=== PATIENT | female | born 1960 | race Caucasian/White ===

== ENCOUNTER → 2016-11-21 | Outpatient (CLI) | payer MEDICAID | LOC: RAD 11:30 | PROVIDERS: ATTEND Family Medicine | DX: K57.32 Diverticulitis of large intestine without perforation or abscess without bleeding (principal) | CPT/HCPCS: 74177; 82565 ==

== ENCOUNTER → 2016-12-17 | Outpatient (CLI) | payer MEDICAID | LOC: SP 17:46 | PROVIDERS: ATTEND Family Medicine | DX: I82.4Z2 Acute embolism and thrombosis of unspecified deep veins of left distal lower extremity (principal) | CPT/HCPCS: 93971 ==

== ENCOUNTER 2017-01-13 07:44 | Day surgery (SDC) | payer MEDICAID ==
[2017-01-13] MEDS ORDERED: NALOXONE HCL INJ/PF 0.4 MG/1 ML SDV ONE (08:05)
[2017-01-13] MEDS ORDERED: ONDANSETRON HCL INJ/PF 4 MG/2 ML SDV ONE (08:05)
[2017-01-13] MEDS ORDERED: PROMETHAZINE HCL INJ 25 MG/1 ML VIAL ONE (08:05)
[2017-01-13] MEDS ORDERED: GLYCOPYRROLATE INJ 0.4 MG/2 ML VIAL ONE (08:05)
[2017-01-13] MEDS ORDERED: MIDAZOLAM 2 MG/2 ML INJ ONE (08:06)
[2017-01-13] MEDS ORDERED: FLUMAZENIL INJ 0.5 MG/5 ML VIAL IV ONE (08:07)
[2017-01-13] MEDS ORDERED: GLUCAGON,HUMAN RECOMB 1 MG INJ ONE (08:07)
[2017-01-13] MEDS ORDERED: EPINEPHRINE INJ 1 MG/10 ML DISP.SYRIN ONE (08:07)
[2017-01-13 08:36] LABS: HEMATOCRIT 38.9 % (36.0-47.0); HEMOGLOBIN 12.8 g/dL (12.0-15.5); HGB HCT DIFFERENCE -0.5; MEAN CORPUSCULAR HEMOGLOBIN 28.3 pg (27.0-33.4); MEAN CORPUSCULAR HGB CONC 32.9 g/dL (32.0-36.0); MEAN CORPUSCULAR VOLUME 86 fl (80-97); RED BLOOD COUNT 4.52 10^6/uL (3.72-5.28); RED CELL DISTRIBUTION WIDTH 14.2 % (11.5-14.0); WHITE BLOOD COUNT 5.1 10^3/uL (4.0-10.5)
[2017-01-13 08:51] LABS: ANION GAP 11 (5-19); BLOOD UREA NITROGEN 17 mg/dL (7-20); CALCIUM 9.2 mg/dL (8.4-10.2); CARBON DIOXIDE 23 mmol/L (22-30); CHLORIDE 107 mmol/L (98-107); CREATININE RESULT 0.57 mg/dL (0.52-1.25); GLUCOSE 111 mg/dL (75-110); POTASSIUM 3.7 mmol/L (3.6-5.0); SODIUM 141.4 mmol/L (137-145)
[2017-01-13] MEDS: MIDAZOLAM 2 MG/2 ML INJ ONE ×4 (09:24→09:29)
[2017-01-13] MEDS: FENTANYL CITRATE INJ/PF 100 MCG/2 ML AMPUL ONE ×4 (09:26→09:31)
--- NOTE | 2017-01-13 09:47 | Operative Report ---
Operative Report DATE OF SURGERY: 01/13/17 PREOPERATIVE DIAGNOSIS: History of colon resection for diverticulitis. POSTOPERATIVE DIAGNOSIS: Inadequate bowel prep. OPERATION: Attempted colonoscopy. Aborted procedure due to poor bowel prep. SURGEON: JANIS CONNOLLY ANESTHESIA: Moderate Sedation TISSUE REMOVED OR ALTERED: None COMPLICATIONS: None ESTIMATED BLOOD LOSS: none INTRAOPERATIVE FINDINGS: Extremely poor bowel prep with semi-liquid stool precluding adequate visualization. PROCEDURE: Informed consent was obtained. Patient was brought to the endoscopy suite IV sedation with Versed and fentanyl was administered digital rectal exam revealed no palpable perianal masses. Endoscope was passed into the patient's rectum where copious amount of the semi-liquid the stool was encountered the scope was passed into the sigmoid colon but again copious amount of the brown semi-liquid stool was encountered. With the the inadequate bowel prep the procedure was aborted since adequate visualization was not possible. Patient tolerated procedure well with no apparent complications. We will reschedule her and do a 2 day bowel prep.
--- NOTE | 2017-01-13 09:55 | PDOC DISCHARGE SUMMARY ---
Discharge Summary (SDC) - Discharge Final Diagnosis: Inadequate bowel prep Date of Surgery: 01/13/17 Discharge Date: 01/13/17 Condition: Good Treatment or Instructions: Attempted colonoscopy. Aborted procedure due to poor bowel prep. Prescriptions: Peg 3350/Na Sulf,Bicarb,Cl/KCl [Golytely Solution 4000 ml] 4,000 ml PO DAILY #2 bottle Discharge Diet: As Tolerated Discharge Activity: Activity As Tolerated
--- NOTE | 2017-01-13 09:56 | PDOC DISCHARGE SUMMARY ---
Discharge Summary (SDC) - Discharge Final Diagnosis: Inadequate bowel prep Date of Surgery: 01/13/17 Discharge Date: 01/13/17 Condition: Good Treatment or Instructions: Attempted colonoscopy. Aborted procedure due to poor bowel prep. Prescriptions: Peg 3350/Na Sulf,Bicarb,Cl/KCl [Golytely Solution 4000 ml] 4,000 ml PO DAILY #2 bottle Referrals: HARLEY ANDRADE MD [Primary Care Provider] - Discharge Diet: As Tolerated Discharge Activity: Activity As Tolerated
[2017-01-13 10:55] VITALS: BP 115/85
== END 2017-01-13 10:55 | disposition home or self-care (01) ==
LOC: END 07:44
PROVIDERS: ATTEND Surgery
DX: Z87.19 Personal history of other diseases of the digestive system (principal); Z09 Encounter for follow-up examination after completed treatment for conditions other than malignant neoplasm; Z53.8 Procedure and treatment not carried out for other reasons; Z90.49 Acquired absence of other specified parts of digestive tract; Z80.0 Family history of malignant neoplasm of digestive organs; J45.909 Unspecified asthma, uncomplicated; I10 Essential (primary) hypertension; Z86.73 Personal history of transient ischemic attack (TIA), and cerebral infarction without residual deficits; D50.9 Iron deficiency anemia, unspecified; R00.2 Palpitations; K21.9 Gastro-esophageal reflux disease without esophagitis; J44.9 Chronic obstructive pulmonary disease, unspecified; F32.9 Major depressive disorder, single episode, unspecified; E78.5 Hyperlipidemia, unspecified; M19.90 Unspecified osteoarthritis, unspecified site; Z96.659 Presence of unspecified artificial knee joint; Z85.828 Personal history of other malignant neoplasm of skin; Z79.51 Long term (current) use of inhaled steroids; Z79.899 Other long term (current) drug therapy; Z79.82 Long term (current) use of aspirin; Z88.6 Allergy status to analgesic agent; Z88.8 Allergy status to other drugs, medicaments and biological substances; Z88.5 Allergy status to narcotic agent
CPT/HCPCS: 36415; 85027; 80048; J2250; J3010; J0171; J1610; J2310; J2405; J2550; J3490

== ENCOUNTER 2017-01-25 18:37 | Emergency (ER) | payer MEDICAID ==
--- NOTE | 2017-01-25 18:43 | ER Document Report ---
ED Medical Screen (RME) - General Stated Complaint: ARM PAIN Notes: right shoulder pain for 5 days, denies any recent trauma injury, h/o OA taking 800mg motrin at home with minimal relief I have greeted and performed a rapid initial assessment of this patient. A comprehensive ED assessment and evaluation of the patient, analysis of test results and completion of the medical decision making process will be conducted by additional ED providers. TRAVEL OUTSIDE OF THE [place] IN LAST 30 DAYS: No - Related Data Allergies/Adverse Reactions: atorvastatin Allergy (Severe, Verified 01/25/17 18:41) myalgia niacin Allergy (Severe, Verified 01/25/17 18:41) Anaphylaxis adhesive tape Allergy (Intermediate, Verified 01/25/17 18:41) REDNESS, BLISTERS meloxicam Allergy (Intermediate, Verified 01/25/17 18:41) wheezing, palpitations sulfamethoxazole [From Septra] Allergy (Mild, Verified 01/25/17 18:41) rash tramadol Allergy (Mild, Verified 01/25/17 18:41) wheezing trimethoprim [From Septra] Allergy (Mild, Verified 01/25/17 18:41) rash simvastatin Allergy (Unknown, Verified 01/25/17 18:41) Sulfa (Sulfonamide Antibiotics) Allergy (Unknown, Verified 01/25/17 18:41) rash zolpidem tartrate [From Ambien] Adverse Reaction (Severe, Verified 01/25/17 18: 41) sleepwalking dipyridamole [From Aggrenox] Adverse Reaction (Intermediate, Verified 01/25/17 18:41) HEADACHES methylprednisolone [From Medrol] Adverse Reaction (Intermediate, Verified 18:41) N/V/hyperactive topiramate Adverse Reaction (Intermediate, Verified 01/25/17 18:41) kidney stones aspirin Adverse Reaction (Mild, Verified 01/25/17 18:41) GI upset guaifenesin Adverse Reaction (Mild, Verified 01/25/17 18:41) GI upset rosuvastatin Adverse Reaction (Mild, Verified 01/25/17 18:41) muscle pain pseudoephedrine Adverse Reaction (Unknown, Verified 01/25/17 18:41) GI upset Past Medical History - Past Medical History Cardiac Medical History: Reports: Hx Hypercholesterolemia, Hx Hypertension - meds 3 yrs minimum, Hx Pulmonary Embolism - 6 yrs ago Denies: Hx Coronary Artery Disease, Hx Heart Attack Pulmonary Medical History: Reports: Hx Asthma - last attack long time ago, Hx Bronchitis, Hx COPD, Hx Pneumonia Neurological Medical History: Denies: Hx Cerebrovascular Accident, Hx Seizures Renal/ Medical History: Reports: Hx Kidney Stones - passed Malignancy Medical History: GI Medical History: Reports: Hx Diverticulitis, Hx Gastroesophageal Reflux Disease Musculoskeltal Medical History: Reports Hx Arthritis Psychiatric Medical History: Reports: Hx Anxiety, Hx Depression Traumatic Medical History: Reports: Hx Fractures - nose as child Past Surgical History: Reports: Hx Abdominal Surgery - UMBILICAL HERNIA, Hx Appendectomy, Hx Bowel Surgery - resection R/T diverticulitis, Hx Kidney (Renal Surgery) - LITHOTRIPSY, Hx Orthopedic Surgery - right knee replacement, Hx Tonsillectomy, Hx Umbilical Hernia. Denies: Hx Hysterectomy - Immunizations Immunizations up to date: Yes Hx Diphtheria, Pertussis, Tetanus Vaccination: Yes
[2017-01-25 19:05] VITALS: BP 145/92
[2017-01-25] MEDS ORDERED: ACETAMINOPHEN 325 MG TABLET PO ONE (20:15)
[2017-01-25] MEDS ORDERED: IBUPROFEN 600 MG TABLET PO ONE (20:15)
--- NOTE | 2017-01-25 20:18 | ER Document Report ---
HPI - HPI Patient complains to provider of: right arm apin Onset: Other - 4 days Onset/Duration: Gradual Quality of pain: Achy Pain Level: 3 Context: 56 yo female with right upper arm pain with movement for 4 days. no injury. doesn't work. no neck pain or injury. no weakness. no chest pain or sob. Associated Symptoms: None Exacerbated by: Movement Relieved by: Denies Similar symptoms previously: No Recently seen / treated by doctor: No - ROS ROS below otherwise negative: Yes Systems Reviewed and Negative: Yes All other systems reviewed and negative - CONSTITUTIONAL Constitutional: DENIES: Fever, Chills - EENT EENT: DENIES: Sore Throat, Ear Pain, Nasal Drainage-Clear, Nasal Drainage- Purulent, Congestion, Eye problems - NEURO Neurology: DENIES: Headache, Weakness, Vision blurred, Dizzinesss / Vertigo - CARDIOVASCULAR Cardiovascular: DENIES: Chest pain - RESPIRATORY Respiratory: DENIES: Trouble Breathing, Coughing - GASTROINTESTINAL Gastrointestinal: DENIES: Abdominal Pain, Nausea, Patient vomiting, Diarrhea, Constipation, Black / Bloody Stools - URINARY Urinary: DENIES: Dysuria, Urgency, Frequency - REPRODUCTIVE Reproductive: DENIES: : - MUSCULOSKELETAL Musculoskeletal: REPORTS: Extremity pain. DENIES: Back Pain, Neck Pain, Swelling - DERM Skin Color: Normal Skin Problems: Stage I Past Medical History - General Information source: Patient - Social History Smoking Status: Unknown if Ever Smoked Chew tobacco use (# tins/day): No Frequency of alcohol use: None Drug Abuse: None Lives with: Family Family History: Reviewed & Not Pertinent, Arthritis, CAD, Hypertension, Malignancy, Other Patient has suicidal ideation: No Patient has homicidal ideation: No - Past Medical History Cardiac Medical History: Reports: Hx Hypercholesterolemia, Hx Hypertension - meds 3 yrs minimum, Hx Pulmonary Embolism - 6 yrs ago Pulmonary Medical History: Reports: Hx Asthma - last attack long time ago, Hx Bronchitis, Hx COPD, Hx Pneumonia Renal/ Medical History: Reports: Hx Kidney Stones - passed Malignancy Medical History: GI Medical History: Reports: Hx Diverticulitis, Hx Gastroesophageal Reflux Disease Musculoskeltal Medical History: Reports Hx Arthritis Psychiatric Medical History: Reports: Hx Anxiety, Hx Depression Traumatic Medical History: Reports: Hx Fractures - nose as child Past Surgical History: Reports: Hx Abdominal Surgery - UMBILICAL HERNIA, Hx Appendectomy, Hx Bowel Surgery - resection R/T diverticulitis, Hx Kidney (Renal Surgery) - LITHOTRIPSY, Hx Orthopedic Surgery - right knee replacement, Hx Tonsillectomy, Hx Umbilical Hernia. Denies: Hx Hysterectomy - Immunizations Immunizations up to date: Yes Hx Diphtheria, Pertussis, Tetanus Vaccination: Yes Hx Pneumococcal Vaccination: 11/17/05 Vertical Provider Document - CONSTITUTIONAL Agree With Documented VS: Yes Exam Limitations: No Limitations General Appearance: No Apparent Distress - INFECTION CONTROL TRAVEL OUTSIDE OF THE [place] IN LAST 30 DAYS: No - HEENT HEENT: Normal ENT Exam - NECK Neck: Supple - non tender back and neck - RESPIRATORY Respiratory: Breath Sounds Normal, No Respiratory Distress O2 Sat by Pulse Oximetry: 98 - CARDIOVASCULAR Cardiovascular: Regular Rate, Regular Rhythm - MUSCULOSKELETAL/EXTREMETIES Musculoskeletal/Extremeties: MAEW, FROM, Tender - rigjt deltoid muscle - NEURO Level of Consciousness: Awake, Alert Motor/Sensory: No Motor Deficit, No Sensory Deficit - DERM Integumentary: Warm, Dry, No Rash Course - Vital Signs Vital signs: Temp Pulse Resp BP Pulse Ox 97.6 F 99 20 145/92 H 98 01/25/17 18:43 01/25/17 18:43 01/25/17 18:43 01/25/17 18:43 01/25/17 18:43 Discharge - Discharge Clinical Impression: Right arm pain Condition: Good Disposition: HOME, SELF-CARE Instructions: Warm Packs ([facility]), Acetaminophen, Anti-Inflammatory Medication ( [facility]), Myalagia (Muscle Pain) ([facility]) Additional Instructions: warm \compress to er if worse see dr cruz in the morning Please complete the patient satisfaction survey if you get one, and return it.. If you do not receive a survey, then you can go to the [facility] website, [email or web address] and place your comments about your very good care. Thank you very much. It was a pleasure being your medical provider today. Prescriptions: Ibuprofen [Motrin 600 mg Tablet] 600 mg PO Q8HP PRN #30 tablet PRN Reason: Referrals: HARLEY CRUZ MD [ACTIVE STAFF] - Follow up tomorrow
== END 2017-01-25 22:00 | disposition home or self-care (01) ==
LOC: ER 18:37
DX: M79.601 Pain in right arm (principal); E78.00 Pure hypercholesterolemia, unspecified; I10 Essential (primary) hypertension; J44.9 Chronic obstructive pulmonary disease, unspecified; K21.9 Gastro-esophageal reflux disease without esophagitis; Z96.651 Presence of right artificial knee joint; Z87.442 Personal history of urinary calculi; Z86.711 Personal history of pulmonary embolism
CPT/HCPCS: 99283; J3490 ×2

== ENCOUNTER → 2017-01-26 | Outpatient (CLI) | payer MEDICAID ==
[2017-01-26 08:23] LABS: ABSOLUTE BASOPHILS # (AUTO) 0.1 10^3/uL (0.0-0.2); ABSOLUTE EOSINOPHILS # (AUTO) 0.3 10^3/uL (0.0-0.6); ABSOLUTE LYMPHOCYTES (AUTO) 1.7 10^3/uL (0.5-4.7); ABSOLUTE MONOCYTES (AUTO) 0.6 10^3/uL (0.1-1.4); ABSOLUTE NEUT (AUTO) 3.7 10^3/uL (1.7-8.2); BASOPHILS % (AUTO) 1.2 % (0-2); HEMOGLOBIN 13.7 g/dL (12.0-15.5); HGB HCT DIFFERENCE 0.1; LYMPHOCYTES % (AUTO) 27.2 % (13-45); MEAN CORPUSCULAR HEMOGLOBIN 28.4 pg (27.0-33.4); MEAN CORPUSCULAR HGB CONC 33.3 g/dL (32.0-36.0); MEAN CORPUSCULAR VOLUME 85 fl (80-97); MONOCYTES % (AUTO) 9.5 % (3-13); RED BLOOD COUNT 4.81 10^6/uL (3.72-5.28); SEGMENTED NEUTROPHILS % (AUTO) 58.1 % (42-78); WHITE BLOOD COUNT 6.3 10^3/uL (4.0-10.5)
[2017-01-26 08:46] LABS: ALANINE AMINOTRANSFERASE 37 U/L (9-52); ALKALINE PHOSPHATASE 106 U/L (38-126); ANION GAP 12 (5-19); ASPARTATE AMINO TRANSFERASE 22 U/L (14-36); BILIRUBIN,TOTAL 0.4 mg/dL (0.2-1.3); BLOOD UREA NITROGEN 18 mg/dL (7-20); CARBON DIOXIDE 23 mmol/L (22-30); CHLORIDE 108 mmol/L (98-107); CHOLESTEROL 179.69 mg/dL (0-200); CREATININE RESULT 0.63 mg/dL (0.52-1.25); Direct HDL 43 mg/dL (>40); GLUCOSE 108 mg/dL (75-110); POTASSIUM 4.1 mmol/L (3.6-5.0); SODIUM 142.9 mmol/L (137-145); TOTAL PROTEIN 6.9 g/dL (6.3-8.2); TRIGLYCERIDES 265 mg/dL (<150)
[2017-01-26 08:56] LABS: DIRECT LDL 112 mg/dL (<100)
[2017-01-26 09:19] LABS: FERRITIN 8.05 ng/mL (11.1-264.0)
== END ==
LOC: LAB 08:07
PROVIDERS: ATTEND Family Medicine
DX: E78.2 Mixed hyperlipidemia (principal); Z79.899 Other long term (current) drug therapy; D50.8 Other iron deficiency anemias
CPT/HCPCS: 36415; 80048; 80061; 80076; 82728; 83540; 83550; 84443; 85025

== ENCOUNTER 2017-01-28 17:36 | Emergency (ER) | payer MEDICAID ==
--- NOTE | 2017-01-28 17:45 | ER Document Report ---
ED Medical Screen (RME) - General Stated Complaint: HIGH BLOOD PRESSURE Notes: 56 yo female c/o blood pressure problems. BP going "up and down". + headache, mild dizziness. no chest pain or shortness of breath + hx/o HTN. Taking meds as prescribed PCM Dr Rodriguez TRAVEL OUTSIDE OF THE [place] IN LAST 30 DAYS: No - Related Data Allergies/Adverse Reactions: atorvastatin Allergy (Severe, Verified 01/25/17 19:06) myalgia niacin Allergy (Severe, Verified 01/25/17 19:06) Anaphylaxis adhesive tape Allergy (Intermediate, Verified 01/25/17 19:06) REDNESS, BLISTERS meloxicam Allergy (Intermediate, Verified 01/25/17 19:06) wheezing, palpitations sulfamethoxazole [From Septra] Allergy (Mild, Verified 01/25/17 19:06) rash tramadol Allergy (Mild, Verified 01/25/17 19:06) wheezing trimethoprim [From Septra] Allergy (Mild, Verified 01/25/17 19:06) rash simvastatin Allergy (Unknown, Verified 01/25/17 19:06) Sulfa (Sulfonamide Antibiotics) Allergy (Unknown, Verified 01/25/17 19:06) rash zolpidem tartrate [From Ambien] Adverse Reaction (Severe, Verified 01/25/17 19: 06) sleepwalking dipyridamole [From Aggrenox] Adverse Reaction (Intermediate, Verified 01/25/17 19:06) HEADACHES methylprednisolone [From Medrol] Adverse Reaction (Intermediate, Verified 19:06) N/V/hyperactive topiramate Adverse Reaction (Intermediate, Verified 01/25/17 19:06) kidney stones aspirin Adverse Reaction (Mild, Verified 01/25/17 19:06) GI upset guaifenesin Adverse Reaction (Mild, Verified 01/25/17 19:06) GI upset rosuvastatin Adverse Reaction (Mild, Verified 01/25/17 19:06) muscle pain pseudoephedrine Adverse Reaction (Unknown, Verified 01/25/17 19:06) GI upset Past Medical History - Past Medical History Cardiac Medical History: Reports: Hx Hypercholesterolemia, Hx Hypertension - meds 3 yrs minimum, Hx Pulmonary Embolism - 6 yrs ago Denies: Hx Coronary Artery Disease, Hx Heart Attack Pulmonary Medical History: Reports: Hx Asthma - last attack long time ago, Hx Bronchitis, Hx COPD, Hx Pneumonia Neurological Medical History: Denies: Hx Cerebrovascular Accident, Hx Seizures Renal/ Medical History: Reports: Hx Kidney Stones - passed Malignancy Medical History: GI Medical History: Reports: Hx Diverticulitis, Hx Gastroesophageal Reflux Disease Musculoskeltal Medical History: Reports Hx Arthritis Psychiatric Medical History: Reports: Hx Anxiety, Hx Depression Traumatic Medical History: Reports: Hx Fractures - nose as child Past Surgical History: Reports: Hx Abdominal Surgery - UMBILICAL HERNIA, Hx Appendectomy, Hx Bowel Surgery - resection R/T diverticulitis, Hx Kidney (Renal Surgery) - LITHOTRIPSY, Hx Orthopedic Surgery - right knee replacement, Hx Tonsillectomy, Hx Umbilical Hernia. Denies: Hx Hysterectomy - Immunizations Immunizations up to date: Yes Hx Diphtheria, Pertussis, Tetanus Vaccination: Yes
[2017-01-28 18:19] LABS: ABSOLUTE BASOPHILS # (AUTO) 0.1 10^3/uL (0.0-0.2); ABSOLUTE EOSINOPHILS # (AUTO) 0.2 10^3/uL (0.0-0.6); ABSOLUTE LYMPHOCYTES (AUTO) 2.1 10^3/uL (0.5-4.7); ABSOLUTE MONOCYTES (AUTO) 0.6 10^3/uL (0.1-1.4); ABSOLUTE NEUT (AUTO) 4.8 10^3/uL (1.7-8.2); BASOPHILS % (AUTO) 1.2 % (0-2); EOSINOPHILS % (AUTO) 2.7 % (0-6); HEMATOCRIT 40.2 % (36.0-47.0); HEMOGLOBIN 13.7 g/dL (12.0-15.5); HGB HCT DIFFERENCE 0.9; LYMPHOCYTES % (AUTO) 27.2 % (13-45); MEAN CORPUSCULAR HEMOGLOBIN 29.1 pg (27.0-33.4); MEAN CORPUSCULAR HGB CONC 34.1 g/dL (32.0-36.0); MEAN CORPUSCULAR VOLUME 85 fl (80-97); MONOCYTES % (AUTO) 7.8 % (3-13); RED BLOOD COUNT 4.71 10^6/uL (3.72-5.28); RED CELL DISTRIBUTION WIDTH 14.2 % (11.5-14.0); SEGMENTED NEUTROPHILS % (AUTO) 61.1 % (42-78); WHITE BLOOD COUNT 7.9 10^3/uL (4.0-10.5)
[2017-01-28 18:21] LABS: APPEARANCE,URINE CLEAR; BILIRUBIN,URINE NEGATIVE (NEGATIVE); GLUCOSE, URINE NEGATIVE (NEGATIVE); KETONES,URINE NEGATIVE (NEGATIVE); LEUKOCYTE ESTERASE,URINE NEGATIVE (NEGATIVE); NITRITE,URINE NEGATIVE (NEGATIVE); PROTEIN,URINE NEGATIVE (NEGATIVE); URINE SPECIFIC GRAVITY 1.011; UROBILINOGEN,URINE NEGATIVE mg/dL (<2.0)
[2017-01-28 18:34] LABS: ALANINE AMINOTRANSFERASE 40 U/L (9-52); ALBUMIN 4.2 g/dL (3.5-5.0); ALKALINE PHOSPHATASE 109 U/L (38-126); ANION GAP 15 (5-19); ASPARTATE AMINO TRANSFERASE 18 U/L (14-36); BILIRUBIN,DIRECT 0.1 mg/dL (0.0-0.4); BILIRUBIN,TOTAL 0.3 mg/dL (0.2-1.3); BLOOD UREA NITROGEN 17 mg/dL (7-20); CALCIUM 10.1 mg/dL (8.4-10.2); CARBON DIOXIDE 23 mmol/L (22-30); CHLORIDE 107 mmol/L (98-107); CREATININE RESULT 0.59 mg/dL (0.52-1.25); GLUCOSE 105 mg/dL (75-110); POTASSIUM 3.6 mmol/L (3.6-5.0); SODIUM 144.8 mmol/L (137-145); TOTAL PROTEIN 6.9 g/dL (6.3-8.2)
--- NOTE | 2017-01-28 20:24 | ER Document Report ---
HPI - HPI Patient complains to provider of: blood pressure fluctuating, headache Onset: Other - 4 days Onset/Duration: Gradual, Waxing and waning Pain Level: 4 Context: 56-year-old female complaining of frontal headache for 4 days with fluctuating blood pressure up and down. She has a history of "mini strokes" but her CT scan from October 2016 was negative. Her in triage was 149/103 and she is expecting her daughter to come and bring her medicines from home to verify what she takes and does not take. No chest pain or shortness of breath. No nausea vomiting or diarrhea. No dizziness or blurred vision. She will be able to see Dr. Cruz tomorrow Associated Symptoms: None Exacerbated by: Denies Relieved by: Denies Similar symptoms previously: Yes Recently seen / treated by doctor: Yes - ER for right arm pain on 01-25-17 - ROS ROS below otherwise negative: Yes Systems Reviewed and Negative: Yes All other systems reviewed and negative - REPRODUCTIVE LMP: yolanda Reproductive: DENIES: : - DERM Skin Color: Normal Past Medical History - General Information source: Patient - Social History Smoking Status: Never Smoker Frequency of alcohol use: None Drug Abuse: None Lives with: Alone Family History: Reviewed & Not Pertinent, Arthritis, CAD, Hypertension, Malignancy, Other Patient has suicidal ideation: No Patient has homicidal ideation: No - Past Medical History Cardiac Medical History: Reports: Hx Hypercholesterolemia, Hx Hypertension - meds 3 yrs minimum, Hx Pulmonary Embolism - 6 yrs ago Pulmonary Medical History: Reports: Hx Asthma - last attack long time ago, Hx Bronchitis, Hx COPD, Hx Pneumonia Renal/ Medical History: Reports: Hx Kidney Stones - passed Malignancy Medical History: GI Medical History: Reports: Hx Diverticulitis, Hx Gastroesophageal Reflux Disease Musculoskeltal Medical History: Reports Hx Arthritis Psychiatric Medical History: Reports: Hx Anxiety, Hx Depression Traumatic Medical History: Reports: Hx Fractures - nose as child Past Surgical History: Reports: Hx Abdominal Surgery - UMBILICAL HERNIA, Hx Appendectomy, Hx Bowel Surgery - resection R/T diverticulitis, Hx Kidney (Renal Surgery) - LITHOTRIPSY, Hx Orthopedic Surgery - right knee replacement, Hx Tonsillectomy, Hx Umbilical Hernia. Denies: Hx Hysterectomy - Immunizations Immunizations up to date: Yes Hx Diphtheria, Pertussis, Tetanus Vaccination: Yes Hx Pneumococcal Vaccination: 11/17/05 Vertical Provider Document - CONSTITUTIONAL Agree With Documented VS: Yes Exam Limitations: No Limitations - INFECTION CONTROL TRAVEL OUTSIDE OF THE [place] IN LAST 30 DAYS: No - HEENT HEENT: Atraumatic, Normocephalic, PERRLA. negative: Conjuctival Injection, Pharyngeal Erythema Notes: gait stable - NECK Neck: Supple, Thyroid Normal. negative: Lymphadenopathy-Left, Lymphadenopathy- Right - RESPIRATORY Respiratory: Breath Sounds Normal, No Respiratory Distress O2 Sat by Pulse Oximetry: 96 - CARDIOVASCULAR Cardiovascular: Regular Rate, Regular Rhythm - GI/ABDOMEN Gastrointestinal: Abdomen Soft, Abdomen Non-Tender, No Organomegaly - MUSCULOSKELETAL/EXTREMETIES Musculoskeletal/Extremeties: TAHIRA ABEBE - NEURO Level of Consciousness: Awake, Alert, Appropriate Motor/Sensory: No Motor Deficit, No Sensory Deficit - DERM Integumentary: Warm, Dry Course - Re-evaluation Re-evalutation: 01/28/17 20:[address] October 2016. 01/28/17 21:00 She has not taken her nighttime dose of high blood pressure medicine that she usually takes at 8 8:30 PM. Her blood pressure is 178/112 manually. I've ordered clonidine 0.1 mg 01/28/17 21:46 bp 141/101 at this time, daughter is here. RICHARD 3/5. the only antihypertensive she takes is diltiazem 120SR which she took this morning. 01/28/17 21:48 01/28/17 22:25 CT the head is negative - Vital Signs Vital signs: Temp Pulse Resp BP Pulse Ox 98.3 F 106 H 16 149/103 H 96 01/28/17 17:41 01/28/17 17:41 01/28/17 17:41 01/28/17 17:41 01/28/17 17:41 - Laboratory Result Diagrams: 01/28/17 17:55 01/28/17 17:55 Laboratory results interpreted by me: 01/28/17 01/28/17 17:55 17:55 RDW 14.2 H Urine Blood LARGE H Discharge - Discharge Clinical Impression: Microscopic hematuria Headache Qualifiers: Headache type: unspecified Headache chronicity pattern: acute headache Intractability: not intractable Qualified Code(s): R51 - Headache Hypertension Qualifiers: Hypertension type: other secondary hypertension Qualified Code(s): I15.8 - Other secondary hypertension Condition: Good Instructions: High Blood Pressure ([facility]), Clonidine (Catapres) ([facility]), Hematuria ([facility]), Headache ([facility]) Additional Instructions: see dr cruz in the morning, may need more blood pressure medication to er if worse plenty of water dialy see urologist about the blood in your urine Please complete the patient satisfaction survey if you get one, and return it.. If you do not receive a survey, then you can go to the [facility] website, [email or web address] and place your comments about your very good care. Thank you very much. It was a pleasure being your medical provider today. Referrals: NATALIE GRIJALVA MD [[facility]] - Follow up as needed [facility] [Provider Group] - Follow up as needed
[2017-01-28] MEDS ORDERED: ACETAMINOPHEN 325 MG TABLET PO ONE (20:32)
[2017-01-28] MEDS ORDERED: IBUPROFEN 800 MG TABLET PO ONE (20:32)
[2017-01-28 20:53] LABS: PARTIAL THROMBOPLASTIN TIME 30.2 SEC (23.5-35.8); PROTHROMBIN TIME 12.1 SEC (11.4-15.4)
[2017-01-28] MEDS ORDERED: CLONIDINE HCL 0.1 MG TABLET PO ONE ×2 (21:00→21:44)
[2017-01-28 22:16] VITALS: BP 115/89
== END 2017-01-28 22:34 | disposition home or self-care (01) ==
LOC: ER 17:36
DX: R51 Headache (principal); I10 Essential (primary) hypertension; E78.00 Pure hypercholesterolemia, unspecified; Z96.651 Presence of right artificial knee joint; Z86.73 Personal history of transient ischemic attack (TIA), and cerebral infarction without residual deficits; Z86.711 Personal history of pulmonary embolism; Z87.442 Personal history of urinary calculi
CPT/HCPCS: 99284; 36415; 85025; 85610; 85730; 80053; 81001; 70450; J3490 ×3

== ENCOUNTER → 2017-02-02 | Outpatient (CLI) | payer MEDICAID | LOC: RAD 14:11 | PROVIDERS: ATTEND Family Medicine | DX: N20.0 Calculus of kidney (principal) | CPT/HCPCS: 74178 ==

== ENCOUNTER 2017-02-05 21:04 | Emergency (ER) | payer MEDICAID ==
[2017-02-05] MEDS ORDERED: ACETAMINOPHEN 325 MG TABLET PO ONE (21:47)
--- NOTE | 2017-02-05 21:47 | ER Document Report ---
ED Medical Screen (RME) - General Stated Complaint: BLOOD PRESSURE ISSUE Time seen by provider: 21:45 Mode of Arrival: Ambulatory Information source: Patient Notes: 56-year-old female presents to ED for elevated blood pressure. She has a history of hypertension and is on blood pressure medicine that she takes once a day in the morning. She states she called Dr. Rodriguez who told her to call her back but she decided to come to the emergency room instead. Patient states she has a little bit of a headache denies blurred vision nausea or vomiting. I have greeted and performed a rapid initial assessment of this patient. A comprehensive ED assessment and evaluation of the patient, analysis of test results and completion of medical decision making process will be conducted by an additional ED providers. TRAVEL OUTSIDE OF THE [place] IN LAST 30 DAYS: No - Related Data Allergies/Adverse Reactions: atorvastatin Allergy (Severe, Verified 01/25/17 19:06) myalgia niacin Allergy (Severe, Verified 01/25/17 19:06) Anaphylaxis adhesive tape Allergy (Intermediate, Verified 01/25/17 19:06) REDNESS, BLISTERS meloxicam Allergy (Intermediate, Verified 01/25/17 19:06) wheezing, palpitations sulfamethoxazole [From Septra] Allergy (Mild, Verified 01/25/17 19:06) rash tramadol Allergy (Mild, Verified 01/25/17 19:06) wheezing trimethoprim [From Septra] Allergy (Mild, Verified 01/25/17 19:06) rash simvastatin Allergy (Unknown, Verified 01/25/17 19:06) Sulfa (Sulfonamide Antibiotics) Allergy (Unknown, Verified 01/25/17 19:06) rash zolpidem tartrate [From Ambien] Adverse Reaction (Severe, Verified 01/25/17 19: 06) sleepwalking dipyridamole [From Aggrenox] Adverse Reaction (Intermediate, Verified 01/25/17 19:06) HEADACHES methylprednisolone [From Medrol] Adverse Reaction (Intermediate, Verified 19:06) N/V/hyperactive topiramate Adverse Reaction (Intermediate, Verified 01/25/17 19:06) kidney stones aspirin Adverse Reaction (Mild, Verified 01/25/17 19:06) GI upset guaifenesin Adverse Reaction (Mild, Verified 01/25/17 19:06) GI upset rosuvastatin Adverse Reaction (Mild, Verified 0319/17 19:06) muscle pain pseudoephedrine Adverse Reaction (Unknown, Verified 01/25/17 19:06) GI upset Past Medical History - Past Medical History Cardiac Medical History: Reports: Hx Hypercholesterolemia, Hx Hypertension - meds 3 yrs minimum, Hx Pulmonary Embolism - 6 yrs ago Denies: Hx Coronary Artery Disease, Hx Heart Attack Pulmonary Medical History: Reports: Hx Asthma - last attack long time ago, Hx Bronchitis, Hx COPD, Hx Pneumonia Neurological Medical History: Denies: Hx Cerebrovascular Accident, Hx Seizures Renal/ Medical History: Reports: Hx Kidney Stones - passed Malignancy Medical History: GI Medical History: Reports: Hx Diverticulitis, Hx Gastroesophageal Reflux Disease Musculoskeltal Medical History: Reports Hx Arthritis Psychiatric Medical History: Reports: Hx Anxiety, Hx Depression Traumatic Medical History: Reports: Hx Fractures - nose as child Past Surgical History: Reports: Hx Abdominal Surgery - UMBILICAL HERNIA, Hx Appendectomy, Hx Bowel Surgery - resection R/T diverticulitis, Hx Kidney (Renal Surgery) - LITHOTRIPSY, Hx Orthopedic Surgery - right knee replacement, Hx Tonsillectomy, Hx Umbilical Hernia. Denies: Hx Hysterectomy - Immunizations Immunizations up to date: Yes Hx Diphtheria, Pertussis, Tetanus Vaccination: Yes
--- NOTE | 2017-02-06 01:11 | ER Document Report ---
ED General - General Chief Complaint: High Blood Pressure Stated Complaint: BLOOD PRESSURE ISSUE Mode of Arrival: Ambulatory Notes: Patient is a 56-year-old female with past medical history of hypertension who presents with concerns about elevated diastolic blood pressures at home. Patient states that she checks her blood pressure 3 times daily and was concerned that her diastolic number was consistently above 90 so she came to the emergency department. She denies any symptoms or additional concerns. She has not spoken to her primary care doctor regarding these concerns. She takes only diltiazem for blood pressure. Denies any chest pain, shortness of breath or headache. Nothing has been noted to improve or worsen her blood pressure. TRAVEL OUTSIDE OF THE [place] IN LAST 30 DAYS: No - Related Data Allergies/Adverse Reactions: atorvastatin Allergy (Severe, Verified 01/25/17 19:06) myalgia niacin Allergy (Severe, Verified 01/25/17 19:06) Anaphylaxis adhesive tape Allergy (Intermediate, Verified 01/25/17 19:06) REDNESS, BLISTERS meloxicam Allergy (Intermediate, Verified 01/25/17 19:06) wheezing, palpitations sulfamethoxazole [From Septra] Allergy (Mild, Verified 01/25/17 19:06) rash tramadol Allergy (Mild, Verified 01/25/17 19:06) wheezing trimethoprim [From Septra] Allergy (Mild, Verified 01/25/17 19:06) rash simvastatin Allergy (Unknown, Verified 01/25/17 19:06) Sulfa (Sulfonamide Antibiotics) Allergy (Unknown, Verified 01/25/17 19:06) rash zolpidem tartrate [From Ambien] Adverse Reaction (Severe, Verified 01/25/17 19: 06) sleepwalking dipyridamole [From Aggrenox] Adverse Reaction (Intermediate, Verified 01/25/17 19:06) HEADACHES methylprednisolone [From Medrol] Adverse Reaction (Intermediate, Verified 19:06) N/V/hyperactive topiramate Adverse Reaction (Intermediate, Verified 01/25/17 19:06) kidney stones aspirin Adverse Reaction (Mild, Verified 01/25/17 19:06) GI upset guaifenesin Adverse Reaction (Mild, Verified 01/25/17 19:06) GI upset rosuvastatin Adverse Reaction (Mild, Verified 01/25/17 19:06) muscle pain pseudoephedrine Adverse Reaction (Unknown, Verified 01/25/17 19:06) GI upset Past Medical History - General Information source: Patient - Social History Smoking Status: Never Smoker Chew tobacco use (# tins/day): No Frequency of alcohol use: None Drug Abuse: None Lives with: Alone Family History: Reviewed & Not Pertinent, Arthritis, CAD, Hypertension, Malignancy, Other Patient has suicidal ideation: No Patient has homicidal ideation: No - Past Medical History Cardiac Medical History: Reports: Hx Hypercholesterolemia, Hx Hypertension - meds 3 yrs minimum, Hx Pulmonary Embolism - 6 yrs ago Denies: Hx Coronary Artery Disease, Hx Heart Attack Pulmonary Medical History: Reports: Hx Asthma - last attack long time ago, Hx Bronchitis, Hx COPD, Hx Pneumonia Neurological Medical History: Denies: Hx Cerebrovascular Accident, Hx Seizures Renal/ Medical History: Reports: Hx Kidney Stones - passed Malignancy Medical History: GI Medical History: Reports: Hx Diverticulitis, Hx Gastroesophageal Reflux Disease Musculoskeltal Medical History: Reports Hx Arthritis Psychiatric Medical History: Reports: Hx Anxiety, Hx Depression Traumatic Medical History: Reports: Hx Fractures - nose as child Past Surgical History: Reports: Hx Abdominal Surgery - UMBILICAL HERNIA, Hx Appendectomy, Hx Bowel Surgery - resection R/T diverticulitis, Hx Kidney (Renal Surgery) - LITHOTRIPSY, Hx Orthopedic Surgery - right knee replacement, Hx Tonsillectomy, Hx Umbilical Hernia. Denies: Hx Hysterectomy - Immunizations Immunizations up to date: Yes Hx Diphtheria, Pertussis, Tetanus Vaccination: Yes Hx Pneumococcal Vaccination: 11/17/05 Review of Systems - Review of Systems Notes: Constitutional: Negative for fever. HENT: Negative for sore throat. Eyes: Negative for visual changes. Cardiovascular: Negative for chest pain. Respiratory: Negative for shortness of breath. Gastrointestinal: Negative for abdominal pain, vomiting or diarrhea. Genitourinary: Negative for dysuria. Musculoskeletal: Negative for back pain. Skin: Negative for rash. Neurological: Negative for headaches, weakness or numbness. 10 point ROS negative except as marked above and in HPI. Physical Exam - Vital signs Vitals: Temp Pulse Resp BP Pulse Ox 98.2 F 126 H 24 H 163/108 H 98 02/05/17 21:45 02/05/17 21:45 02/05/17 21:45 02/05/17 21:45 02/05/17 21:45 Interpretation: Hypertensive, Tachycardic Notes: PHYSICAL EXAMINATION: GENERAL: Well-appearing, well-nourished and in no acute distress. HEAD: Atraumatic, normocephalic. EYES: Pupils equal round and reactive to light, extraocular movements intact, sclera anicteric, conjunctiva are normal. ENT: nares patent, oropharynx clear without exudates. Moist mucous membranes. NECK: Normal range of motion, supple without lymphadenopathy LUNGS: Breath sounds clear to auscultation bilaterally and equal. No wheezes rales or rhonchi. HEART: Regular rate and rhythm without murmurs ABDOMEN: Soft, nontender, normoactive bowel sounds. No guarding, no rebound. No masses appreciated. EXTREMITIES: Normal range of motion, no pitting or edema. No cyanosis. NEUROLOGICAL: No focal neurological deficits. Moves all extremities spontaneously and on command. PSYCH: Normal mood, normal affect. SKIN: Warm, Dry, normal turgor, no rashes or lesions noted. Course - Re-evaluation Re-evalutation: 02/06/17 01:10 Presentation of asymptomatic hypertension. Patient denies any symptoms concerning for SAH, dissection, WI, or encephalopaty. Alert, oriented, and denies any symptoms at time of assessment. Normal neuro exam. Per [facility] policy guidelines, will therefore not obtain any labs at this time and will not initiate new BP treatment. I have discussed critical importance of follow up with PCP within 1 week and increased risk of devastating stroke, heart attack, respiratory distress, and other life threatening complications if blood pressure is not reduced appropriately. Diet and exercise habits also discussed. Patient will be discharged with return precautions and follow-up recommendations. - Vital Signs Vital signs: Temp Pulse Resp BP Pulse Ox 97.3 F 89 16 135/94 H 95 02/05/17 23:45 02/06/17 01:14 02/06/17 01:14 02/06/17 01:00 02/06/17 01:01 - EKG Interpretation by Me Additional EKG results interpreted by me: 02/06/17 03:13 Sinus tachycardia rate 114. No ST elevations or depressions. QTC is 474. Discharge - Discharge Clinical Impression: Essential hypertension Condition: Good Disposition: HOME, SELF-CARE Additional Instructions: You were seen today for blood pressure that was high. This is a long-term risk factor for multiple medical problems including heart attack and stroke. However, the blood pressure in of itself will not cause you to have an acute stroke or heart attack over the course of just several days or weeks. You need to have a gradual reduction of your blood pressure back to normal levels over the next several months in conjunction with your primary care physician. Return if you develop headache, weakness, numbness, chest pain, pass out, or have any other symptoms that are concerning to you. Referrals: HARLEY ANDRADE MD [Primary Care Provider] - Follow up in 3-5 days
[2017-02-06 01:14] VITALS: BP 135/94
--- NOTE | 2017-02-06 11:00 | EKG REPORT ---
SEVERITY:- OTHERWISE NORMAL ECG - SINUS TACHYCARDIA : Confirmed by: Jaylan Balderas 06-Feb-2017 10:59:18
== END 2017-02-06 01:20 | disposition home or self-care (01) ==
LOC: ER 21:04
DX: I10 Essential (primary) hypertension (principal); Z79.899 Other long term (current) drug therapy
CPT/HCPCS: 93005; 99283; 93010; J3490

== ENCOUNTER → 2017-02-05 | Outpatient (CLI) | payer MEDICAID ==
[2017-02-09 13:38] LABS: EPINEPHRINE 56 pg/mL (0-62); NOREPINEPHRINE 550 pg/mL (0-874)
[2017-02-10 07:17] LABS: DOPAMINE 30 pg/mL (0-48)
[2017-02-11 10:35] LABS: 5-HIAA URINE 24HR 1.4 mg/24 hr (0.0-14.9)
== END ==
LOC: LAB 12:57
PROVIDERS: ATTEND Family Medicine
DX: I10 Essential (primary) hypertension (principal)
CPT/HCPCS: 36415; 82383; 83497

== ENCOUNTER → 2017-02-06 | Outpatient (CLI) | payer MEDICAID | LOC: RAD 08:10 | PROVIDERS: ATTEND Family Medicine | DX: G44.52 New daily persistent headache (NDPH) (principal); Z86.73 Personal history of transient ischemic attack (TIA), and cerebral infarction without residual deficits | CPT/HCPCS: 70547; 70551 ==

== ENCOUNTER 2017-02-09 13:57 | Emergency (ER) | payer MEDICAID ==
[2017-02-09] MEDS ORDERED: NORMAL SALINE 1000 ML 1,000 ML IV ONE (14:29)
--- NOTE | 2017-02-09 14:35 | ER Document Report ---
ED General - General Stated Complaint: WEAKNESS Mode of Arrival: Medic Information source: Patient, H Records Notes: This is a 56-year-old female with a history of hypertension who presents to the ER via EMS for evaluation of generalized weakness. She states that she felt fine yesterday but upon awakening this morning at about 4 AM she states that she felt weak all over. Also she is concerned that her blood pressure has been fluctuating up and down for the past few days. She felt so weak all over that she was concerned and decided to call EMS. Of note she denies any headache, vision changes, weakness or paresthesias. She also denies chest pain shortness of breath. She has had mild nausea but has tolerated food without difficulty today and has had no vomiting. No dysuria and no abdominal pain. Her primary care physician is and she states she was recently changed from Diltiazem to Losartan for her blood pressure management (last week). TRAVEL OUTSIDE OF THE [place] IN LAST 30 DAYS: No - Related Data Allergies/Adverse Reactions: atorvastatin Allergy (Severe, Verified 01/25/17 19:06) myalgia niacin Allergy (Severe, Verified 01/25/17 19:06) Anaphylaxis adhesive tape Allergy (Intermediate, Verified 01/25/17 19:06) REDNESS, BLISTERS meloxicam Allergy (Intermediate, Verified 01/25/17 19:06) wheezing, palpitations sulfamethoxazole [From Septra] Allergy (Mild, Verified 01/25/17 19:06) rash tramadol Allergy (Mild, Verified 01/25/17 19:06) wheezing trimethoprim [From Septra] Allergy (Mild, Verified 01/25/17 19:06) rash simvastatin Allergy (Unknown, Verified 01/25/17 19:06) Sulfa (Sulfonamide Antibiotics) Allergy (Unknown, Verified 01/25/17 19:06) rash zolpidem tartrate [From Ambien] Adverse Reaction (Severe, Verified 01/25/17 19: 06) sleepwalking dipyridamole [From Aggrenox] Adverse Reaction (Intermediate, Verified 01/25/17 19:06) HEADACHES methylprednisolone [From Medrol] Adverse Reaction (Intermediate, Verified 19:06) N/V/hyperactive topiramate Adverse Reaction (Intermediate, Verified 01/25/17 19:06) kidney stones aspirin Adverse Reaction (Mild, Verified 01/25/17 19:06) GI upset guaifenesin Adverse Reaction (Mild, Verified 01/25/17 19:06) GI upset rosuvastatin Adverse Reaction (Mild, Verified 01/25/17 19:06) muscle pain pseudoephedrine Adverse Reaction (Unknown, Verified 01/25/17 19:06) GI upset Past Medical History - General Information source: [facility] Records - Social History Smoking Status: Former Smoker Frequency of alcohol use: None Drug Abuse: None Family History: Reviewed & Not Pertinent, Arthritis, CAD, Hypertension, Malignancy, Other - Past Medical History Cardiac Medical History: Reports: Hx Hypercholesterolemia, Hx Hypertension - meds 3 yrs minimum, Hx Pulmonary Embolism - 6 yrs ago Denies: Hx Coronary Artery Disease, Hx Heart Attack Pulmonary Medical History: Reports: Hx Asthma - last attack long time ago, Hx Bronchitis, Hx COPD, Hx Pneumonia Neurological Medical History: Denies: Hx Cerebrovascular Accident, Hx Seizures Renal/ Medical History: Reports: Hx Kidney Stones - passed Malignancy Medical History: GI Medical History: Reports: Hx Diverticulitis, Hx Gastroesophageal Reflux Disease Musculoskeltal Medical History: Reports Hx Arthritis Psychiatric Medical History: Reports: Hx Anxiety, Hx Depression Traumatic Medical History: Reports: Hx Fractures - nose as child Past Surgical History: Reports: Hx Abdominal Surgery - UMBILICAL HERNIA, Hx Appendectomy, Hx Bowel Surgery - resection R/T diverticulitis, Hx Kidney (Renal Surgery) - LITHOTRIPSY, Hx Orthopedic Surgery - right knee replacement, Hx Tonsillectomy, Hx Umbilical Hernia. Denies: Hx Hysterectomy - Immunizations Immunizations up to date: Yes Hx Diphtheria, Pertussis, Tetanus Vaccination: Yes Hx Pneumococcal Vaccination: 11/17/05 Review of Systems - Review of Systems Notes: REVIEW OF SYSTEMS: CONSTITUTIONAL : Denies fever, chills, or sweats. Denies recent illness. EENT: Denies eye, ear, throat, or mouth pain or symptoms. Denies nasal or sinus congestion. CARDIOVASCULAR: Denies chest pain. RESPIRATORY: Denies cough, cold, or chest congestion. Denies shortness of breath, difficulty breathing, or wheezing. GASTROINTESTINAL: Denies abdominal pain. Denies nausea, vomiting, or diarrhea. Denies constipation. Last BM: today, normal GENITOURINARY: Denies difficulty urinating, painful urination, burning, frequency, or blood in urine. MUSCULOSKELETAL: Denies neck or back pain or joint pain or swelling. SKIN: Denies rash or skin lesions. HEMATOLOGIC : Denies easy bruising or bleeding. LYMPHATIC: Denies swollen, enlarged glands. NEUROLOGICAL: Denies altered mental status or loss of consciousness. Denies headache. Generalized weakness as per HPI PSYCHIATRIC: Denies anxiety or stress or depression. ALL OTHER SYSTEMS REVIEWED AND NEGATIVE. Physical Exam - Vital signs Vitals: Resp BP Pulse Ox 23 H 143/109 H 97 02/09/17 14:25 02/09/17 14:25 02/09/17 14:25 - Notes Notes: PHYSICAL EXAMINATION: GENERAL: Well-appearing, well-nourished and in no acute distress, pleasant and conversant with somewhat anxious affect. HEAD: Atraumatic, normocephalic. EYES: Pupils equal round and reactive to light, extraocular movements intact, sclera anicteric, conjunctiva are normal. ENT: nares patent, oropharynx clear without exudates. Moist mucous membranes. NECK: Normal range of motion, supple without lymphadenopathy LUNGS: Breath sounds clear to auscultation bilaterally and equal. No wheezes rales or rhonchi. HEART: Tachycardic rate and regular rhythm without murmurs ABDOMEN: Soft, nontender, normoactive bowel sounds. No guarding, no rebound. No masses appreciated. EXTREMITIES: Normal range of motion, no pitting or edema. No cyanosis. NEUROLOGICAL: Cranial nerves grossly intact. Normal speech. Motor strength +5/ 5 bilateral upper and lower extremities. Sensation intact. Finger to nose intact but somewhat slow PSYCH: Normal mood, anxious affect SKIN: Warm, Dry, normal turgor, no rashes or lesions noted. Course - Re-evaluation Re-evalutation: 02/09/17 16:18 Patient states that she is feeling much better. Her heart rate is in the 80s. We discussed her reassuring lab evaluation in the fact that her chest x-ray shows a minimal infiltrate in the left lower lobe. She has had a mild cough but no shortness of breath and has no O2 requirement here shows she is appropriate for outpatient management at this time. She will be treated with Levaquin as an outpatient and will follow-up with Dr. Andrade. Strict return precautions were discussed and she is very comfortable with this plan. - Vital Signs Vital signs: Temp Pulse Resp BP Pulse Ox 13 143/105 H 95 02/09/17 15:16 02/09/17 15:16 02/09/17 15:16 - Laboratory Result Diagrams: 02/09/17 14:42 02/09/17 14:42 Laboratory results interpreted by me: 02/09/17 02/09/17 14:42 14:42 RDW 14.4 H Chloride 108 H Creatine Kinase 165 H - Diagnostic Test Radiology reviewed: Image reviewed - LLL minimal infiltrate, Reports reviewed - EKG Interpretation by Me Additional EKG results interpreted by me: 02/09/17 15:34 EKG at 1413 demonstrates sinus tachycardia with a rate of 117. There is no ST segment elevation or depression. There is no significant change from prior EKG. Discharge - Discharge Clinical Impression: Generalized weakness Hypertension Qualifiers: Hypertension type: essential hypertension Qualified Code(s): I10 - Essential ( primary) hypertension Pneumonia Qualifiers: Pneumonia type: due to unspecified organism Laterality: left Lung location: lower lobe of lung Qualified Code(s): J18.1 - Lobar pneumonia, unspecified organism Condition: Stable Disposition: HOME, SELF-CARE Additional Instructions: HIGH BLOOD PRESSURE REQUIRING TREATMENT: Your blood pressure is high. This is called "hypertension." Your history and exam suggest that this is not a temporary problem. You need treatment of your blood pressure. Continue your blood pressure medication as prescribed by your primary physician, and follow up with your PCP this week. If left untreated, high blood pressure greatly increases your risk of heart attack and stroke. Please don't ignore this problem. If you have blood pressure medicine but aren't using it regularly, start taking it again. Some simple things you can do to help are: Get some aerobic exercise for at least 20 minutes on a daily basis. (See your doctor before beginning any new exercise program.) Eat a low-fat diet. Lose excess weight. Avoid salty foods and avoid adding salt to any of the foods you eat. Avoid diet pills, decongestants, "energizing" herbs, and other medicines that elevate blood pressure. There are many different medicines that treat blood pressure. If your medication causes unpleasant side effects, call your doctor. There are others you can try. Treating hypertension is a life-long investment in your health. PNEUMONIA: Your examination indicates that you have pneumonia. This is an infection of the lung tissue, usually caused by bacteria or a virus. Symptoms include cough, fever, shaking chills, chest pain, shortness of breath, and coughing up bloody sputum. Treatment for bacterial pneumonia includes rest, antibiotics for 10 to 14 days, increasing your clear liquid intake, a cool mist humidifier at your bedside, and fever medication. Often, a repeat chest X-ray is performed in a few weeks--even if you feel better--to ascertain whether the infection has completely resolved and no underlying lung problem is present. You should call the physician if you develop persistent vomiting, high fever that does not respond to fever medication, increasing shortness of breath , confusion, or lethargy. Also, failure to improve within two to three days is an indication for re-examination. ANTIBIOTIC THERAPY: You have been given an antibiotic prescription. It's important that you take all the medication, unless instructed otherwise by your physician. Failure to complete the entire course can result in relapse of your condition. Common side effects of antibiotics include nausea, intestinal cramping, or diarrhea. Women may develop vaginal yeast infections, and babies can get yeast (thrush) in the mouth following the use of antibiotics. Contact your physician if you develop significant side effects from this medication. Allergy to this antibiotic can result in hives, wheezing, faintness, or itching. If symptoms of allergy occur, stop the medication and call the doctor. LEVOFLOXACIN: You have been given an antibacterial agent, levofloxacin (Levaquin). This medicine is not related to the penicillins, sulfas, cephalosporins, or tetracyclines. It is often given to patients who are allergic to these drugs. It has been chosen for you either because other drugs are not appropriate, or because of the nature of your problem. Levaquin should not be taken with antacids, as these can decrease its effectiveness. It can be taken without regard to meals. LEVAQUIN SHOULD NOT BE TAKEN BY CHILDREN, NURSING WOMEN, OR WOMEN. Although Levaquin is usually well-tolerated, common side effects can include nausea and diarrhea. Contact your doctor if you experience any unusual symptoms while on this medication, such as joint pain or swelling, shortness of breath, wheezing, faintness, or hives. FOLLOW-UP CARE: If you have been referred to a physician for follow-up care, call the physician s office for an appointment as you were instructed or within the next two days. If you experience worsening or a significant change in your symptoms, notify the physician immediately or return to the Emergency Department at any time for re-evaluation. Prescriptions: Levofloxacin [Levaquin 750 mg Tablet] 750 mg PO DAILY #9 tablet Forms: Elevated Blood Pressure Referrals: HARLEY ANDRADE MD [Primary Care Provider] - Follow up in 3-5 days
[2017-02-09 14:50] LABS: ABSOLUTE BASOPHILS # (AUTO) 0.1 10^3/uL (0.0-0.2); ABSOLUTE EOSINOPHILS # (AUTO) 0.1 10^3/uL (0.0-0.6); ABSOLUTE LYMPHOCYTES (AUTO) 1.5 10^3/uL (0.5-4.7); ABSOLUTE MONOCYTES (AUTO) 0.4 10^3/uL (0.1-1.4); ABSOLUTE NEUT (AUTO) 3.2 10^3/uL (1.7-8.2); BASOPHILS % (AUTO) 1.3 % (0-2); EOSINOPHILS % (AUTO) 2.6 % (0-6); HEMATOCRIT 40.4 % (36.0-47.0); HEMOGLOBIN 13.4 g/dL (12.0-15.5); HGB HCT DIFFERENCE -0.2; LYMPHOCYTES % (AUTO) 27.4 % (13-45); MEAN CORPUSCULAR HEMOGLOBIN 28.3 pg (27.0-33.4); MEAN CORPUSCULAR HGB CONC 33.3 g/dL (32.0-36.0); MEAN CORPUSCULAR VOLUME 85 fl (80-97); MONOCYTES % (AUTO) 8.5 % (3-13); RED BLOOD COUNT 4.76 10^6/uL (3.72-5.28); RED CELL DISTRIBUTION WIDTH 14.4 % (11.5-14.0); SEGMENTED NEUTROPHILS % (AUTO) 60.2 % (42-78); WHITE BLOOD COUNT 5.3 10^3/uL (4.0-10.5)
[2017-02-09 15:12] LABS: ALANINE AMINOTRANSFERASE 36 U/L (9-52); ALBUMIN 3.9 g/dL (3.5-5.0); ALKALINE PHOSPHATASE 104 U/L (38-126); ANION GAP 14 (5-19); ASPARTATE AMINO TRANSFERASE 20 U/L (14-36); BILIRUBIN,DIRECT 0.2 mg/dL (0.0-0.4); BILIRUBIN,TOTAL 0.4 mg/dL (0.2-1.3); BLOOD UREA NITROGEN 13 mg/dL (7-20); CALCIUM 9.5 mg/dL (8.4-10.2); CARBON DIOXIDE 22 mmol/L (22-30); CHLORIDE 108 mmol/L (98-107); CREATINE KINASE 165 U/L (30-135); CREATININE RESULT 0.52 mg/dL (0.52-1.25); GLUCOSE 102 mg/dL (75-110); SODIUM 144.4 mmol/L (137-145); TOTAL PROTEIN 6.7 g/dL (6.3-8.2)
[2017-02-09 15:21] LABS: TROPONIN I < 0.012 ng/mL
[2017-02-09 15:32] LABS: APPEARANCE,URINE CLEAR; BILIRUBIN,URINE NEGATIVE (NEGATIVE); GLUCOSE, URINE NEGATIVE (NEGATIVE); KETONES,URINE NEGATIVE (NEGATIVE); LEUKOCYTE ESTERASE,URINE NEGATIVE (NEGATIVE); NITRITE,URINE NEGATIVE (NEGATIVE); PROTEIN,URINE NEGATIVE (NEGATIVE); URINE SPECIFIC GRAVITY 1.005; UROBILINOGEN,URINE NEGATIVE mg/dL (<2.0)
[2017-02-09] MEDS ORDERED: METOPROLOL TARTRATE PF/INJ 5 MG/5 ML SDV IV ONE (15:33)
[2017-02-09] MEDS ORDERED: LEVOFLOXACIN 750 MG TABLET PO ONE (16:17)
[2017-02-09 17:53] VITALS: BP 145/109
--- NOTE | 2017-02-09 19:12 | EKG REPORT ---
SEVERITY:- OTHERWISE NORMAL ECG - SINUS TACHYCARDIA : Confirmed by: Ivonne Yanez MD 09-Feb-2017 19:10:45
== END 2017-02-09 17:55 | disposition home or self-care (01) ==
LOC: ER 13:57
DX: J18.1 Lobar pneumonia, unspecified organism (principal); R53.1 Weakness; I10 Essential (primary) hypertension; Z87.891 Personal history of nicotine dependence
CPT/HCPCS: 93005; 99285; 96361; 96374; 36415; 82553; 82550; 85025; 80053; 81001; 84484; 71020; 70450; 93010; J3490 ×2; J7030

== ENCOUNTER 2017-02-12 10:13 | Observation (INO) | payer MEDICAID ==
[2017-02-12] MEDS ORDERED: IPRATROPIUM/ALBUTEROL 0.5-2.5 MG/3 ML AMPUL NEB PRN (13:50)
[2017-02-12] MEDS ORDERED: ACETAMINOPHEN 325 MG TABLET PO PRN (13:50)
[2017-02-12] MEDS ORDERED: NORMAL SALINE 1000 ML 1,000 ML IV PRN (13:50)
--- NOTE | 2017-02-12 15:49 | PDOC H&P ---
History of Present Illness Admission Date/PCP: 02/12/17 10:13 HARLEY ANDRADE MD Patient complains of: Cough, shortness of breath and congestion History of Present Illness: BRETT BABB is a 56 year old female Past Medical History Cardiac Medical History: Reports: Hyperlipidema, Hypertension - meds 3 yrs minimum, Pulmonary Embolism - 6 yrs ago Denies: Coronary Artery Disease, Myocardial Infarction Pulmonary Medical History: Reports: Asthma - last attack long time ago, Bronchitis, Chronic Obstructive Pulmonary Disease (COPD), Pneumonia EENT Medical History: Reports: None Neurological Medical History: Reports: None Denies: Seizures Endocrine Medical History: Reports: None Renal/ Medical History: Reports: None Malignancy Medical History: Reports: None GI Medical History: Reports: Diverticulitis, Gastroesophageal Reflux Disease Musculoskeltal Medical History: Reports: Arthritis Skin Medical History: Reports: None Psychiatric Medical History: Reports: Depression Traumatic Medical History: Reports: None Hematology: Denies: Anemia Infectious Medical History: Reports: None Past Surgical History Past Surgical History: Reports: Appendectomy, Orthopedic Surgery - right knee replacement, Tonsillectomy Denies: Amputation, Hysterectomy, Tubal Ligation Social History Information Source: Patient Lives with: Alone Smoking Status: Former Smoker Number of Years Smokin Last Time Smoked: 10 years Frequency of Alcohol Use: None Hx Recreational Drug Use: No Hx Prescription Drug Abuse: No - Advance Directive Resuscitation Status: Full Code Surrogate healthcare decision maker:: 2 daughters no designated MPOA Family History Family History: Arthritis, CAD, Hypertension, Malignancy, Other Parental Family History Reviewed: No Children Family History Reviewed: No Sibling(s) Family History Reviewed.: No Medication/Allergy Home Medications: Albuterol Sulfate [Albuterol Sulfate 2.5mg/3 mL] 1 vial IH Q4HP PRN 02/12/17 Albuterol Sulfate [Proair HFA] 2 puff IH BID 02/12/17 Aspirin [Aspirin EC] 81 mg PO DAILY 02/12/17 Citalopram Hydrobromide [Celexa] 20 mg PO QHS 02/12/17 Ezetimibe [Zetia 10 mg Tablet] 10 mg PO DAILY 02/12/17 Fluticasone/Salmeterol [Advair 500-50 Diskus 14 Dose/Diskus] 1 inh IH Q12 Linaclotide [Linzess] 290 mcg PO DAILY 02/12/17 Montelukast Sodium [Singulair 10 mg Tablet] 10 mg PO QHS 02/12/17 Omeprazole 20 mg PO BID 02/12/17 Pramipexole Di-HCl [Mirapex 0.5 Mg Tablet] 0.5 mg PO DAILY 02/12/17 Pravastatin Sodium [Pravachol] 40 mg PO DAILY 02/12/17 Sodium Bicarbonate [Sodium Bicarbonate 650 mg Tablet] 650 mg PO BID 02/12/17 Allergies/Adverse Reactions: atorvastatin Allergy (Severe, Verified 01/25/17 19:06) myalgia niacin Allergy (Severe, Verified 01/25/17 19:06) Anaphylaxis adhesive tape Allergy (Intermediate, Verified 01/25/17 19:06) REDNESS, BLISTERS meloxicam Allergy (Intermediate, Verified 01/25/17 19:06) wheezing, palpitations sulfamethoxazole [From Septra] Allergy (Mild, Verified 01/25/17 19:06) rash tramadol Allergy (Mild, Verified 01/25/17 19:06) wheezing trimethoprim [From Septra] Allergy (Mild, Verified 01/25/17 19:06) rash simvastatin Allergy (Unknown, Verified 01/25/17 19:06) Sulfa (Sulfonamide Antibiotics) Allergy (Unknown, Verified 01/25/17 19:06) rash zolpidem tartrate [From Ambien] Adverse Reaction (Severe, Verified 01/25/17 19: 06) sleepwalking dipyridamole [From Aggrenox] Adverse Reaction (Intermediate, Verified 01/25/17 19:06) HEADACHES methylprednisolone [From Medrol] Adverse Reaction (Intermediate, Verified 19:06) N/V/hyperactive topiramate Adverse Reaction (Intermediate, Verified 01/25/17 19:06) kidney stones aspirin Adverse Reaction (Mild, Verified 01/25/17 19:06) GI upset guaifenesin Adverse Reaction (Mild, Verified 01/25/17 19:06) GI upset rosuvastatin Adverse Reaction (Mild, Verified 01/25/17 19:06) muscle pain pseudoephedrine Adverse Reaction (Unknown, Verified 01/25/17 19:06) GI upset Review of Systems Constitutional: PRESENT: anorexia, fatigue, weakness Eyes: ABSENT: visual disturbances Ears: ABSENT: hearing changes Cardiovascular: ABSENT: chest pain, dyspnea on exertion, edema, orthropnea, palpitations Respiratory: PRESENT: cough, dyspnea, sputum Gastrointestinal: ABSENT: abdominal pain, constipation, diarrhea, hematemesis, hematochezia, nausea, vomiting Genitourinary: ABSENT: dysuria, hematuria Integumentary: ABSENT: rash, wounds Neurological: ABSENT: abnormal gait, abnormal speech, confusion, dizziness, focal weakness, syncope Psychiatric: ABSENT: anxiety, depression, homidical ideation, suicidal ideation Endocrine: ABSENT: cold intolerance, heat intolerance, polydipsia, polyuria Hematologic/Lymphatic: ABSENT: easy bleeding, easy bruising Physical Exam Vital Signs: Temp Pulse Resp BP Pulse Ox 97.3 F 117 H 15 150/100 H 95 02/12/17 12:00 02/12/17 12:00 02/12/17 12:00 02/12/17 12:00 02/12/17 12:00 Intake & Output 02/11/17 02/12/17 02/13/17 06:59 06:59 06:59 Weight 94.4 kg General appearance: PRESENT: no acute distress, obese, well-developed, well- nourished Head exam: PRESENT: atraumatic, normocephalic Eye exam: PRESENT: conjunctiva pink, EOMI, PERRLA. ABSENT: scleral icterus Ear exam: PRESENT: normal external ear exam Mouth exam: PRESENT: moist, tongue midline Neck exam: ABSENT: carotid bruit, JVD, lymphadenopathy, thyromegaly Respiratory exam: PRESENT: rhonchi, symmetrical, unlabored Cardiovascular exam: PRESENT: RRR. ABSENT: diastolic murmur, rubs, systolic murmur Pulses: PRESENT: normal dorsalis pedis pul Vascular exam: PRESENT: normal capillary refill GI/Abdominal exam: PRESENT: normal bowel sounds, soft. ABSENT: distended, guarding, mass, organolmegaly, rebound, tenderness Rectal exam: PRESENT: deferred Extremities exam: PRESENT: full ROM. ABSENT: calf tenderness, clubbing, pedal edema Neurological exam: PRESENT: alert, awake, oriented to person, oriented to place , oriented to time, oriented to situation, CN II-XII grossly intact. ABSENT: motor sensory deficit Psychiatric exam: PRESENT: appropriate affect, normal mood. ABSENT: homicidal ideation, suicidal ideation Skin exam: PRESENT: dry, intact, warm. ABSENT: cyanosis, rash Assessment & Plan - Diagnosis (1) Pneumonia Qualifiers: Pneumonia type: due to unspecified organism Laterality: left Lung location: lower lobe of lung Qualified Code(s): J18.1 - Lobar pneumonia, unspecified organism Plan: Patient has been treated with by mouth Levaquin for the last 3 days. She reports no improvement in her symptoms. She was seen by her primary doctor Dr. Freya Andrade and referred for direct admission (2) Essential hypertension Is this a current diagnosis for this admission?: YesPlan: Patient's blood pressures elevated on arrival because she has not taken her normal antihypertensives today. (3) Generalized weakness Is this a current diagnosis for this admission?: YesPlan: She had a workup in the ER 3 days ago which showed no abnormalities in her blood work chemistry repeat in the morning. (4) Hypercholesteremia Is this a current diagnosis for this admission?: YesPlan: Continue statin - Time Time Spent: 50 to 70 Minutes Critical Time spent with patient: 25-34 minutes Medications reviewed and adjusted accordingly: Yes Anticipated discharge: Home Within: within 48 hours
[2017-02-12] MEDS ORDERED: LOSARTAN POTASSIUM 50 MG TABLET PO ONE ×2 (15:55→17:00)
[2017-02-12] MEDS ORDERED: EZETIMIBE 10 MG TABLET PO SCH (16:00)
[2017-02-12] MEDS ORDERED: IPRATROPIUM/ALBUTEROL 0.5-2.5 MG/3 ML AMPUL NEB SCH (16:00)
[2017-02-12] MEDS ORDERED: LEVALBUTEROL HCL NEB 1.25 MG/3 ML AMPUL NEB PRN (16:27)
[2017-02-12] MEDS: SODIUM BICARBONATE 650 MG TABLET PO SCH (17:21)
[2017-02-12] MEDS: DILTIAZEM HCL 120 MG CAP.SR.24H PO SCH (21:15)
[2017-02-12] MEDS: GUAIFENESIN 600 MG TABLET.SA PO SCH (21:16)
[2017-02-12] MEDS: FLUTICASONE/SALMETEROL DISKUS 500-50 MCG/DOSE IH SCH (21:16)
[2017-02-12] MEDS: LANSOPRAZOLE 15 MG TAB.RAP.DR PO SCH (21:16)
[2017-02-12] MEDS ORDERED: (Pravastatin Sodium [Pravachol] 40 MG) PO SCH (22:00)
[2017-02-12] MEDS ORDERED: ATORVASTATIN CALCIUM 10 MG TABLET PO SCH (22:00)
[2017-02-12] MEDS ORDERED: MONTELUKAST SODIUM 10 MG TABLET PO SCH (22:00)
[2017-02-12] MEDS ORDERED: CITALOPRAM HYDROBROMIDE 20 MG TABLET PO SCH (22:00)
[2017-02-13] MEDS: LEVALBUTEROL HCL NEB 1.25 MG/3 ML AMPUL NEB SCH ×2 (02:55→07:49)
[2017-02-13 07:58] LABS: ABSOLUTE BASOPHILS # (AUTO) 0.1 10^3/uL (0.0-0.2); ABSOLUTE EOSINOPHILS # (AUTO) 0.2 10^3/uL (0.0-0.6); ABSOLUTE LYMPHOCYTES (AUTO) 1.5 10^3/uL (0.5-4.7); ABSOLUTE MONOCYTES (AUTO) 0.5 10^3/uL (0.1-1.4); ABSOLUTE NEUT (AUTO) 2.7 10^3/uL (1.7-8.2); BASOPHILS % (AUTO) 1.3 % (0-2); EOSINOPHILS % (AUTO) 4.9 % (0-6); HEMOGLOBIN 12.6 g/dL (12.0-15.5); HGB HCT DIFFERENCE -1.2; LYMPHOCYTES % (AUTO) 29.7 % (13-45); MEAN CORPUSCULAR HEMOGLOBIN 27.8 pg (27.0-33.4); MEAN CORPUSCULAR HGB CONC 32.3 g/dL (32.0-36.0); MEAN CORPUSCULAR VOLUME 86 fl (80-97); MONOCYTES % (AUTO) 9.8 % (3-13); RED BLOOD COUNT 4.53 10^6/uL (3.72-5.28); RED CELL DISTRIBUTION WIDTH 14.7 % (11.5-14.0); SEGMENTED NEUTROPHILS % (AUTO) 54.3 % (42-78); WHITE BLOOD COUNT 4.9 10^3/uL (4.0-10.5)
[2017-02-13] MEDS ORDERED: CEFTRIAXONE 1 GM/D5W RTU 1 GM/50 ML RTUPB IV SCH (08:00)
[2017-02-13 08:11] LABS: ANION GAP 11 (5-19); BLOOD UREA NITROGEN 17 mg/dL (7-20); CALCIUM 9.6 mg/dL (8.4-10.2); CARBON DIOXIDE 22 mmol/L (22-30); CHLORIDE 110 mmol/L (98-107); CREATININE RESULT 0.64 mg/dL (0.52-1.25); GLUCOSE 124 mg/dL (75-110); POTASSIUM 4.8 mmol/L (3.6-5.0); SODIUM 142.8 mmol/L (137-145)
[2017-02-13] MEDS ORDERED: (PENDING PHARMACY ID) (Pravastatin Sodium [Pravachol] 40 MG) PO SCH (10:00)
[2017-02-13] MEDS ORDERED: ASPIRIN 81 MG TABLET, ENT COATED PO SCH (10:00)
[2017-02-13] MEDS ORDERED: PRAMIPEXOLE DI-HCL 0.5 MG TABLET PO SCH (10:00)
[2017-02-13] MEDS ORDERED: LEVOFLOXACIN 750 MG/D5W RTU 150 ML IV SCH (10:00)
[2017-02-13] MEDS: DILTIAZEM HCL 120 MG CAP.SR.24H PO SCH (10:08)
[2017-02-13] MEDS: LANSOPRAZOLE 15 MG TAB.RAP.DR PO SCH (10:08)
[2017-02-13] MEDS: GUAIFENESIN 600 MG TABLET.SA PO SCH (10:09)
[2017-02-13] MEDS: SODIUM BICARBONATE 650 MG TABLET PO SCH (10:09)
[2017-02-13] MEDS: FLUTICASONE/SALMETEROL DISKUS 500-50 MCG/DOSE IH SCH (10:10)
--- NOTE | 2017-02-13 13:08 | PDOC DISCHARGE SUMMARY ---
General - Admit/Disc Date/PCP Admission Date/Primary Care Provider: 02/12/17 10:13 HARLEY ANDRADE MD Discharge Date: 02/13/17 - Discharge Diagnosis (2) Essential hypertension Is this a current diagnosis for this admission?: YesSummary: Continue diltiazem 240 mg daily add Losartan 50 mg daily now normotensive (3) Generalized weakness Is this a current diagnosis for this admission?: YesSummary: Resolved (4) Hypercholesteremia Is this a current diagnosis for this admission?: YesSummary: Continue statin - Additional Information Resuscitation Status: Full Code Discharge Diet: Regular Discharge Activity: Activity As Tolerated, Balance Activity w/Rest Home Medications: Albuterol Sulfate [Albuterol Sulfate 2.5mg/3 mL] 1 vial IH Q4HP PRN 02/12/17 Albuterol Sulfate [Proair HFA] 2 puff IH BID 02/12/17 Aspirin [Aspirin EC] 81 mg PO DAILY 02/12/17 Citalopram Hydrobromide [Celexa] 20 mg PO QHS 02/12/17 Ezetimibe [Zetia 10 mg Tablet] 10 mg PO DAILY 02/12/17 Fluticasone/Salmeterol [Advair 500-50 Diskus 14 Dose/Diskus] 1 inh IH Q12 Linaclotide [Linzess] 290 mcg PO DAILY 02/12/17 Montelukast Sodium [Singulair 10 mg Tablet] 10 mg PO QHS 02/12/17 Omeprazole 20 mg PO BID 02/12/17 Pramipexole Di-HCl [Mirapex 0.5 mg Tablet] 0.5 mg PO DAILY 02/12/17 Pravastatin Sodium [Pravachol] 40 mg PO DAILY 02/12/17 Sodium Bicarbonate [Sodium Bicarbonate 650 mg Tablet] 650 mg PO BID 02/12/17 Acetaminophen [Tylenol 325 mg Tablet] 650 mg PO Q4HP PRN tablet 02/13/17 Diltiazem HCl [Diltiazem 24Hr ER] 240 mg PO DAILY #30 cap.sr.24h 02/13/17 Guaifenesin [Mucinex Sr 600 mg Tablet.sa] 1,200 mg PO Q12 #20 tablet.sa Hydrocodone/Acetaminophen [[place] 5-325 mg Tablet] 1 tab PO Q4HP PRN #20 tablet 02/13/17 Levofloxacin [Levaquin 750 mg Tablet] 750 mg PO DAILY #5 tablet 02/13/17 Losartan Potassium 50 mg PO DAILY #30 tablet 02/13/17 Prednisone 20 mg PO BID #10 tablet 02/13/17 History of Present Illness Patient complains of: Cough and shortness of breath History of Present Illness: BRETT BABB is a 56 year old female Hospital Course Hospital Course: Patient was admitted to telemetry. She was started on IV steroids, nebulizers and antibiotics. Cultures were obtained. Blood pressure is elevated 160/98. She she states she did not take her morning diltiazem, this was given as well as losartan 50 mg was added. Patient is off the oxygen, room air oxygen saturations are 97%. She states her cough is much improved. She's had no fever or chills. CBC shows a normal white count. The patient will be discharged home on oral antibiotic therapy. Physical Exam Vital Signs: Temp Pulse Resp BP Pulse Ox 97.5 F 78 18 123/85 94 02/13/17 04:32 02/13/17 07:52 02/13/17 07:52 02/13/17 04:32 02/13/17 07:52 Intake & Output 02/12/17 02/13/17 02/14/17 06:59 06:59 06:59 Intake Total 2408 Output Total 550 Balance 1858 Weight 93.8 kg General appearance: PRESENT: no acute distress, obese, well-developed, well- nourished Head exam: PRESENT: atraumatic, normocephalic Eye exam: PRESENT: conjunctiva pink, EOMI, PERRLA. ABSENT: scleral icterus Ear exam: PRESENT: normal external ear exam Mouth exam: PRESENT: moist, tongue midline Neck exam: ABSENT: carotid bruit, JVD, lymphadenopathy, thyromegaly Respiratory exam: PRESENT: rales - left base. ABSENT: rhonchi, wheezes Cardiovascular exam: PRESENT: RRR. ABSENT: diastolic murmur, rubs, systolic murmur Pulses: PRESENT: normal dorsalis pedis pul Vascular exam: PRESENT: normal capillary refill GI/Abdominal exam: PRESENT: normal bowel sounds, soft. ABSENT: distended, guarding, mass, organolmegaly, rebound, tenderness Rectal exam: PRESENT: deferred Extremities exam: PRESENT: full ROM. ABSENT: calf tenderness, clubbing, pedal edema Neurological exam: PRESENT: alert, awake, oriented to person, oriented to place , oriented to time, oriented to situation, CN II-XII grossly intact. ABSENT: motor sensory deficit Psychiatric exam: PRESENT: appropriate affect, normal mood. ABSENT: homicidal ideation, suicidal ideation Skin exam: PRESENT: dry, intact, warm. ABSENT: cyanosis, rash Results Laboratory Results: 02/13/17 07:25 02/13/17 07:25 02/13/17 02/13/17 07:25 07:25 WBC 4.9 RBC 4.53 Hgb 12.6 Hct 39.0 MCV 86 MCH 27.8 MCHC 32.3 RDW 14.7 H Plt Count 204 Seg Neutrophils % 54.3 Lymphocytes % 29.7 Monocytes % 9.8 Eosinophils % 4.9 Basophils % 1.3 Absolute Neutrophils 2.7 Absolute Lymphocytes 1.5 Absolute Monocytes 0.5 Absolute Eosinophils 0.2 Absolute Basophils 0.1 Sodium 142.8 Potassium 4.8 Chloride 110 H Carbon Dioxide 22 Anion Gap 11 BUN 17 Creatinine 0.64 Est GFR ( Amer) > 60 Est GFR (Non-Af Amer) > 60 Glucose 124 H Calcium 9.6 Qualifiers [place] BEING DISCHARGED WITH ANY OF THE FOLLOWING DIAGNOSIS?: No Plan Discharge Plan: Home with daughter Time Spent: Less than 30 Minutes
[2017-02-13 13:33] VITALS: BP 119/84
== END 2017-02-13 14:49 | disposition home or self-care (01) ==
LOC: INTOOBSV 10:13 → 5 10:13
PROVIDERS: ADMIT Internal Medicine; ATTEND Internal Medicine
DX: J18.1 Lobar pneumonia, unspecified organism (principal); I10 Essential (primary) hypertension; R53.1 Weakness; E78.00 Pure hypercholesterolemia, unspecified; J44.9 Chronic obstructive pulmonary disease, unspecified; J45.909 Unspecified asthma, uncomplicated; Z86.718 Personal history of other venous thrombosis and embolism; Z87.891 Personal history of nicotine dependence
CPT/HCPCS: 36415; 87205; 85025; 80048; 94640; G0378 ×2; G0379; J3490 ×14; J0696; J1956

== ENCOUNTER → 2017-03-03 | Outpatient (CLI) | payer MEDICAID | LOC: EDBD → RAD 11:23 | PROVIDERS: ATTEND Family Medicine | DX: J15.9 Unspecified bacterial pneumonia (principal) | CPT/HCPCS: 71020 ==

== ENCOUNTER → 2017-03-05 | Outpatient (CLI) | payer MEDICAID ==
[2017-03-05 15:10] LABS: APPEARANCE,URINE CLEAR; BILIRUBIN,URINE NEGATIVE (NEGATIVE); GLUCOSE, URINE NEGATIVE (NEGATIVE); KETONES,URINE NEGATIVE (NEGATIVE); LEUKOCYTE ESTERASE,URINE NEGATIVE (NEGATIVE); NITRITE,URINE NEGATIVE (NEGATIVE); PROTEIN,URINE NEGATIVE (NEGATIVE); UROBILINOGEN,URINE NEGATIVE mg/dL (<2.0)
== END ==
LOC: OD 14:00
PROVIDERS: ATTEND Family Medicine
DX: R10.10 Upper abdominal pain, unspecified (principal)
CPT/HCPCS: 74000; 81001

== ENCOUNTER 2017-03-08 17:11 | Emergency (ER) | payer MEDICAID ==
--- NOTE | 2017-03-08 17:30 | ER Document Report ---
ED Medical Screen (RME) - General Chief Complaint: Passed Out Prior to Arrival Stated Complaint: PASSED OUT AND FELL,FOOT PAIN Mode of Arrival: Wheelchair Information source: Patient, Relative TRAVEL OUTSIDE OF THE [place] IN LAST 30 DAYS: No - HPI Onset: This afternoon Onset/Duration: Sudden Context: Patient states she went to bathroom and, after using it, suddenly passed out. She recalls no other details. Daughter came home to find patient in kitchen, doesn't know how she got from bathroom to kitchen. Complains of pain in the left foot. Quality of pain: Sharp Severity: Moderate Associated Symptoms: None Exacerbated by: Movement Relieved by: Remaining still Similar symptoms previously: Yes - HAS H/O SYNCOPAL EPISODES, ALL W/U's NEG. Recently seen / treated by doctor: No - Related Data Allergies/Adverse Reactions: atorvastatin Allergy (Severe, Verified 03/08/17 17:14) myalgia niacin Allergy (Severe, Verified 03/08/17 17:14) Anaphylaxis adhesive tape Allergy (Intermediate, Verified 03/08/17 17:14) REDNESS, BLISTERS meloxicam Allergy (Intermediate, Verified 03/08/17 17:14) wheezing, palpitations sulfamethoxazole [From Septra] Allergy (Mild, Verified 03/08/17 17:14) rash tramadol Allergy (Mild, Verified 03/08/17 17:14) wheezing trimethoprim [From Septra] Allergy (Mild, Verified 03/08/17 17:14) rash simvastatin Allergy (Unknown, Verified 03/08/17 17:14) Sulfa (Sulfonamide Antibiotics) Allergy (Unknown, Verified 03/08/17 17:14) rash zolpidem tartrate [From Ambien] Adverse Reaction (Severe, Verified 03/08/17 17: 14) sleepwalking dipyridamole [From Aggrenox] Adverse Reaction (Intermediate, Verified 03/08/17 17:14) HEADACHES methylprednisolone [From Medrol] Adverse Reaction (Intermediate, Verified 17:14) N/V/hyperactive topiramate Adverse Reaction (Intermediate, Verified 03/08/17 17:14) kidney stones aspirin Adverse Reaction (Mild, Verified 03/08/17 17:14) GI upset guaifenesin Adverse Reaction (Mild, Verified 03/08/17 17:14) GI upset rosuvastatin Adverse Reaction (Mild, Verified 03/08/17 17:14) muscle pain pseudoephedrine Adverse Reaction (Unknown, Verified 03/08/17 17:14) GI upset Past Medical History - General Information source: Patient, Relative - Past Medical History Cardiac Medical History: Reports: Hx Hypercholesterolemia, Hx Hypertension - meds 3 yrs minimum, Hx Pulmonary Embolism - 6 yrs ago Denies: Hx Coronary Artery Disease, Hx Heart Attack Pulmonary Medical History: Reports: Hx Asthma - last attack long time ago, Hx Bronchitis, Hx COPD, Hx Pneumonia Neurological Medical History: Denies: Hx Cerebrovascular Accident, Hx Seizures Renal/ Medical History: Reports: Hx Kidney Stones - passed. Denies: Hx Peritoneal Dialysis Malignancy Medical History: GI Medical History: Reports: Hx Diverticulitis, Hx Gastroesophageal Reflux Disease Musculoskeltal Medical History: Reports Hx Arthritis Psychiatric Medical History: Reports: Hx Anxiety, Hx Depression Traumatic Medical History: Reports: Hx Fractures - nose as child Past Surgical History: Reports: Hx Abdominal Surgery - UMBILICAL HERNIA, Hx Appendectomy, Hx Bowel Surgery - resection R/T diverticulitis, Hx Kidney (Renal Surgery) - LITHOTRIPSY, Hx Orthopedic Surgery - right knee replacement, Hx Tonsillectomy, Hx Umbilical Hernia. Denies: Hx Hysterectomy, Hx Tubal Ligation - Immunizations Immunizations up to date: Yes Hx Diphtheria, Pertussis, Tetanus Vaccination: Yes Review of Systems - Review of Systems Constitutional: No symptoms reported EENT: No symptoms reported Cardiovascular: Syncope Respiratory: No symptoms reported Gastrointestinal: No symptoms reported Genitourinary: No symptoms reported Musculoskeletal: See HPI Neurological/Psychological: See HPI Physical Exam - Vital signs Interpretation: Hypertensive - General General appearance: Appears well, Alert In distress: None - HEENT Head: Normocephalic Eyes: Normal Ears: Normal Nasal: Normal Mouth/Lips: Normal Mucous membranes: Normal - Respiratory Respiratory status: No respiratory distress - Cardiovascular Rhythm: Regular - Extremities General upper extremity: Normal inspection General lower extremity: No: Normal inspection - L. FOOT 1st MTP AREA SWOLLEN, TENDER, ECCHYMOTIC - Neurological Neuro grossly intact: Yes Cognition: Normal Orientation: AAOx4 - Skin Skin Temperature: Warm Skin Moisture: Dry Skin Color: Normal Skin Turgor: Elastic
[2017-03-08] MEDS ORDERED: HYDROCODONE/ACETAMINOPHEN 5-325 MG 6 TAB/DSPK PO PRN (19:14)
[2017-03-08] MEDS ORDERED: HYDROCODONE/ACETAMINOPHEN 5-325 MG TABLET PO ONE (19:14)
--- NOTE | 2017-03-08 19:18 | ER Document Report ---
ED Syncope and Near Syncope - General Chief Complaint: Passed Out Prior to Arrival Stated Complaint: PASSED OUT AND FELL,FOOT PAIN Time Seen by Provider: 03/08/17 17:25 Mode of Arrival: Wheelchair Information source: Patient TRAVEL OUTSIDE OF THE [place] IN LAST 30 DAYS: No - HPI Patient complains to provider of: Fainting Episode witnessed (by whom): No Symptoms prior to episode: None Context: Collapsed Injury location: LLE Current symptoms: None/feels back to normal Similar symptoms previously: Yes Recently seen / treated by doctor: No Notes: Patient is a 56-year-old female presenting to the emergency room complaining of left foot pain that's started after she fell in the syncopal episode just prior to arrival, patient reports a history of previous syncopal episodes, states she' s been worked up many times for them and there is no known cause, this was a typical syncopal episode like she's had in the past, she denies any symptoms prior to or after the fall except for pain in the left foot - Related Data Allergies/Adverse Reactions: atorvastatin Allergy (Severe, Verified 03/08/17 17:14) myalgia niacin Allergy (Severe, Verified 03/08/17 17:14) Anaphylaxis adhesive tape Allergy (Intermediate, Verified 03/08/17 17:14) REDNESS, BLISTERS meloxicam Allergy (Intermediate, Verified 03/08/17 17:14) wheezing, palpitations sulfamethoxazole [From Septra] Allergy (Mild, Verified 03/08/17 17:14) rash tramadol Allergy (Mild, Verified 03/08/17 17:14) wheezing trimethoprim [From Septra] Allergy (Mild, Verified 03/08/17 17:14) rash simvastatin Allergy (Unknown, Verified 03/08/17 17:14) Sulfa (Sulfonamide Antibiotics) Allergy (Unknown, Verified 03/08/17 17:14) rash zolpidem tartrate [From Ambien] Adverse Reaction (Severe, Verified 03/08/17 17: 14) sleepwalking dipyridamole [From Aggrenox] Adverse Reaction (Intermediate, Verified 03/08/17 17:14) HEADACHES methylprednisolone [From Medrol] Adverse Reaction (Intermediate, Verified 17:14) N/V/hyperactive topiramate Adverse Reaction (Intermediate, Verified 04/30/17 17:14) kidney stones aspirin Adverse Reaction (Mild, Verified 03/08/17 17:14) GI upset guaifenesin Adverse Reaction (Mild, Verified 03/08/17 17:14) GI upset rosuvastatin Adverse Reaction (Mild, Verified 03/08/17 17:14) muscle pain pseudoephedrine Adverse Reaction (Unknown, Verified 03/08/17 17:14) GI upset Past Medical History - General Information source: Patient, Relative - Social History Smoking Status: Former Smoker Family History: Arthritis, CAD, Hypertension, Malignancy, Other Patient has suicidal ideation: No Patient has homicidal ideation: No - Past Medical History Cardiac Medical History: Reports: Hx Hypercholesterolemia, Hx Hypertension - meds 3 yrs minimum, Hx Pulmonary Embolism - 6 yrs ago Denies: Hx Coronary Artery Disease, Hx Heart Attack Pulmonary Medical History: Reports: Hx Asthma - last attack long time ago, Hx Bronchitis, Hx COPD, Hx Pneumonia Neurological Medical History: Denies: Hx Cerebrovascular Accident, Hx Seizures Renal/ Medical History: Reports: Hx Kidney Stones - passed. Denies: Hx Peritoneal Dialysis Malignancy Medical History: GI Medical History: Reports: Hx Diverticulitis, Hx Gastroesophageal Reflux Disease Musculoskeltal Medical History: Reports Hx Arthritis Psychiatric Medical History: Reports: Hx Anxiety, Hx Depression Traumatic Medical History: Reports: Hx Fractures - nose as child Past Surgical History: Reports: Hx Abdominal Surgery - UMBILICAL HERNIA, Hx Appendectomy, Hx Bowel Surgery - resection R/T diverticulitis, Hx Kidney (Renal Surgery) - LITHOTRIPSY, Hx Orthopedic Surgery - right knee replacement, Hx Tonsillectomy, Hx Umbilical Hernia. Denies: Hx Hysterectomy, Hx Tubal Ligation - Immunizations Immunizations up to date: Yes Hx Diphtheria, Pertussis, Tetanus Vaccination: Yes Hx Pneumococcal Vaccination: 11/17/05 Review of Systems - Review of Systems Constitutional: No symptoms reported EENT: No symptoms reported Cardiovascular: Syncope Respiratory: No symptoms reported Gastrointestinal: No symptoms reported Genitourinary: No symptoms reported Female Genitourinary: No symptoms reported Musculoskeletal: See HPI Skin: No symptoms reported Hematologic/Lymphatic: No symptoms reported Neurological/Psychological: No symptoms reported -: Yes All other systems reviewed and negative Physical Exam - Vital signs Vitals: Temp Pulse Resp BP Pulse Ox 97.6 F 78 18 131/91 H 96 03/08/17 20:00 03/08/17 20:00 03/08/17 20:00 03/08/17 20:00 03/08/17 20:00 Interpretation: Normal - General General appearance: Appears well, Alert - HEENT Head: Normocephalic, Atraumatic Eyes: Normal Pupils: PERRL - Respiratory Respiratory status: No respiratory distress Chest status: Nontender Breath sounds: Normal Chest palpation: Normal - Cardiovascular Rhythm: Regular Heart sounds: Normal auscultation Murmur: No - Abdominal Inspection: Normal Distension: No distension Bowel sounds: Normal Tenderness: Nontender Organomegaly: No organomegaly - Back Back: Normal, Nontender - Extremities General upper extremity: Normal inspection, Nontender, Normal color, Normal ROM , Normal temperature General lower extremity: No: Argelia's sign Foot: Tender - Tender to palpate over her left great toe and at MTP joint, pain with range of motion testing, distal sensation is intact with DP pulses - Neurological Neuro grossly intact: Yes Cognition: Normal Orientation: AAOx4 Charlotte Coma Scale Eye Opening: Spontaneous Charlotte Coma Scale Verbal: Oriented Charlotte Coma Scale Motor: Obeys Commands Charlotte Coma Scale Total: 15 Speech: Normal Motor strength normal: LUE, RUE, LLE, RLE Sensory: Normal - Psychological Associated symptoms: Normal affect, Normal mood - Skin Skin Temperature: Warm Skin Moisture: Dry Skin Color: Normal Course - Re-evaluation Re-evalutation: 03/08/17 22:50 Patient informed of her x-ray findings and proper immobilization was provided, I did discuss a possible workup for syncopal episode, however patient states that she has had multiple previous syncopal episodes in the past, and has had multiple workups with no proven reason for the syncopal episodes, therefore she does not wish to have blood work drawn today, an EKG was performed which shows no concerning findings, patient was given information follow-up and advised to return if symptoms worsen, patient in several family members at bedside acknowledge understanding and agreement with this plan - Vital Signs Vital signs: Temp Pulse Resp BP Pulse Ox 97.6 F 78 18 131/91 H 96 03/08/17 20:00 03/08/17 20:00 03/08/17 20:00 03/08/17 20:00 03/08/17 20:00 - Diagnostic Test Radiology reviewed: Image reviewed, Reports reviewed - EKG Interpretation by Me EKG shows normal: Sinus rhythm Rate: Normal Rhythm: NSR Procedures - Immobilization Left Foot Time completed: 22:51 Pre-Proc Neuro Vasc Exam: Normal Immobilizer type: Post-op shoe, Other - Migue taping of first and second toes Performed by: PCT Post-Proc Neuro Vasc Exam: Normal Alignment checked and good: Yes Discharge - Discharge Clinical Impression: Syncope Qualifiers: Syncope type: vasovagal syncope Qualified Code(s): R55 - Syncope and collapse Fracture of toe of left foot Qualifiers: Encounter type: initial encounter Toe: great toe Fracture type: closed Phalanx : proximal Fracture alignment: nondisplaced Qualified Code(s): S92.415A - Nondisplaced fracture of proximal phalanx of left great toe, initial encounter for closed fracture Condition: Stable Disposition: HOME, SELF-CARE Instructions: Fractured Toe ([facility]), Migue Taping (toes) ([facility]), Ice & Elevation ( [facility]), Syncopal Episode ([facility]) Additional Instructions: Follow up with your primary care provider and an orthopedic surgeon in one to 2 days. Return to the emergency room immediately if symptoms worsen or any additional concerns. Ice and elevate the affected extremity. Limit weightbearing. Prescriptions: Hydrocodone/Acetaminophen [Hydrocodon-Acetaminophen 5-325] 1 each PO Q6 #14 tablet Referrals: YESI LUNA MD [ACTIVE STAFF] - Follow up as needed
[2017-03-08 20:42] VITALS: BP 131/91
--- NOTE | 2017-03-08 22:53 | EKG REPORT ---
SEVERITY:- BORDERLINE ECG - SINUS RHYTHM BORDERLINE PROLONGED QT INTERVAL : Confirmed by: Jaylan Balderas 08-Mar-2017 22:52:08
== END 2017-03-08 20:10 | disposition home or self-care (01) ==
LOC: ER 17:11
DX: S92.415A Nondisplaced fracture of proximal phalanx of left great toe, initial encounter for closed fracture (principal); R55 Syncope and collapse; M79.672 Pain in left foot; W19.XXXA Unspecified fall, initial encounter; E78.00 Pure hypercholesterolemia, unspecified; I10 Essential (primary) hypertension; J44.9 Chronic obstructive pulmonary disease, unspecified; Z88.3 Allergy status to other anti-infective agents; Z88.2 Allergy status to sulfonamides; Z88.6 Allergy status to analgesic agent; Z87.891 Personal history of nicotine dependence; Z87.442 Personal history of urinary calculi; Z96.651 Presence of right artificial knee joint
CPT/HCPCS: 93005; 93010; 99284

== ENCOUNTER 2017-03-24 20:15 | Emergency (ER) | payer MEDICAID ==
[2017-03-24 22:17] VITALS: BP 117/84
[2017-03-24] MEDS ORDERED: ACETAMINOPHEN 325 MG TABLET PO ONE (22:17)
[2017-03-24 23:00] LABS: ABSOLUTE EOSINOPHILS # (AUTO) 0.1 10^3/uL (0.0-0.6); ABSOLUTE LYMPHOCYTES (AUTO) 0.7 10^3/uL (0.5-4.7); ABSOLUTE MONOCYTES (AUTO) 0.8 10^3/uL (0.1-1.4); ABSOLUTE NEUT (AUTO) 11.6 10^3/uL (1.7-8.2); BASOPHILS % (AUTO) 0.3 % (0-2); HEMATOCRIT 43.6 % (36.0-47.0); HEMOGLOBIN 14.5 g/dL (12.0-15.5); HGB HCT DIFFERENCE -0.1; LYMPHOCYTES % (AUTO) 5.4 % (13-45); MEAN CORPUSCULAR HEMOGLOBIN 28.1 pg (27.0-33.4); MEAN CORPUSCULAR HGB CONC 33.2 g/dL (32.0-36.0); MEAN CORPUSCULAR VOLUME 85 fl (80-97); MONOCYTES % (AUTO) 5.8 % (3-13); RED BLOOD COUNT 5.14 10^6/uL (3.72-5.28); RED CELL DISTRIBUTION WIDTH 14.8 % (11.5-14.0); SEGMENTED NEUTROPHILS % (AUTO) 87.5 % (42-78); WHITE BLOOD COUNT 13.2 10^3/uL (4.0-10.5)
[2017-03-24 23:04] LABS: APPEARANCE,URINE CLEAR; BILIRUBIN,URINE NEGATIVE (NEGATIVE); GLUCOSE, URINE NEGATIVE (NEGATIVE); KETONES,URINE NEGATIVE (NEGATIVE); LEUKOCYTE ESTERASE,URINE NEGATIVE (NEGATIVE); NITRITE,URINE NEGATIVE (NEGATIVE); PROTEIN,URINE NEGATIVE (NEGATIVE); UROBILINOGEN,URINE NEGATIVE mg/dL (<2.0)
[2017-03-24 23:33] LABS: ALANINE AMINOTRANSFERASE 39 U/L (9-52); ALBUMIN 4.1 g/dL (3.5-5.0); ALKALINE PHOSPHATASE 133 U/L (38-126); ANION GAP 15 (5-19); ASPARTATE AMINO TRANSFERASE 32 U/L (14-36); BILIRUBIN,DIRECT 0.4 mg/dL (0.0-0.4); BILIRUBIN,TOTAL 0.6 mg/dL (0.2-1.3); BLOOD UREA NITROGEN 24 mg/dL (7-20); CALCIUM 9.5 mg/dL (8.4-10.2); CARBON DIOXIDE 22 mmol/L (22-30); CHLORIDE 108 mmol/L (98-107); CREATININE RESULT 0.59 mg/dL (0.52-1.25); GLUCOSE 137 mg/dL (75-110); LIPASE 280.5 U/L (23-300); POTASSIUM 4.2 mmol/L (3.6-5.0); SODIUM 144.6 mmol/L (137-145); TOTAL PROTEIN 7.3 g/dL (6.3-8.2)
[2017-03-25] MEDS ORDERED: METRONIDAZOLE 500 MG TABLET ONE (04:45)
[2017-03-25] MEDS ORDERED: CIPROFLOXACIN HCL 500 MG TABLET ONE (04:45)
[2017-03-25] MEDS ORDERED: HYDROCODONE/ACETAMINOPHEN 5-325 MG 6 TAB/DSPK ONE (04:48)
[2017-03-25] MEDS ORDERED: ONDANSETRON ODT 4 MG TAB (6 TAB/DSPK) ONE (04:49)
--- NOTE | 2017-05-28 20:41 | ER Document Report ---
Doctor's Note Notes: 05/28/17 20:41 For the encounter dated on 03/24/17 the clinical impression is acute diverticulitis without perforation and left lower quadrant abdominal pain.
== END 2017-03-25 04:54 | disposition home or self-care (01) ==
LOC: ER 20:15
DX: K57.92 Diverticulitis of intestine, part unspecified, without perforation or abscess without bleeding (principal); R10.32 Left lower quadrant pain; R11.2 Nausea with vomiting, unspecified; F17.210 Nicotine dependence, cigarettes, uncomplicated; D72.829 Elevated white blood cell count, unspecified
CPT/HCPCS: 99284; 36415; 83690; 85025; 80053; 81001; J3490 ×3

== ENCOUNTER → 2017-03-31 | Outpatient (CLI) | payer MEDICAID ==
[2017-03-31 17:44] LABS: ABSOLUTE BASOPHILS # (AUTO) 0.1 10^3/uL (0.0-0.2); ABSOLUTE EOSINOPHILS # (AUTO) 0.3 10^3/uL (0.0-0.6); ABSOLUTE LYMPHOCYTES (AUTO) 2.2 10^3/uL (0.5-4.7); ABSOLUTE MONOCYTES (AUTO) 0.6 10^3/uL (0.1-1.4); ABSOLUTE NEUT (AUTO) 3.5 10^3/uL (1.7-8.2); BASOPHILS % (AUTO) 0.9 % (0-2); EOSINOPHILS % (AUTO) 4.3 % (0-6); HEMATOCRIT 41.1 % (36.0-47.0); HEMOGLOBIN 13.3 g/dL (12.0-15.5); HGB HCT DIFFERENCE -1.2; MEAN CORPUSCULAR HEMOGLOBIN 27.8 pg (27.0-33.4); MEAN CORPUSCULAR HGB CONC 32.5 g/dL (32.0-36.0); MEAN CORPUSCULAR VOLUME 86 fl (80-97); MONOCYTES % (AUTO) 9.4 % (3-13); RED BLOOD COUNT 4.79 10^6/uL (3.72-5.28); RED CELL DISTRIBUTION WIDTH 15.2 % (11.5-14.0); SEGMENTED NEUTROPHILS % (AUTO) 52.4 % (42-78); WHITE BLOOD COUNT 6.7 10^3/uL (4.0-10.5)
== END ==
LOC: LAB 17:32
PROVIDERS: ATTEND Family Medicine
DX: K57.32 Diverticulitis of large intestine without perforation or abscess without bleeding (principal)
CPT/HCPCS: 36415; 85025

== ENCOUNTER 2017-04-18 20:05 | Emergency (ER) | payer MEDICAID ==
--- NOTE | 2017-04-18 22:29 | RADIOLOGY REPORT (SQ) ---
EXAM DESCRIPTION: FOOT LEFT COMPLETE COMPLETED DATE/TIME: 04/18/2017 10:04 pm REASON FOR STUDY: toe injury COMPARISON: None. NUMBER OF VIEWS: Three views. TECHNIQUE: AP, lateral and oblique radiographic images acquired of the left foot. LIMITATIONS: None. FINDINGS: MINERALIZATION: Osteopenia. BONES: An oblique fracture is seen through the great toe proximal phalanx, noting metatarsophalangeal joint intra-articular extension. An element of marginal resort option and callus formation confers a subacute chronicity. JOINTS: No effusions. SOFT TISSUES: No soft tissue swelling. No foreign body. OTHER: No other significant finding. IMPRESSION: Oblique fracture through the great toe proximal phalanx with intra-articular extension. The imaging characteristics of this injury suggests this to be of subacute chronicity. TECHNICAL DOCUMENTATION: JOB ID: [id number] itembase- All Rights Reserved
[2017-04-18] MEDS ORDERED: HYDROCODONE/ACETAMINOPHEN 5-325 MG 6 TAB/DSPK PO PRN (23:11)
--- NOTE | 2017-04-18 23:15 | ER Document Report ---
ED General - General Chief Complaint: Toe Injury Stated Complaint: LEFT TOE PAIN Time Seen by Provider: 04/18/17 22:19 Notes: Is a 56-year-old female who injured her toe within a month ago. She had a fracture. She was from the splint and jackson tape and given the number to orthopedist. She has not followed up with them. She said she called the office once and they did not call her back with an appointment. She continues to have pain in the area and therefore she came to the ER. TRAVEL OUTSIDE OF THE [place] IN LAST 30 DAYS: No - Related Data Allergies/Adverse Reactions: atorvastatin Allergy (Severe, Verified 03/08/17 17:14) myalgia niacin Allergy (Severe, Verified 03/08/17 17:14) Anaphylaxis adhesive tape Allergy (Intermediate, Verified 03/08/17 17:14) REDNESS, BLISTERS meloxicam Allergy (Intermediate, Verified 03/08/17 17:14) wheezing, palpitations sulfamethoxazole [From Septra] Allergy (Mild, Verified 03/08/17 17:14) rash tramadol Allergy (Mild, Verified 03/08/17 17:14) wheezing trimethoprim [From Septra] Allergy (Mild, Verified 03/08/17 17:14) rash simvastatin Allergy (Unknown, Verified 03/08/17 17:14) Sulfa (Sulfonamide Antibiotics) Allergy (Unknown, Verified 03/08/17 17:14) rash zolpidem tartrate [From Ambien] Adverse Reaction (Severe, Verified 03/08/17 17: 14) sleepwalking dipyridamole [From Aggrenox] Adverse Reaction (Intermediate, Verified 03/08/17 17:14) HEADACHES methylprednisolone [From Medrol] Adverse Reaction (Intermediate, Verified 17:14) N/V/hyperactive topiramate Adverse Reaction (Intermediate, Verified 03/08/17 17:14) kidney stones aspirin Adverse Reaction (Mild, Verified 03/08/17 17:14) GI upset guaifenesin Adverse Reaction (Mild, Verified 03/08/17 17:14) GI upset rosuvastatin Adverse Reaction (Mild, Verified 03/08/17 17:14) muscle pain pseudoephedrine Adverse Reaction (Unknown, Verified 03/08/17 17:14) GI upset Past Medical History - Social History Smoking Status: Never Smoker Frequency of alcohol use: None Drug Abuse: None Family History: Arthritis, CAD, Hypertension, Malignancy, Other Patient has suicidal ideation: No Patient has homicidal ideation: No - Past Medical History Cardiac Medical History: Reports: Hx Hypercholesterolemia, Hx Hypertension - meds 3 yrs minimum, Hx Pulmonary Embolism - 6 yrs ago Denies: Hx Coronary Artery Disease, Hx Heart Attack Pulmonary Medical History: Reports: Hx Asthma - last attack long time ago, Hx Bronchitis, Hx COPD, Hx Pneumonia Neurological Medical History: Denies: Hx Cerebrovascular Accident, Hx Seizures Renal/ Medical History: Reports: Hx Kidney Stones - passed. Denies: Hx Peritoneal Dialysis Malignancy Medical History: GI Medical History: Reports: Hx Diverticulitis, Hx Gastroesophageal Reflux Disease Musculoskeltal Medical History: Reports Hx Arthritis Psychiatric Medical History: Reports: Hx Anxiety, Hx Depression Traumatic Medical History: Reports: Hx Fractures - nose as child Past Surgical History: Reports: Hx Abdominal Surgery - UMBILICAL HERNIA, Hx Appendectomy, Hx Bowel Surgery - resection R/T diverticulitis, Hx Kidney (Renal Surgery) - LITHOTRIPSY, Hx Orthopedic Surgery - right knee replacement, Hx Tonsillectomy, Hx Umbilical Hernia. Denies: Hx Hysterectomy, Hx Tubal Ligation - Immunizations Immunizations up to date: Yes Hx Diphtheria, Pertussis, Tetanus Vaccination: Yes Hx Pneumococcal Vaccination: 11/17/05 Review of Systems - Review of Systems Notes: My Normal Review Basic REVIEW OF SYSTEMS: CONSTITUTIONAL : Denies fever, chills, or sweats. Denies recent illness. MUSCULOSKELETAL: left first Toe pain SKIN: Denies rash or skin lesions. NEUROLOGICAL: Denies sensory or motor loss. ALL OTHER SYSTEMS REVIEWED AND NEGATIVE. Physical Exam - Vital signs Vitals: Temp Pulse Resp BP Pulse Ox 97.7 F 76 20 140/81 H 97 04/18/17 20:37 04/18/17 20:37 04/18/17 20:37 04/18/17 20:37 04/18/17 20:37 - Notes Notes: General Appearance: Well nourished, alert, cooperative, no acute distress, no obvious discomfort. Vitals: reviewed, See vital signs table. Extremities: strength 5/5 in all extremities, good pulses in all extremities, and palpation of the left big toe. Mild swelling. Remainder of foot is nontender. good distal sensation., no edema. Skin: warm, dry, appropriate color, no rash Neuro: speech clear, oriented x 3, normal affect, responds appropriately to questions. Course - Vital Signs Vital signs: Temp Pulse Resp BP Pulse Ox 97.7 F 75 20 120/80 97 04/18/17 20:37 04/19/17 00:51 04/19/17 00:51 04/19/17 00:51 04/18/17 20:37 - Transfer of Care Notes: 04/20/17 08:17 Patient will be given crutches and a postop shoe. I encouraged her to call back orthopedics again. I encourage her to stay nonweightbearing on the foot. Patient agrees with plan will be discharged home. Return here if she has worsening pain or worsening swelling. Dictation of this chart was performed using voice recognition software; therefore, there may be some unintended grammatical errors. Discharge - Discharge Clinical Impression: Toe fracture, left Qualifiers: Encounter type: initial encounter Toe: great toe Fracture type: closed Phalanx : proximal Fracture alignment: nondisplaced Qualified Code(s): S92.415A - Nondisplaced fracture of proximal phalanx of left great toe, initial encounter for closed fracture Condition: Good Disposition: HOME, SELF-CARE Instructions: Use of Crutches ([facility]), Oral Narcotic Medication ([facility]) Additional Instructions: Please stay nonwieght bearing off your left foot until cleared by the orthopedist. Please call back the orthopedist office to make a follow up appointment. return to the ER if you have any further concerns. Forms: Return to Work
[2017-04-19 00:53] VITALS: BP 120/80
== END 2017-04-19 00:30 | disposition home or self-care (01) ==
LOC: ER 20:05
DX: S92.415A Nondisplaced fracture of proximal phalanx of left great toe, initial encounter for closed fracture (principal); X58.XXXA Exposure to other specified factors, initial encounter; I10 Essential (primary) hypertension; J44.9 Chronic obstructive pulmonary disease, unspecified; Z88.8 Allergy status to other drugs, medicaments and biological substances; Z88.1 Allergy status to other antibiotic agents; Z88.5 Allergy status to narcotic agent; Z88.2 Allergy status to sulfonamides; Z87.892 Personal history of anaphylaxis; Z91.048 Other nonmedicinal substance allergy status
CPT/HCPCS: 99283

== ENCOUNTER → 2017-04-23 | Outpatient (CLI) | payer MEDICAID ==
[2017-04-23 16:12] LABS: ABSOLUTE EOSINOPHILS # (AUTO) 0.2 10^3/uL (0.0-0.6); ABSOLUTE LYMPHOCYTES (AUTO) 2.2 10^3/uL (0.5-4.7); ABSOLUTE MONOCYTES (AUTO) 0.7 10^3/uL (0.1-1.4); ABSOLUTE NEUT (AUTO) 4.2 10^3/uL (1.7-8.2); BASOPHILS % (AUTO) 0.3 % (0-2); EOSINOPHILS % (AUTO) 2.6 % (0-6); HEMOGLOBIN 12.7 g/dL (12.0-15.5); HGB HCT DIFFERENCE -0.9; MEAN CORPUSCULAR HEMOGLOBIN 27.6 pg (27.0-33.4); MEAN CORPUSCULAR HGB CONC 32.5 g/dL (32.0-36.0); MEAN CORPUSCULAR VOLUME 85 fl (80-97); MONOCYTES % (AUTO) 9.3 % (3-13); RED CELL DISTRIBUTION WIDTH 14.7 % (11.5-14.0); SEGMENTED NEUTROPHILS % (AUTO) 57.8 % (42-78); WHITE BLOOD COUNT 7.2 10^3/uL (4.0-10.5)
[2017-04-23 16:25] LABS: ALANINE AMINOTRANSFERASE 37 U/L (9-52); ALBUMIN 4.1 g/dL (3.5-5.0); ALKALINE PHOSPHATASE 112 U/L (38-126); ANION GAP 10 (5-19); ASPARTATE AMINO TRANSFERASE 21 U/L (14-36); BILIRUBIN,DIRECT 0.3 mg/dL (0.0-0.4); BILIRUBIN,TOTAL 0.4 mg/dL (0.2-1.3); BLOOD UREA NITROGEN 19 mg/dL (7-20); CALCIUM 9.5 mg/dL (8.4-10.2); CARBON DIOXIDE 22 mmol/L (22-30); CHLORIDE 110 mmol/L (98-107); CREATININE RESULT 0.73 mg/dL (0.52-1.25); GLUCOSE 93 mg/dL (75-110); POTASSIUM 4.4 mmol/L (3.6-5.0); SODIUM 142.3 mmol/L (137-145); TOTAL PROTEIN 7.1 g/dL (6.3-8.2)
== END ==
LOC: LAB 15:33
PROVIDERS: ATTEND Family Medicine
DX: J44.9 Chronic obstructive pulmonary disease, unspecified (principal); Z79.899 Other long term (current) drug therapy; R73.01 Impaired fasting glucose
CPT/HCPCS: 36415; 80048; 80076; 83036; 85025; 87070; 87205

== ENCOUNTER 2017-04-28 07:51 | Day surgery (SDC) | payer MEDICAID ==
[~2017-04-28 07:51] MED LIST: EPINEPHRINE INJ 1 MG/10 ML DISP.SYRIN ONE; FLUMAZENIL INJ 0.5 MG/5 ML VIAL IV ONE; GLUCAGON,HUMAN RECOMB 1 MG INJ ONE; GLYCOPYRROLATE INJ 0.4 MG/2 ML VIAL ONE; NALOXONE HCL INJ/PF 0.4 MG/1 ML SDV ONE; ONDANSETRON HCL INJ/PF 4 MG/2 ML SDV ONE
[2017-04-28] MEDS ORDERED: ONDANSETRON HCL INJ/PF 4 MG/2 ML SDV ONE (08:38)
[2017-04-28] MEDS: FENTANYL CITRATE INJ/PF 100 MCG/2 ML AMPUL ONE ×2 (08:45→10:02)
[2017-04-28 09:11] LABS: HEMATOCRIT 39.4 % (36.0-47.0); HEMOGLOBIN 12.6 g/dL (12.0-15.5); HGB HCT DIFFERENCE -1.6; MEAN CORPUSCULAR HEMOGLOBIN 27.5 pg (27.0-33.4); MEAN CORPUSCULAR HGB CONC 31.8 g/dL (32.0-36.0); MEAN CORPUSCULAR VOLUME 86 fl (80-97); RED BLOOD COUNT 4.56 10^6/uL (3.72-5.28); RED CELL DISTRIBUTION WIDTH 14.9 % (11.5-14.0); WHITE BLOOD COUNT 4.4 10^3/uL (4.0-10.5)
[2017-04-28] MEDS: MIDAZOLAM 2 MG/2 ML INJ ONE ×3 (10:00→10:07)
--- NOTE | 2017-04-28 10:37 | Operative Report ---
Operative Report DATE OF SURGERY: 04/28/17 PREOPERATIVE DIAGNOSIS: Abdominal pain POSTOPERATIVE DIAGNOSIS: Diverticulosis, inadequate bowel prep. OPERATION: Colonoscopy to beyond the splenic flexure. SURGEON: JANIS CONNOLLY ANESTHESIA: Moderate Sedation TISSUE REMOVED OR ALTERED: None COMPLICATIONS: None ESTIMATED BLOOD LOSS: None INTRAOPERATIVE FINDINGS: Poor bowel prep with stool throughout the colon. Diverticuli throughout the colon. PROCEDURE: Informed consent was obtained. Patient was brought to the endoscopy suite. IV sedation with Versed and fentanyl was administered. Digital rectal exam revealed no palpable perianal masses. Endoscope was passed via the patient's anus to the transverse colon. I encountered solid and semisolid stool that cover the colonic mucosa. Patient had colon redundancies and made the procedure difficult. With the poor bowel prep and scope resistance, I did not attempt to go into the cecum. Visualization was not adequate. However no grossly obstructing lesions were identified. There were diverticuli throughout the colon. No strictures were identified. Transverse colon descending colon sigmoid colon the rectum demonstrated stool throughout but no obstructive lesions. Patient tolerated procedure well with no apparent complications. With the inadequate bowel prep I will try to reprep her and repeat the procedure later this week.
--- NOTE | 2017-04-28 10:55 | PDOC DISCHARGE SUMMARY ---
Discharge Summary (SDC) - Discharge Final Diagnosis: Abdominal pain. Diverticulosis of the colon. Inadequate bowel prep. Date of Surgery: 04/28/17 Discharge Date: 04/28/17 Condition: Good Treatment or Instructions: Colonoscopy. May discharge patient home when met discharge criteria. Clear liquids at home. Repeat bowel prep on Thursday. N.p.o. postmidnight on Thursday night for colonoscopy on . Office will call patient with instructions. Discharge Diet: Clear Liquids Discharge Activity: Activity As Tolerated Report the Following to Your Physician Immediately: Fever over 101 Degrees, Unusual Bleeding
[2017-04-28 12:16] VITALS: BP 100/57
== END 2017-04-28 11:35 | disposition home or self-care (01) ==
LOC: END 07:51
PROVIDERS: ATTEND Surgery
PROC: 0DJD8ZZ Inspection of Lower Intestinal Tract, Via Natural or Artificial Opening Endoscopic (ICD-10-PCS; principal; 2017-04-28 09:30)
DX: K57.30 Diverticulosis of large intestine without perforation or abscess without bleeding (principal); Z80.0 Family history of malignant neoplasm of digestive organs; D50.9 Iron deficiency anemia, unspecified; J44.9 Chronic obstructive pulmonary disease, unspecified; K21.9 Gastro-esophageal reflux disease without esophagitis; E78.5 Hyperlipidemia, unspecified; F32.9 Major depressive disorder, single episode, unspecified; R00.2 Palpitations; I10 Essential (primary) hypertension; Z96.659 Presence of unspecified artificial knee joint; M19.90 Unspecified osteoarthritis, unspecified site; Z88.8 Allergy status to other drugs, medicaments and biological substances; Z88.3 Allergy status to other anti-infective agents; Z88.5 Allergy status to narcotic agent; Z88.6 Allergy status to analgesic agent; Z85.828 Personal history of other malignant neoplasm of skin; Z86.73 Personal history of transient ischemic attack (TIA), and cerebral infarction without residual deficits; Z79.51 Long term (current) use of inhaled steroids; Z79.899 Other long term (current) drug therapy; Z79.82 Long term (current) use of aspirin
CPT/HCPCS: 45378; 36415; 85027; J2250; J3010; J2405; J0171; J1610; J2310; J3490

== ENCOUNTER 2017-04-30 08:10 | Day surgery (SDC) | payer MEDICAID ==
[2017-04-30] MEDS ORDERED: ONDANSETRON HCL INJ/PF 4 MG/2 ML SDV ONE ×2 (09:27→10:38)
[2017-04-30] MEDS ORDERED: GLYCOPYRROLATE INJ 0.4 MG/2 ML VIAL ONE (10:39)
[2017-04-30] MEDS ORDERED: NALOXONE HCL INJ/PF 0.4 MG/1 ML SDV ONE (10:39)
[2017-04-30] MEDS ORDERED: MIDAZOLAM 2 MG/2 ML INJ ONE (10:39)
[2017-04-30] MEDS ORDERED: FLUMAZENIL INJ 0.5 MG/5 ML VIAL IV ONE (10:41)
[2017-04-30] MEDS ORDERED: GLUCAGON,HUMAN RECOMB 1 MG INJ ONE (10:41)
[2017-04-30] MEDS ORDERED: EPINEPHRINE INJ 1 MG/10 ML DISP.SYRIN ONE (10:41)
[2017-04-30] MEDS: MIDAZOLAM 2 MG/2 ML INJ ONE ×2 (11:25→11:29)
[2017-04-30] MEDS: FENTANYL CITRATE INJ/PF 100 MCG/2 ML AMPUL ONE ×3 (11:27→12:00)
--- NOTE | 2017-04-30 12:51 | Operative Report ---
Operative Report DATE OF SURGERY: 04/30/17 PREOPERATIVE DIAGNOSIS: Abdominal pain POSTOPERATIVE DIAGNOSIS: Diverticulosis of the colon. Multiple colon polyps. OPERATION: Colonoscopy with biopsy of cecal polyp. Snare polypectomies 6. Isabel ink marking of right colon polyp. SURGEON: JANIS CONNOLLY ANESTHESIA: Moderate Sedation TISSUE REMOVED OR ALTERED: Cold biopsy of cecal polyp. Right colon polyp. Three distal transverse colon polyps. proximal transverse colon polyp. COMPLICATIONS: None ESTIMATED BLOOD LOSS: Minimal INTRAOPERATIVE FINDINGS: At the cecum 3 cm sessile polyp tucked behind the ileocecal valve. 1.5 cm sessile polyp at the right colon about 3 folds away from the cecum. 1 cm sessile polyp at the proximal transverse colon. Three 1 cm sessile polyps at the distal transverse colon. Diminutive sessile polyp at the distal transverse colon. Pandiverticulosis. Well-healed colorectal anastomosis. PROCEDURE: Informed consent was obtained. Patient was brought to the endoscopy suite. IV sedation with Versed and fentanyl was administered. Digital rectal exam revealed no palpable perianal masses. Endoscope was passed via the patient's anus it was fed to the cecum. The bowel prep was excellent. Visualization was good. At the cecum right behind the ileocecal valve there was a 3 cm sessile polyp which was biopsied. About 3 folds away in the right mid: There was a 1.5 cm sessile polyp that was snare polypectomied. Specimen was retrieved. however it did not appear to be a complete polypectomy due to the size of the polyp. Therefore this site was Isabel inked at the 3 sites. At the proximal transverse colon there was a 1 cm sessile polyp which was snare polypectomied and the specimen retrieved. At the distal transverse colon there were 4 sessile polyps. 1 of them was less than half centimeter. The other ones were 1 cm per. All 4 of these polyps were snare polypectomied. The larger ones were retrieved. Descending colon had no polyps and the colorectal anastomosis appeared well-healed. Rectum appeared normal. There were multiple large diverticuli throughout the entire colon. Patient tolerated the procedure well with no apparent complications and was taken to the recovery area in stable condition. Patient with multiple colon polyps status post snare polypectomy 6. However the cecal polyp is too large to be removed via endoscopy. The right mid colon polyp appears to be partially polypectomy. This latter polyp site was marked with Isabel ink injection. Patient will need close surveillance of her colon in light of the multiplicity of her colon polyps. She will need a partial right colon resection to remove the cecal polyp and the mid right colon polyp. I will see her back for follow-up and discuss surgery with her.
--- NOTE | 2017-04-30 12:54 | PDOC DISCHARGE SUMMARY ---
Discharge Summary (SDC) - Discharge Final Diagnosis: Multiple colon polyps. Pandiverticulosis. Date of Surgery: 04/30/17 Discharge Date: 04/30/17 Condition: Good Treatment or Instructions: Underwent colonoscopy with multiple polypectomies and Isabel ink marking of right colon polyp. May discharge patient home when met discharge criteria. Follow-up with me next week. Hold aspirin for 1 week. If no bleeding may resume aspirin. Discharge Diet: As Tolerated Discharge Activity: Activity As Tolerated Report the Following to Your Physician Immediately: Increase in Pain, Fever over 101 Degrees, Unusual Bleeding
[2017-04-30 13:27] VITALS: BP 115/77
== END 2017-04-30 13:30 | disposition home or self-care (01) ==
LOC: END 08:10
PROVIDERS: ATTEND Surgery
PROC: 3E0H8GC Introduction of Other Therapeutic Substance into Lower GI, Via Natural or Artificial Opening Endoscopic (ICD-10-PCS; 2017-04-30)
PROC: 0DBL8ZX Excision of Transverse Colon, Via Natural or Artificial Opening Endoscopic, Diagnostic (ICD-10-PCS; principal; 2017-04-30 10:00)
PROC: 0DBF8ZX Excision of Right Large Intestine, Via Natural or Artificial Opening Endoscopic, Diagnostic (ICD-10-PCS; 2017-04-30 10:00)
PROC: 0DBH8ZX Excision of Cecum, Via Natural or Artificial Opening Endoscopic, Diagnostic (ICD-10-PCS; 2017-04-30 10:00)
DX: K57.30 Diverticulosis of large intestine without perforation or abscess without bleeding (principal); D12.3 Benign neoplasm of transverse colon; D12.0 Benign neoplasm of cecum; K63.5 Polyp of colon; J44.9 Chronic obstructive pulmonary disease, unspecified; E78.5 Hyperlipidemia, unspecified; G45.9 Transient cerebral ischemic attack, unspecified; I10 Essential (primary) hypertension; D50.9 Iron deficiency anemia, unspecified; Z96.659 Presence of unspecified artificial knee joint; M19.90 Unspecified osteoarthritis, unspecified site; Z80.0 Family history of malignant neoplasm of digestive organs; Z88.3 Allergy status to other anti-infective agents; Z88.8 Allergy status to other drugs, medicaments and biological substances; Z88.6 Allergy status to analgesic agent; Z85.828 Personal history of other malignant neoplasm of skin; Z79.51 Long term (current) use of inhaled steroids; Z79.82 Long term (current) use of aspirin; Z79.899 Other long term (current) drug therapy
CPT/HCPCS: 45380; 45385; 45381; 88305 ×2; J2250; J0171; J3010; J2405; J1610; J2310; J3490

== ENCOUNTER 2017-05-26 09:36 | Inpatient (IN) | payer MEDICAID ==
[2017-05-19 11:12] LABS: HEMATOCRIT 39.9 % (36.0-47.0); HEMOGLOBIN 12.9 g/dL (12.0-15.5); HGB HCT DIFFERENCE -1.2; MEAN CORPUSCULAR HEMOGLOBIN 27.2 pg (27.0-33.4); MEAN CORPUSCULAR HGB CONC 32.3 g/dL (32.0-36.0); MEAN CORPUSCULAR VOLUME 84 fl (80-97); RED BLOOD COUNT 4.74 10^6/uL (3.72-5.28); RED CELL DISTRIBUTION WIDTH 14.9 % (11.5-14.0); WHITE BLOOD COUNT 5.8 10^3/uL (4.0-10.5)
[2017-05-19 11:34] LABS: ANION GAP 13 (5-19); BLOOD UREA NITROGEN 16 mg/dL (7-20); CALCIUM 9.5 mg/dL (8.4-10.2); CARBON DIOXIDE 21 mmol/L (22-30); CHLORIDE 107 mmol/L (98-107); CREATININE RESULT 0.61 mg/dL (0.52-1.25); GLUCOSE 112 mg/dL (75-110)
--- NOTE | 2017-05-19 19:18 | EKG REPORT ---
SEVERITY:- NORMAL ECG - SINUS RHYTHM : Confirmed by: García Dunham MD 19-May-2017 19:17:35
[~2017-05-26 09:36] MED LIST changes: +ACETAMINOPHEN 325 MG TABLET PO PRN; -EPINEPHRINE INJ 1 MG/10 ML DISP.SYRIN ONE; +ERTAPENEM SODIUM 1 GM in NORMAL SALINE 50 ML IV SCH; -FLUMAZENIL INJ 0.5 MG/5 ML VIAL IV ONE; -GLUCAGON,HUMAN RECOMB 1 MG INJ ONE; -GLYCOPYRROLATE INJ 0.4 MG/2 ML VIAL ONE; +LIDOCAINE 0.5% INJ-PF (5 MG/ML) 50 ML SDV SUBCUT PRN; +LIDOCAINE 4% INJ/PF (40 MG/ML) 5 ML AMPUL INJ PRN; -NALOXONE HCL INJ/PF 0.4 MG/1 ML SDV ONE; -ONDANSETRON HCL INJ/PF 4 MG/2 ML SDV ONE; +RINGERS SOLUTION,LACTATED 1,000 ML IV PRN
[2017-05-26] MEDS ORDERED: DIAZEPAM 5 MG TABLET ONE (10:35)
[2017-05-26] MEDS ORDERED: GLUCAGON,HUMAN RECOMB 1 MG INJ ONE (10:47)
[2017-05-26] MEDS ORDERED: BUPIVACAINE HCL 0.25 % INJ/PF (2.5 MG/1 ML) 30 ML VIAL ONE (10:48)
[2017-05-26] MEDS ORDERED: PROPOFOL INJ 200 MG/20 ML VIAL IV ONE (12:32)
[2017-05-26] MEDS ORDERED: MIDAZOLAM 2 MG/2 ML INJ ONE (12:32)
[2017-05-26] MEDS ORDERED: FENTANYL CITRATE INJ/PF 250 MCG/5 ML AMPULE ONE (12:32)
[2017-05-26] MEDS ORDERED: IBUPROFEN INJ 800 MG/8 ML VIAL IV ONE (12:32)
[2017-05-26] MEDS ORDERED: MORPHINE SULFATE 10 MG/ML INJ ONE (12:33)
[2017-05-26] MEDS ORDERED: SUCCINYLCHOLINE CHLORIDE INJ 200 MG/10 ML VIAL ONE (12:49)
[2017-05-26] MEDS ORDERED: LIDOCAINE 2% INJ-PF (20 MG/ML) 10 ML AMPUL ONE (12:49)
[2017-05-26] MEDS ORDERED: ROCURONIUM BROMIDE INJ 50 MG/5 ML VIAL IV ONE (12:49)
[2017-05-26] MEDS ORDERED: METOCLOPRAMIDE HCL INJ/PF 10 MG/2 ML SDV ONE (12:49)
[2017-05-26] MEDS ORDERED: NEOSTIGMINE METHYLSULFATE 10 MG/10 ML VIAL ONE (12:49)
[2017-05-26] MEDS ORDERED: PHENYLEPHRINE HCL INJ/PF 10 MG/1 ML SDV ONE (12:49)
[2017-05-26] MEDS ORDERED: GLYCOPYRROLATE INJ 0.4 MG/2 ML VIAL ONE (12:49)
[2017-05-26] MEDS: BUPIVACAINE HCL 0.25 % INJ/PF (2.5 MG/1 ML) 30 ML VIAL ONE ×2 (13:14→14:50)
[2017-05-26] MEDS ORDERED: DIPHENHYDRAMINE HCL 50 MG/ML VIAL IV PRN (14:26)
[2017-05-26] MEDS ORDERED: FENTANYL CITRATE INJ/PF 100 MCG/2 ML AMPUL IV PRN ×3 (14:26)
[2017-05-26] MEDS ORDERED: MORPHINE SULFATE 10 MG/ML INJ IV PRN (14:26)
[2017-05-26] MEDS ORDERED: PROMETHAZINE HCL INJ 25 MG/1 ML VIAL IV PRN ×2 (14:26)
[2017-05-26] MEDS ORDERED: MEPERIDINE HCL/PF INJ 25 MG/1 ML DISP.SYRIN IV PRN (14:26)
[2017-05-26] MEDS ORDERED: OXYCODONE-ACETAMINOPHEN 5-325 MG TABLET PO PRN ×2 (14:26)
[2017-05-26] MEDS ORDERED: DEXTROSE 40% GEL 15 GM TUBE PO PRN ×2 (15:52)
[2017-05-26] MEDS ORDERED: GLUCAGON,HUMAN RECOMB 1 MG INJ SUBCUT PRN (15:52)
[2017-05-26] MEDS ORDERED: DEXTROSE 50%-WATER 25 GM/50 ML DISP.SYRIN IV PRN ×2 (15:52)
[2017-05-26] MEDS ORDERED: ONDANSETRON HCL INJ/PF 4 MG/2 ML SDV IV PRN (15:52)
[2017-05-26] MEDS ORDERED: IPRATROPIUM/ALBUTEROL 0.5-2.5 MG/3 ML AMPUL NEB ONE (16:35)
--- NOTE | 2017-05-26 18:14 | Operative Report ---
Operative Report DATE OF SURGERY: 05/26/17 PREOPERATIVE DIAGNOSIS: Right colon polyps POSTOPERATIVE DIAGNOSIS: Right colon polyps OPERATION: Laparoscopic partial right colon resection with ileocolic anastomosis. Extensive lysis of adhesions SURGEON: JANIS CONNOLLY ANESTHESIA: GA TISSUE REMOVED OR ALTERED: Cecum and portion of right colon COMPLICATIONS: None ESTIMATED BLOOD LOSS: 50 cc INTRAOPERATIVE FINDINGS: Anterior abdominal wall adhesions. Sessile polyp at the cecum. Scar at the right proximal colon consistent with polypectomy site. PROCEDURE: Informed consent was obtained. Patient was brought to the operating room and placed on the operating table in supine position. After satisfactory induction of general anesthesia patient's abdomen was prepped and draped in usual sterile fashion. A subxiphoid midline incision was made dissection carried out through the fascia and the peritoneal cavity entered without difficulty. Stern trocar was inserted and pneumoperitoneum produced with good patient toleration. Three 5 mm trochars were placed during the case to in the right mid and upper abdomen and another at the mid abdomen. There were dense omental adhesions to the anterior abdominal wall and to the Hopkins-Edgar mesh. The mesh appeared well incorporated. There was no evidence of a ventral hernia. The anterior abdominal wall adhesions were taken down taking great care to avoid injury to the underlying bowel. All of these adhesions were completely lysed. The right colon was mobilized along the line of Toldt. To assist in the mobilization and for extraction of the right colon a transverse right lower quadrant incision was made dissection was carried down and the peritoneal cavity was entered without difficulty. A laparoscopic hand port was inserted at this site. The cecum and the terminal ileum was mobilized and delivered out of the peritoneal cavity through the laparoscopic hand port. There was Isabel ink marking clearly seen in the right mid colon, demarcating the site of the smaller polyp that was incompletely removed. The colon was divided just distal to this Isabel ink marking using a RANDY stapling device. The terminal ileum was divided using a RANDY stapling device close to the ileocecal junction. The mesentery was taken using the LigaSure device. The remaining bowel appeared well vascularized with triphasic Doppler signals and appeared pink with no evidence of ischemia. Hemostasis appeared excellent. The specimen was examined with the pathologist demonstrating the sessile cecal mass that did not appear suspicious for malignancy. The area with a polypectomy had been performed in the right colon appeared to be in the specimen as well. Bowel continuity was then re-created creating a [id number] functional end-to-end anastomosis between the mid right colon and the terminal ileum using a RANDY stapling device. The enterotomy created to introduce the stapling device was closed with a TA stapling device. Anastomosis appeared secure with no evidence of ischemia. Hemostasis appeared excellent. The anastomosis was dropped back into the peritoneal cavity. The left colon was clearly visualized as was the region of the colorectal anastomosis. No abnormalities were seen. The bowel appeared healthy and it felt a pliable with no evidence of abscess and no evidence of inflammation. The uterus appeared normal. I did not feel any ovarian masses. Of note there were some pelvic adhesions which were lysed. Omentum was draped over the anastomosis and the remaining bowel. Sponge needle and instrument counts were all correct. All trochars were removed under the direct vision of the laparoscope to ensure hemostasis. The laparoscopic hand port fascial defect was closed in 2 layers, the inner layer with running Vicryl suture. The outer layer with running PDS suture. All skin incisions were closed with yosef. Marcaine was injected at the incision sites. Patient tolerated procedure well with no apparent complications and was taken to the recovery area in stable condition.
[2017-05-26] MEDS: MORPHINE SULFATE 10 MG/ML INJ IV PRN (18:19)
--- NOTE | 2017-05-26 19:44 | PDOC PROGRESS REPORT ---
Subjective Progress Note for:: 05/26/17 Subjective:: Feels well. Pain under good control. Physical Exam Vital Signs: Temp Pulse Resp BP Pulse Ox 98.7 F 93 12 118/67 96 05/26/17 18:40 05/26/17 18:40 05/26/17 18:40 05/26/17 18:40 05/26/17 18:40 Intake & Output 05/25/17 05/26/17 05/27/17 06:59 06:59 06:59 Intake Total 3800 Output Total 200 Balance 3600 General appearance: PRESENT: no acute distress, cooperative Respiratory exam: PRESENT: clear to auscultation hank Cardiovascular exam: PRESENT: RRR GI/Abdominal exam: PRESENT: other - Soft, nondistended, appropriate mild tenderness Extremities exam: PRESENT: other - No swelling. Results Laboratory Results: 05/19/17 10:25 05/19/17 10:25 Assessment & Plan - Diagnosis (1) Adenomatous colon polyp Qualifiers: Colon location: ascending Qualified Code(s): D12.2 - Benign neoplasm of ascending colon Is this a current diagnosis for this admission?: YesPlan: Status post partial right colon resection. Patient looks good postoperatively. Encourage ambulation.
[2017-05-26] MEDS: KETOROLAC TROMETHAMINE INJ/PF 30 MG/1 ML SDV IV PRN (23:06)
[2017-05-27] MEDS: NORMAL SALINE 1000 ML 1,000 ML IV PRN (04:03)
[2017-05-27 05:50] LABS: HEMATOCRIT 35.1 % (36.0-47.0); HEMOGLOBIN 11.4 g/dL (12.0-15.5); HGB HCT DIFFERENCE -0.9; MEAN CORPUSCULAR HEMOGLOBIN 27.4 pg (27.0-33.4); MEAN CORPUSCULAR HGB CONC 32.4 g/dL (32.0-36.0); MEAN CORPUSCULAR VOLUME 84 fl (80-97); RED BLOOD COUNT 4.16 10^6/uL (3.72-5.28); RED CELL DISTRIBUTION WIDTH 15.6 % (11.5-14.0); WHITE BLOOD COUNT 11.6 10^3/uL (4.0-10.5)
[2017-05-27 06:17] LABS: ANION GAP 7 (5-19); BLOOD UREA NITROGEN 12 mg/dL (7-20); CALCIUM 8.3 mg/dL (8.4-10.2); CARBON DIOXIDE 26 mmol/L (22-30); CHLORIDE 105 mmol/L (98-107); CREATININE RESULT 0.67 mg/dL (0.52-1.25); GLUCOSE 125 mg/dL (75-110); POTASSIUM 4.1 mmol/L (3.6-5.0); SODIUM 138.2 mmol/L (137-145)
[2017-05-27] MEDS ORDERED: ERTAPENEM SODIUM INJ 1 GM VIAL IV ONE (09:14)
[2017-05-27] MEDS ORDERED: NORMAL SALINE 1000 ML 1,000 ML IV PRN ×2 (09:16→20:22)
--- NOTE | 2017-05-27 09:17 | PDOC PROGRESS REPORT ---
Subjective Progress Note for:: 05/27/17 Subjective:: Feels well. States that pain is under good control. Physical Exam Vital Signs: Temp Pulse Resp BP Pulse Ox 99.5 F 124 H 16 118/76 90 L 05/27/17 03:55 05/27/17 03:55 05/27/17 03:55 05/27/17 03:55 05/27/17 03:55 Intake & Output 05/26/17 05/27/17 05/28/17 06:59 06:59 06:59 Intake Total 5180 Output Total 475 Balance 4705 Weight 99.1 kg General appearance: PRESENT: no acute distress, cooperative Respiratory exam: PRESENT: wheezes Cardiovascular exam: PRESENT: tachycardia GI/Abdominal exam: PRESENT: other - Soft, nondistended, tenderness to palpation right abdomen Extremities exam: PRESENT: other - No swelling. Neurological exam: PRESENT: alert, awake Psychiatric exam: PRESENT: appropriate affect Results Laboratory Results: 05/27/17 05:28 05/27/17 05:28 05/27/17 05/27/17 05:28 05:28 WBC 11.6 H RBC 4.16 Hgb 11.4 L Hct 35.1 L MCV 84 MCH 27.4 MCHC 32.4 RDW 15.6 H Plt Count 215 Sodium 138.2 Potassium 4.1 Chloride 105 Carbon Dioxide 26 Anion Gap 7 BUN 12 Creatinine 0.67 Est GFR ( Amer) > 60 Est GFR (Non-Af Amer) > 60 Glucose 125 H Calcium 8.3 L Assessment & Plan - Diagnosis (1) Adenomatous colon polyp Qualifiers: Colon location: ascending Qualified Code(s): D12.2 - Benign neoplasm of ascending colon Is this a current diagnosis for this admission?: YesPlan: Status post partial right colon resection. Tachycardic with wheezes. Low urine output overnight. Check stat EKG. Check stat chest x-ray. Administer fluid bolus. Begin nebulizer treatments. Resume Invanz. Resume home cardiac meds.
[2017-05-27] MEDS: KETOROLAC TROMETHAMINE INJ/PF 30 MG/1 ML SDV IV PRN ×2 (09:52→16:02)
[2017-05-27] MEDS: ALBUTEROL SULFATE 0.083% NEB 2.5 MG/3 ML AMPUL NEB PRN (10:17)
[2017-05-27] MEDS ORDERED: ERTAPENEM SODIUM 1 GM in NORMAL SALINE 50 ML IV ONE (10:30)
[2017-05-27] MEDS: ALBUTEROL SULFATE HFA (90 MCG/PUFF) 200 PUFF/8.5 GM MDI IH SCH ×2 (10:48→23:41)
[2017-05-27] MEDS: FLUTICASONE/SALMETEROL DISKUS 500-50 MCG/DOSE IH SCH ×2 (10:49→23:52)
[2017-05-27] MEDS: TIOTROPIUM BROMIDE DPI 5 CAP/KIT (18 MCG/CAP) IH SCH (10:50)
--- NOTE | 2017-05-27 11:18 | RADIOLOGY REPORT (SQ) ---
EXAM DESCRIPTION: CHEST SINGLE VIEW COMPLETED DATE/TIME: 05/27/2017 11:04 am REASON FOR STUDY: wheezing COMPARISON: 03/03/2017 EXAM PARAMETERS: NUMBER OF VIEWS: One view. TECHNIQUE: Single frontal radiographic view of the chest acquired. RADIATION DOSE: NA LIMITATIONS: None. FINDINGS: LUNGS AND PLEURA: No opacities, masses or pneumothorax. No pleural effusion. MEDIASTINUM AND HILAR STRUCTURES: No masses. Contour normal. HEART AND VASCULAR STRUCTURES: Heart normal in size. Normal vasculature. BONES: No acute findings. HARDWARE: None in the chest. OTHER: No other significant finding. IMPRESSION: NO ACUTE RADIOGRAPHIC FINDING IN THE CHEST. TECHNICAL DOCUMENTATION: JOB ID: [id number]
[2017-05-27] MEDS: LANSOPRAZOLE 15 MG TAB.RAP.DR PO SCH ×2 (11:34→23:41)
--- NOTE | 2017-05-27 11:34 | PDOC PROGRESS REPORT ---
Subjective Progress Note for:: 05/27/17 Subjective:: pt feels musch better. breathing easier Physical Exam Vital Signs: Temp Pulse Resp BP Pulse Ox 99.5 F 111 H 18 118/76 92 05/27/17 03:55 05/27/17 10:17 05/27/17 10:17 05/27/17 03:55 05/27/17 10:17 Intake & Output 05/26/17 05/27/17 05/28/17 06:59 06:59 06:59 Intake Total 5180 Output Total 475 Balance 4705 Weight 99.1 kg General appearance: PRESENT: no acute distress, cooperative Respiratory exam: PRESENT: wheezes - less wheezing, looser breath sounds. Cardiovascular exam: PRESENT: tachycardia - hr 104 GI/Abdominal exam: PRESENT: other - right abdominal tenderness, mostly at incision. no peritoneal signs. Results Laboratory Results: 05/27/17 05:28 05/27/17 05:28 05/27/17 05/27/17 05:28 05:28 WBC 11.6 H RBC 4.16 Hgb 11.4 L Hct 35.1 L MCV 84 MCH 27.4 MCHC 32.4 RDW 15.6 H Plt Count 215 Sodium 138.2 Potassium 4.1 Chloride 105 Carbon Dioxide 26 Anion Gap 7 BUN 12 Creatinine 0.67 Est GFR ( Amer) > 60 Est GFR (Non-Af Amer) > 60 Glucose 125 H Calcium 8.3 L Impressions: Chest X-Ray 05/27/17 00:00 IMPRESSION: NO ACUTE RADIOGRAPHIC FINDING IN THE CHEST. Assessment & Plan - Diagnosis (1) Adenomatous colon polyp Qualifiers: Colon location: ascending Qualified Code(s): D12.2 - Benign neoplasm of ascending colon Is this a current diagnosis for this admission?: YesPlan: Status post partial right colon resection. cxr ok. ekg with no significant changes, pt looks much better with less tachycardia and better breath sounds. excellent u.o now (not documented yet). d/c barrios. ambulate.
[2017-05-27] MEDS: LOSARTAN POTASSIUM 50 MG TABLET PO SCH (11:35)
[2017-05-27] MEDS: SODIUM BICARBONATE 650 MG TABLET PO SCH ×2 (11:36→23:41)
[2017-05-27] MEDS: SALMETEROL XINAFOATE DISKUS 50 MCG/1 DOSE 28 DOSE IH SCH ×2 (11:37→23:41)
--- NOTE | 2017-05-27 12:05 | EKG REPORT ---
SEVERITY:- BORDERLINE ECG - SINUS TACHYCARDIA BORDERLINE T ABNORMALITIES, DIFFUSE LEADS : Confirmed by: Ivonne Yanez MD 27-May-2017 12:03:46
--- NOTE | 2017-05-27 15:51 | PDOC CONSULTATION ---
Consultation Consult Date: 05/27/17 Attending physician:: Dr. Last Consult reason:: COPD History of Present Illness Admission Date/PCP: 05/26/17 09:36 HARLEY ANDRADE MD History of Present Illness: BRETT BABB is a 56 year old female with a past medical history significant for COPD hypertension and dyslipidemia who presents to the primary service for partial right colectomy due to diverticular disease. The patient has a history of COPD and apparently was short of breath earlier today, thus we were consulted. At the bedside the patient has absolutely no complaints. She does not wear oxygen at home. The patient states that her shortness of breath lasted a few moments and then she got a breathing treatment and felt fine. She has had no further episodes of shortness of breath today. she denies any chest pain or shortness of breath at the moment. Past Medical History Cardiac Medical History: Reports: Hyperlipidema, Hypertension, Pulmonary Embolism - 6 years ago Pulmonary Medical History: Reports: Asthma, Bronchitis, Chronic Obstructive Pulmonary Disease (COPD), Pneumonia GI Medical History: Reports: Diverticulitis, Gastroesophageal Reflux Disease Musculoskeltal Medical History: Reports: Arthritis - knees Psychiatric Medical History: Reports: Depression Past Surgical History Past Surgical History: Reports: Appendectomy, Herniorrhaphy - left lower abdomen , Orthopedic Surgery - right knee replacement Social History Smoking Status: Former Smoker Frequency of Alcohol Use: None Hx Recreational Drug Use: No Hx Prescription Drug Abuse: No - Advance Directive Resuscitation Status: Full Code Family History Family History: Arthritis, CAD, Hypertension, Malignancy, Other Parental Family History Reviewed: Yes Children Family History Reviewed: Yes Sibling(s) Family History Reviewed.: Yes Medication/Allergy Home Medications: Albuterol Sulfate [Albuterol Sulfate 2.5mg/3 mL] 1 vial IH Q4HP PRN 02/12/17 Albuterol Sulfate [Proair HFA] 2 puff IH BID 02/12/17 Citalopram Hydrobromide [Celexa] 20 mg PO QHS 02/12/17 Ezetimibe [Zetia 10 mg Tablet] 10 mg PO QHS 02/12/17 Fluticasone/Salmeterol [Advair 500-50 Diskus 14 Dose/Diskus] 1 inh IH Q12 Linaclotide [Linzess] 290 mcg PO DAILY 02/12/17 Montelukast Sodium [Singulair 10 mg Tablet] 10 mg PO QHS 02/12/17 Omeprazole 20 mg PO BID 02/12/17 Pramipexole Di-HCl [Mirapex 0.5 mg Tablet] 0.5 mg PO QHS 02/12/17 Pravastatin Sodium [Pravachol] 40 mg PO QHS 02/12/17 Sodium Bicarbonate [Sodium Bicarbonate 650 mg Tablet] 650 mg PO BID 02/12/17 Losartan Potassium 50 mg PO QAM 04/28/17 Salmeterol Xinafoate [Serevent Diskus 50 Mcg/Dose 28 Dose/Diskus] 1 inh PO BID 05/19/17 Tiotropium [place] [Spiriva Handihaler 18 mcg/dose (30 Dose)] 1 cap PO DAILY 09/25 Allergies/Adverse Reactions: atorvastatin Allergy (Severe, Verified 04/30/17 08:25) myalgia niacin Allergy (Severe, Verified 05/19/17 09:57) Anaphylaxis adhesive tape Allergy (Intermediate, Verified 05/19/17 09:57) REDNESS, BLISTERS meloxicam Allergy (Intermediate, Verified 05/19/17 09:57) wheezing, palpitations sulfamethoxazole [From Septra] Allergy (Mild, Verified 05/19/17 09:57) rash tramadol Allergy (Mild, Verified 05/19/17 09:57) wheezing trimethoprim [From Septra] Allergy (Mild, Verified 05/19/17 09:57) rash simvastatin Allergy (Unknown, Verified 05/19/17 09:57) Sulfa (Sulfonamide Antibiotics) Allergy (Unknown, Verified 05/19/17 09:57) rash zolpidem tartrate [From Ambien] Adverse Reaction (Severe, Verified 05/19/17 09: 57) sleepwalking dipyridamole [From Aggrenox] Adverse Reaction (Intermediate, Verified 05/19/17 09:57) HEADACHES methylprednisolone [From Medrol] Adverse Reaction (Intermediate, Verified 08:25) N/V/hyperactive topiramate Adverse Reaction (Intermediate, Verified 05/19/17 09:57) kidney stones aspirin Adverse Reaction (Mild, Verified 05/19/17 09:57) GI upset guaifenesin Adverse Reaction (Mild, Verified 05/19/17 09:57) GI upset rosuvastatin Adverse Reaction (Mild, Verified 05/19/17 09:57) muscle pain pseudoephedrine Adverse Reaction (Unknown, Verified 05/19/17 09:57) GI upset Review of Systems Cardiovascular: ABSENT: chest pain, dyspnea on exertion, palpitations Respiratory: ABSENT: dyspnea Gastrointestinal: PRESENT: abdominal pain, bloating Genitourinary: ABSENT: dysuria - Clear Psychiatric: PRESENT: depression Physical Exam Vital Signs: Temp Pulse Resp BP Pulse Ox 99.5 F 111 H 18 118/76 92 05/27/17 03:55 05/27/17 10:17 05/27/17 10:17 05/27/17 03:55 05/27/17 10:17 Intake & Output 05/26/17 05/27/17 05/28/17 06:59 06:59 06:59 Intake Total 5180 Output Total 475 Balance 4705 Weight 99.1 kg GENERAL: This is a well-developed well-nourished obese white female resting in bed currently in no acute distress. HEART: Tachycardic. No murmurs, rubs or gallops. LUNGS: Clear to auscultation bilaterally with equal rise and fall of the chest. ABDOMEN: Soft, nontender, nondistended with normoactive bowel sounds EXTREMETIES: No clubbing, cyanosis or edema. 2+ peripheral pulses bilaterally. NEURO: Awake, alert and oriented 3. Cranial nerves II through XII are grossly intact. Results Laboratory Results: 05/27/17 05:28 05/27/17 05:28 05/27/17 05/27/17 05:28 05:28 WBC 11.6 H RBC 4.16 Hgb 11.4 L Hct 35.1 L MCV 84 MCH 27.4 MCHC 32.4 RDW 15.6 H Plt Count 215 Sodium 138.2 Potassium 4.1 Chloride 105 Carbon Dioxide 26 Anion Gap 7 BUN 12 Creatinine 0.67 Est GFR ( Amer) > 60 Est GFR (Non-Af Amer) > 60 Glucose 125 H Calcium 8.3 L Impressions: Chest X-Ray 05/27/17 00:00 IMPRESSION: NO ACUTE RADIOGRAPHIC FINDING IN THE CHEST. Assessment & Plan - Diagnosis (1) COPD without exacerbation Plan: There is negative. No evidence of acute exacerbation. The patient had nebulizer treatment is doing better. I will ensure he as scheduled and as needed nebulizers. (2) Hypertension Plan: Continue home medications (3) Adenomatous colon polyp Qualifiers: Colon location: ascending Qualified Code(s): D12.2 - Benign neoplasm of ascending colon Is this a current diagnosis for this admission?: YesPlan: Status post colectomy management per primary team (4) Arthritis of knee Plan: Continue pain control. (5) Hypercholesteremia Plan: Continue statin - Time Critical Time spent with patient: 15-24 minutes - Inpatient Certification I certify that my determination is in accordance with my understanding of Medicare's requirements for reasonable and necessary INPATIENT services [42 CFR 412.3e].: Yes Medical Necessity: Need Close Monitoring Due to Risk of Patient Decompensation
--- NOTE | 2017-05-27 20:16 | PDOC PROGRESS REPORT ---
Subjective Progress Note for:: 05/27/17 Subjective:: Patient has ambulated. Sitting in bed. Feels fine. hungry. No lightheadedness. Urinating well after Dan discontinuance. No chest pain no shortness of breath. Physical Exam Vital Signs: Temp Pulse Resp BP Pulse Ox 98.2 F 123 H 18 132/84 H 95 05/27/17 17:17 05/27/17 17:17 05/27/17 17:17 05/27/17 17:17 05/27/17 17:17 Intake & Output 05/26/17 05/27/17 05/28/17 06:59 06:59 06:59 Intake Total 5180 900 Output Total 475 Balance 4705 900 Weight 99.1 kg General appearance: PRESENT: no acute distress, cooperative Respiratory exam: PRESENT: clear to auscultation hank Cardiovascular exam: PRESENT: tachycardia GI/Abdominal exam: PRESENT: other - Soft with focal tenderness to palpation at the right mid to lower abdomen. Extremities exam: PRESENT: other - No swelling and no tenderness Results Laboratory Results: 05/27/17 05:28 05/27/17 05:28 05/27/17 05/27/17 05:28 05:28 WBC 11.6 H RBC 4.16 Hgb 11.4 L Hct 35.1 L MCV 84 MCH 27.4 MCHC 32.4 RDW 15.6 H Plt Count 215 Sodium 138.2 Potassium 4.1 Chloride 105 Carbon Dioxide 26 Anion Gap 7 BUN 12 Creatinine 0.67 Est GFR ( Amer) > 60 Est GFR (Non-Af Amer) > 60 Glucose 125 H Calcium 8.3 L Impressions: Chest X-Ray 05/27/17 00:00 IMPRESSION: NO ACUTE RADIOGRAPHIC FINDING IN THE CHEST. Assessment & Plan - Diagnosis (1) Adenomatous colon polyp Qualifiers: Colon location: ascending Qualified Code(s): D12.2 - Benign neoplasm of ascending colon Is this a current diagnosis for this admission?: YesPlan: Status post partial right colon resection. Patient still with tachycardia but good urine output (over a liter output today not documented in computer but on paper) with good pain control. Patient does not appear septic. repeat labs in am. hold off diet
[2017-05-27] MEDS: MORPHINE SULFATE 10 MG/ML INJ IV PRN ×2 (20:19→23:54)
--- NOTE | 2017-05-27 20:29 | PDOC PROGRESS REPORT ---
Physical Exam Vital Signs: Temp Pulse Resp BP Pulse Ox 98.2 F 123 H 18 132/84 H 95 05/27/17 17:17 05/27/17 17:17 05/27/17 17:17 05/27/17 17:17 05/27/17 17:17 Intake & Output 05/26/17 05/27/17 05/28/17 06:59 06:59 06:59 Intake Total 5180 900 Output Total 475 Balance 4705 900 Weight 99.1 kg Results Laboratory Results: 05/27/17 05:28 05/27/17 05:28 05/27/17 05/27/17 05:28 05:28 WBC 11.6 H RBC 4.16 Hgb 11.4 L Hct 35.1 L MCV 84 MCH 27.4 MCHC 32.4 RDW 15.6 H Plt Count 215 Sodium 138.2 Potassium 4.1 Chloride 105 Carbon Dioxide 26 Anion Gap 7 BUN 12 Creatinine 0.67 Est GFR ( Amer) > 60 Est GFR (Non-Af Amer) > 60 Glucose 125 H Calcium 8.3 L Impressions: Chest X-Ray 05/27/17 00:00 IMPRESSION: NO ACUTE RADIOGRAPHIC FINDING IN THE CHEST. Assessment & Plan - Diagnosis (1) Adenomatous colon polyp Qualifiers: Colon location: ascending Qualified Code(s): D12.2 - Benign neoplasm of ascending colon Is this a current diagnosis for this admission?: Yes (2) Tachycardia Is this a current diagnosis for this admission?: YesPlan: of unclear etiology. pt does not appear septic. will r/o PE with ct angio. will hydrate to protect kidneys.
[2017-05-27] MEDS ORDERED: (PENDING PHARMACY ID) (Pravastatin Sodium [Pravachol] 40 MG) PO SCH (22:00)
[2017-05-27] MEDS: PRAMIPEXOLE DI-HCL 0.5 MG TABLET PO SCH (23:51)
[2017-05-27] MEDS: MONTELUKAST SODIUM 10 MG TABLET PO SCH (23:51)
[2017-05-27] MEDS: EZETIMIBE 10 MG TABLET PO SCH (23:51)
[2017-05-27] MEDS: CITALOPRAM HYDROBROMIDE 20 MG TABLET PO SCH (23:52)
[2017-05-28] MEDS: ALBUTEROL SULFATE 0.083% NEB 2.5 MG/3 ML AMPUL NEB PRN ×2 (00:15→22:01)
[2017-05-28 06:29] LABS: ANION GAP 11 (5-19); BLOOD UREA NITROGEN 12 mg/dL (7-20); CALCIUM 8.6 mg/dL (8.4-10.2); CARBON DIOXIDE 20 mmol/L (22-30); CHLORIDE 110 mmol/L (98-107); GLUCOSE 118 mg/dL (75-110); SODIUM 140.6 mmol/L (137-145)
[2017-05-28 06:37] LABS: ABSOLUTE EOSINOPHILS # (AUTO) 0.1 10^3/uL (0.0-0.6); ABSOLUTE LYMPHOCYTES (AUTO) 0.9 10^3/uL (0.5-4.7); ABSOLUTE MONOCYTES (AUTO) 0.6 10^3/uL (0.1-1.4); ABSOLUTE NEUT (AUTO) 8.1 10^3/uL (1.7-8.2); BASOPHILS % (AUTO) 0.2 % (0-2); EOSINOPHILS % (AUTO) 0.9 % (0-6); HEMATOCRIT 33.1 % (36.0-47.0); HEMOGLOBIN 10.7 g/dL (12.0-15.5); LYMPHOCYTES % (AUTO) 8.9 % (13-45); MEAN CORPUSCULAR HEMOGLOBIN 27.5 pg (27.0-33.4); MEAN CORPUSCULAR HGB CONC 32.3 g/dL (32.0-36.0); MEAN CORPUSCULAR VOLUME 85 fl (80-97); MONOCYTES % (AUTO) 6.6 % (3-13); RED CELL DISTRIBUTION WIDTH 15.5 % (11.5-14.0); SEGMENTED NEUTROPHILS % (AUTO) 83.4 % (42-78); WHITE BLOOD COUNT 9.8 10^3/uL (4.0-10.5)
--- NOTE | 2017-05-28 07:49 | PDOC PROGRESS REPORT ---
Subjective Progress Note for:: 05/28/17 Subjective:: Patient states that she feels well. Patient is hungry. No flatus. No shortness of breath no chest pain. Abdominal pain under good control. Physical Exam Vital Signs: Temp Pulse Resp BP Pulse Ox 98.5 F 110 H 20 122/78 95 05/27/17 23:33 05/28/17 00:00 05/28/17 00:00 05/27/17 23:33 05/28/17 00:00 Intake & Output 05/27/17 05/28/17 05/29/17 06:59 06:59 06:59 Intake Total 5180 900 Output Total 475 250 Balance 4705 650 Weight 99.1 kg 97.9 kg General appearance: PRESENT: no acute distress, cooperative Respiratory exam: PRESENT: clear to auscultation hank Cardiovascular exam: PRESENT: tachycardia GI/Abdominal exam: PRESENT: other - Soft, mildly distended, focal tenderness to palpation in the right mid to lower abdomen. Extremities exam: PRESENT: other - No swelling. Results Laboratory Results: 05/28/17 04:28 05/28/17 04:28 05/28/17 05/28/17 04:28 04:28 WBC 9.8 RBC 3.90 Hgb 10.7 L Hct 33.1 L MCV 85 MCH 27.5 MCHC 32.3 RDW 15.5 H Plt Count 208 Seg Neutrophils % 83.4 H Lymphocytes % 8.9 L Monocytes % 6.6 Eosinophils % 0.9 Basophils % 0.2 Absolute Neutrophils 8.1 Absolute Lymphocytes 0.9 Absolute Monocytes 0.6 Absolute Eosinophils 0.1 Absolute Basophils 0.0 Sodium 140.6 Potassium 4.0 Chloride 110 H Carbon Dioxide 20 L Anion Gap 11 BUN 12 Creatinine 0.60 Est GFR ( Amer) > 60 Est GFR (Non-Af Amer) > 60 Glucose 118 H Calcium 8.6 Impressions: Chest X-Ray 05/27/17 00:00 IMPRESSION: NO ACUTE RADIOGRAPHIC FINDING IN THE CHEST. Assessment & Plan - Diagnosis (1) Adenomatous colon polyp Qualifiers: Colon location: ascending Qualified Code(s): D12.2 - Benign neoplasm of ascending colon Is this a current diagnosis for this admission?: YesPlan: Status post partial right colon resection. Patient still with tachycardia but good urine output (copious amounts as pt and recorded on paper but not documented on computer. d/w nursing staff about documenting properly). mild decreased hct. will cont to hold lovenox. repeat labs in am. will her tenderness in right abdomen, will continue abx. hold off diet. (2) Tachycardia Is this a current diagnosis for this admission?: Yes
[2017-05-28] MEDS: NORMAL SALINE 1000 ML 1,000 ML IV PRN (08:39)
[2017-05-28] MEDS: ALBUTEROL SULFATE HFA (90 MCG/PUFF) 200 PUFF/8.5 GM MDI IH SCH ×2 (09:22→17:56)
[2017-05-28] MEDS: FLUTICASONE/SALMETEROL DISKUS 500-50 MCG/DOSE IH SCH ×2 (09:22→22:25)
[2017-05-28] MEDS: TIOTROPIUM BROMIDE DPI 5 CAP/KIT (18 MCG/CAP) IH SCH (09:22)
[2017-05-28] MEDS: LANSOPRAZOLE 15 MG TAB.RAP.DR PO SCH ×2 (09:23→17:56)
[2017-05-28] MEDS: LOSARTAN POTASSIUM 50 MG TABLET PO SCH (09:23)
[2017-05-28] MEDS: SODIUM BICARBONATE 650 MG TABLET PO SCH ×2 (09:23→17:56)
[2017-05-28] MEDS: ERTAPENEM SODIUM 1 GM in NORMAL SALINE 50 ML IV SCH (09:24)
[2017-05-28] MEDS: SALMETEROL XINAFOATE DISKUS 50 MCG/1 DOSE 28 DOSE IH SCH (09:25)
[2017-05-28] MEDS ORDERED: ONDANSETRON HCL INJ/PF 4 MG/2 ML SDV IV PRN (09:48)
[2017-05-28] MEDS ORDERED: SALMETEROL XINAFOATE DISKUS 50 MCG/1 DOSE 28 DOSE IH SCH (10:00)
[2017-05-28] MEDS: KETOROLAC TROMETHAMINE INJ/PF 30 MG/1 ML SDV IV PRN (10:41)
--- NOTE | 2017-05-28 12:54 | PDOC PROGRESS REPORT ---
Subjective Progress Note for:: 05/28/17 Subjective:: The patient has no complaints this morning. She was placed on oxygen overnight after having a low O2 sat down to 88%. No fever. No shortness of breath perceived by the patient for any chest pain. Physical Exam Vital Signs: Temp Pulse Resp BP Pulse Ox 98.5 F 110 H 20 122/78 95 05/27/17 23:33 05/28/17 00:00 05/28/17 00:00 05/27/17 23:33 05/28/17 00:00 Intake & Output 05/27/17 05/28/17 05/29/17 06:59 06:59 06:59 Intake Total 5180 900 Output Total 475 950 Balance 4705 -50 Weight 99.1 kg 97.9 kg GENERAL: This is a well-developed well-nourished obese white female resting in bed currently in no acute distress. HEART: Tachycardic. No murmurs, rubs or gallops. LUNGS: Clear to auscultation bilaterally with equal rise and fall of the chest. ABDOMEN: Soft, nontender, nondistended with normoactive bowel sounds EXTREMETIES: No clubbing, cyanosis or edema. 2+ peripheral pulses bilaterally. NEURO: Awake, alert and oriented 3. Cranial nerves II through XII are grossly intact. Results Laboratory Results: 05/28/17 04:28 05/28/17 04:28 05/28/17 05/28/17 04:28 04:28 WBC 9.8 RBC 3.90 Hgb 10.7 L Hct 33.1 L MCV 85 MCH 27.5 MCHC 32.3 RDW 15.5 H Plt Count 208 Seg Neutrophils % 83.4 H Lymphocytes % 8.9 L Monocytes % 6.6 Eosinophils % 0.9 Basophils % 0.2 Absolute Neutrophils 8.1 Absolute Lymphocytes 0.9 Absolute Monocytes 0.6 Absolute Eosinophils 0.1 Absolute Basophils 0.0 Sodium 140.6 Potassium 4.0 Chloride 110 H Carbon Dioxide 20 L Anion Gap 11 BUN 12 Creatinine 0.60 Est GFR ( Amer) > 60 Est GFR (Non-Af Amer) > 60 Glucose 118 H Calcium 8.6 Impressions: Chest X-Ray 05/27/17 00:00 IMPRESSION: NO ACUTE RADIOGRAPHIC FINDING IN THE CHEST. Assessment & Plan - Diagnosis (1) COPD without exacerbation Plan: There is negative. No evidence of acute exacerbation. The patient had nebulizer treatment is doing better. I will ensure he as scheduled and as needed nebulizers. (2) Hypertension Plan: Continue home medications (3) Adenomatous colon polyp Qualifiers: Colon location: ascending Qualified Code(s): D12.2 - Benign neoplasm of ascending colon Is this a current diagnosis for this admission?: YesPlan: Status post colectomy management per primary team (4) Arthritis of knee Plan: Continue pain control. (5) Hypercholesteremia Plan: Continue statin (6) Tachycardia Is this a current diagnosis for this admission?: YesPlan: Patient has a sinus tachycardia. I do note that she is a stoic woman and although she is in pain she got to let anyone know that. In fact, her last dose of pain medicine was at 2300 last night. Some of her tachycardia may be secondary to uncontrolled pain. Most also be concerned for the possibility of underlying PE considering that she just had a right partial colectomy. D-dimer would be of little utility in this situation because of her recent surgery. She does have a history of underlying COPD her sat above 88% on room air. Continue to monitor. Will consider a CTA of the chest if she becomes short of breath. Continue ICS .
--- NOTE | 2017-05-28 17:04 | PDOC PROGRESS REPORT ---
Subjective Progress Note for:: 05/28/17 Subjective:: Continues to improve. Physical Exam Vital Signs: Temp Pulse Resp BP Pulse Ox 98.0 F 105 H 16 121/82 92 05/28/17 12:15 05/28/17 14:10 05/28/17 14:10 05/28/17 12:15 05/28/17 14:10 Intake & Output 05/27/17 05/28/17 05/29/17 06:59 06:59 06:59 Intake Total 5180 900 Output Total 475 950 400 Balance 4705 -50 -400 Weight 99.1 kg 97.9 kg General appearance: PRESENT: no acute distress Cardiovascular exam: PRESENT: tachycardia - Heart rate 104 GI/Abdominal exam: PRESENT: other - Soft, nondistended, decreased right-sided abdominal tenderness. Results Laboratory Results: 05/28/17 04:28 05/28/17 04:28 05/28/17 05/28/17 04:28 04:28 WBC 9.8 RBC 3.90 Hgb 10.7 L Hct 33.1 L MCV 85 MCH 27.5 MCHC 32.3 RDW 15.5 H Plt Count 208 Seg Neutrophils % 83.4 H Lymphocytes % 8.9 L Monocytes % 6.6 Eosinophils % 0.9 Basophils % 0.2 Absolute Neutrophils 8.1 Absolute Lymphocytes 0.9 Absolute Monocytes 0.6 Absolute Eosinophils 0.1 Absolute Basophils 0.0 Sodium 140.6 Potassium 4.0 Chloride 110 H Carbon Dioxide 20 L Anion Gap 11 BUN 12 Creatinine 0.60 Est GFR ( Amer) > 60 Est GFR (Non-Af Amer) > 60 Glucose 118 H Calcium 8.6 Impressions: Chest X-Ray 05/27/17 00:00 IMPRESSION: NO ACUTE RADIOGRAPHIC FINDING IN THE CHEST. Assessment & Plan - Diagnosis (1) Adenomatous colon polyp Qualifiers: Colon location: ascending Qualified Code(s): D12.2 - Benign neoplasm of ascending colon Is this a current diagnosis for this admission?: Yes (2) Tachycardia Is this a current diagnosis for this admission?: YesPlan: O2 sats are now in the low 90s off of oxygen supplementation. Her tachycardia has improved.. Patient is reluctant to undergo a chest CT scan. She is agreeable to bilateral lower extremity duplex studies to rule out DVT. With her clinical improvement I feel that this study is sufficient for now.
[2017-05-28] MEDS: MORPHINE SULFATE 10 MG/ML INJ IV PRN (20:05)
[2017-05-28] MEDS: CITALOPRAM HYDROBROMIDE 20 MG TABLET PO SCH (22:25)
[2017-05-28] MEDS: EZETIMIBE 10 MG TABLET PO SCH (22:26)
[2017-05-28] MEDS: PRAMIPEXOLE DI-HCL 0.5 MG TABLET PO SCH (22:26)
[2017-05-28] MEDS: MONTELUKAST SODIUM 10 MG TABLET PO SCH (22:26)
[2017-05-29] MEDS: MORPHINE SULFATE 10 MG/ML INJ IV PRN (04:25)
[2017-05-29 05:19] LABS: ABSOLUTE BASOPHILS # (AUTO) 0.1 10^3/uL (0.0-0.2); ABSOLUTE EOSINOPHILS # (AUTO) 0.3 10^3/uL (0.0-0.6); ABSOLUTE LYMPHOCYTES (AUTO) 1.1 10^3/uL (0.5-4.7); ABSOLUTE MONOCYTES (AUTO) 0.5 10^3/uL (0.1-1.4); ABSOLUTE NEUT (AUTO) 5.5 10^3/uL (1.7-8.2); BASOPHILS % (AUTO) 0.9 % (0-2); EOSINOPHILS % (AUTO) 4.3 % (0-6); HEMATOCRIT 31.8 % (36.0-47.0); HEMOGLOBIN 10.3 g/dL (12.0-15.5); HGB HCT DIFFERENCE -0.9; LYMPHOCYTES % (AUTO) 14.5 % (13-45); MEAN CORPUSCULAR HEMOGLOBIN 27.7 pg (27.0-33.4); MEAN CORPUSCULAR HGB CONC 32.4 g/dL (32.0-36.0); MEAN CORPUSCULAR VOLUME 85 fl (80-97); MONOCYTES % (AUTO) 6.5 % (3-13); RED BLOOD COUNT 3.73 10^6/uL (3.72-5.28); RED CELL DISTRIBUTION WIDTH 15.4 % (11.5-14.0); SEGMENTED NEUTROPHILS % (AUTO) 73.8 % (42-78); WHITE BLOOD COUNT 7.5 10^3/uL (4.0-10.5)
[2017-05-29 05:36] LABS: ANION GAP 11 (5-19); BLOOD UREA NITROGEN 12 mg/dL (7-20); CALCIUM 8.6 mg/dL (8.4-10.2); CARBON DIOXIDE 19 mmol/L (22-30); CHLORIDE 110 mmol/L (98-107); CREATININE RESULT 0.54 mg/dL (0.52-1.25); GLUCOSE 86 mg/dL (75-110); POTASSIUM 3.8 mmol/L (3.6-5.0); SODIUM 140.1 mmol/L (137-145)
--- NOTE | 2017-05-29 08:09 | PDOC PROGRESS REPORT ---
Subjective Progress Note for:: 05/29/17 Subjective:: Patient feels well. States that she is passing gas. She is hungry. No shortness of breath no chest pain. Physical Exam Vital Signs: Temp Pulse Resp BP Pulse Ox 98.3 F 110 H 14 127/66 H 95 05/29/17 04:16 05/29/17 04:16 05/29/17 04:16 05/29/17 04:16 05/29/17 04:16 Intake & Output 05/28/17 05/29/17 05/30/17 06:59 06:59 06:59 Intake Total 900 701 Output Total 950 400 Balance -50 301 Weight 97.9 kg 100.4 kg General appearance: PRESENT: no acute distress, cooperative - Vertex of the Respiratory exam: PRESENT: clear to auscultation hank Cardiovascular exam: PRESENT: tachycardia - hr 100 GI/Abdominal exam: PRESENT: other - Soft, nondistended, very mild right mid tenderness. No peritoneal signs. Active bowel sounds Extremities exam: PRESENT: other - No swelling. Results Laboratory Results: 05/29/17 04:25 05/29/17 04:25 05/29/17 05/29/17 04:25 04:25 WBC 7.5 RBC 3.73 Hgb 10.3 L Hct 31.8 L MCV 85 MCH 27.7 MCHC 32.4 RDW 15.4 H Plt Count 215 Seg Neutrophils % 73.8 Lymphocytes % 14.5 Monocytes % 6.5 Eosinophils % 4.3 Basophils % 0.9 Absolute Neutrophils 5.5 Absolute Lymphocytes 1.1 Absolute Monocytes 0.5 Absolute Eosinophils 0.3 Absolute Basophils 0.1 Sodium 140.1 Potassium 3.8 Chloride 110 H Carbon Dioxide 19 L Anion Gap 11 BUN 12 Creatinine 0.54 Est GFR ( Amer) > 60 Est GFR (Non-Af Amer) > 60 Glucose 86 Calcium 8.6 Impressions: Chest X-Ray 05/27/17 00:00 IMPRESSION: NO ACUTE RADIOGRAPHIC FINDING IN THE CHEST. Assessment & Plan - Diagnosis (1) Adenomatous colon polyp Qualifiers: Colon location: ascending Qualified Code(s): D12.2 - Benign neoplasm of ascending colon Is this a current diagnosis for this admission?: YesPlan: Status post partial right colon resection. Patient continues to improve. Patient denies any abdominal pain. Pulmonary exam looks good. Tachycardia has diminished and her white blood cell count is normal and she has no fever. Her hematocrit has drifted down that she is having good urine output more than that is being recorded in the computer. Will continue to hold her anticoagulation will continue to monitor her CBC. Patient has bowel function now. Will start clear liquids. Hep-Lock her IV. She is pending duplex study. (2) Tachycardia Is this a current diagnosis for this admission?: Yes
[2017-05-29] MEDS: ALBUTEROL SULFATE 0.083% NEB 2.5 MG/3 ML AMPUL NEB PRN (08:42)
[2017-05-29] MEDS: FLUTICASONE/SALMETEROL DISKUS 500-50 MCG/DOSE IH SCH ×2 (09:10→20:34)
[2017-05-29] MEDS: TIOTROPIUM BROMIDE DPI 5 CAP/KIT (18 MCG/CAP) IH SCH (09:10)
[2017-05-29] MEDS: LOSARTAN POTASSIUM 50 MG TABLET PO SCH (09:11)
[2017-05-29] MEDS: LANSOPRAZOLE 15 MG TAB.RAP.DR PO SCH ×2 (09:11→18:05)
[2017-05-29] MEDS: SODIUM BICARBONATE 650 MG TABLET PO SCH ×2 (09:11→18:05)
[2017-05-29] MEDS: ERTAPENEM SODIUM 1 GM in NORMAL SALINE 50 ML IV SCH (09:11)
[2017-05-29] MEDS: ALBUTEROL SULFATE HFA (90 MCG/PUFF) 200 PUFF/8.5 GM MDI IH SCH ×2 (09:12→18:05)
[2017-05-29] MEDS: KETOROLAC TROMETHAMINE INJ/PF 30 MG/1 ML SDV IV PRN (10:34)
--- NOTE | 2017-05-29 15:22 | PDOC PROGRESS REPORT ---
Subjective Progress Note for:: 05/29/17 Subjective:: The patient has no complaints this morning. She was placed on oxygen at morning for comfort. The patient states she feels fine, however she denies any chest pain or worsening shortness of breath. Physical Exam Vital Signs: Temp Pulse Resp BP Pulse Ox 97.7 F 108 H 17 124/80 92 05/29/17 11:15 05/29/17 11:15 05/29/17 11:15 05/29/17 11:15 05/29/17 11:15 Intake & Output 05/28/17 05/29/17 05/30/17 06:59 06:59 06:59 Intake Total 900 701 660 Output Total 950 400 200 Balance -50 301 460 Weight 97.9 kg 100.4 kg GENERAL: This is a well-developed well-nourished obese white female resting in bed currently in no acute distress. HEART: Regular rate and rhythm. No murmurs, rubs or gallops. LUNGS: Clear to auscultation bilaterally with equal rise and fall of the chest. She is currently on oxygen for comfort. ABDOMEN: Soft, nontender, nondistended with normoactive bowel sounds EXTREMETIES: No clubbing, cyanosis or edema. 2+ peripheral pulses bilaterally. NEURO: Awake, alert and oriented 3. Cranial nerves II through XII are grossly intact. Results Laboratory Results: 05/29/17 04:25 05/29/17 04:25 05/29/17 05/29/17 04:25 04:25 WBC 7.5 RBC 3.73 Hgb 10.3 L Hct 31.8 L MCV 85 MCH 27.7 MCHC 32.4 RDW 15.4 H Plt Count 215 Seg Neutrophils % 73.8 Lymphocytes % 14.5 Monocytes % 6.5 Eosinophils % 4.3 Basophils % 0.9 Absolute Neutrophils 5.5 Absolute Lymphocytes 1.1 Absolute Monocytes 0.5 Absolute Eosinophils 0.3 Absolute Basophils 0.1 Sodium 140.1 Potassium 3.8 Chloride 110 H Carbon Dioxide 19 L Anion Gap 11 BUN 12 Creatinine 0.54 Est GFR ( Amer) > 60 Est GFR (Non-Af Amer) > 60 Glucose 86 Calcium 8.6 Impressions: Chest X-Ray 05/27/17 00:00 IMPRESSION: NO ACUTE RADIOGRAPHIC FINDING IN THE CHEST. Assessment & Plan - Diagnosis (1) COPD without exacerbation Plan: No evidence of acute exacerbation. continue as needed nebulizers. The patient does not need oxygen as long as her oxygen sats are above 88%. (2) Hypertension Plan: Continue home medications (3) Adenomatous colon polyp Qualifiers: Colon location: ascending Qualified Code(s): D12.2 - Benign neoplasm of ascending colon Is this a current diagnosis for this admission?: YesPlan: Status post colectomy management per primary team (4) Arthritis of knee Plan: Continue pain control. (5) Hypercholesteremia Plan: Continue statin (6) Tachycardia Is this a current diagnosis for this admission?: YesPlan: The patient tachycardia has resolved. She did consent to a lower extremity venous Dopplers but declined CT of the chest. Dopplers have been done but report pending. - Time Time Spent with patient: 15-24 minutes
--- NOTE | 2017-05-29 16:54 | XCELERA REPORT ---
[address] [address] Lower Extremity Venous Evaluation Name: BRETT BABB Age: 56 yrs Gender: Female : 1960 Patient Status: Inpatient Patient Location: [id number] Study Date: 05/29/2017 09:23 AM Procedure: Color flow and duplex imaging bilaterally of the veins of the lower extremities as well as the Common Femoral veins. Reason For Study: SUSPECTED VENOUS STASIS Ordering Physician: MARITZA CONNOLLY Performed By: Jodie Jin Right Sided Venous Evaluation Normal vessel filling wall to wall, compression and augmentation as well as Colour flow down to the infrageniculate veins. Left Sided Venous Evaluation Normal vessel filling wall to wall, compression and augmentation as well as Colour flow down to the infrageniculate veins. Interpretation Summary No duplex evidence of DVT or obstruction in the bilateral lower extremities. : MARITZA CONNOLLY > Wero Conde
--- NOTE | 2017-05-29 18:47 | PDOC PROGRESS REPORT ---
Subjective Progress Note for:: 05/29/17 Subjective:: Feels well. No complaints. Tolerating clear liquids well. Passing gas. Physical Exam Vital Signs: Temp Pulse Resp BP Pulse Ox 97.7 F 108 H 17 124/80 92 05/29/17 11:15 05/29/17 11:15 05/29/17 11:15 05/29/17 11:15 05/29/17 11:15 Intake & Output 05/28/17 05/29/17 05/30/17 06:59 06:59 06:59 Intake Total 900 701 660 Output Total 950 400 200 Balance -50 301 460 Weight 97.9 kg 100.4 kg General appearance: PRESENT: no acute distress, cooperative Respiratory exam: PRESENT: clear to auscultation hank Cardiovascular exam: PRESENT: tachycardia - Heart rate 104 GI/Abdominal exam: PRESENT: other - Soft, Nondistended, minimal tenderness. Results Laboratory Results: 05/29/17 04:25 05/29/17 04:25 05/29/17 05/29/17 04:25 04:25 WBC 7.5 RBC 3.73 Hgb 10.3 L Hct 31.8 L MCV 85 MCH 27.7 MCHC 32.4 RDW 15.4 H Plt Count 215 Seg Neutrophils % 73.8 Lymphocytes % 14.5 Monocytes % 6.5 Eosinophils % 4.3 Basophils % 0.9 Absolute Neutrophils 5.5 Absolute Lymphocytes 1.1 Absolute Monocytes 0.5 Absolute Eosinophils 0.3 Absolute Basophils 0.1 Sodium 140.1 Potassium 3.8 Chloride 110 H Carbon Dioxide 19 L Anion Gap 11 BUN 12 Creatinine 0.54 Est GFR ( Amer) > 60 Est GFR (Non-Af Amer) > 60 Glucose 86 Calcium 8.6 Impressions: Chest X-Ray 05/27/17 00:00 IMPRESSION: NO ACUTE RADIOGRAPHIC FINDING IN THE CHEST. Assessment & Plan - Diagnosis (1) Adenomatous colon polyp Qualifiers: Colon location: ascending Qualified Code(s): D12.2 - Benign neoplasm of ascending colon Is this a current diagnosis for this admission?: YesPlan: Status post partial right colon resection. Patient continues to improve. Possible discharge in the morning.
[2017-05-29] MEDS ORDERED: CIPROFLOXACIN HCL 500 MG TABLET PO ONE (19:00)
[2017-05-29] MEDS: EZETIMIBE 10 MG TABLET PO SCH (20:32)
[2017-05-29] MEDS: METRONIDAZOLE 500 MG TABLET PO SCH (20:32)
[2017-05-29] MEDS: OXYCODONE-ACETAMINOPHEN 5-325 MG TABLET PO PRN (20:33)
[2017-05-29] MEDS: PRAMIPEXOLE DI-HCL 0.5 MG TABLET PO SCH (20:33)
[2017-05-29] MEDS: CITALOPRAM HYDROBROMIDE 20 MG TABLET PO SCH (20:33)
[2017-05-29] MEDS: MONTELUKAST SODIUM 10 MG TABLET PO SCH (20:33)
[2017-05-30] MEDS: OXYCODONE-ACETAMINOPHEN 5-325 MG TABLET PO PRN ×2 (00:35→05:43)
[2017-05-30] MEDS: METRONIDAZOLE 500 MG TABLET PO SCH (05:42)
[2017-05-30] MEDS ORDERED: CIPROFLOXACIN HCL 500 MG TABLET PO SCH (06:00)
[2017-05-30 07:22] LABS: ABSOLUTE BASOPHILS # (AUTO) 0.1 10^3/uL (0.0-0.2); ABSOLUTE EOSINOPHILS # (AUTO) 0.4 10^3/uL (0.0-0.6); ABSOLUTE MONOCYTES (AUTO) 0.5 10^3/uL (0.1-1.4); ABSOLUTE NEUT (AUTO) 4.3 10^3/uL (1.7-8.2); BASOPHILS % (AUTO) 1.1 % (0-2); EOSINOPHILS % (AUTO) 6.3 % (0-6); HEMATOCRIT 33.5 % (36.0-47.0); HGB HCT DIFFERENCE -0.5; LYMPHOCYTES % (AUTO) 15.5 % (13-45); MEAN CORPUSCULAR HEMOGLOBIN 28.2 pg (27.0-33.4); MEAN CORPUSCULAR HGB CONC 32.7 g/dL (32.0-36.0); MEAN CORPUSCULAR VOLUME 86 fl (80-97); MONOCYTES % (AUTO) 8.4 % (3-13); RED CELL DISTRIBUTION WIDTH 15.3 % (11.5-14.0); SEGMENTED NEUTROPHILS % (AUTO) 68.7 % (42-78); WHITE BLOOD COUNT 6.3 10^3/uL (4.0-10.5)
[2017-05-30 07:43] LABS: ANION GAP 11 (5-19); BLOOD UREA NITROGEN 11 mg/dL (7-20); CALCIUM 8.7 mg/dL (8.4-10.2); CARBON DIOXIDE 22 mmol/L (22-30); CHLORIDE 107 mmol/L (98-107); GLUCOSE 107 mg/dL (75-110); POTASSIUM 3.6 mmol/L (3.6-5.0); SODIUM 139.8 mmol/L (137-145)
--- NOTE | 2017-05-30 07:57 | PDOC PROGRESS REPORT ---
Subjective Progress Note for:: 05/30/17 Subjective:: Feels well. Tolerating clears well passing flatus. No nausea. No shortness of breath. Physical Exam Vital Signs: Temp Pulse Resp BP Pulse Ox 98.3 F 95 16 129/87 H 90 L 05/29/17 23:51 05/29/17 23:51 05/29/17 23:51 05/29/17 23:51 05/29/17 23:51 Intake & Output 05/29/17 05/30/17 05/31/17 06:59 06:59 06:59 Intake Total 701 660 Output Total 400 200 Balance 301 460 Weight 100.4 kg 100.4 kg General appearance: PRESENT: no acute distress, cooperative Respiratory exam: PRESENT: clear to auscultation hank Cardiovascular exam: PRESENT: RRR GI/Abdominal exam: PRESENT: other - Soft, Nondistended, minimal tenderness at the incision. Wounds are clean dry and intact. Extremities exam: PRESENT: other - no swelling. Results Laboratory Results: 05/30/17 05:43 05/30/17 05:43 05/30/17 05/30/17 05:43 05:43 WBC 6.3 RBC 3.90 Hgb 11.0 L Hct 33.5 L MCV 86 MCH 28.2 MCHC 32.7 RDW 15.3 H Plt Count 260 Seg Neutrophils % 68.7 Lymphocytes % 15.5 Monocytes % 8.4 Eosinophils % 6.3 H Basophils % 1.1 Absolute Neutrophils 4.3 Absolute Lymphocytes 1.0 Absolute Monocytes 0.5 Absolute Eosinophils 0.4 Absolute Basophils 0.1 Sodium 139.8 Potassium 3.6 Chloride 107 Carbon Dioxide 22 Anion Gap 11 BUN 11 Creatinine 0.50 L Est GFR ( Amer) > 60 Est GFR (Non-Af Amer) > 60 Glucose 107 Calcium 8.7 Impressions: Chest X-Ray 05/27/17 00:00 IMPRESSION: NO ACUTE RADIOGRAPHIC FINDING IN THE CHEST. Assessment & Plan - Diagnosis (1) Adenomatous colon polyp Qualifiers: Colon location: ascending Qualified Code(s): D12.2 - Benign neoplasm of ascending colon Is this a current diagnosis for this admission?: YesPlan: Status post partial right colon resection. Well. Tachycardia resolved. Hematocrit slightly increased this morning. Patient looks very good. Will discharge patient home she may advance her diet at home.
--- NOTE | 2017-05-30 08:18 | DISCHARGE SUMMARY E ---
Discharge Summary NAME: BRETT BABB : 1960 AGE: 56Y ADMITTED: 05/26/2017 DISCHARGED: 05/30/2017 DISCHARGE DIAGNOSIS: Right colon polyps. PROCEDURE PERFORMED DURING HOSPITALIZATION: Laparoscopic right colon resection with ileocolic anastomosis and extensive lysis of adhesions performed by Dr. Maritza Connolly on 05/26/2017. HOSPITAL COURSE: The patient underwent the above mentioned procedure. Her postoperative course was noteworthy for tachycardia along with wheezing. Patient responded well with medical therapy with marked improvement of her pulmonary exam. She was noted immediately postoperatively with tenderness in the right abdomen with tachycardia with concerns for local sepsis. She was treated with antibiotics. By the time of discharge, her tachycardia had resolved. She was tolerating a liquid diet well with passage of flatus with no nausea or vomiting, no abdominal pain. Her white blood cell count was normal at 6.3. Her hematocrit, which had drifted down initially postoperatively had stabilized at 33, which was higher than 31 the day before. Patient was feeling quite well. She is now being discharged to home in good condition. Of note, ultrasound of bilateral lower extremity demonstrated no evidence of DVT. Patient is encouraged to stay active at home, but avoid strenuous activity. She is to resume all of her home medications. She is to advance her diet to a regular diet at home. Additional medication is Colace 1 p.o. b.i.d. and Percocet 1-2 p.o. q. 4 hours p.r.n. pain. I will see her back for followup this coming Thursday. She is to call me for any problems. DICTATING PHYSICIAN: MARITZA CONNOLLY M.D. [id number] PHY#: [id number] ID: [id number] JOB#: [id number] ACCT: [id number] cc:MARITZA CONNOLLY M.D. >
[2017-05-30 10:00] VITALS: BP 132/84
[2017-05-30] MEDS: LANSOPRAZOLE 15 MG TAB.RAP.DR PO SCH (10:16)
[2017-05-30] MEDS: SODIUM BICARBONATE 650 MG TABLET PO SCH (10:16)
[2017-05-30] MEDS: ALBUTEROL SULFATE HFA (90 MCG/PUFF) 200 PUFF/8.5 GM MDI IH SCH (10:17)
[2017-05-30] MEDS: LOSARTAN POTASSIUM 50 MG TABLET PO SCH (10:17)
[2017-05-30] MEDS: FLUTICASONE/SALMETEROL DISKUS 500-50 MCG/DOSE IH SCH (10:18)
[2017-05-30] MEDS: TIOTROPIUM BROMIDE DPI 5 CAP/KIT (18 MCG/CAP) IH SCH (10:32)
== END 2017-05-30 10:15 | disposition home or self-care (01) | DRG 331 ==
LOC: INOR 09:36 → 4N 16:15
PROVIDERS: ADMIT Surgery; ATTEND Surgery
PROC: 0DNW4ZZ Release Peritoneum, Percutaneous Endoscopic Approach (ICD-10-PCS; 2017-05-26)
PROC: 0DTF4ZZ Resection of Right Large Intestine, Percutaneous Endoscopic Approach (ICD-10-PCS; principal; 2017-05-26 12:00)
DX: D12.2 Benign neoplasm of ascending colon (principal); D12.0 Benign neoplasm of cecum; Z80.0 Family history of malignant neoplasm of digestive organs; K66.0 Peritoneal adhesions (postprocedural) (postinfection); R00.0 Tachycardia, unspecified; J44.9 Chronic obstructive pulmonary disease, unspecified; I10 Essential (primary) hypertension; E78.5 Hyperlipidemia, unspecified; Z86.711 Personal history of pulmonary embolism; K21.9 Gastro-esophageal reflux disease without esophagitis; M17.0 Bilateral primary osteoarthritis of knee; F32.9 Major depressive disorder, single episode, unspecified; Z96.651 Presence of right artificial knee joint; Z79.899 Other long term (current) drug therapy; Z88.8 Allergy status to other drugs, medicaments and biological substances; Z88.6 Allergy status to analgesic agent; Z87.891 Personal history of nicotine dependence
CPT/HCPCS: 36000; 36415; 71010; 790; 80048; 85025; 85027; 88307; 93005; 93010; 93970; J0330; J1335; J1610; J1741; J1885; J2250; J2270; J2370; J2704; J2765; J3010; J3490; J7030; J7620

== ENCOUNTER → 2017-06-19 | Outpatient (CLI) | payer MEDICAID ==
--- NOTE | 2017-06-19 15:43 | RADIOLOGY REPORT (SQ) ---
EXAM DESCRIPTION: CT ABD/PELVIS ORAL ONLY COMPLETED DATE/TIME: 06/19/2017 2:09 pm REASON FOR STUDY: UNSPECIFIED ABDOMINAL PAIN R10.9 UNSPECIFIED ABDOMINAL PAIN COMPARISON: None. TECHNIQUE: CT scan of the abdomen and pelvis performed without intravenous contrast. Oral contrast was given. Images reviewed with lung, soft tissue, and bone windows. Reconstructed coronal and sagit latasha MPR images reviewed. All images stored on PACS. All CT scanners at this facility use dose modulation, iterative reconstruction, and/or weight based d osing when appropriate to reduce radiation dose to as low as reasonably achievable (ALARA). [facility]: Dose Right [facility]: CareDose [facility]: Dose Right [facility]: Teradose 4D [facility]: [employer] RADIATION DOSE: Up-to-date CT equipment and radiation dose reduction techniques were employed. CTDIv ol: 22.7 mGy. DLP: 1179 mGy-cm.mGy. LIMITATIONS: None. FINDINGS: LOWER CHEST: A 7 mm nodule is seen in the right lung on image 2 series 4. NON-CONTRASTED LIVER, SPLEEN, ADRENALS: Evaluation limited by lack of IV contrast. No identified sign ificant masses. PANCREAS: No masses. No peripancreatic inflammatory changes. GALLBLADDER: No identified stones by CT criteria. No inflammatory changes to suggest cholecystitis. RIGHT KIDNEY AND URETER: No suspicious masses. Assessment limited by lack of IV contrast. There is a tiny nonobstructing calcification in the upper right kidney. No hydronephrosis or hydroureter. LEFT KIDNEY AND URETER: No suspicious masses. Assessment limited by lack of IV contrast. No signifi cant calcifications. No hydronephrosis or hydroureter. AORTA AND RETROPERITONEUM: No aneurysm. No retroperitoneal masses or adenopathy. BOWEL AND PERITONEAL CAVITY: Occasional sigmoid diverticula with no acute inflammatory changes. Sutu re is present in the rectum APPENDIX: Surgically absent. PELVIS, BLADDER, AND ABDOMINAL WALL:The urinary bladder is normal. Uterus is normal for age. There is no adnexal mass or fluid collection. BONES: Lumbar degenerative disc disease. OTHER: No other significant finding. IMPRESSION: 1. 7 mm right pulmonary nodule. 2. Mild diverticulosis coli. COMMENT: [place] CRITERIA FOR FOLLOW-UP OF PULMONARY NODULES Incidentally detected new nodules in persons 35 or older. HIGH RISK: History of smoking or other known risk factors. 6-8mm single solid nodule: LOW RISK: CT 6-12 mo; then consider CT 18-24 mo. HIGH RISK: CT 6-12 mo; th en CT 18-24 mo. TECHNICAL DOCUMENTATION: JOB ID: [id number] Quality ID # [id number]: Final reports with documentation of one or more dose reduction techniques (e.g., Au tomated exposure control, adjustment of the mA and/or kV according to patient size, use of iterative reconstruction technique) 2010 [employer]- All Rights Reserved
== END ==
LOC: RAD 13:44
PROVIDERS: ATTEND Surgery
DX: R10.9 Unspecified abdominal pain (principal); Z98.890 Other specified postprocedural states
CPT/HCPCS: 74176

== ENCOUNTER 2017-07-02 20:09 | Emergency (ER) | payer MEDICAID ==
[2017-07-02 20:15] VITALS: BP 138/82
[2017-07-02] MEDS ORDERED: FAMOTIDINE 20 MG TABLET PO ONE (20:27)
[2017-07-02] MEDS ORDERED: DIPHENHYDRAMINE HCL 50 MG CAPSULE PO ONE (20:27)
[2017-07-02] MEDS ORDERED: MORPHINE SULFATE 10 MG/ML INJ IM ONE (20:44)
[2017-07-02 20:47] LABS: APPEARANCE,URINE CLEAR; BILIRUBIN,URINE NEGATIVE (NEGATIVE); GLUCOSE, URINE NEGATIVE (NEGATIVE); KETONES,URINE NEGATIVE (NEGATIVE); LEUKOCYTE ESTERASE,URINE NEGATIVE (NEGATIVE); NITRITE,URINE NEGATIVE (NEGATIVE); PROTEIN,URINE NEGATIVE (NEGATIVE); URINE SPECIFIC GRAVITY 1.004; UROBILINOGEN,URINE NEGATIVE mg/dL (<2.0)
--- NOTE | 2017-07-02 20:58 | ER Document Report ---
ED General - General Chief Complaint: Flank Pain Stated Complaint: LEFT FLANK PAIN Time Seen by Provider: 07/02/17 20:24 Mode of Arrival: Ambulatory Information source: Patient Notes: 56 yr old female hx of kidney stones presents with complaints of left flank pain simialr to her previous kidney stones as well as rash generalized all throughout her body. itchy. worst on the right forearm. Pt denies any fevers or chills, denies any nausea or vomiting. denies any pets, recent meds TRAVEL OUTSIDE OF THE [place] IN LAST 30 DAYS: No - HPI Onset: Just prior to arrival Onset/Duration: Sudden Quality of pain: Achy Severity: Mild Pain Level: 1 Associated symptoms: Other Exacerbated by: Denies, Movement Relieved by: Denies Similar symptoms previously: No Recently seen / treated by doctor: No - Related Data Allergies/Adverse Reactions: atorvastatin Allergy (Severe, Verified 04/30/17 08:25) myalgia niacin Allergy (Severe, Verified 05/19/17 09:57) Anaphylaxis adhesive tape Allergy (Intermediate, Verified 05/19/17 09:57) REDNESS, BLISTERS meloxicam Allergy (Intermediate, Verified 05/19/17 09:57) wheezing, palpitations sulfamethoxazole [From Septra] Allergy (Mild, Verified 05/19/17 09:57) rash tramadol Allergy (Mild, Verified 05/19/17 09:57) wheezing trimethoprim [From Septra] Allergy (Mild, Verified 05/19/17 09:57) rash simvastatin Allergy (Unknown, Verified 05/19/17 09:57) Sulfa (Sulfonamide Antibiotics) Allergy (Unknown, Verified 05/19/17 09:57) rash zolpidem tartrate [From Ambien] Adverse Reaction (Severe, Verified 05/19/17 09: 57) sleepwalking dipyridamole [From Aggrenox] Adverse Reaction (Intermediate, Verified 05/19/17 09:57) HEADACHES methylprednisolone [From Medrol] Adverse Reaction (Intermediate, Verified 08:25) N/V/hyperactive topiramate Adverse Reaction (Intermediate, Verified 05/19/17 09:57) kidney stones aspirin Adverse Reaction (Mild, Verified 05/19/17 09:57) GI upset guaifenesin Adverse Reaction (Mild, Verified 05/19/17 09:57) GI upset rosuvastatin Adverse Reaction (Mild, Verified 05/19/17 09:57) muscle pain pseudoephedrine Adverse Reaction (Unknown, Verified 05/19/17 09:57) GI upset Past Medical History - Social History Smoking Status: Former Smoker Cigarette use (# per day): No Chew tobacco use (# tins/day): No Smoking Education Provided: No Frequency of alcohol use: None Drug Abuse: None Family History: Arthritis, CAD, Hypertension, Malignancy, Other Patient has suicidal ideation: No Patient has homicidal ideation: No - Past Medical History Cardiac Medical History: Reports: Hx Hypercholesterolemia, Hx Hypertension, Hx Pulmonary Embolism - 6 years ago Denies: Hx Atrial Fibrillation, Hx Congestive Heart Failure, Hx Coronary Artery Disease, Hx Heart Attack, Hx Peripheral Vascular Disease, Hx Heart Murmur Pulmonary Medical History: Reports: Hx Asthma, Hx Bronchitis, Hx COPD, Hx Pneumonia Denies: Hx Respiratory Failure, Hx Sleep Apnea, Hx Tuberculosis Neurological Medical History: Denies: Hx Cerebrovascular Accident, Hx Seizures Renal/ Medical History: Reports: Hx Kidney Stones. Denies: Hx End Stage Renal Disease, Hx Peritoneal Dialysis Malignancy Medical History: Denies: Hx Lung Cancer GI Medical History: Reports: Hx Diverticulitis, Hx Gastroesophageal Reflux Disease. Denies: Hx Crohn's Disease, Hx Hiatal Hernia, Hx Irritable Bowel, Hx Liver Failure, Hx Ulcer Musculoskeltal Medical History: Reports Hx Arthritis - knees, Denies Hx Fibromyalgia, Denies Hx Multiple Sclerosis, Denies Hx Muscular Dystrophy Psychiatric Medical History: Reports: Hx Anxiety, Hx Depression Denies: Hx Bipolar Disorder - not diagnosed, Hx Dementia, Hx Post Traumatic Stress Disorder Traumatic Medical History: Reports: Hx Fractures - left big toe, right hand Past Surgical History: Reports: Hx Abdominal Surgery - collectomy, Hx Appendectomy, Hx Bowel Surgery, Hx Herniorrhaphy - left lower abdomen, Hx Kidney (Renal Surgery) - LITHOTRIPSY, Hx Orthopedic Surgery - right knee replacement, Hx Tonsillectomy, Hx Umbilical Hernia. Denies: Hx Section , Hx Cholecystectomy, Hx Colostomy, Hx Coronary Artery Bypass Graft, Hx Gastric Bypass Surgery, Hx Hysterectomy, Hx Mastectomy, Hx Pacemaker, Hx Tubal Ligation - Immunizations Immunizations up to date: Yes Hx Diphtheria, Pertussis, Tetanus Vaccination: Yes Hx Pneumococcal Vaccination: 11/17/05 Review of Systems - Review of Systems Notes: REVIEW OF SYSTEMS: CONSTITUTIONAL : Denies fever, chills, or sweats. Denies recent illness. EENT: Denies eye, ear, throat, or mouth pain or symptoms. Denies nasal or sinus congestion or discharge. Denies throat, tongue, or mouth swelling or difficulty swallowing. CARDIOVASCULAR: Denies chest pain. Denies palpitations or racing or irregular heart beat. Denies ankle edema. RESPIRATORY: Denies cough, cold, or chest congestion. Denies shortness of breath, difficulty breathing, or wheezing. GASTROINTESTINAL: Admits to flank pain GENITOURINARY: Denies difficulty urinating, painful urination, burning, frequency, blood in urine, or discharge. FEMALE GENITOURINARY: Denies vaginal bleeding, heavy or abnormal periods, irregular periods. Denies vaginal discharge or odor. MUSCULOSKELETAL: Denies back or neck pain or stiffness. Denies joint pain or swelling. SKIN: Admits to itching HEMATOLOGIC : Denies easy bruising or bleeding. LYMPHATIC: Denies swollen, enlarged glands. NEUROLOGICAL: Denies confusion or altered mental status. Denies passing out or loss of consciousness. Denies dizziness or lightheadedness. Denies headache. Denies weakness or paralysis or loss of use of either side. Denies problems with gait or speech. Denies sensory loss, numbness, or tingling. Denies seizures. PSYCHIATRIC: Denies anxiety or stress. Denies depression, suicidal ideation, or homicidal ideation. ALL OTHER SYSTEMS REVIEWED AND NEGATIVE. PHYSICAL EXAMINATION: GENERAL: Well-appearing, well-nourished and in no acute distress. HEAD: Atraumatic, normocephalic. EYES: Pupils equal round and reactive to light, extraocular movements intact, conjunctiva are normal. ENT: Nares patent, oropharynx clear without exudates. Moist mucous membranes. NECK: Normal range of motion, supple without lymphadenopathy LUNGS: Breath sounds clear to auscultation bilaterally and equal. No wheezes rales or rhonchi. HEART: Regular rate and rhythm without murmurs ABDOMEN: Soft, nontender, nondistended abdomen. No guarding, no rebound. No masses appreciated. Admits to left CVA tenderness Female : deferred Musculoskeletal: Normal range of motion, no pitting or edema. No cyanosis. NEUROLOGICAL: Cranial nerves grossly intact. Normal speech, normal gait. Normal sensory, motor exams PSYCH: Normal mood, normal affect. SKIN: Urticarial rash noted on arm back Dictation was performed using AGL[employer]IC voice recognition software Physical Exam - Vital signs Vitals: Temp Pulse Resp BP Pulse Ox 97.7 F 104 H 20 138/82 H 98 07/02/17 20:11 07/02/17 20:11 07/02/17 20:11 07/02/17 20:11 07/02/17 20:11 Course - Re-evaluation Re-evalutation: 07/02/17 20:56 Physical examination does note mild flank pain as well as an allergic rash. Patient will be discharged home with Benadryl otherwise well-appearing no distress urinalysis noted no sign of infection 07/02/17 20:57 After performing a Medical Screening Examination, I estimate there is LOW risk for AIRWAY COMPROMISE, ANAPHYLAXIS, CELLULITIS, EPIGLOTTIS, or NECROTIZING FASCIITIS, thus I consider the discharge disposition reasonable. Also, there is no evidence or peritonitis, sepsis, or toxicity. I have reevaluated this patient multiple times and no significant life threatening changes are noted. The patient and I have discussed the diagnosis and risks, and we agree with discharging home with close follow-up with the understanding that symptoms and presentations can change. We also discussed returning to the Emergency Department immediately if new or worsening symptoms occur. We have discussed the symptoms which are most concerning (e.g., difficulty breathing or swallowing , fever, changing or worsening pain) that necessitate immediate return. - Vital Signs Vital signs: Temp Pulse Resp BP Pulse Ox 97.7 F 104 H 20 138/82 H 98 07/02/17 20:11 07/02/17 20:11 07/02/17 20:11 07/02/17 20:11 07/02/17 20:11 - Laboratory Laboratory results interpreted by me: 07/02/17 20:27 Urine Blood SMALL H Discharge - Discharge Clinical Impression: Flank pain, Hx of renal calculi Contact dermatitis Qualifiers: Contact dermatitis type: allergic Contact dermatitis trigger: unspecified trigger Qualified Code(s): L23.9 - Allergic contact dermatitis, unspecified cause Condition: Stable Disposition: HOME, SELF-CARE Instructions: Abdominal Pain ([facility]) Additional Instructions: Follow up with your physician tomorrow for further care or return to the ED IMMEDIATELY if symptoms worsen or new concerns occur. If you cannot afford to follow up with your primary care physician a list of low cost clinics have been provided at the end of your discharge papers as well. Prescriptions: Diphenhydramine HCl [Benadryl 50 mg Capsule] 50 mg PO Q6 #20 capsule Famotidine [Pepcid 20 mg Tablet] 20 mg PO DAILY #5 tablet Oxycodone HCl/Acetaminophen [Percocet 5-325 mg Tablet] 1 - 2 tab PO Q4H PRN #15 tablet PRN Reason: Tamsulosin HCl [Flomax 0.4 mg Cap.sr] 0.4 mg PO DAILY #7 cap.sr.24h
== END 2017-07-02 21:15 | disposition home or self-care (01) ==
LOC: ER 20:09
DX: R10.9 Unspecified abdominal pain (principal); L23.9 Allergic contact dermatitis, unspecified cause; R21 Rash and other nonspecific skin eruption; Z87.891 Personal history of nicotine dependence
CPT/HCPCS: 99284; 81001; J3490 ×2

== ENCOUNTER → 2017-08-06 | Outpatient (CLI) | payer MEDICAID ==
[2017-08-06 12:52] LABS: ABSOLUTE BASOPHILS # (AUTO) 0.1 10^3/uL (0.0-0.2); ABSOLUTE EOSINOPHILS # (AUTO) 0.2 10^3/uL (0.0-0.6); ABSOLUTE LYMPHOCYTES (AUTO) 1.9 10^3/uL (0.5-4.7); ABSOLUTE MONOCYTES (AUTO) 0.5 10^3/uL (0.1-1.4); ABSOLUTE NEUT (AUTO) 3.1 10^3/uL (1.7-8.2); BASOPHILS % (AUTO) 1.2 % (0-2); EOSINOPHILS % (AUTO) 4.4 % (0-6); HEMATOCRIT 38.1 % (36.0-47.0); HEMOGLOBIN 12.6 g/dL (12.0-15.5); HGB HCT DIFFERENCE -0.3; LYMPHOCYTES % (AUTO) 32.5 % (13-45); MEAN CORPUSCULAR HEMOGLOBIN 27.3 pg (27.0-33.4); MEAN CORPUSCULAR HGB CONC 33.1 g/dL (32.0-36.0); MEAN CORPUSCULAR VOLUME 83 fl (80-97); MONOCYTES % (AUTO) 8.2 % (3-13); RED BLOOD COUNT 4.61 10^6/uL (3.72-5.28); RED CELL DISTRIBUTION WIDTH 15.4 % (11.5-14.0); SEGMENTED NEUTROPHILS % (AUTO) 53.7 % (42-78); WHITE BLOOD COUNT 5.7 10^3/uL (4.0-10.5)
[2017-08-06 13:07] LABS: ALANINE AMINOTRANSFERASE 40 U/L (9-52); ALBUMIN 3.9 g/dL (3.5-5.0); ALKALINE PHOSPHATASE 107 U/L (38-126); ANION GAP 12 (5-19); ASPARTATE AMINO TRANSFERASE 19 U/L (14-36); BILIRUBIN,DIRECT 0.3 mg/dL (0.0-0.4); BILIRUBIN,TOTAL 0.4 mg/dL (0.2-1.3); BLOOD UREA NITROGEN 16 mg/dL (7-20); CALCIUM 9.6 mg/dL (8.4-10.2); CARBON DIOXIDE 22 mmol/L (22-30); CHLORIDE 109 mmol/L (98-107); CREATININE RESULT 0.59 mg/dL (0.52-1.25); GLUCOSE 103 mg/dL (75-110); LIPASE 95.1 U/L (23-300); POTASSIUM 4.2 mmol/L (3.6-5.0); SODIUM 142.7 mmol/L (137-145); TOTAL PROTEIN 6.7 g/dL (6.3-8.2)
== END ==
LOC: OD 12:14
PROVIDERS: ATTEND Family Medicine
DX: R10.811 Right upper quadrant abdominal tenderness (principal)
CPT/HCPCS: 36415; 80053; 83690; 85025

== ENCOUNTER → 2017-08-07 | Outpatient (CLI) | payer MEDICAID ==
--- NOTE | 2017-08-07 09:53 | WOMENS IMAGING REPORT ---
EXAM DESCRIPTION: U/S ABDOMEN LIMITED COMPLETED DATE/TIME: 08/07/2017 7:35 am REASON FOR STUDY: RIGHT UPPER QUADRANT ABDOMINAL TENDERNESS R10.811 RIGHT UPPER QUADRANT ABDOMINAL TENDERNESS COMPARISON: CT abdomen pelvis 06/19/2017, 02/02/2017 TECHNIQUE: Dynamic and static grayscale images acquired of the abdomen and recorded on PACS. Additio nal selected color Doppler and spectral images recorded. LIMITATIONS: Midline bowel gas FINDINGS: PANCREAS: Not well seen LIVER: Echogenic from fatty infiltration. Difficult to penetrate with the ultrasound energy. LIVER VASCULATURE: Normal directional flow of the main portal vein and hepatic veins. GALLBLADDER: Distended, without definite wall thickening or pericholecystic fluid. No gallstones in the gallbladder ULTRASOUND-DETECTED CORRAL'S SIGN: Negative. INTRAHEPATIC DUCTS AND COMMON DUCT: CBD and intrahepatic ducts normal caliber. No filling defects. INFERIOR VENA CAVA: Not well seen AORTA: Not well seen RIGHT KIDNEY: Normal size. Normal echogenicity. No solid or suspicious masses. No hydronephrosis. No calcifications. PERITONEAL AND RIGHT PLEURAL SPACE: No ascites or effusions. OTHER: No other significant findings. IMPRESSION: Fatty liver Distended gallbladder without gallbladder wall thickening or stones, no pericholecystic fluid, negati ve sonographic Corral's sign TECHNICAL DOCUMENTATION: JOB ID: [id number]- All Rights Reserved
== END ==
LOC: WI 06:57
PROVIDERS: ATTEND Family Medicine
DX: R10.811 Right upper quadrant abdominal tenderness (principal)
CPT/HCPCS: 76705

== ENCOUNTER → 2017-08-11 | Outpatient (CLI) | payer MEDICAID ==
--- NOTE | 2017-08-11 16:26 | WOMENS IMAGING REPORT ---
EXAM DESCRIPTION: BILAT SCREENING MAMMO W/CAD COMPLETED DATE/TIME: 08/11/2017 7:23 am REASON FOR STUDY: SCREENING MAMMO Z12.31 ENCNTR SCREEN MAMMOGRAM FOR MALIGNANT NEOPLASM OF HAMLET COMPARISON: 2011 to 2015 TECHNIQUE: Standard craniocaudal and mediolateral oblique views of each breast recorded using digita l acquisition. LIMITATIONS: None. FINDINGS: No masses, calcifications or architectural distortion. No areas of suspicion. Read with the assistance of CAD. .[facility] - R2 Cenova Version 1.3 .[facility] Imaging - R2 Cenova Version 1.3 .[facility] Imaging - R2 Cenova Version 2.4 .[facility] - R2 Cenova Version 2.4 .[facility] - R2 Knurling Machine Tender Version 9.2 IMPRESSION: NORMAL MAMMOGRAM. BIRADS 1. BREAST DENSITY: b. There are scattered areas of fibroglandular density. BIRAD: 1 NEGATIVE RECOMMENDATION: ROUTINE SCREENING COMMENT: The patient has been notified of the results by letter per MQSA requirements. Additional no tification policies are in place for contacting patient with suspicious or incomplete findings. Quality ID #[id number]: [employer] recommends an annual screening mammogram for women aged 40 years or over. This facility utilizes a reminder system to ensure that all patients receive reminder letters, and/or direct phone calls for appointments. This includes reminders for routine scr eening mammograms, diagnostic mammograms, or other Breast Imaging Interventions when appropriate. Th is patient will be placed in the appropriate reminder system. [employer] [employer] (ACR) has developed recommendations for screening MRI of the breast s in certain patient populations, to be used in conjunction with mammography. Breast MRI surveillanc e may be appropriate for women with more than 20% lifetime risk of developing breast cancer as deter mined by genetic testing, significant family history of the disease, or history of mantle radiation f or Hodgkins Disease. ACR Practice Guidelines 2008. TECHNICAL DOCUMENTATION: FINDING NUMBER: (1) ASSESSMENT: (1) JOB ID: [id number] [email or web address]- All Rights Reserved
== END ==
LOC: WI 07:05
PROVIDERS: ATTEND Family Medicine
DX: Z12.31 Encounter for screening mammogram for malignant neoplasm of breast (principal)
CPT/HCPCS: 77067; G0202

== ENCOUNTER 2017-09-25 21:13 | Emergency (ER) | payer MEDICAID ==
[2017-09-25] MEDS ORDERED: LIDOCAINE 5% (700 MG) TRANSDERMAL ADH..PATCH TP ONE (22:33)
[2017-09-25] MEDS ORDERED: FENTANYL CITRATE INJ/PF 100 MCG/2 ML AMPUL IV ONE ×2 (22:33→22:56)
[2017-09-25 22:41] LABS: ABSOLUTE BASOPHILS # (AUTO) 0.1 10^3/uL (0.0-0.2); ABSOLUTE EOSINOPHILS # (AUTO) 0.1 10^3/uL (0.0-0.6); ABSOLUTE LYMPHOCYTES (AUTO) 1.7 10^3/uL (0.5-4.7); ABSOLUTE MONOCYTES (AUTO) 0.8 10^3/uL (0.1-1.4); ABSOLUTE NEUT (AUTO) 11.9 10^3/uL (1.7-8.2); BASOPHILS % (AUTO) 0.6 % (0-2); EOSINOPHILS % (AUTO) 0.9 % (0-6); HEMATOCRIT 38.3 % (36.0-47.0); HEMOGLOBIN 12.7 g/dL (12.0-15.5); HGB HCT DIFFERENCE -0.2; LYMPHOCYTES % (AUTO) 11.4 % (13-45); MEAN CORPUSCULAR HEMOGLOBIN 27.4 pg (27.0-33.4); MEAN CORPUSCULAR HGB CONC 33.1 g/dL (32.0-36.0); MEAN CORPUSCULAR VOLUME 83 fl (80-97); MONOCYTES % (AUTO) 5.4 % (3-13); RED BLOOD COUNT 4.62 10^6/uL (3.72-5.28); RED CELL DISTRIBUTION WIDTH 15.6 % (11.5-14.0); SEGMENTED NEUTROPHILS % (AUTO) 81.7 % (42-78); WHITE BLOOD COUNT 14.5 10^3/uL (4.0-10.5)
--- NOTE | 2017-09-25 22:52 | ER Document Report ---
ED General - General Chief Complaint: Syncope Stated Complaint: ARM PAIN Time Seen by Provider: 09/25/17 21:21 Notes: Patient is a 56-year-old female with a past medical history of hypertension, hyperlipidemia, chronic pain, who presents after having a syncopal episode versus a trip and fall who presents with right arm pain, left lower extremity pain, and lightheadedness. Family states they found her lying in the front yard against a tree. Patient herself did not recall all the events and states she is uncertain whether she hit her head. She has a history of frequent similar falls in the past and is actually been seen in the emergency department repeatedly for similar events with associated fractures from these falls. She is complaining of a severe, constant, throbbing pain to her right humerus. Any attempt at moving the area worsens the pain. She has not tried anything for improvement of the pain. She also complains of severe pain to her left knee but does note that she has chronic pain to the knee. She denies any focal weakness, numbness, or altered mental status. She denies any chest pain or shortness of breath. She does arrive by EMS. TRAVEL OUTSIDE OF THE [place] IN LAST 30 DAYS: No - Related Data Allergies/Adverse Reactions: atorvastatin Allergy (Severe, Verified 04/30/17 08:25) myalgia niacin Allergy (Severe, Verified 05/19/17 09:57) Anaphylaxis adhesive tape Allergy (Intermediate, Verified 05/19/17 09:57) REDNESS, BLISTERS meloxicam Allergy (Intermediate, Verified 05/19/17 09:57) wheezing, palpitations sulfamethoxazole [From Septra] Allergy (Mild, Verified 05/19/17 09:57) rash tramadol Allergy (Mild, Verified 05/19/17 09:57) wheezing trimethoprim [From Septra] Allergy (Mild, Verified 05/19/17 09:57) rash simvastatin Allergy (Unknown, Verified 05/19/17 09:57) Sulfa (Sulfonamide Antibiotics) Allergy (Unknown, Verified 05/19/17 09:57) rash zolpidem tartrate [From Ambien] Adverse Reaction (Severe, Verified 05/19/17 09: 57) sleepwalking dipyridamole [From Aggrenox] Adverse Reaction (Intermediate, Verified 05/19/17 09:57) HEADACHES methylprednisolone [From Medrol] Adverse Reaction (Intermediate, Verified 08:25) N/V/hyperactive topiramate Adverse Reaction (Intermediate, Verified 05/19/17 09:57) kidney stones aspirin Adverse Reaction (Mild, Verified 05/19/17 09:57) GI upset guaifenesin Adverse Reaction (Mild, Verified 05/19/17 09:57) GI upset rosuvastatin Adverse Reaction (Mild, Verified 05/19/17 09:57) muscle pain pseudoephedrine Adverse Reaction (Unknown, Verified 05/19/17 09:57) GI upset Past Medical History - General Information source: Patient - Social History Smoking Status: Current Every Day Smoker Drug Abuse: None Lives with: Family Family History: Arthritis, CAD, Hypertension, Malignancy, Other Patient has suicidal ideation: No Patient has homicidal ideation: No - Past Medical History Cardiac Medical History: Reports: Hx Hypercholesterolemia, Hx Hypertension, Hx Pulmonary Embolism - 6 years ago Denies: Hx Atrial Fibrillation, Hx Congestive Heart Failure, Hx Coronary Artery Disease, Hx Heart Attack, Hx Peripheral Vascular Disease, Hx Heart Murmur Pulmonary Medical History: Reports: Hx Asthma, Hx Bronchitis, Hx COPD, Hx Pneumonia Denies: Hx Respiratory Failure, Hx Sleep Apnea, Hx Tuberculosis Neurological Medical History: Denies: Hx Cerebrovascular Accident, Hx Seizures Renal/ Medical History: Reports: Hx Kidney Stones. Denies: Hx End Stage Renal Disease, Hx Peritoneal Dialysis Malignancy Medical History: Denies: Hx Lung Cancer GI Medical History: Reports: Hx Diverticulitis, Hx Gastroesophageal Reflux Disease. Denies: Hx Crohn's Disease, Hx Hiatal Hernia, Hx Irritable Bowel, Hx Liver Failure, Hx Pancreatitis, Hx Ulcer Musculoskeltal Medical History: Reports Hx Arthritis - knees, Denies Hx Fibromyalgia, Denies Hx Multiple Sclerosis, Denies Hx Muscular Dystrophy Psychiatric Medical History: Reports: Hx Anxiety, Hx Depression Denies: Hx Bipolar Disorder - not diagnosed, Hx Dementia, Hx Post Traumatic Stress Disorder Traumatic Medical History: Reports: Hx Fractures - left big toe, right hand Past Surgical History: Reports: Hx Abdominal Surgery - collectomy, Hx Appendectomy, Hx Bowel Surgery, Hx Herniorrhaphy - left lower abdomen, Hx Kidney (Renal Surgery) - LITHOTRIPSY, Hx Orthopedic Surgery - right knee replacement, Hx Tonsillectomy, Hx Umbilical Hernia. Denies: Hx Section , Hx Cholecystectomy, Hx Colostomy, Hx Coronary Artery Bypass Graft, Hx Gastric Bypass Surgery, Hx Hysterectomy, Hx Mastectomy, Hx Pacemaker, Hx Tubal Ligation - Immunizations Immunizations up to date: Yes Hx Diphtheria, Pertussis, Tetanus Vaccination: Yes Hx Pneumococcal Vaccination: 11/17/05 Review of Systems - Review of Systems Notes: Constitutional: Negative for fever. HENT: Negative for sore throat. Eyes: Negative for visual changes. Cardiovascular: Negative for chest pain. Respiratory: Negative for shortness of breath. Gastrointestinal: Negative for abdominal pain, vomiting or diarrhea. Genitourinary: Negative for dysuria. Musculoskeletal: Positive for right arm and left knee pain Skin: Negative for rash. Neurological: Negative for headaches, weakness or numbness. 10 point ROS negative except as marked above and in HPI. Physical Exam - Vital signs Vitals: Pulse Ox 91 L 09/25/17 21:36 Interpretation: Hypertensive Notes: PHYSICAL EXAMINATION: GENERAL: Appears moderately uncomfortable in no acute distress HEAD: Atraumatic, normocephalic. EYES: Pupils equal round and reactive to light, extraocular movements intact, sclera anicteric, conjunctiva are normal. ENT: nares patent, oropharynx clear without exudates. Moderately dry mucous membranes. NECK: Normal range of motion, supple without lymphadenopathy LUNGS: Breath sounds clear to auscultation bilaterally and equal. No wheezes rales or rhonchi. HEART: Regular tachycardia without murmurs ABDOMEN: Soft, nontender, normoactive bowel sounds. No guarding, no rebound. No masses appreciated. EXTREMITIES: Apparent deformity of the right humerus. Substantial swelling to the area. No other obvious extremity finding. NEUROLOGICAL: Face symmetric. Tongue protrudes midline. Extraocular motions intact. Pupils are 2 mm and equally reactive. Normal speech. 5 out of 5 strength in both the distal and proximal upper and lower extremities bilaterally. Sensation is grossly intact throughout. Finger to nose testing normal. Pronator drift normal. PSYCH: Normal mood, normal affect. SKIN: Warm, Dry, normal turgor, no rashes or lesions noted. Course - Re-evaluation Re-evalutation: 09/25/17 22:52 Patient presents after a syncopal episode and apparently striking her right upper extremity as well as left lower extremity. Patient has a history of recurrent syncopal episodes similar to today of unclear etiology. Patient is uncertain of what triggered today's episode and has a poor recollection of the episode itself. She denies any symptoms at time of presentation other than significant pain to her right upper extremity as well as left distal lower extremity. There is some swelling to the right humerus but no additional findings on examination. EKG unremarkable. Labs are pending and will obtain x- rays of the affected areas and reassess. 09/26/17 01:00 Shoulder x-ray does show a right humeral fracture. This been placed in a sling. 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 CT of the head is unremarkable. Remainder of labs likewise unremarkable. Patient is tolerating oral intake without difficulty. At this time will discharge with return precautions and follow-up recommendations. Verbal discharge instructions given a the bedside and opportunity for questions given. Medication warnings reviewed. Patient is in agreement with this plan and has verbalized understanding of return precautions and the need for primary care follow-up in the next 24-72 hours. - Vital Signs Vital signs: Temp Pulse Resp BP Pulse Ox 97.6 F 101 H 16 146/99 H 100 09/25/17 21:49 09/25/17 21:49 09/26/17 01:25 09/26/17 01:25 09/26/17 01:25 - Laboratory Result Diagrams: 09/25/17 21:45 09/25/17 23:25 Laboratory results interpreted by me: 09/25/17 09/25/17 21:45 23:25 WBC 14.5 H RDW 15.6 H Seg Neutrophils % 81.7 H Lymphocytes % 11.4 L Absolute Neutrophils 11.9 H Carbon Dioxide 21 L Glucose 139 H Direct Bilirubin 0.5 H ALT 57 H Creatine Kinase 262 H - Diagnostic Test Radiology reviewed: Image reviewed, Reports reviewed Radiology results interpreted by me: 09/26/17 01:01 Right shoulder: Humeral fracture - EKG Interpretation by Me Additional EKG results interpreted by me: 09/26/17 01:02 Sinus tachycardia. Rate 101. No ST elevations or depressions.. QTC is 483. Discharge - Discharge Clinical Impression: Dehydration Fall Qualifiers: Encounter type: initial encounter Qualified Code(s): W19.XXXA - Unspecified fall, initial encounter Syncope Qualifiers: Syncope type: unspecified Qualified Code(s): R55 - Syncope and collapse Right humeral fracture Qualifiers: Encounter type: initial encounter Humerus Location: surgical neck Fracture type : closed Fracture morphology: unspecified fracture morphology Fracture alignment : nondisplaced Qualified Code(s): S42.214A - Unspecified nondisplaced fracture of surgical neck of right humerus, initial encounter for closed fracture Condition: Stable Disposition: HOME, SELF-CARE Additional Instructions: You were seen today after an episode of passing out. Your EKG here is normal. At this time, we do not feel that your episode of passing out was from any life- threatening cause. Please drink plenty of fluids over the next several days. Return to emergency department if you have any further episodes of syncope, headache, weakness, numbness, chest pain, or shortness of breath. Please follow up closely with your primary care physician. You do also have a fracture of your right humerus. He has been placed in a sling and need to wear this to help reduce the arm. Please follow-up with orthopedic surgery within the next 1 week. For your pain: Take acetaminophen 1000 mg every 6 hours as needed for pain. If this does not control your pain you may take 15 mg of oral morphine every 4 hours as needed. Please be very careful about using the oral morphine and only use this for severe pain. Prescriptions: Morphine Sulfate [Morphine Ir 15 mg Tablet] 15 mg PO Q4HP PRN #12 tablet PRN Reason: Referrals: HARLEY ANDRADE MD [Primary Care Provider] - Follow up in 3-5 days SD RICO MD [ACTIVE STAFF] - Follow up in 3-5 days
--- NOTE | 2017-09-25 22:52 | EKG REPORT ---
SEVERITY:- ABNORMAL ECG - SINUS TACHYCARDIA PROBABLE POSTERIOR INFARCT : Confirmed by: Jaylan Balderas 25-Sep-2017 22:51:34
--- NOTE | 2017-09-26 | RADIOLOGY REPORT (SQ) ---
EXAM DESCRIPTION: SHOULDER RIGHT 2 OR MORE VIEWS COMPLETED DATE/TIME: 09/25/2017 11:50 pm REASON FOR STUDY: fall, pain COMPARISON: None. NUMBER OF VIEWS: Two views. TECHNIQUE: AP and Y view images acquired of the right shoulder. LIMITATIONS: Patient positioning. FINDINGS: MINERALIZATION: Normal. BONES: Comminuted and moderately displaced humeral head/ neck fracture. Bones otherwise intact. JOINTS: No dislocation. VISUALIZED LUNGS AND RIBS: No pneumothorax. No rib fracture. SOFT TISSUES: No radiopaque foreign body. OTHER: No other significant finding. IMPRESSION: COMMINUTED AND MODERATELY DISPLACED HUMERAL HEAD/ NECK FRACTURE. TECHNICAL DOCUMENTATION: JOB ID: [id number] [employer]- All Rights Reserved
--- NOTE | 2017-09-26 00:03 | RADIOLOGY REPORT (SQ) ---
EXAM DESCRIPTION: TIBIA FIBULA LEFT COMPLETED DATE/TIME: 09/25/2017 11:50 pm REASON FOR STUDY: fall COMPARISON: None. NUMBER OF VIEWS: Two views. TECHNIQUE: Two radiographic images acquired of the left tibia and fibula to include the knee and ank le in at least one projection. LIMITATIONS: None. FINDINGS: MINERALIZATION: Normal. BONES: No acute fracture or dislocation. No worrisome bone lesions. SOFT TISSUES: No obvious swelling or foreign body. OTHER: No other significant finding. IMPRESSION: NO FRACTURE IDENTIFIED. TECHNICAL DOCUMENTATION: JOB ID: [id number] [employer]- All Rights Reserved
--- NOTE | 2017-09-26 00:03 | RADIOLOGY REPORT (SQ) ---
EXAM DESCRIPTION: KNEE LEFT 3 VIEWS COMPLETED DATE/TIME: 09/25/2017 11:51 pm REASON FOR STUDY: fall COMPARISON: None. NUMBER OF VIEWS: Three views. TECHNIQUE: AP, lateral, and sunrise patella radiographic images acquired of the left knee. LIMITATIONS: None. FINDINGS: MINERALIZATION: Normal. BONES: No acute fracture or dislocation. No worrisome bone lesions. JOINT: Tricompartmental osteoarthritis most severely affecting the medial tibiofemoral compartment wi th multiple ossified bodies located along the expected course of the medial collateral ligament. Mod erate-sized joint effusion. SOFT TISSUES: No soft tissue swelling. No radio-opaque foreign body. OTHER: No other significant finding. IMPRESSION: TRICOMPARTMENTAL OSTEOARTHRITIS WITH JOINT EFFUSION. NO FRACTURE IDENTIFIED. TECHNICAL DOCUMENTATION: JOB ID: [id number] [employer]- All Rights Reserved
[2017-09-26 00:10] LABS: ALANINE AMINOTRANSFERASE 57 U/L (9-52); ALBUMIN 4.1 g/dL (3.5-5.0); ALKALINE PHOSPHATASE 124 U/L (38-126); ANION GAP 13 (5-19); ASPARTATE AMINO TRANSFERASE 30 U/L (14-36); BILIRUBIN,DIRECT 0.5 mg/dL (0.0-0.4); BILIRUBIN,TOTAL 0.5 mg/dL (0.2-1.3); BLOOD UREA NITROGEN 20 mg/dL (7-20); CALCIUM 9.5 mg/dL (8.4-10.2); CARBON DIOXIDE 21 mmol/L (22-30); CHLORIDE 107 mmol/L (98-107); CREATINE KINASE 262 U/L (30-135); CREATININE RESULT 0.61 mg/dL (0.52-1.25); GLUCOSE 139 mg/dL (75-110); POTASSIUM 4.3 mmol/L (3.6-5.0); SODIUM 140.9 mmol/L (137-145); TOTAL PROTEIN 6.9 g/dL (6.3-8.2)
--- NOTE | 2017-09-26 00:47 | RADIOLOGY REPORT (SQ) ---
EXAM DESCRIPTION: CT HEAD WITHOUT CLINICAL HISTORY: ams, head trauma COMPARISON: 02/09/2017 TECHNIQUE: Axial CT of the head obtained from the skull apex to the skull base without contrast. FINDINGS: No acute intracranial hemorrhage identified. No mass, mass effect, shift of the midline, abnormal extra-axial fluid collection or CT evidence of acute ischemic change identified. The ventricular system is unremarkable. No acute abnormalities of the supratentorial white matter, basal ganglia, cerebellum, or brainstem. The visualized paranasal sinuses and the mastoids are clear. No skull fracture identified. Visualized orbits and globes are unremarkable. DLP: 1162.97 mGy-cm IMPRESSION: 1. No acute intracranial abnormality identified This exam was performed according to our departmental dose-optimization program, which includes automated exposure control, adjustment of the mA and/or kV according to patient size and/or use of iterative reconstruction technique.
[2017-09-26] MEDS ORDERED: MORPHINE SULFATE IR 15 MG TABLET PO ONE (01:00)
[2017-09-26] MEDS ORDERED: ACETAMINOPHEN 325 MG TABLET PO ONE (01:00)
[2017-09-26 01:29] VITALS: BP 146/99
== END 2017-09-26 01:49 | disposition home or self-care (01) ==
LOC: ER 21:13
DX: S42.291A Other displaced fracture of upper end of right humerus, initial encounter for closed fracture (principal); E86.0 Dehydration; R55 Syncope and collapse; M17.12 Unilateral primary osteoarthritis, left knee; I10 Essential (primary) hypertension; E78.5 Hyperlipidemia, unspecified; G89.29 Other chronic pain; M79.601 Pain in right arm; W19.XXXA Unspecified fall, initial encounter; F17.200 Nicotine dependence, unspecified, uncomplicated
CPT/HCPCS: 93005; 96376; 99285; 96374; 36415; 82550; 85025; 80053; 84484; 73562; 73030; 73590; 70450; 93010; L1830; J3490 ×2; J3010

== ENCOUNTER 2017-10-01 18:45 | Emergency (ER) | payer MEDICAID ==
[2017-10-01] MEDS ORDERED: OXYCODONE-ACETAMINOPHEN 5-325 MG TABLET PO ONE (20:20)
[2017-10-01] MEDS ORDERED: ONDANSETRON 4 MG TAB.RAPDIS PO ONE (20:35)
--- NOTE | 2017-10-01 21:23 | RADIOLOGY REPORT (SQ) ---
EXAM DESCRIPTION: KNEE LEFT 4 VIEW COMPLETED DATE/TIME: 10/01/2017 8:39 pm REASON FOR STUDY: fall COMPARISON: None. NUMBER OF VIEWS: Four views. TECHNIQUE: AP, lateral, and both oblique radiographic images acquired of the left knee. LIMITATIONS: None. FINDINGS: MINERALIZATION: Osteopenic BONES: Acute nondisplaced nondepressed fracture, lateral tibial plateau extending into the interspino us region. JOINT: Small suprapatellar knee joint effusion. High-grade patellofemoral and medial compartment maureen nt space narrowing from osteoarthritis. SOFT TISSUES: Diffuse soft tissue swelling. No radiopaque foreign body OTHER: No other significant finding. IMPRESSION: Acute nondisplaced nondepressed fracture, lateral tibial plateau extending into the inte rspinous region TECHNICAL DOCUMENTATION: JOB ID: [id number] [employer]- All Rights Reserved
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
[2017-10-01 22:22] VITALS: BP 113/75
== END 2017-10-01 22:55 | disposition home or self-care (01) ==
LOC: ER 18:45
DX: S82.142D Displaced bicondylar fracture of left tibia, subsequent encounter for closed fracture with routine healing (principal); M25.562 Pain in left knee; R60.0 Localized edema; X58.XXXD Exposure to other specified factors, subsequent encounter
CPT/HCPCS: 99284; 73562; L1830; S0119

== ENCOUNTER 2018-01-25 21:15 | Emergency (ER) | payer MEDICAID ==
[2018-01-25 23:35] LABS: ABSOLUTE BASOPHILS # (AUTO) 0.1 10^3/uL (0.0-0.2); ABSOLUTE LYMPHOCYTES (AUTO) 1.1 10^3/uL (0.5-4.7); ABSOLUTE MONOCYTES (AUTO) 0.5 10^3/uL (0.1-1.4); ABSOLUTE NEUT (AUTO) 11.8 10^3/uL (1.7-8.2); BASOPHILS % (AUTO) 0.8 % (0-2); EOSINOPHILS % (AUTO) 0.2 % (0-6); HEMATOCRIT 39.6 % (36.0-47.0); HEMOGLOBIN 12.6 g/dL (12.0-15.5); LYMPHOCYTES % (AUTO) 8.1 % (13-45); MEAN CORPUSCULAR HEMOGLOBIN 25.2 pg (27.0-33.4); MEAN CORPUSCULAR HGB CONC 31.8 g/dL (32.0-36.0); MEAN CORPUSCULAR VOLUME 79 fl (80-97); PLATELET COUNT 322 10^3/uL (150-450); RED CELL DISTRIBUTION WIDTH 16.6 % (11.5-14.0); SEGMENTED NEUTROPHILS % (AUTO) 86.9 % (42-78); TOTAL CELLS COUNTED % (AUTO) 100 %; WHITE BLOOD COUNT 13.6 10^3/uL (4.0-10.5)
[2018-01-25 23:46] LABS: APPEARANCE,URINE CLOUDY; BILIRUBIN,URINE NEGATIVE (NEGATIVE); GLUCOSE, URINE NEGATIVE (NEGATIVE); KETONES,URINE NEGATIVE (NEGATIVE); LEUKOCYTE ESTERASE,URINE NEGATIVE (NEGATIVE); NITRITE,URINE NEGATIVE (NEGATIVE); PROTEIN,URINE 100 mg/dL (NEGATIVE); URINE SPECIFIC GRAVITY 1.018
[2018-01-25 23:47] LABS: COLOR,URINE BROWN
[2018-01-25 23:53] LABS: ALANINE AMINOTRANSFERASE 39 U/L (9-52); ALBUMIN 4.3 g/dL (3.5-5.0); ALKALINE PHOSPHATASE 132 U/L (38-126); ANION GAP 12 (5-19); ASPARTATE AMINO TRANSFERASE 20 U/L (14-36); BILIRUBIN,DIRECT 0.2 mg/dL (0.0-0.4); BILIRUBIN,TOTAL 0.2 mg/dL (0.2-1.3); BLOOD UREA NITROGEN 21 mg/dL (7-20); CALCIUM 10.1 mg/dL (8.4-10.2); CARBON DIOXIDE 23 mmol/L (22-30); CHLORIDE 107 mmol/L (98-107); GLUCOSE 138 mg/dL (75-110); LIPASE 82.6 U/L (23-300); POTASSIUM 4.2 mmol/L (3.6-5.0); SODIUM 141.7 mmol/L (137-145); TOTAL PROTEIN 7.1 g/dL (6.3-8.2)
[2018-01-26] MEDS ORDERED: CEPHALEXIN 500 MG CAPSULE PO ONE (00:15)
[2018-01-26] MEDS ORDERED: IBUPROFEN 600 MG TABLET PO ONE (00:15)
[2018-01-26] MEDS ORDERED: ACETAMINOPHEN 325 MG TABLET PO ONE (00:15)
[2018-01-26] MEDS ORDERED: TAMSULOSIN HCL 0.4 MG CAP.SR.24H PO ONE (00:32)
--- NOTE | 2018-01-26 00:35 | ER Document Report ---
ED General - General Chief Complaint: Abdominal Pain Stated Complaint: RIGHT SIDED PAIN,VOMITING Notes: Patient is a 57-year-old female with a past history of nephrolithiasis who presents with an episode of right flank pain radiating to her right lower abdomen that has since resolved. She states that the pain is present it was a severe, constant, flank directly radiating into her right lower abdomen. Nothing improves or worsens his pain. She states this feels exactly similar to a kidney stone in the past. She states shortly prior to arriving here in the emergency department she seemed to have passed a stone. She notes that she has been having hematuria throughout the day but has since now cleared. She has not seen a primary doctor regarding today's concerns. She denies any fever or constitutional symptoms. At the time of my assessment patient states that she feels much better would like to go home. TRAVEL OUTSIDE OF THE [place] IN LAST 30 DAYS: No - Related Data Allergies/Adverse Reactions: atorvastatin Allergy (Severe, Verified 04/30/17 08:25) myalgia niacin Allergy (Severe, Verified 05/19/17 09:57) Anaphylaxis adhesive tape Allergy (Intermediate, Verified 05/19/17 09:57) REDNESS, BLISTERS meloxicam Allergy (Intermediate, Verified 05/19/17 09:57) wheezing, palpitations sulfamethoxazole [From Septra] Allergy (Mild, Verified 05/19/17 09:57) rash tramadol Allergy (Mild, Verified 05/19/17 09:57) wheezing trimethoprim [From Septra] Allergy (Mild, Verified 05/19/17 09:57) rash simvastatin Allergy (Unknown, Verified 05/19/17 09:57) Sulfa (Sulfonamide Antibiotics) Allergy (Unknown, Verified 05/19/17 09:57) rash zolpidem tartrate [From Ambien] Adverse Reaction (Severe, Verified 05/19/17 09: 57) sleepwalking dipyridamole [From Aggrenox] Adverse Reaction (Intermediate, Verified 05/19/17 09:57) HEADACHES methylprednisolone [From Medrol] Adverse Reaction (Intermediate, Verified 08:25) N/V/hyperactive topiramate Adverse Reaction (Intermediate, Verified 05/19/17 09:57) kidney stones aspirin Adverse Reaction (Mild, Verified 05/19/17 09:57) GI upset guaifenesin Adverse Reaction (Mild, Verified 05/19/17 09:57) GI upset rosuvastatin Adverse Reaction (Mild, Verified 05/19/17 09:57) muscle pain pseudoephedrine Adverse Reaction (Unknown, Verified 05/19/17 09:57) GI upset Past Medical History - General Information source: Patient - Social History Smoking Status: Former Smoker Chew tobacco use (# tins/day): No Frequency of alcohol use: None Drug Abuse: None Lives with: Family Family History: Arthritis, CAD, Hypertension, Malignancy, Other Patient has suicidal ideation: No Patient has homicidal ideation: No - Past Medical History Cardiac Medical History: Reports: Hx Hypercholesterolemia, Hx Hypertension, Hx Pulmonary Embolism - 6 years ago Denies: Hx Atrial Fibrillation, Hx Congestive Heart Failure, Hx Coronary Artery Disease, Hx Heart Attack, Hx Peripheral Vascular Disease, Hx Heart Murmur Pulmonary Medical History: Reports: Hx Asthma, Hx Bronchitis, Hx COPD, Hx Pneumonia Denies: Hx Respiratory Failure, Hx Sleep Apnea, Hx Tuberculosis Neurological Medical History: Denies: Hx Cerebrovascular Accident, Hx Seizures Renal/ Medical History: Reports: Hx Kidney Stones. Denies: Hx End Stage Renal Disease, Hx Peritoneal Dialysis Malignancy Medical History: Denies: Hx Lung Cancer GI Medical History: Reports: Hx Diverticulitis, Hx Gastroesophageal Reflux Disease. Denies: Hx Crohn's Disease, Hx Hiatal Hernia, Hx Irritable Bowel, Hx Liver Failure, Hx Pancreatitis, Hx Ulcer Musculoskeltal Medical History: Reports Hx Arthritis - knees, Denies Hx Fibromyalgia, Denies Hx Multiple Sclerosis, Denies Hx Muscular Dystrophy Psychiatric Medical History: Reports: Hx Anxiety, Hx Depression Denies: Hx Dementia, Hx Post Traumatic Stress Disorder Comment Only: Hx Bipolar Disorder - not diagnosed Traumatic Medical History: Reports: Hx Fractures - left big toe, right hand Past Surgical History: Reports: Hx Abdominal Surgery - collectomy, Hx Appendectomy, Hx Bowel Surgery, Hx Herniorrhaphy - left lower abdomen, Hx Kidney (Renal Surgery) - LITHOTRIPSY, Hx Orthopedic Surgery - right knee replacement, Hx Tonsillectomy, Hx Umbilical Hernia. Denies: Hx Section , Hx Cholecystectomy, Hx Colostomy, Hx Coronary Artery Bypass Graft, Hx Gastric Bypass Surgery, Hx Hysterectomy, Hx Mastectomy, Hx Pacemaker, Hx Tubal Ligation - Immunizations Immunizations up to date: Yes Hx Diphtheria, Pertussis, Tetanus Vaccination: Yes Hx Pneumococcal Vaccination: 11/17/05 Review of Systems - Review of Systems Notes: Constitutional: Negative for fever. HENT: Negative for sore throat. Eyes: Negative for visual changes. Cardiovascular: Negative for chest pain. Respiratory: Negative for shortness of breath. Gastrointestinal: Positive for flank pain and abdominal pain as well as nausea Genitourinary: Positive for hematuria Musculoskeletal: Negative for back pain. Skin: Negative for rash. Neurological: Negative for headaches, weakness or numbness. 10 point ROS negative except as marked above and in HPI. Physical Exam - Vital signs Vitals: Temp Pulse Resp BP Pulse Ox 98.1 F 75 18 164/91 H 95 01/25/18 21:29 01/25/18 21:29 01/25/18 21:29 01/25/18 21:29 01/25/18 21:29 Interpretation: Hypertensive Notes: PHYSICAL EXAMINATION: GENERAL: Well-appearing, well-nourished and in no acute distress. HEAD: Atraumatic, normocephalic. EYES: Pupils equal round and reactive to light, extraocular movements intact, sclera anicteric, conjunctiva are normal. ENT: nares patent, oropharynx clear without exudates. Moist mucous membranes. NECK: Normal range of motion, supple without lymphadenopathy LUNGS: Breath sounds clear to auscultation bilaterally and equal. No wheezes rales or rhonchi. HEART: Regular rate and rhythm without murmurs ABDOMEN: Soft, nontender, normoactive bowel sounds. No guarding, no rebound. No masses appreciated. EXTREMITIES: Normal range of motion, no pitting or edema. No cyanosis. NEUROLOGICAL: No focal neurological deficits. Moves all extremities spontaneously and on command. PSYCH: Normal mood, normal affect. SKIN: Warm, Dry, normal turgor, no rashes or lesions noted. Course - Re-evaluation Re-evalutation: 01/26/18 00:34 Patient presents with right flank pain that was radiating to her right lower groin that has now completely resolved. She states that she believes she hurt he passed a kidney stone as her pain is now completely resolved. She is asking to go home. She has no ongoing tenderness and no flank tenderness or abdominal pain at time of my assessment. Otherwise well in appearance, vitals normal limits. Her urinalysis does suggest an associated urinary tract infection although given that the patient is no longer having any pain and states she is ready visibly passed a kidney stone I do not believe there is an indication for emergent transfer for an infected kidney stone. The urine has been cultured and the patient has been started on oral antibiotics. At this time will discharge with return precautions and follow-up recommendations. Verbal discharge instructions given a the bedside and opportunity for questions given. Medication warnings reviewed. Patient is in agreement with this plan and has verbalized understanding of return precautions and the need for primary care follow-up in the next 24-72 hours. - Vital Signs Vital signs: Temp Pulse Resp BP Pulse Ox 98.5 F 90 18 143/89 H 98 01/26/18 01:54 01/26/18 01:54 01/25/18 21:29 01/26/18 01:54 01/26/18 01:54 - Laboratory Result Diagrams: 01/25/18 23:15 01/25/18 23:15 Laboratory results interpreted by me: 01/25/18 01/25/18 01/25/18 23:15 23:15 23:20 WBC 13.6 H MCV 79 L MCH 25.2 L MCHC 31.8 L RDW 16.6 H Seg Neutrophils % 86.9 H Lymphocytes % 8.1 L Absolute Neutrophils 11.8 H BUN 21 H Glucose 138 H Alkaline Phosphatase 132 H Urine Protein 100 H Urine Blood LARGE H Urine Urobilinogen 4.0 H Discharge - Discharge Clinical Impression: Kidney stone on right side Urinary tract infection Qualifiers: Urinary tract infection type: acute cystitis Hematuria presence: with hematuria Qualified Code(s): N30.01 - Acute cystitis with hematuria Condition: Good Disposition: HOME, SELF-CARE Additional Instructions: Your urine shows findings consistent with a urinary tract infection. Please take all the antibiotics as directed even if your symptoms have improved. Please follow-up with your primary care physician as needed. Return to emergency room if you develop fever >101F, persistent vomiting, become lethargic , have severe pain in your sides, or any other symptoms that are concerning to you. Prescriptions: Cephalexin Monohydrate [Keflex 500 mg Capsule] 500 mg PO Q6H 5 Days capsule Tamsulosin HCl 0.4 mg PO DAILY #7 cap.er.24h Referrals: HARLEY ANDRADE MD [Primary Care Provider] - Follow up as needed
[2018-01-26 01:58] VITALS: BP 143/89
== END 2018-01-26 01:58 | disposition home or self-care (01) ==
LOC: ER 21:15
DX: N30.01 Acute cystitis with hematuria (principal); N20.0 Calculus of kidney; R10.31 Right lower quadrant pain; Z87.891 Personal history of nicotine dependence; I10 Essential (primary) hypertension; J44.9 Chronic obstructive pulmonary disease, unspecified; Z88.6 Allergy status to analgesic agent; Z88.2 Allergy status to sulfonamides
CPT/HCPCS: 99284; 36415; 87086; 83690; 85025; 80053; 81001; J3490 ×3

== ENCOUNTER → 2018-04-29 | Outpatient (CLI) | payer MEDICAID ==
[2018-04-29 11:31] LABS: ABSOLUTE BASOPHILS # (AUTO) 0.1 10^3/uL (0.0-0.2); ABSOLUTE EOSINOPHILS # (AUTO) 0.2 10^3/uL (0.0-0.6); ABSOLUTE LYMPHOCYTES (AUTO) 1.4 10^3/uL (0.5-4.7); ABSOLUTE MONOCYTES (AUTO) 0.6 10^3/uL (0.1-1.4); ABSOLUTE NEUT (AUTO) 1.9 10^3/uL (1.7-8.2); BASOPHILS % (AUTO) 1.2 % (0-2); EOSINOPHILS % (AUTO) 4.5 % (0-6); HEMATOCRIT 39.2 % (36.0-47.0); HEMOGLOBIN 12.6 g/dL (12.0-15.5); LYMPHOCYTES % (AUTO) 32.9 % (13-45); MEAN CORPUSCULAR HEMOGLOBIN 26.3 pg (27.0-33.4); MEAN CORPUSCULAR HGB CONC 32.3 g/dL (32.0-36.0); MEAN CORPUSCULAR VOLUME 82 fl (80-97); MONOCYTES % (AUTO) 14.7 % (3-13); PLATELET COUNT 263 10^3/uL (150-450); RED CELL DISTRIBUTION WIDTH 16.4 % (11.5-14.0); SEGMENTED NEUTROPHILS % (AUTO) 46.7 % (42-78); TOTAL CELLS COUNTED % (AUTO) 100 %; WHITE BLOOD COUNT 4.1 10^3/uL (4.0-10.5)
[2018-04-29 11:53] LABS: ALANINE AMINOTRANSFERASE 43 U/L (9-52); ALKALINE PHOSPHATASE 103 U/L (38-126); ANION GAP 9 (5-19); ASPARTATE AMINO TRANSFERASE 21 U/L (14-36); BILIRUBIN,DIRECT 0.3 mg/dL (0.0-0.4); BILIRUBIN,TOTAL 0.3 mg/dL (0.2-1.3); BLOOD UREA NITROGEN 18 mg/dL (7-20); CALCIUM 9.6 mg/dL (8.4-10.2); CARBON DIOXIDE 26 mmol/L (22-30); CHLORIDE 110 mmol/L (98-107); GLUCOSE 99 mg/dL (75-110); POTASSIUM 4.7 mmol/L (3.6-5.0); SODIUM 144.9 mmol/L (137-145); TOTAL PROTEIN 6.9 g/dL (6.3-8.2)
[2018-04-30 11:14] LABS: CHOLESTEROL 162.02 mg/dL (0-200); IRON(TIBC) 31.8 ug/dL (37-170); TRIGLYCERIDES 188 mg/dL (<150)
[2018-04-30 11:25] LABS: DIRECT LDL 97 mg/dL (<100)
[2018-04-30 11:32] LABS: VLDL CHOLESTEROL 37.6 mg/dL (10-31)
== END ==
LOC: LAB 11:06
PROVIDERS: ATTEND Family Medicine
DX: E78.2 Mixed hyperlipidemia (principal); R73.01 Impaired fasting glucose; D50.8 Other iron deficiency anemias; Z79.899 Other long term (current) drug therapy
CPT/HCPCS: 36415; 80048; 80061; 80076; 83036; 83540; 83550; 84443; 85025

== ENCOUNTER → 2018-04-30 | Outpatient (CLI) | payer MEDICAID ==
--- NOTE | 2018-04-30 12:55 | RADIOLOGY REPORT (SQ) ---
EXAM DESCRIPTION: KUB COMPLETED DATE/TIME: 04/30/2018 12:02 pm REASON FOR STUDY: J45.51 SEVERE PERSISTENT ASTHMA; N20.1 CALCULUS OF URETER COMPARISON: None. NUMBER OF VIEWS: One view. TECHNIQUE: Supine radiographic image of the abdomen acquired. LIMITATIONS: None. FINDINGS: BOWEL GAS PATTERN: Normal bowel gas pattern. No dilated loops. CALCIFICATIONS: No suspicious calcifications. SOFT TISSUES: No gross mass or suggestion of organomegaly. HARDWARE: Spiral anchors for mesh graft ventral hernia repair. BONES: No acute fracture. No worrisome bone lesions. OTHER: No other significant finding. IMPRESSION: NO RADIOGRAPHIC EVIDENCE FOR ACUTE ABDOMINAL DISEASE. TECHNICAL DOCUMENTATION: JOB ID: [id number] [email or web address] All Rights Reserved Reading location - IP/workstation name: [email or web address]
--- NOTE | 2018-04-30 13:00 | RADIOLOGY REPORT (SQ) ---
EXAM DESCRIPTION: CHEST PA/LATERAL COMPLETED DATE/TIME: 04/30/2018 12:02 pm REASON FOR STUDY: J45.51 SEVERE PERSISTENT ASTHMA; N20.1 CALCULUS OF URETER COMPARISON: 05/27/2017 EXAM PARAMETERS: NUMBER OF VIEWS: two views TECHNIQUE: Digital Frontal and Lateral radiographic views of the chest acquired. RADIATION DOSE: NA LIMITATIONS: none FINDINGS: LUNGS AND PLEURA: No opacities, masses or pneumothorax. No pleural effusion. MEDIASTINUM AND HILAR STRUCTURES: No masses or contour abnormalities. HEART AND VASCULAR STRUCTURES: Heart normal size. No evidence for failure. BONES: No acute findings. HARDWARE: None in the chest. OTHER: No other significant finding. IMPRESSION: NO SIGNIFICANT RADIOGRAPHIC FINDING IN THE CHEST. TECHNICAL DOCUMENTATION: JOB ID: [id number] [employer]- All Rights Reserved Reading location - IP/workstation name: [email or web address]
== END ==
LOC: OD 11:42
PROVIDERS: ATTEND Family Medicine
DX: J45.51 Severe persistent asthma with (acute) exacerbation (principal); N20.1 Calculus of ureter
CPT/HCPCS: 71046; 74018

== ENCOUNTER → 2018-09-14 | Outpatient (CLI) | payer MEDICAID ==
--- NOTE | 2018-09-14 11:31 | WOMENS IMAGING REPORT ---
EXAM DESCRIPTION: 3D SCREENING MAMMO BILAT COMPLETED DATE/TIME: 09/14/2018 11:20 am REASON FOR STUDY: SCREENING MAMMO Z12.31 ENCNTR SCREEN MAMMOGRAM FOR MALIGNANT NEOPLASM OF HAMLET COMPARISON: [id number] TECHNIQUE: Standard craniocaudal and mediolateral oblique views of each breast recorded using digita l acquisition and breast tomosynthesis. LIMITATIONS: None. FINDINGS: No masses, calcifications or architectural distortion. No areas of suspicion. Read with the assistance of CAD. .[facility] - R2 Cenova Version 1.3 .[facility] - R2 Cenova Version 1.[address] - R2 Cenova Version 2.[address] - R2 Cenova Version 2.4 .[facility] - R2 Advisory Software Engineer Version 9.2 IMPRESSION: NORMAL MAMMOGRAM. BIRADS 1. BREAST DENSITY: b. There are scattered areas of fibroglandular density. BIRAD: 1 NEGATIVE RECOMMENDATION: ROUTINE SCREENING COMMENT: The patient has been notified of the results by letter per SA requirements. Additional no tification policies are in place for contacting patient with suspicious or incomplete findings. Quality ID #[id number]: The [employer] College [employer] recommends an annual screening mammogram for women aged 40 years or over. This facility utilizes a reminder system to ensure that all patients receive reminder letters, and/or direct phone calls for appointments. This includes reminders for routine scr eening mammograms, diagnostic mammograms, or other Breast Imaging Interventions when appropriate. Th is patient will be placed in the appropriate reminder system. The [employer] (ACR) has developed recommendations for screening MRI of the breast s in certain patient populations, to be used in conjunction with mammography. Breast MRI surveillanc e may be appropriate for women with more than 20% lifetime risk of developing breast cancer as deter mined by genetic testing, significant family history of the disease, or history of mantle radiation f or Hodgkins Disease. ACR Practice Guidelines 2008. DBT Technology DBT is a type of tomographic mammography. With conventional mammography, overlapping breast tissue ma y make lesions difficult to detect, even with good compression. DBT uses an x-ray tube that rotates a round the breast, taking images at different angles. These images are then combined to create thin sl ices of the breast that the radiologist can view as a 3D reconstruction. The [employer] unit can perform full-field digital mammograms (2D imaging); or DBT (3D imaging); or both, in a combination mode that quickly performs both the mammogram and the tomosynthesis scan while the breast is still compressed. PQRS 6045F: Fluoroscopic imaging is not utilized for breast tomosynthesis. TECHNICAL DOCUMENTATION: FINDING NUMBER: (1) ASSESSMENT: (1) JOB ID: [id number] [employer]- All Rights Reserved Reading location - IP/workstation name: [email or web address]
== END ==
LOC: RAD 11:03
PROVIDERS: ATTEND Family Medicine
DX: Z12.31 Encounter for screening mammogram for malignant neoplasm of breast (principal)
CPT/HCPCS: 77063; 77067

== ENCOUNTER 2018-10-20 16:23 | Emergency (ER) | payer MEDICAID ==
[2018-10-20 16:30] VITALS: BP 128/84
[2018-10-20] MEDS ORDERED: ACETAMINOPHEN 325 MG TABLET PO ONE (17:27)
[2018-10-20] MEDS ORDERED: IPRATROPIUM/ALBUTEROL 0.5-2.5 MG/3 ML AMPUL NEB ONE (17:28)
--- NOTE | 2018-10-20 17:33 | ER Document Report ---
ED General - General Chief Complaint: Possible Kidney Stone Stated Complaint: WHEEZING Time Seen by Provider: 10/20/18 17:14 Notes: Patient is a 57-year-old female with asthma that presents to the emergency department for chief complaint of cough and shortness of breath. Patient reports she is been having cough and shortness of breath over the last 4 days and noticed wheezing as well, she states she did have a nebulizer but she recently moved, and cannot find it, and she feels that her wheezing is getting worse. She is also had some left flank pain over the last few days, and does have a history of kidney stones and was concerned about that as well. She rates the pain as a 3 out of 10, and not the worst it has been in the past. Denies any nausea, vomiting or diarrhea. Past Medical History: Kidney stones, asthma Past Surgical History: Appendectomy, tonsillectomy, hernia repair, colon resection Social History: Denies current tobacco, alcohol or drug use Family History: Reviewed and noncontributory for presenting illness Allergies: Reviewed, see documented allergy list. REVIEW OF SYSTEMS: Other than noted above, the 12 point review of systems was reviewed with the patient and were negative, all pertinent findings are included in the HPI. PHYSICAL EXAMINATION: Vital signs reviewed, nursing noted reviewed. GENERAL: Well-appearing, well-nourished and in no acute distress. HEAD: Atraumatic, normocephalic. EYES: Eyes appear normal, extraocular movements intact, sclera anicteric, conjunctiva are normal. ENT: nares patent, oropharynx clear without exudates. Moist mucous membranes. NECK: Normal range of motion, supple without lymphadenopathy LUNGS: Diffuse wheezing throughout all lung burns, no acute respiratory distress HEART: Regular rate and rhythm without murmurs ABDOMEN: Soft, mild left flank tenderness with palpation, normoactive bowel sounds. No rebound, guarding, or rigidity. No masses appreciated. EXTREMITIES: Nontender, good range of motion, no pitting or edema. NEUROLOGICAL: No focal neurological deficits. Moves all extremities spontaneously Motor and sensory grossly intact on exam. PSYCH: Normal mood, normal affect. SKIN: Warm, Dry, normal turgor, no rashes or lesions noted on exposed skin TRAVEL OUTSIDE OF THE [place] IN LAST 30 DAYS: No - Related Data Allergies/Adverse Reactions: atorvastatin Allergy (Severe, Verified 04/30/17 08:25) myalgia niacin Allergy (Severe, Verified 05/19/17 09:57) Anaphylaxis adhesive tape Allergy (Intermediate, Verified 05/19/17 09:57) REDNESS, BLISTERS meloxicam Allergy (Intermediate, Verified 05/19/17 09:57) wheezing, palpitations sulfamethoxazole [From Septra] Allergy (Mild, Verified 05/19/17 09:57) rash tramadol Allergy (Mild, Verified 05/19/17 09:57) wheezing trimethoprim [From Septra] Allergy (Mild, Verified 05/19/17 09:57) rash simvastatin Allergy (Unknown, Verified 05/19/17 09:57) Sulfa (Sulfonamide Antibiotics) Allergy (Unknown, Verified 05/19/17 09:57) rash zolpidem tartrate [From Ambien] Adverse Reaction (Severe, Verified 05/19/17 09: 57) sleepwalking dipyridamole [From Aggrenox] Adverse Reaction (Intermediate, Verified 05/19/17 09:57) HEADACHES methylprednisolone [From Medrol] Adverse Reaction (Intermediate, Verified 08:25) N/V/hyperactive topiramate Adverse Reaction (Intermediate, Verified 05/19/17 09:57) kidney stones aspirin Adverse Reaction (Mild, Verified 05/19/17 09:57) GI upset guaifenesin Adverse Reaction (Mild, Verified 05/19/17 09:57) GI upset rosuvastatin Adverse Reaction (Mild, Verified 05/19/17 09:57) muscle pain pseudoephedrine Adverse Reaction (Unknown, Verified 05/19/17 09:57) GI upset Past Medical History - Social History Smoking Status: Never Smoker Chew tobacco use (# tins/day): No Frequency of alcohol use: None Drug Abuse: None Family History: Arthritis, CAD, Hypertension, Malignancy, Other Patient has suicidal ideation: No Patient has homicidal ideation: No - Past Medical History Cardiac Medical History: Reports: Hx Hypercholesterolemia, Hx Hypertension, Hx Pulmonary Embolism - 6 years ago Denies: Hx Atrial Fibrillation, Hx Congestive Heart Failure, Hx Coronary Artery Disease, Hx Heart Attack, Hx Peripheral Vascular Disease, Hx Heart Murmur Pulmonary Medical History: Reports: Hx Asthma, Hx Bronchitis, Hx COPD, Hx Pneumonia Denies: Hx Respiratory Failure, Hx Sleep Apnea, Hx Tuberculosis Neurological Medical History: Denies: Hx Cerebrovascular Accident, Hx Seizures Renal/ Medical History: Reports: Hx Kidney Stones. Denies: Hx End Stage Renal Disease, Hx Peritoneal Dialysis Malignancy Medical History: Denies: Hx Lung Cancer GI Medical History: Reports: Hx Diverticulitis, Hx Gastroesophageal Reflux Disease. Denies: Hx Crohn's Disease, Hx Hiatal Hernia, Hx Irritable Bowel, Hx Liver Failure, Hx Pancreatitis, Hx Ulcer Musculoskeletal Medical History: Reports Hx Arthritis - knees, Denies Hx Fibromyalgia, Denies Hx Multiple Sclerosis, Denies Hx Muscular Dystrophy Psychiatric Medical History: Reports: Hx Anxiety, Hx Depression Denies: Hx Dementia, Hx Post Traumatic Stress Disorder Comment Only: Hx Bipolar Disorder - not diagnosed Traumatic Medical History: Reports: Hx Fractures - left big toe, right hand Past Surgical History: Reports: Hx Abdominal Surgery - collectomy, Hx Appendectomy, Hx Bowel Surgery, Hx Herniorrhaphy - left lower abdomen, Hx Kidney (Renal Surgery) - LITHOTRIPSY, Hx Orthopedic Surgery - right knee replacement, Hx Tonsillectomy, Hx Umbilical Hernia. Denies: Hx Section , Hx Cholecystectomy, Hx Colostomy, Hx Coronary Artery Bypass Graft, Hx Gastric Bypass Surgery, Hx Hysterectomy, Hx Mastectomy, Hx Pacemaker, Hx Tubal Ligation - Immunizations Immunizations up to date: Yes Hx Diphtheria, Pertussis, Tetanus Vaccination: Yes Hx Pneumococcal Vaccination: 11/17/05 Physical Exam - Vital signs Vitals: Temp Pulse Resp BP Pulse Ox 97.8 F 87 17 128/84 H 96 10/20/18 16:27 10/20/18 16:27 10/20/18 16:27 10/20/18 16:27 10/20/18 16:27 Course - Re-evaluation Re-evalutation: Patient seen and examined vital signs reviewed. Laboratory data and imaging were ordered as appropriate for the patient's presenting symptoms and complaint, with consideration of any critical or life threatening conditions that may be associated with their obtained history and exam as noted above. Patient was treated with DuoNeb breathing treatments, Tylenol, and prednisone Results were reviewed when available and demonstrated, negative chest x-ray, and workup, negative troponin as well and EKG was unremarkable, her CT of her abdomen and pelvis for renal stone was negative as well, and her urinalysis was unremarkable The patient was re-evaluated and was improved, stating that her lungs felt much improved, she was given an albuterol inhaler, and discharged home with prescription for prednisone and advised to follow-up with her primary care physician. Patient's back pain was most likely musculoskeletal, as no evidence of renal stone, or pyelonephritis. Evaluation was most consistent with low back pain, acute exacerbation of asthma. Advised to follow-up with a primary care physician. Results were discussed with the patient at this point, after careful consideration I feel that that patient can be discharged from the emergency department, the patient was educated treatments and reasons to return to the emergency department based on their presumed diagnosis as noted above, they were advised to followup with a primary care physician in 2-3 days. Patient was agreeable to plan of care. *Note is created using voice recognition software and may contain spelling, syntax or grammatical errors. Laboratory 10/20/18 10/20/18 10/20/18 18:11 18:11 18:11 WBC 6.9 RBC 4.61 Hgb 13.6 Hct 40.5 MCV 88 MCH 29.6 MCHC 33.7 RDW 15.2 H Plt Count 232 Seg Neutrophils % 59.2 Lymphocytes % 28.7 Monocytes % 7.2 Eosinophils % 3.7 Basophils % 1.2 Absolute Neutrophils 4.1 Absolute Lymphocytes 2.0 Absolute Monocytes 0.5 Absolute Eosinophils 0.3 Absolute Basophils 0.1 Sodium 142.9 Potassium 4.2 Chloride 108 H Carbon Dioxide 25 Anion Gap 10 BUN 18 Creatinine 0.62 Est GFR ( Amer) > 60 Est GFR (Non-Af Amer) > 60 Glucose 97 Calcium 9.6 Total Bilirubin 0.2 Direct Bilirubin 0.2 Neonat Total Bilirubin Not Reportable Neonat Direct Bilirubin Not Reportable Neonat Indirect Bili Not Reportable AST 21 ALT 38 Alkaline Phosphatase 114 Troponin I < 0.012 Total Protein 6.7 Albumin 3.9 Urine Color Urine Appearance Urine pH Ur Specific [place] Urine Protein Urine Glucose (UA) Urine Ketones Urine Blood Urine Nitrite Urine Bilirubin Urine Urobilinogen Ur Leukocyte Esterase Urine WBC (Auto) Urine RBC (Auto) Squamous Epi Cells Auto Urine Mucus (Auto) Urine Ascorbic Acid 10/20/18 18:11 WBC RBC Hgb Hct MCV MCH MCHC RDW Plt Count Seg Neutrophils % Lymphocytes % Monocytes % Eosinophils % Basophils % Absolute Neutrophils Absolute Lymphocytes Absolute Monocytes Absolute Eosinophils Absolute Basophils Sodium Potassium Chloride Carbon Dioxide Anion Gap BUN Creatinine Est GFR ( Amer) Est GFR (Non-Af Amer) Glucose Calcium Total Bilirubin Direct Bilirubin Neonat Total Bilirubin Neonat Direct Bilirubin Neonat Indirect Bili AST ALT Alkaline Phosphatase Troponin I Total Protein Albumin Urine Color YELLOW Urine Appearance SLIGHTLY-CLOUDY Urine pH 5.0 Ur Specific [place] 1.024 Urine Protein NEGATIVE Urine Glucose (UA) NEGATIVE Urine Ketones NEGATIVE Urine Blood NEGATIVE Urine Nitrite NEGATIVE Urine Bilirubin NEGATIVE Urine Urobilinogen NEGATIVE Ur Leukocyte Esterase NEGATIVE Urine WBC (Auto) 3 Urine RBC (Auto) 6 Squamous Epi Cells Auto 3 Urine Mucus (Auto) OCC Urine Ascorbic Acid NEGATIVE Chest X-Ray 10/20/18 17:27 IMPRESSION: NO ACUTE RADIOGRAPHIC FINDING IN THE CHEST. Limited or Localized CT 10/20/18 17:27 IMPRESSION: NO SIGNIFICANT OR ACUTE PROCESS IN THE ABDOMEN OR PELVIS. - Vital Signs Vital signs: Temp Pulse Resp BP Pulse Ox 97.8 F 87 17 128/84 H 96 10/20/18 16:27 10/20/18 16:27 10/20/18 16:27 10/20/18 16:27 10/20/18 16:27 - Laboratory Result Diagrams: 10/20/18 18:11 10/20/18 18:11 Laboratory results interpreted by me: 10/20/18 10/20/18 18:11 18:11 RDW 15.2 H Chloride 108 H Discharge - Discharge Clinical Impression: Cough, Flank pain Acute asthma exacerbation Qualifiers: Asthma severity: unspecified severity Asthma persistence: unspecified Qualified Code(s): J45.901 - Unspecified asthma with (acute) exacerbation Condition: Stable Disposition: HOME, SELF-CARE Instructions: Asthma ([facility]) Additional Instructions: Please take the prednisone as prescribed, and use the albuterol inhaler every 4 hours 2 puffs each time, to help with wheezing, if your symptoms are not improving over the next 24-48 hours, do not hesitate to return to the emergency department to be reevaluated. Prescriptions: Prednisone [Deltasone 20 mg Tablet] 3 tab PO DAILY 4 Days #12 tablet Referrals: HARLEY ANDRADE MD [Primary Care Provider] - Follow up in 3-5 days
--- NOTE | 2018-10-20 17:55 | RADIOLOGY REPORT (SQ) ---
EXAM DESCRIPTION: CHEST 2 VIEWS COMPLETED DATE/TIME: 10/20/2018 5:39 pm REASON FOR STUDY: shortness of breath, cough COMPARISON: 03/03/2017 EXAM PARAMETERS: NUMBER OF VIEWS: two views TECHNIQUE: Digital Frontal and Lateral radiographic views of the chest acquired. RADIATION DOSE: NA LIMITATIONS: none FINDINGS: LUNGS AND PLEURA: No opacities, masses or pneumothorax. No pleural effusion. MEDIASTINUM AND HILAR STRUCTURES: No masses or contour abnormalities. HEART AND VASCULAR STRUCTURES: Heart normal size. No evidence for failure. BONES: There is a fracture of the proximal right humerus. This appears chronic. HARDWARE: None in the chest. OTHER: No other significant finding. IMPRESSION: NO ACUTE RADIOGRAPHIC FINDING IN THE CHEST. TECHNICAL DOCUMENTATION: JOB ID: [id number] [employer]- All Rights Reserved Reading location - IP/workstation name: [email or web address]
--- NOTE | 2018-10-20 17:58 | RADIOLOGY REPORT (SQ) ---
EXAM DESCRIPTION: CT LTD RENAL STONE PROTOCOL ON COMPLETED DATE/TIME: 10/20/2018 5:45 pm REASON FOR STUDY: left flank pain, hx kidney stones COMPARISON: 04/18/2015 TECHNIQUE: CT scan of the abdomen and pelvis performed without intravenous or oral contrast. Images reviewed with lung, soft tissue, and bone windows. Reconstructed coronal and sagittal MPR images revi ewed. All images stored on PACS. All CT scanners at this facility use dose modulation, iterative reconstruction, and/or weight based d osing when appropriate to reduce radiation dose to as low as reasonably achievable (ALARA). [facility]: Dose Right [facility]: CareDose [facility]: Dose Right [facility]: Teradose 4D [facility]: Smart Technologies RADIATION DOSE: CT Rad equipment meets quality standard of care and radiation dose reduction techniq ues were employed. CTDIvol: 21.0 mGy. DLP: 1100 mGy-cm.mGy. LIMITATIONS: None. FINDINGS: LOWER CHEST: No significant findings in the chest. There is a moderate size hiatal hernia unchanged. NON-CONTRASTED LIVER, SPLEEN, ADRENALS: Evaluation limited by lack of IV contrast. No identified sign ificant masses. PANCREAS: No masses. No peripancreatic inflammatory changes. GALLBLADDER: No identified stones by CT criteria. No inflammatory changes to suggest cholecystitis. RIGHT KIDNEY AND URETER: No suspicious masses. Assessment limited by lack of IV contrast. There is a single small nonobstructing right renal stone. No hydronephrosis or hydroureter. LEFT KIDNEY AND URETER: No suspicious masses. Assessment limited by lack of IV contrast. No signifi cant calcifications. No hydronephrosis or hydroureter. AORTA AND RETROPERITONEUM: No aneurysm. No retroperitoneal masses or adenopathy. BOWEL AND PERITONEAL CAVITY: No obvious masses or inflammatory changes. No free fluid. APPENDIX: Surgically absent. PELVIS, BLADDER, AND ABDOMINAL WALL:There has been prior anterior abdominal wall hernia repair. BONES: No significant findings. OTHER: No other significant finding. IMPRESSION: NO SIGNIFICANT OR ACUTE PROCESS IN THE ABDOMEN OR PELVIS. COMMENT: Quality ID # [id number]: Final reports with documentation of one or more dose reduction techniques (e.g., Automated exposure control, adjustment of the mA and/or kV according to patient size, use of iterative reconstruction technique) TECHNICAL DOCUMENTATION: JOB ID: [id number]- All Rights Reserved Reading location - IP/workstation name: [email or web address]
[2018-10-20 18:24] LABS: ABSOLUTE BASOPHILS # (AUTO) 0.1 10^3/uL (0.0-0.2); ABSOLUTE EOSINOPHILS # (AUTO) 0.3 10^3/uL (0.0-0.6); ABSOLUTE MONOCYTES (AUTO) 0.5 10^3/uL (0.1-1.4); ABSOLUTE NEUT (AUTO) 4.1 10^3/uL (1.7-8.2); BASOPHILS % (AUTO) 1.2 % (0-2); EOSINOPHILS % (AUTO) 3.7 % (0-6); HEMATOCRIT 40.5 % (36.0-47.0); HEMOGLOBIN 13.6 g/dL (12.0-15.5); LYMPHOCYTES % (AUTO) 28.7 % (13-45); MEAN CORPUSCULAR HEMOGLOBIN 29.6 pg (27.0-33.4); MEAN CORPUSCULAR HGB CONC 33.7 g/dL (32.0-36.0); MEAN CORPUSCULAR VOLUME 88 fl (80-97); MONOCYTES % (AUTO) 7.2 % (3-13); PLATELET COUNT 232 10^3/uL (150-450); RED BLOOD COUNT 4.61 10^6/uL (3.72-5.28); RED CELL DISTRIBUTION WIDTH 15.2 % (11.5-14.0); SEGMENTED NEUTROPHILS % (AUTO) 59.2 % (42-78); TOTAL CELLS COUNTED % (AUTO) 100 %; WHITE BLOOD COUNT 6.9 10^3/uL (4.0-10.5)
[2018-10-20 18:28] LABS: APPEARANCE,URINE SLIGHTLY-CLOUDY; BILIRUBIN,URINE NEGATIVE (NEGATIVE); COLOR,URINE YELLOW; GLUCOSE, URINE NEGATIVE (NEGATIVE); KETONES,URINE NEGATIVE (NEGATIVE); LEUKOCYTE ESTERASE,URINE NEGATIVE (NEGATIVE); NITRITE,URINE NEGATIVE (NEGATIVE); PROTEIN,URINE NEGATIVE (NEGATIVE); URINE SPECIFIC GRAVITY 1.024; UROBILINOGEN,URINE NEGATIVE mg/dL (<2.0)
[2018-10-20 18:44] LABS: ALANINE AMINOTRANSFERASE 38 U/L (9-52); ALBUMIN 3.9 g/dL (3.5-5.0); ALKALINE PHOSPHATASE 114 U/L (38-126); ANION GAP 10 (5-19); ASPARTATE AMINO TRANSFERASE 21 U/L (14-36); BILIRUBIN,DIRECT 0.2 mg/dL (0.0-0.4); BILIRUBIN,TOTAL 0.2 mg/dL (0.2-1.3); BLOOD UREA NITROGEN 18 mg/dL (7-20); CALCIUM 9.6 mg/dL (8.4-10.2); CARBON DIOXIDE 25 mmol/L (22-30); CHLORIDE 108 mmol/L (98-107); GLUCOSE 97 mg/dL (75-110); POTASSIUM 4.2 mmol/L (3.6-5.0); SODIUM 142.9 mmol/L (137-145); TOTAL PROTEIN 6.7 g/dL (6.3-8.2)
[2018-10-20] MEDS ORDERED: ALBUTEROL SULFATE HFA (90 MCG/PUFF) 8 GM MDI (1 MDI/ER DISP) IH ONE (18:53)
[2018-10-20] MEDS ORDERED: PREDNISONE 20 MG TABLET ONE (19:03)
[2018-10-20] MEDS ORDERED: PREDNISONE 20 MG TABLET PO ONE (19:03)
--- NOTE | 2018-10-20 21:06 | EKG REPORT ---
SEVERITY:- NORMAL ECG - SINUS RHYTHM : Confirmed by: Ivonne Yanez MD 20-Oct-2018 21:06:01
== END 2018-10-20 19:08 | disposition home or self-care (01) ==
LOC: ER 16:23
DX: J45.901 Unspecified asthma with (acute) exacerbation (principal); T48.906A Underdosing of unspecified agents primarily acting on the respiratory system, initial encounter; Z91.128 Patient's intentional underdosing of medication regimen for other reason; Z91.14 Patient's other noncompliance with medication regimen; J44.9 Chronic obstructive pulmonary disease, unspecified; R10.9 Unspecified abdominal pain; R05 Cough; M54.9 Dorsalgia, unspecified; I10 Essential (primary) hypertension; Z87.442 Personal history of urinary calculi; Z86.711 Personal history of pulmonary embolism; Z87.01 Personal history of pneumonia (recurrent); Z87.19 Personal history of other diseases of the digestive system; Z88.8 Allergy status to other drugs, medicaments and biological substances; Z91.048 Other nonmedicinal substance allergy status; Z88.1 Allergy status to other antibiotic agents; Z88.5 Allergy status to narcotic agent; Z88.2 Allergy status to sulfonamides; Z90.49 Acquired absence of other specified parts of digestive tract
CPT/HCPCS: 93005; 94640; 99285; 36415; 85025; 80053; 81001; 84484; 71046; 76380; 93010; J3490 ×2; J7512; J7620

== ENCOUNTER → 2018-11-18 | Outpatient (CLI) | payer MEDICAID ==
[2018-11-18 08:59] LABS: CHOLESTEROL 186.58 mg/dL (0-200); IRON(TIBC) 61.6 ug/dL (37-170); TRIGLYCERIDES 398 mg/dL (<150)
[2018-11-18 09:10] LABS: DIRECT LDL 100 mg/dL (<100)
[2018-11-18 09:12] LABS: VLDL CHOLESTEROL 79.6 mg/dL (10-31)
== END ==
LOC: LAB 08:16
PROVIDERS: ATTEND Family Medicine
DX: D50.8 Other iron deficiency anemias (principal); E78.2 Mixed hyperlipidemia; R73.01 Impaired fasting glucose
CPT/HCPCS: 36415; 80061; 83036; 83540; 83550

== ENCOUNTER 2019-02-11 16:11 | Emergency (ER) | payer MEDICAID ==
[2019-02-11 16:33] VITALS: BP 134/97
[2019-02-11] MEDS ORDERED: IPRATROPIUM/ALBUTEROL 0.5-2.5 MG/3 ML AMPUL NEB ONE (16:41)
[2019-02-11] MEDS ORDERED: METHYLPREDNISOLONE INJ 125 MG/2 ML SDV IV ONE (16:55)
--- NOTE | 2019-02-11 16:56 | ER Document Report ---
ED Medical Screen (RME) - General Chief Complaint: Cough Stated Complaint: WHEEZING/DIFFICULTY BREATHING Time Seen by Provider: 02/11/19 16:41 Primary Care Provider: HARLEY ANDRADE MD [Primary Care Provider] - Follow up as needed Mode of Arrival: Ambulatory Information source: Patient Notes: Patient presents complaining of cough, wheezing for the past 3 days. Patient c omplains of ear pain as well. Patient does complain of chest pain with coughing. Patient has a history of asthma and COPD and states she feels like she did when she required admission in the past for her COPD. I have greeted and performed a rapid initial assessment of this patient. A comprehensive ED assessment and evaluation of the patient, analysis of test results and completion of the medical decision making process will be conducted by additional ED providers. TRAVEL OUTSIDE OF THE [place] IN LAST 30 DAYS: No - Related Data Allergies/Adverse Reactions: atorvastatin Allergy (Severe, Verified 04/30/17 08:25) myalgia niacin Allergy (Severe, Verified 05/19/17 09:57) Anaphylaxis adhesive tape Allergy (Intermediate, Verified 05/19/17 09:57) REDNESS, BLISTERS meloxicam Allergy (Intermediate, Verified 05/19/17 09:57) wheezing, palpitations sulfamethoxazole [From Septra] Allergy (Mild, Verified 05/19/17 09:57) rash tramadol Allergy (Mild, Verified 05/19/17 09:57) wheezing trimethoprim [From Septra] Allergy (Mild, Verified 05/19/17 09:57) rash simvastatin Allergy (Unknown, Verified 05/19/17 09:57) Sulfa (Sulfonamide Antibiotics) Allergy (Unknown, Verified 05/19/17 09:57) rash zolpidem tartrate [From Ambien] Adverse Reaction (Severe, Verified 05/19/17 09:57) sleepwalking dipyridamole [From Aggrenox] Adverse Reaction (Intermediate, Verified 05/19/17 09:57) HEADACHES methylprednisolone [From Medrol] Adverse Reaction (Intermediate, Verified 04/30/17 08:25) N/V/hyperactive topiramate Adverse Reaction (Intermediate, Verified 05/19/17 09:57) kidney stones aspirin Adverse Reaction (Mild, Verified 05/19/17 09:57) GI upset guaifenesin Adverse Reaction (Mild, Verified 05/19/17 09:57) GI upset rosuvastatin Adverse Reaction (Mild, Verified 05/19/17 09:57) muscle pain pseudoephedrine Adverse Reaction (Unknown, Verified 05/19/17 09:57) GI upset Past Medical History - Past Medical History Cardiac Medical History: Reports: Hx Hypercholesterolemia, Hx Hypertension, Hx Pulmonary Embolism - 6 years ago Denies: Hx Atrial Fibrillation, Hx Congestive Heart Failure, Hx Coronary Artery Disease, Hx Heart Attack, Hx Peripheral Vascular Disease, Hx Heart Murmur Pulmonary Medical History: Reports: Hx Asthma, Hx Bronchitis, Hx COPD, Hx Pneumonia Denies: Hx Respiratory Failure, Hx Sleep Apnea, Hx Tuberculosis Neurological Medical History: Denies: Hx Cerebrovascular Accident, Hx Seizures Renal/ Medical History: Reports: Hx Kidney Stones. Denies: Hx End Stage Renal Disease, Hx Peritoneal Dialysis Malignancy Medical History: Denies: Hx Lung Cancer GI Medical History: Reports: Hx Diverticulitis, Hx Gastroesophageal Reflux Disease. Denies: Hx Crohn's Disease, Hx Hiatal Hernia, Hx Irritable Bowel, Hx Liver Failure, Hx Pancreatitis, Hx Ulcer Musculoskeltal Medical History: Reports Hx Arthritis - knees, Denies Hx Fibromyalgia, Denies Hx Multiple Sclerosis, Denies Hx Muscular Dystrophy Psychiatric Medical History: Reports: Hx Anxiety, Hx Depression Denies: Hx Dementia, Hx Post Traumatic Stress Disorder Comment Only: Hx Bipolar Disorder - not diagnosed Traumatic Medical History: Reports: Hx Fractures - left big toe, right hand Past Surgical History: Reports: Hx Abdominal Surgery - collectomy, Hx Norm endectomy, Hx Bowel Surgery, Hx Herniorrhaphy - left lower abdomen, Hx Kidney (Renal Surgery) - LITHOTRIPSY, Hx Orthopedic Surgery - right knee replacement, Hx Tonsillectomy, Hx Umbilical Hernia. Denies: Hx Section, Hx Cholecystectomy, Hx Colostomy, Hx Coronary Artery Bypass Graft, Hx Gastric Bypass Surgery, Hx Hysterectomy, Hx Mastectomy, Hx Pacemaker, Hx Tubal Ligation - Immunizations Immunizations up to date: Yes Hx Diphtheria, Pertussis, Tetanus Vaccination: Yes Physical Exam - Vital signs Vitals: Temp Pulse Resp BP Pulse Ox 97.5 F 102 H 20 134/97 H 98 02/11/19 16:30 02/11/19 16:30 02/11/19 16:30 02/11/19 16:30 02/11/19 16:30 - Respiratory Breath sounds: Nonproductive cough, Wheezing - Diffuse wheezing bilaterally Course - Vital Signs Vital signs: Temp Pulse Resp BP Pulse Ox 97.5 F 102 H 20 134/97 H 98 02/11/19 16:30 02/11/19 16:30 02/11/19 16:30 02/11/19 16:30 02/11/19 16:30 Doctor's Discharge - Discharge Referrals: HARLEY ANDRADE MD [Primary Care Provider] - Follow up as needed
[2019-02-11] MEDS: ALBUTEROL SULFATE 0.083% NEB 2.5 MG/3 ML AMPUL NEB SCH ×2 (17:12→17:56)
--- NOTE | 2019-02-11 17:14 | RADIOLOGY REPORT (SQ) ---
EXAM DESCRIPTION: CHEST 2 VIEWS COMPLETED DATE/TIME: 02/11/2019 5:07 pm REASON FOR STUDY: r/o pna COMPARISON: 10/20/2018 EXAM PARAMETERS: NUMBER OF VIEWS: two views TECHNIQUE: Digital Frontal and Lateral radiographic views of the chest acquired. RADIATION DOSE: NA LIMITATIONS: none FINDINGS: LUNGS AND PLEURA: No opacities, masses or pneumothorax. No pleural effusion. MEDIASTINUM AND HILAR STRUCTURES: No masses or contour abnormalities. HEART AND VASCULAR STRUCTURES: Heart normal size. No evidence for failure. BONES: Chronic appearing fracture of the right proximal humerus HARDWARE: None in the chest. OTHER: No other significant finding. IMPRESSION: NO ACUTE RADIOGRAPHIC FINDING IN THE CHEST. TECHNICAL DOCUMENTATION: JOB ID: [id number] [employer]- All Rights Reserved Reading location - IP/workstation name: [email or web address]
[2019-02-11] MEDS ORDERED: METHYLPREDNISOLONE ACETATE INJ 80 MG/1 ML VIAL IM ONE (17:31)
[2019-02-11] MEDS ORDERED: DEXAMETHASONE SOD PHOS INJ 10 MG/1 ML VIAL IM ONE (17:31)
--- NOTE | 2019-02-11 17:32 | ER Document Report ---
ED General - General Chief Complaint: Cough Stated Complaint: WHEEZING/DIFFICULTY BREATHING Time Seen by Provider: 02/11/19 16:41 Primary Care Provider: HARLEY ANDRADE MD [Primary Care Provider] - Follow up as needed Mode of Arrival: Ambulatory Information source: Patient TRAVEL OUTSIDE OF THE [place] IN LAST 30 DAYS: No - HPI Patient complains to provider of: Cough, shortness of breath cold symptoms Onset: Other - 3 days ago Onset/Duration: Gradual Quality of pain: No pain Severity: Mild Pain Level: 2 Associated symptoms: denies: Chills, Fever Exacerbated by: Denies Relieved by: Denies Similar symptoms previously: No Recently seen / treated by doctor: No Notes: 58-year-old female here with 3 days of productive cough wheezing, and shortness of breath. Denies fevers and chills. Having some chest pain with her cough. Patient relates symptoms similar to when she was admitted sometime in the past. - Related Data Allergies/Adverse Reactions: atorvastatin Allergy (Severe, Verified 04/30/17 08:25) myalgia niacin Allergy (Severe, Verified 05/19/17 09:57) Anaphylaxis adhesive tape Allergy (Intermediate, Verified 05/19/17 09:57) REDNESS, BLISTERS meloxicam Allergy (Intermediate, Verified 05/19/17 09:57) wheezing, palpitations sulfamethoxazole [From Septra] Allergy (Mild, Verified 05/19/17 09:57) rash tramadol Allergy (Mild, Verified 05/19/17 09:57) wheezing trimethoprim [From Septra] Allergy (Mild, Verified 05/19/17 09:57) rash simvastatin Allergy (Unknown, Verified 05/19/17 09:57) Sulfa (Sulfonamide Antibiotics) Allergy (Unknown, Verified 05/19/17 09:57) rash zolpidem tartrate [From Ambien] Adverse Reaction (Severe, Verified 05/19/17 09:57) sleepwalking dipyridamole [From Aggrenox] Adverse Reaction (Intermediate, Verified 05/19/17 09:57) HEADACHES methylprednisolone [From Medrol] Adverse Reaction (Intermediate, Verified 04/30/17 08:25) N/V/hyperactive topiramate Adverse Reaction (Intermediate, Verified 05/19/17 09:57) kidney stones aspirin Adverse Reaction (Mild, Verified 05/19/17 09:57) GI upset guaifenesin Adverse Reaction (Mild, Verified 05/19/17 09:57) GI upset rosuvastatin Adverse Reaction (Mild, Verified 05/19/17 09:57) muscle pain pseudoephedrine Adverse Reaction (Unknown, Verified 05/19/17 09:57) GI upset Past Medical History - General Information source: Patient - Social History Smoking Status: Former Smoker Family History: Reviewed & Not Pertinent, Arthritis, CAD, Hypertension, Malignancy, Other Patient has suicidal ideation: No Patient has homicidal ideation: No - Past Medical History Cardiac Medical History: Reports: Hx Hypercholesterolemia, Hx Hypertension, Hx Pulmonary Embolism - 6 years ago Denies: Hx Atrial Fibrillation, Hx Congestive Heart Failure, Hx Coronary Artery Disease, Hx Heart Attack, Hx Peripheral Vascular Disease, Hx Heart Murmur Pulmonary Medical History: Reports: Hx Asthma, Hx Bronchitis, Hx COPD, Hx Pneumonia Denies: Hx Respiratory Failure, Hx Sleep Apnea, Hx Tuberculosis Neurological Medical History: Denies: Hx Cerebrovascular Accident, Hx Seizures Renal/ Medical History: Reports: Hx Kidney Stones. Denies: Hx End Stage Renal Disease, Hx Peritoneal Dialysis Malignancy Medical History: Denies: Hx Lung Cancer GI Medical History: Reports: Hx Diverticulitis, Hx Gastroesophageal Reflux Disease. Denies: Hx Crohn's Disease, Hx Hiatal Hernia, Hx Irritable Bowel, Hx Liver Failure, Hx Pancreatitis, Hx Ulcer Musculoskeletal Medical History: Reports Hx Arthritis - knees, Denies Hx Fibromyalgia, Denies Hx Multiple Sclerosis, Denies Hx Muscular Dystrophy Psychiatric Medical History: Reports: Hx Anxiety, Hx Depression Denies: Hx Dementia, Hx Post Traumatic Stress Disorder Comment Only: Hx Bipolar Disorder - not diagnosed Traumatic Medical History: Reports: Hx Fractures - left big toe, right hand Past Surgical History: Reports: Hx Abdominal Surgery - collectomy, Hx Appendectomy, Hx Bowel Surgery, Hx Herniorrhaphy - left lower abdomen, Hx Kidney (Renal Surgery) - LITHOTRIPSY, Hx Orthopedic Surgery - right knee replacement, Hx Tonsillectomy, Hx Umbilical Hernia. Denies: Hx Section, Hx Cholecystectomy, Hx Colostomy, Hx Coronary Artery Bypass Graft, Hx Gastric Bypass Surgery, Hx Hysterectomy, Hx Mastectomy, Hx Pacemaker, Hx Tubal Ligation - Immunizations Immunizations up to date: Yes Hx Diphtheria, Pertussis, Tetanus Vaccination: Yes Hx Pneumococcal Vaccination: 11/17/05 Review of Systems - Review of Systems Notes: Constitutional: No fevers. No chills. EENT: No eye redness. No eye pain. No ear pain. No sore throat. Cardiovascular: Positive pleuritic chest pain. No palpitations. Respiratory: Positive for productive cough and shortness of breath .no respiratory distress. Gastrointestinal: No abdominal pain. No nausea, vomiting, or diarrhea. Genitourinary: Atraumatic. No lesions. No pain. No discharge. Musculoskeletal: Atraumatic. No swelling. No deformities. Skin: No rash or lesions. Lymphatic: No swollen lymph nodes. Neurologic: No headache. No syncope. Psychiatric: No suicidal or homicidal ideation. Physical Exam - Vital signs Vitals: Temp Pulse Resp BP Pulse Ox 97.5 F 102 H 20 134/97 H 98 02/11/19 16:30 02/11/19 16:30 02/11/19 16:30 02/11/19 16:30 02/11/19 16:30 - Notes Notes: General: Well-developed, well-nourished. In no acute distress. Non-toxic appearing. Cardiac: Well-perfused. Regular rate and rhythm. No murmurs, rubs, or gallops. Pulmonary: No respiratory distress. No cyanosis. Diminished bilaterally Abdominal: Non-distended. Non-rigid. Bowels sounds are present in all four quadrants. No guarding or rebound. HEENT: Head is atraumatic. Conjunctivae not reddened. No tearing. PERRL. EOMI. Orbits atraumatic. No periorbital swelling or erythema. Oropharynx is without erythema, swelling, or exudates. Neck: Supple. No adenopathy. No meningismus. Dermatologic: Warm with good turgor. No rash. Atraumatic. Chest: Atraumatic. No chest wall tenderness to palpation. Musculoskeletal: Moves all extremities well. No range of motion deficits. no muscular or joint tenderness. No paraspinal muscle tenderness. no midline spinal tenderness or step-off. Genitourinary: Examination deferred Neurologic: No gross neurologic deficits. Psychiatric: Normal mood. Course - Re-evaluation Re-evalutation: 02/11/19 17:31 Original provider who was seeing the patient ordered lab work and IV medications. I was notified by the nurses that the patient was refusing lab work and IV placement. Chest x-ray is negative. We will continue with nebulizer treatment and see if the patient is amenable to intramuscular dexamethasone and Depo-Medrol as she has refused to take prednisone because it upsets her stomach. 02/11/19 18:03 Patient is refusing injectable dexamethasone and Depo-Medrol. Acknowledges that she will take oral medication. Oral Depo-Medrol ordered. 02/11/19 18:44 Breathing is better after the treatments and steroids. Will discharge home as long as she passes her ambulation trial on pulse oximetry - Vital Signs Vital signs: Temp Pulse Resp BP Pulse Ox 97.5 F 102 H 20 134/97 H 98 02/11/19 16:30 02/11/19 16:30 02/11/19 16:30 02/11/19 16:30 02/11/19 16:30 Discharge - Discharge Clinical Impression: COPD exacerbation Condition: Good Disposition: HOME, SELF-CARE Instructions: Chronic Obstructive Lung Disease ([facility]) Prescriptions: Albuterol Sulfate [Proair HFA Inhalation Aerosol 8.5 gm MDI] 2 puff IH Q4H PRN #1 mdi PRN Reason: Azithromycin [Zithromax 250 mg Tablet] 250 mg PO ASDIR PRN #6 tablet PRN Reason: Codeine Phosphate/Guaifenesin [Cheratussin Ac Syrup] 5 ml PO Q6H #120 ml Methylprednisolone [Medrol Dosepack (4 mg/Tab) 21 Tab/Dosepak] 4 mg PO ASDIR PRN #21 tab.ds.pk PRN Reason: Referrals: HARLEY ANDRADE MD [Primary Care Provider] - Follow up tomorrow Print Language: Turkish
[2019-02-11] MEDS ORDERED: METHYLPREDNISOLONE 4 MG TABLET PO ONE (18:02)
--- NOTE | 2019-02-11 18:37 | EKG REPORT ---
SEVERITY:- BORDERLINE ECG - SINUS RHYTHM BORDERLINE PROLONGED QT INTERVAL : Confirmed by: García Dunham MD 11-Feb-2019 18:36:46
== END 2019-02-11 18:52 | disposition home or self-care (01) ==
LOC: ER 16:11
DX: J44.1 Chronic obstructive pulmonary disease with (acute) exacerbation (principal); R05 Cough; R06.02 Shortness of breath; R07.9 Chest pain, unspecified; I10 Essential (primary) hypertension; Z86.711 Personal history of pulmonary embolism; Z87.01 Personal history of pneumonia (recurrent); Z87.892 Personal history of anaphylaxis; Z88.8 Allergy status to other drugs, medicaments and biological substances; Z91.048 Other nonmedicinal substance allergy status; Z88.1 Allergy status to other antibiotic agents; Z88.5 Allergy status to narcotic agent; Z88.2 Allergy status to sulfonamides; Z87.891 Personal history of nicotine dependence
CPT/HCPCS: 93005; 94640 ×2; 99285; 71046; 93010; J7509; J7620

== ENCOUNTER → 2019-05-27 | Outpatient (CLI) | payer MEDICAID ==
[2019-05-27 10:48] LABS: ABSOLUTE BASOPHILS # (AUTO) 0.1 10^3/uL (0.0-0.2); ABSOLUTE EOSINOPHILS # (AUTO) 0.2 10^3/uL (0.0-0.6); ABSOLUTE LYMPHOCYTES (AUTO) 1.8 10^3/uL (0.5-4.7); ABSOLUTE MONOCYTES (AUTO) 0.4 10^3/uL (0.1-1.4); ABSOLUTE NEUT (AUTO) 2.9 10^3/uL (1.7-8.2); EOSINOPHILS % (AUTO) 3.9 % (0-6); HEMATOCRIT 41.9 % (36.0-47.0); HEMOGLOBIN 13.9 g/dL (12.0-15.5); LYMPHOCYTES % (AUTO) 33.5 % (13-45); MEAN CORPUSCULAR HEMOGLOBIN 29.4 pg (27.0-33.4); MEAN CORPUSCULAR HGB CONC 33.2 g/dL (32.0-36.0); MEAN CORPUSCULAR VOLUME 89 fl (80-97); MONOCYTES % (AUTO) 7.2 % (3-13); PLATELET COUNT 251 10^3/uL (150-450); RED BLOOD COUNT 4.73 10^6/uL (3.72-5.28); RED CELL DISTRIBUTION WIDTH 13.6 % (11.5-14.0); SEGMENTED NEUTROPHILS % (AUTO) 54.4 % (42-78); TOTAL CELLS COUNTED % (AUTO) 100 %; WHITE BLOOD COUNT 5.3 10^3/uL (4.0-10.5)
[2019-05-27 11:08] LABS: ALANINE AMINOTRANSFERASE 43 U/L (9-52); ALBUMIN 3.9 g/dL (3.5-5.0); ALKALINE PHOSPHATASE 100 U/L (38-126); ANION GAP 8 (5-19); ASPARTATE AMINO TRANSFERASE 22 U/L (14-36); BILIRUBIN,DIRECT 0.2 mg/dL (0.0-0.4); BILIRUBIN,TOTAL 0.4 mg/dL (0.2-1.3); BLOOD UREA NITROGEN 22 mg/dL (7-20); CALCIUM 9.3 mg/dL (8.4-10.2); CARBON DIOXIDE 25 mmol/L (22-30); CHLORIDE 109 mmol/L (98-107); CHOLESTEROL 159.62 mg/dL (0-200); CREATINE KINASE 127 U/L (30-135); GLUCOSE 99 mg/dL (75-110); IRON(TIBC) 64.3 ug/dL (37-170); POTASSIUM 4.1 mmol/L (3.6-5.0); SODIUM 141.6 mmol/L (137-145); TOTAL PROTEIN 6.5 g/dL (6.3-8.2); TRIGLYCERIDES 213 mg/dL (<150)
[2019-05-27 11:19] LABS: DIRECT LDL 101 mg/dL (<100)
[2019-05-27 11:21] LABS: VLDL CHOLESTEROL 42.6 mg/dL (10-31)
== END ==
LOC: LAB 10:15
PROVIDERS: ATTEND Family Medicine
DX: E78.2 Mixed hyperlipidemia (principal); R73.01 Impaired fasting glucose; D50.8 Other iron deficiency anemias; Z79.899 Other long term (current) drug therapy
CPT/HCPCS: 36415; 80048; 80061; 80076; 82550; 83036; 83540; 83550; 84443; 85025

== ENCOUNTER 2019-08-26 17:05 | Emergency (ER) | payer MEDICAID ==
--- NOTE | 2019-08-26 18:07 | ER Document Report ---
ED Medical Screen (RME) - General Chief Complaint: Urinary Problem Stated Complaint: URINARY ISSUES Time Seen by Provider: 08/26/19 18:04 Primary Care Provider: HARLEY ANDRADE MD [Primary Care Provider] - Follow up as needed Mode of Arrival: Ambulatory Information source: Patient Notes: 58-year-old female presented to ED for complaint of a cough times a week and burning with urination x3 days. She states she has not had a fever. Patient is alert oriented respirations regular and unlabored. Patient does have a moist cough but when she coughs her lung sounds are clear. She states she is a former smoker but is been a long time. I have greeted and performed a rapid initial assessment of this patient. A comprehensive ED assessment and evaluation of the patient, analysis of test results and completion of medical decision making process will be conducted by an additional ED providers. TRAVEL OUTSIDE OF THE [place] IN LAST 30 DAYS: No - Related Data Allergies/Adverse Reactions: atorvastatin Allergy (Severe, Verified 04/30/17 08:25) myalgia niacin Allergy (Severe, Verified 05/19/17 09:57) Anaphylaxis adhesive tape Allergy (Intermediate, Verified 05/19/17 09:57) REDNESS, BLISTERS meloxicam Allergy (Intermediate, Verified 05/19/17 09:57) wheezing, palpitations sulfamethoxazole [From Septra] Allergy (Mild, Verified 05/19/17 09:57) rash tramadol Allergy (Mild, Verified 05/19/17 09:57) wheezing trimethoprim [From Septra] Allergy (Mild, Verified 05/19/17 09:57) rash simvastatin Allergy (Unknown, Verified 05/19/17 09:57) Sulfa (Sulfonamide Antibiotics) Allergy (Unknown, Verified 05/19/17 09:57) rash zolpidem tartrate [From Ambien] Adverse Reaction (Severe, Verified 05/19/17 09:57) sleepwalking dipyridamole [From Aggrenox] Adverse Reaction (Intermediate, Verified 05/19/17 09:57) HEADACHES methylprednisolone [From Medrol] Adverse Reaction (Intermediate, Verified 04/30/17 08:25) N/V/hyperactive topiramate Adverse Reaction (Intermediate, Verified 05/19/17 09:57) kidney stones aspirin Adverse Reaction (Mild, Verified 05/19/17 09:57) GI upset guaifenesin Adverse Reaction (Mild, Verified 05/19/17 09:57) GI upset rosuvastatin Adverse Reaction (Mild, Verified 05/19/17 09:57) muscle pain pseudoephedrine Adverse Reaction (Unknown, Verified 05/19/17 09:57) GI upset Past Medical History - Past Medical History Cardiac Medical History: Reports: Hx Hypercholesterolemia, Hx Hypertension, Hx Pulmonary Embolism - 6 years ago Denies: Hx Atrial Fibrillation, Hx Congestive Heart Failure, Hx Coronary Artery Disease, Hx Heart Attack, Hx Peripheral Vascular Disease, Hx Heart Murmur Pulmonary Medical History: Reports: Hx Asthma, Hx Bronchitis, Hx COPD, Hx Pneumonia Denies: Hx Respiratory Failure, Hx Sleep Apnea, Hx Tuberculosis Neurological Medical History: Denies: Hx Cerebrovascular Accident, Hx Seizures, Hx Parkinson's Disease Renal/ Medical History: Reports: Hx Kidney Stones. Denies: Hx End Stage Renal Disease, Hx Peritoneal Dialysis Malignancy Medical History: Denies: Hx Lung Cancer GI Medical History: Reports: Hx Diverticulitis, Hx Gastroesophageal Reflux Disease. Denies: Hx Crohn's Disease, Hx Hiatal Hernia, Hx Irritable Bowel, Hx Liver Failure, Hx Pancreatitis, Hx Ulcer Musculoskeltal Medical History: Reports Hx Arthritis - knees, Denies Hx Fibromyalgia, Denies Hx Multiple Sclerosis, Denies Hx Muscular Dystrophy Psychiatric Medical History: Reports: Hx Anxiety, Hx Depression Denies: Hx Dementia, Hx Post Traumatic Stress Disorder Comment Only: Hx Bipolar Disorder - not diagnosed Traumatic Medical History: Reports: Hx Fractures - left big toe, right hand Past Surgical History: Reports: Hx Abdominal Surgery - collectomy, Hx Appendectomy, Hx Bowel Surgery, Hx Herniorrhaphy - left lower abdomen, Hx Kidney (Renal Surgery) - LITHOTRIPSY, Hx Orthopedic Surgery - right knee replacement, Hx Tonsillectomy, Hx Umbilical Hernia. Denies: Hx Section, Hx Cholecystectomy, Hx Colostomy, Hx Coronary Artery Bypass Graft, Hx Gastric Bypass Surgery, Hx Hysterectomy, Hx Mastectomy, Hx Pacemaker, Hx Tubal Ligation - Immunizations Immunizations up to date: Yes Hx Diphtheria, Pertussis, Tetanus Vaccination: Yes Physical Exam - Vital signs Vitals: Temp Pulse Resp BP Pulse Ox 98.1 F 106 H 16 142/95 H 95 08/26/19 17:46 08/26/19 17:46 08/26/19 17:46 08/26/19 17:46 08/26/19 17:46 Course - Vital Signs Vital signs: Temp Pulse Resp BP Pulse Ox 98.1 F 106 H 16 142/95 H 95 08/26/19 17:46 08/26/19 17:46 08/26/19 17:46 08/26/19 17:46 08/26/19 17:46 Doctor's Discharge - Discharge Referrals: HARLEY ANDRADE MD [Primary Care Provider] - Follow up as needed
[2019-08-26 19:23] LABS: APPEARANCE,URINE SLIGHTLY-CLOUDY; BILIRUBIN,URINE NEGATIVE (NEGATIVE); COLOR,URINE YELLOW; GLUCOSE, URINE NEGATIVE (NEGATIVE); KETONES,URINE NEGATIVE (NEGATIVE); PROTEIN,URINE NEGATIVE (NEGATIVE); URINE SPECIFIC GRAVITY 1.015; UROBILINOGEN,URINE NEGATIVE mg/dL (<2.0)
--- NOTE | 2019-08-26 19:44 | ER Document Report ---
HPI - HPI Patient complains to provider of: pain with void cough Time Seen by Provider: 08/26/19 18:04 Onset: Other - 3 days Quality of pain: Burning Pain Level: 3 Context: This 58-year-old female presents to the emergency department with complaints of cough and pain with void for the past 3 days. Denies fever vomiting diarrhea. No complaints of vaginal discharge. Denies abdominal pain. Patient reports it rudolph when she voids. Associated Symptoms: None Exacerbated by: Other - voiding Relieved by: Denies Similar symptoms previously: No Recently seen / treated by doctor: No - REPRODUCTIVE Reproductive: DENIES: : Past Medical History - General Information source: Patient Last Menstrual Period: menopause - Social History Smoking Status: Never Smoker Cigarette use (# per day): No Frequency of alcohol use: None Drug Abuse: None Lives with: Family Family History: Reviewed & Not Pertinent, Arthritis, CAD, Hypertension, Malignancy, Other Patient has suicidal ideation: No Patient has homicidal ideation: No - Past Medical History Cardiac Medical History: Reports: Hx Hypercholesterolemia, Hx Hypertension, Hx Pulmonary Embolism - 6 years ago Denies: Hx Atrial Fibrillation, Hx Congestive Heart Failure, Hx Coronary Artery Disease, Hx Heart Attack, Hx Peripheral Vascular Disease, Hx Heart Murmur Pulmonary Medical History: Reports: Hx Asthma, Hx Bronchitis, Hx COPD, Hx Pneumonia Denies: Hx Respiratory Failure, Hx Sleep Apnea, Hx Tuberculosis Neurological Medical History: Denies: Hx Cerebrovascular Accident, Hx Seizures, Hx Parkinson's Disease Renal/ Medical History: Reports: Hx Kidney Stones. Denies: Hx End Stage Renal Disease, Hx Peritoneal Dialysis Malignancy Medical History: Denies: Hx Lung Cancer GI Medical History: Reports: Hx Diverticulitis, Hx Gastroesophageal Reflux Disease. Denies: Hx Crohn's Disease, Hx Hiatal Hernia, Hx Irritable Bowel, Hx Liver Failure, Hx Pancreatitis, Hx Ulcer Musculoskeletal Medical History: Reports Hx Arthritis - knees, Denies Hx Fibromyalgia, Denies Hx Multiple Sclerosis, Denies Hx Muscular Dystrophy Psychiatric Medical History: Reports: Hx Anxiety, Hx Depression Denies: Hx Dementia, Hx Post Traumatic Stress Disorder Comment Only: Hx Bipolar Disorder - not diagnosed Traumatic Medical History: Reports: Hx Fractures - left big toe, right hand Past Surgical History: Reports: Hx Abdominal Surgery - collectomy, Hx Appendectomy, Hx Bowel Surgery, Hx Herniorrhaphy - left lower abdomen, Hx Kidney (Renal Surgery) - LITHOTRIPSY, Hx Orthopedic Surgery - right knee replacement, Hx Tonsillectomy, Hx Umbilical Hernia. Denies: Hx Section, Hx Cholecystectomy, Hx Colostomy, Hx Coronary Artery Bypass Graft, Hx Gastric Bypass Surgery, Hx Hysterectomy, Hx Mastectomy, Hx Pacemaker, Hx Tubal Ligation - Immunizations Immunizations up to date: Yes Hx Diphtheria, Pertussis, Tetanus Vaccination: Yes Hx Pneumococcal Vaccination: 11/17/05 Vertical Provider Document - CONSTITUTIONAL Agree With Documented VS: Yes Exam Limitations: No Limitations General Appearance: WD/WN, No Apparent Distress - INFECTION CONTROL TRAVEL OUTSIDE OF THE [place] IN LAST 30 DAYS: No - HEENT HEENT: Atraumatic, Normocephalic - NECK Neck: Normal Inspection, Supple. negative: Lymphadenopathy-Left, Lymphadenopathy-Right - RESPIRATORY Respiratory: Breath Sounds Normal, No Respiratory Distress - CARDIOVASCULAR Cardiovascular: Regular Rate, Regular Rhythm - GI/ABDOMEN Gastrointestinal: Abdomen Soft, Abdomen Non-Tender - BACK Back: Normal Inspection. negative: CVA Tenderness-Right, CVA Tenderness-Left - MUSCULOSKELETAL/EXTREMETIES Musculoskeletal/Extremeties: TAHIRA ABEBE - NEURO Level of Consciousness: Awake, Alert, Appropriate Motor/Sensory: No Motor Deficit - DERM Integumentary: Warm, Dry Course - Re-evaluation Re-evalutation: 08/26/19 19:52 58-year-old female presents with cough and pain with void for the past 3 days. She is speaking in clear even voice respiratory rate even unlabored no rhonchi no wheeze. No cough noted during entire interview and assessment. UA shows positive nitrite, large leukocyts. Urine culture is pending. Patient will be treated with Macrobid and Pyridium. She was instructed on both medications. She was instructed the importance of follow-up with regina Carty next week for re-check. She was also instructed on urine culture pending. She verbalized understanding to all instructions. Dictation of this chart was performed using voice recognition software; therefore, there may be some unintended grammatical errors. Urine Color YELLOW 08/26/19 19:00 Urine Appearance SLIGHTLY-CLOUDY 08/26/19 19:00 Urine pH 6.0 (5.0-9.0) 08/26/19 19:00 Ur Specific [place] 1.015 08/26/19 19:00 Urine Protein NEGATIVE mg/dL (NEGATIVE) 08/26/19 19:00 Urine Glucose (UA) NEGATIVE mg/dL (NEGATIVE) 08/26/19 19:00 Urine Ketones NEGATIVE mg/dL (NEGATIVE) 08/26/19 19:00 Urine Blood MODERATE (NEGATIVE) H 08/26/19 19:00 Urine RBC (Auto) 15 /HPF 08/26/19 19:00 1 - Vital Signs Vital signs: Temp Pulse Resp BP Pulse Ox 98.1 F 106 H 16 142/95 H 95 08/26/19 17:46 08/26/19 17:46 08/26/19 17:46 08/26/19 17:46 08/26/19 17:46 - Laboratory Laboratory results interpreted by me: 08/26/19 19:00 Urine Blood MODERATE H Urine Nitrite (Reflex) POSITIVE H Leukocyte Esterase Rfl LARGE H Discharge - Discharge Clinical Impression: UTI (urinary tract infection) Qualifiers: Urinary tract infection type: site unspecified Hematuria presence: with hematuria Qualified Code(s): N39.0 - Urinary tract infection, site not specified Condition: Stable Disposition: HOME, SELF-CARE Instructions: Nitrofurantoin ([facility]), Urinary Anesthetic Agent ([facility]), Urinary Tract Infection ([facility]) Additional Instructions: *You have been evaluated for pain while voiding, UTI *A urine culture is pending. You may be contacted in 3 to 4 days if we need to switch your antibiotic. *Take medication as prescribed *Push fluids *Follow up with your primary care provider within one week for recheck *Return to ED for worsening condition, changes, needs Monitor your blood pressure. Your blood pressure was elevated today. This may be because you were anxious, in pain or because you need medication. It is important to follow up with your primary care provider for full evaluation. Prescriptions: Nitrofurantoin/Nitrofuran Mac [Macrobid 100 mg Capsule] 100 mg PO BID #20 capsule Phenazopyridine HCl [Pyridium 200 mg Tablet] 200 mg PO TID #15 tablet Forms: Elevated Blood Pressure Referrals: HARLEY ANDRADE MD [Primary Care Provider] - Follow up in 1 week
[2019-08-26] MEDS ORDERED: NITROFURANTOIN MONOHYD/M-CRYST 100 MG CAPSULE PO ONE (19:47)
[2019-08-26] MEDS ORDERED: PHENAZOPYRIDINE HCL 200 MG TABLET PO ONE (19:47)
[2019-08-26 19:59] VITALS: BP 144/84
== END 2019-08-26 20:06 | disposition home or self-care (01) ==
LOC: ER 17:05
DX: N39.0 Urinary tract infection, site not specified (principal); R31.9 Hematuria, unspecified; R05 Cough; I10 Essential (primary) hypertension; J44.9 Chronic obstructive pulmonary disease, unspecified; Z87.01 Personal history of pneumonia (recurrent)
CPT/HCPCS: 99283; 87086; 87088; 81001; 87186; J3490 ×2; J8499

== ENCOUNTER → 2019-09-06 | Outpatient (CLI) | payer MEDICAID ==
[2019-09-06 17:59] LABS: ABSOLUTE EOSINOPHILS # (AUTO) 0.6 10^3/uL (0.0-0.6); ABSOLUTE MONOCYTES (AUTO) 0.7 10^3/uL (0.1-1.4); ABSOLUTE NEUT (AUTO) 4.6 10^3/uL (1.7-8.2); BASOPHILS % (AUTO) 0.2 % (0-2); EOSINOPHILS % (AUTO) 7.4 % (0-6); HEMOGLOBIN 12.9 g/dL (12.0-15.5); LYMPHOCYTES % (AUTO) 25.7 % (13-45); MEAN CORPUSCULAR HEMOGLOBIN 29.1 pg (27.0-33.4); MEAN CORPUSCULAR HGB CONC 33.1 g/dL (32.0-36.0); MEAN CORPUSCULAR VOLUME 88 fl (80-97); MONOCYTES % (AUTO) 8.8 % (3-13); PLATELET COUNT 314 10^3/uL (150-450); RED BLOOD COUNT 4.45 10^6/uL (3.72-5.28); RED CELL DISTRIBUTION WIDTH 14.4 % (11.5-14.0); SEGMENTED NEUTROPHILS % (AUTO) 57.9 % (42-78); TOTAL CELLS COUNTED % (AUTO) 100 %
[2019-09-06 18:25] LABS: ANION GAP 10 (5-19); BLOOD UREA NITROGEN 24 mg/dL (7-20); CALCIUM 9.5 mg/dL (8.4-10.2); CARBON DIOXIDE 23 mmol/L (22-30); CHLORIDE 108 mmol/L (98-107); GLUCOSE 116 mg/dL (75-110)
== END ==
LOC: LAB 17:43
PROVIDERS: ATTEND Family Medicine
DX: J45.51 Severe persistent asthma with (acute) exacerbation (principal)
CPT/HCPCS: 36415; 80048; 85025

== ENCOUNTER → 2019-09-06 | Outpatient (CLI) | payer MEDICAID ==
--- NOTE | 2019-09-07 08:50 | RADIOLOGY REPORT (SQ) ---
EXAM DESCRIPTION: CHEST 2 VIEWS COMPLETED DATE/TIME: 09/06/2019 5:40 pm REASON FOR STUDY: J45.51 SEVERE PERSISTENT ASTHMA WITH (ACUTE) EXACERBATION COMPARISON: 02/11/2019. TECHNIQUE: Frontal and lateral radiographic views of the chest acquired. NUMBER OF VIEWS: Two view. LIMITATIONS: None. FINDINGS: LUNGS AND PLEURA: Stable apical scarring and pleural thickening. Stable mild interstitial pattern throughout the lungs. No pleural effusion. No developing consolidation. No nodules or mas ses. MEDIASTINUM AND HILAR STRUCTURES: No masses or contour abnormalities. HEART AND VASCULAR STRUCTURES: Heart normal size. No evidence for failure. BONES: Chronic deformity proximal right humerus. HARDWARE: None in the chest. OTHER: No other significant finding. IMPRESSION: Chronic changes. Stable chest. No acute cardiopulmonary disease or suspicious abnormal ity. TECHNICAL DOCUMENTATION: JOB ID: [id number] [employer]- All Rights Reserved Reading location - IP/workstation name: [email or web address]
== END ==
LOC: RAD 17:23
PROVIDERS: ATTEND Family Medicine
DX: J45.51 Severe persistent asthma with (acute) exacerbation (principal)
CPT/HCPCS: 71046

== ENCOUNTER → 2019-09-16 | Outpatient (CLI) | payer MEDICAID ==
--- NOTE | 2019-09-16 13:37 | WOMENS IMAGING REPORT ---
EXAM DESCRIPTION: 3D SCREENING MAMMO BILAT COMPLETED DATE/TIME: 09/16/2019 10:39 am REASON FOR STUDY: Z12.31 SCREENING MAMMO Z12.31 ENCNTR SCREEN MAMMOGRAM FOR MALIGNANT NEOPLASM OF B RE COMPARISON: 2012 to 2017 EXAM PARAMETERS: Views: Standard craniocaudal and mediolateral oblique views of each breast recorded using digital acquisition and breast tomosynthesis. Read with the assistance of CAD. .[facility] - [employer] Version 9.2 LIMITATIONS: None. FINDINGS: No suspicious masses, suspicious calcifications or architectural distortion. No areas of c oncern. IMPRESSION: NEGATIVE MAMMOGRAM. BIRADS 1. BREAST DENSITY: b. There are scattered areas of fibroglandular density. BIRAD: ASSESSMENT: 1 NEGATIVE RECOMMENDATION: ROUTINE SCREENING COMMENT: The patient has been notified of the results by letter per MQSA requirements. Additional no tification policies are in place for contacting patient with suspicious or incomplete findings. Quality ID #[id number]: The [employer] recommends an annual screening mammogram for women aged 40 years or over. This facility utilizes a reminder system to ensure that all patients receive reminder letters, and/or direct phone calls for appointments. This includes reminders for routine scr eening mammograms, diagnostic mammograms, or other Breast Imaging Interventions when appropriate. Th is patient will be placed in the appropriate reminder system. TECHNICAL DOCUMENTATION: FINDING NUMBER: (1) ASSESSMENT: (1) JOB ID: [id number] [employer]- All Rights Reserved Reading location - IP/workstation name: [email or web address]
== END ==
LOC: WI 10:15
PROVIDERS: ATTEND Family Medicine
DX: Z12.31 Encounter for screening mammogram for malignant neoplasm of breast (principal)
CPT/HCPCS: 77063; 77067

== ENCOUNTER 2019-10-04 20:34 | Emergency (ER) | payer MEDICAID ==
[2019-10-04] MEDS ORDERED: ACETAMINOPHEN 325 MG TABLET PO ONE (20:59)
[2019-10-04] MEDS ORDERED: ONDANSETRON HCL INJ/PF 4 MG/2 ML SDV IV ONE (21:00)
[2019-10-04] MEDS ORDERED: NORMAL SALINE 1000 ML 1,000 ML IV ONE ×2 (21:00→23:43)
--- NOTE | 2019-10-04 21:01 | ER Document Report ---
ED Medical Screen (RME) - General Chief Complaint: Fever Stated Complaint: FEVER Time Seen by Provider: 10/04/19 20:48 Primary Care Provider: HARLEY ANDRADE MD [Primary Care Provider] - Follow up as needed Mode of Arrival: Wheelchair Information source: Patient Notes: Patient presents complaining of generalized weakness for the past 3 days with right posterior leg pain for 2 days. Patient reports nausea vomiting and diarrhea with generalized abdominal pain. Patient denies any cough or urinary symptoms. Patient is a poor historian. I have greeted and performed a rapid initial assessment of this patient. A comprehensive ED assessment and evaluation of the patient, analysis of test results and completion of the medical decision making process will be conducted by additional ED providers. TRAVEL OUTSIDE OF THE [place] IN LAST 30 DAYS: No - Related Data Allergies/Adverse Reactions: atorvastatin Allergy (Severe, Verified 04/30/17 08:25) myalgia niacin Allergy (Severe, Verified 05/19/17 09:57) Anaphylaxis adhesive tape Allergy (Intermediate, Verified 05/19/17 09:57) REDNESS, BLISTERS meloxicam Allergy (Intermediate, Verified 05/19/17 09:57) wheezing, palpitations sulfamethoxazole [From Septra] Allergy (Mild, Verified 05/19/17 09:57) rash tramadol Allergy (Mild, Verified 05/19/17 09:57) wheezing trimethoprim [From Septra] Allergy (Mild, Verified 05/19/17 09:57) rash simvastatin Allergy (Unknown, Verified 05/19/17 09:57) Sulfa (Sulfonamide Antibiotics) Allergy (Unknown, Verified 05/19/17 09:57) rash zolpidem tartrate [From Ambien] Adverse Reaction (Severe, Verified 05/19/17 09:57) sleepwalking dipyridamole [From Aggrenox] Adverse Reaction (Intermediate, Verified 05/19/17 09:57) HEADACHES methylprednisolone [From Medrol] Adverse Reaction (Intermediate, Verified 04/30/17 08:25) N/V/hyperactive topiramate Adverse Reaction (Intermediate, Verified 05/19/17 09:57) kidney stones aspirin Adverse Reaction (Mild, Verified 05/19/17 09:57) GI upset guaifenesin Adverse Reaction (Mild, Verified 05/19/17 09:57) GI upset rosuvastatin Adverse Reaction (Mild, Verified 05/19/17 09:57) muscle pain pseudoephedrine Adverse Reaction (Unknown, Verified 05/19/17 09:57) GI upset Past Medical History - Past Medical History Cardiac Medical History: Reports: Hx Hypercholesterolemia, Hx Hypertension, Hx Pulmonary Embolism - 6 years ago Denies: Hx Atrial Fibrillation, Hx Congestive Heart Failure, Hx Coronary Art kalani Disease, Hx Heart Attack, Hx Peripheral Vascular Disease, Hx Heart Murmur Pulmonary Medical History: Reports: Hx Asthma, Hx Bronchitis, Hx COPD, Hx Pneumonia Denies: Hx Respiratory Failure, Hx Sleep Apnea, Hx Tuberculosis Neurological Medical History: Denies: Hx Cerebrovascular Accident, Hx Seizures, Hx Parkinson's Disease Renal/ Medical History: Reports: Hx Kidney Stones. Denies: Hx End Stage Renal Disease, Hx Peritoneal Dialysis Malignancy Medical History: Denies: Hx Lung Cancer GI Medical History: Reports: Hx Diverticulitis, Hx Gastroesophageal Reflux Disease. Denies: Hx Crohn's Disease, Hx Hiatal Hernia, Hx Irritable Bowel, Hx Liver Failure, Hx Pancreatitis, Hx Ulcer Musculoskeltal Medical History: Reports Hx Arthritis - knees, Denies Hx Fibromyalgia, Denies Hx Multiple Sclerosis, Denies Hx Muscular Dystrophy Psychiatric Medical History: Reports: Hx Anxiety, Hx Depression Denies: Hx Dementia, Hx Post Traumatic Stress Disorder Comment Only: Hx Bipolar Disorder - not diagnosed Traumatic Medical History: Reports: Hx Fractures - left big toe, right hand Past Surgical History: Reports: Hx Abdominal Surgery - collectomy, Hx Appendectomy, Hx Bowel Surgery, Hx Herniorrhaphy - left lower abdomen, Hx Kidney (Renal Surgery) - LITHOTRIPSY, Hx Orthopedic Surgery - right knee replacement, Hx Tonsillectomy, Hx Umbilical Hernia. Denies: Hx Section, Hx Cholecystectomy, Hx Colostomy, Hx Coronary Artery Bypass Graft, Hx Gastric Bypass Surgery, Hx Hysterectomy, Hx Mastectomy, Hx Pacemaker, Hx Tubal Ligation - Immunizations Immunizations up to date: Yes Hx Diphtheria, Pertussis, Tetanus Vaccination: Yes Physical Exam - Vital signs Vitals: Temp Pulse Resp BP Pulse Ox 102.8 F H 138 H 22 H 152/89 H 93 10/04/19 20:40 10/04/19 20:40 10/04/19 20:40 10/04/19 20:40 10/04/19 20:40 - Cardiovascular Rhythm: Tachycardia Heart sounds: S1 appreciated, S2 appreciated - Abdominal Tenderness: Tender - Generalized abdominal tenderness Course - Vital Signs Vital signs: Temp Pulse Resp BP Pulse Ox 102.8 F H 138 H 22 H 152/89 H 93 10/04/19 20:40 10/04/19 20:40 10/04/19 20:40 10/04/19 20:40 10/04/19 20:40 Doctor's Discharge - Discharge Referrals: HARLEY ANDRADE MD [Primary Care Provider] - Follow up as needed
--- NOTE | 2019-10-04 21:37 | RADIOLOGY REPORT (SQ) ---
XR CHEST 2 VIEWS EXAM DATE: 10/04/2019 8:59 PM [employer] HISTORY: Fever. COMPARISON: 09/06/2016 FINDINGS: The cardiomediastinal silhouette is within normal limits. No pulmonary vascular congestion is seen. No focal consolidation, pleural effusion, or pneumothorax. Chronic bilateral apical scarring. The CT There is a chronic fracture deformity of the proximal right humerus. IMPRESSION: No evidence of acute cardiopulmonary disease.
[2019-10-04 21:57] LABS: APPEARANCE,URINE SLIGHTLY-CLOUDY; BILIRUBIN,URINE NEGATIVE (NEGATIVE); COLOR,URINE YELLOW; GLUCOSE, URINE NEGATIVE (NEGATIVE); KETONES,URINE NEGATIVE (NEGATIVE); PROTEIN,URINE 30 mg/dL (NEGATIVE); URINE SPECIFIC GRAVITY 1.013
--- NOTE | 2019-10-04 22:12 | RADIOLOGY REPORT (SQ) ---
EXAM DESCRIPTION: US EXTREMITY VEINS UNILATERAL COMPLETED DATE/TME: 10/04/2019 21:02 CLINICAL HISTORY: 58 years, Female, RLE pain COMPARISON: None. TECHNIQUE: Transverse and longitudinal sonographic images of the right lower extremity deep venous system LIMITATIONS: None. FINDINGS: No visible areas of thrombus. Normal compression and augmentation throughout. Doppler images are unremarkable IMPRESSION: Negative exam copyright 2010 [employer]- All Rights Reserved
[2019-10-04 22:40] LABS: ABSOLUTE MONOCYTES (AUTO) 0.6 10^3/uL (0.1-1.4); EOSINOPHILS % (AUTO) 0.2 % (0-6); RED BLOOD COUNT 4.37 10^6/uL (3.72-5.28); RED CELL DISTRIBUTION WIDTH 14.6 % (11.5-14.0); TOTAL CELLS COUNTED % (AUTO) 100 %
[2019-10-04 22:41] LABS: VENOUS BLOOD BASE EXCESS -1.3 mmol/L; VENOUS BLOOD HCO3 21.6 mmol/L (20-32); VENOUS BLOOD PCO2 31.2 mmHg (35-63); VENOUS BLOOD PH 7.46 (7.30-7.42)
[2019-10-04 22:45] LABS: INTERNATIONAL RATION (INR) 1.09; PROTHROMBIN TIME 14.1 SEC (11.4-15.4)
[2019-10-04 22:55] LABS: A TYPE INFLUENZA AG NEGATIVE (NEGATIVE); B INFLUENZA AG NEGATIVE (NEGATIVE)
[2019-10-04 22:59] LABS: ABSOLUTE LYMPHOCYTES (AUTO) 0.6 10^3/uL (0.5-4.7); ABSOLUTE NEUT (AUTO) 5.1 10^3/uL (1.7-8.2); BASOPHILS % (AUTO) 0.7 % (0-2); HEMATOCRIT 38.2 % (36.0-47.0); HEMOGLOBIN 12.8 g/dL (12.0-15.5); LYMPHOCYTES % (AUTO) 10.1 % (13-45); MEAN CORPUSCULAR HEMOGLOBIN 29.3 pg (27.0-33.4); MEAN CORPUSCULAR HGB CONC 33.5 g/dL (32.0-36.0); MEAN CORPUSCULAR VOLUME 87 fl (80-97); MONOCYTES % (AUTO) 8.8 % (3-13); PLATELET COUNT 212 10^3/uL (150-450); SEGMENTED NEUTROPHILS % (AUTO) 80.2 % (42-78); WHITE BLOOD COUNT 6.4 10^3/uL (4.0-10.5)
[2019-10-04 23:01] LABS: ALBUMIN 3.9 g/dL (3.5-5.0); ALKALINE PHOSPHATASE 101 U/L (38-126); ANION GAP 10 (5-19); ASPARTATE AMINO TRANSFERASE 28 U/L (14-36); BILIRUBIN,DIRECT 0.1 mg/dL (0.0-0.4); BILIRUBIN,TOTAL 0.6 mg/dL (0.2-1.3); BLOOD UREA NITROGEN 19 mg/dL (7-20); CALCIUM 9.5 mg/dL (8.4-10.2); CARBON DIOXIDE 22 mmol/L (22-30); CHLORIDE 109 mmol/L (98-107); GLUCOSE 144 mg/dL (75-110); POTASSIUM 3.9 mmol/L (3.6-5.0); TOTAL PROTEIN 6.9 g/dL (6.3-8.2)
[2019-10-04] MEDS ORDERED: CEFTRIAXONE 1 GM/D5W RTU 1 GM/50 ML RTUPB IV ONE (23:42)
[2019-10-04] MEDS ORDERED: MORPHINE SULFATE 10 MG/ML INJ IV ONE (23:42)
--- NOTE | 2019-10-04 23:45 | ER Document Report ---
ED General - General Chief Complaint: Fever Stated Complaint: FEVER Time Seen by Provider: 10/04/19 20:48 Primary Care Provider: HARLEY ANDRADE MD [Primary Care Provider] - Follow up as needed Mode of Arrival: Wheelchair Notes: Patient is a 58-year-old female that comes to the emergency department for chief complaint of body aches, shaking chills, vomiting. She states she does not hurt her abdomen but she has some generalized pain in her lower back. She also states that she was having bad cramps in her right thigh yesterday but this resolved. She denies shortness of breath, sore throat, headache, chest pain. She does state that her urine "smells foul". Past medical history includes hy pertension, asthma/COPD, PE on aspirin only, and kidney stones. Denies diabetes or cardiovascular history. TRAVEL OUTSIDE OF THE [place] IN LAST 30 DAYS: No - Related Data Allergies/Adverse Reactions: atorvastatin Allergy (Severe, Verified 04/30/17 08:25) myalgia niacin Allergy (Severe, Verified 05/19/17 09:57) Anaphylaxis adhesive tape Allergy (Intermediate, Verified 05/19/17 09:57) REDNESS, BLISTERS meloxicam Allergy (Intermediate, Verified 05/19/17 09:57) wheezing, palpitations sulfamethoxazole [From Septra] Allergy (Mild, Verified 05/19/17 09:57) rash tramadol Allergy (Mild, Verified 05/19/17 09:57) wheezing trimethoprim [From Septra] Allergy (Mild, Verified 05/19/17 09:57) rash simvastatin Allergy (Unknown, Verified 05/19/17 09:57) Sulfa (Sulfonamide Antibiotics) Allergy (Unknown, Verified 05/19/17 09:57) rash zolpidem tartrate [From Ambien] Adverse Reaction (Severe, Verified 05/19/17 09:57) sleepwalking dipyridamole [From Aggrenox] Adverse Reaction (Intermediate, Verified 05/19/17 09:57) HEADACHES methylprednisolone [From Medrol] Adverse Reaction (Intermediate, Verified 04/30/17 08:25) N/V/hyperactive topiramate Adverse Reaction (Intermediate, Verified 05/19/17 09:57) kidney stones aspirin Adverse Reaction (Mild, Verified 05/19/17 09:57) GI upset guaifenesin Adverse Reaction (Mild, Verified 05/19/17 09:57) GI upset rosuvastatin Adverse Reaction (Mild, Verified 05/19/17 09:57) muscle pain pseudoephedrine Adverse Reaction (Unknown, Verified 05/19/17 09:57) GI upset Past Medical History - General Information source: Patient - Social History Smoking Status: Never Smoker Chew tobacco use (# tins/day): No Frequency of alcohol use: None Drug Abuse: None Family History: Reviewed & Not Pertinent, Arthritis, CAD, Hypertension, Malignancy, Other Patient has suicidal ideation: No Patient has homicidal ideation: No - Past Medical History Cardiac Medical History: Reports: Hx Hypercholesterolemia, Hx Hypertension, Hx Pulmonary Embolism - 6 years ago Denies: Hx Atrial Fibrillation, Hx Congestive Heart Failure, Hx Coronary Artery Disease, Hx Heart Attack, Hx Peripheral Vascular Disease, Hx Heart Murmur Pulmonary Medical History: Reports: Hx Asthma, Hx Bronchitis, Hx COPD, Hx Pneumonia Denies: Hx Respiratory Failure, Hx Sleep Apnea, Hx Tuberculosis Neurological Medical History: Denies: Hx Cerebrovascular Accident, Hx Seizures, Hx Parkinson's Disease Renal/ Medical History: Reports: Hx Kidney Stones. Denies: Hx End Stage Renal Disease, Hx Peritoneal Dialysis Malignancy Medical History: Denies: Hx Lung Cancer GI Medical History: Reports: Hx Diverticulitis, Hx Gastroesophageal Reflux Disease. Denies: Hx Crohn's Disease, Hx Hiatal Hernia, Hx Irritable Bowel, Hx Liver Failure, Hx Pancreatitis, Hx Ulcer Musculoskeletal Medical History: Reports Hx Arthritis - knees, Denies Hx Fibromyalgia, Denies Hx Multiple Sclerosis, Denies Hx Muscular Dystrophy Psychiatric Medical History: Reports: Hx Anxiety, Hx Depression Denies: Hx Dementia, Hx Post Traumatic Stress Disorder Comment Only: Hx Bipolar Disorder - not diagnosed Traumatic Medical History: Reports: Hx Fractures - left big toe, right hand Past Surgical History: Reports: Hx Abdominal Surgery - collectomy, Hx Appendectomy, Hx Bowel Surgery, Hx Herniorrhaphy - left lower abdomen, Hx Kidney (Renal Surgery) - LITHOTRIPSY, Hx Orthopedic Surgery - right knee replacement, Hx Tonsillectomy, Hx Umbilical Hernia. Denies: Hx Section, Hx Cholecystectomy, Hx Colostomy, Hx Coronary Artery Bypass Graft, Hx Gastric Bypass Surgery, Hx Hysterectomy, Hx Mastectomy, Hx Pacemaker, Hx Tubal Ligation - Immunizations Immunizations up to date: Yes Hx Diphtheria, Pertussis, Tetanus Vaccination: Yes Hx Pneumococcal Vaccination: 11/17/05 Review of Systems - Review of Systems Constitutional: See HPI EENT: No symptoms reported Cardiovascular: No symptoms reported Respiratory: No symptoms reported Gastrointestinal: See HPI Genitourinary: No symptoms reported Female Genitourinary: No symptoms reported Musculoskeletal: No symptoms reported Skin: No symptoms reported Hematologic/Lymphatic: No symptoms reported Neurological/Psychological: No symptoms reported Physical Exam - Vital signs Vitals: Temp Pulse Resp BP Pulse Ox 102.8 F H 138 H 22 H 152/89 H 93 10/04/19 20:40 10/04/19 20:40 10/04/19 20:40 10/04/19 20:40 10/04/19 20:40 - Notes Notes: GENERAL: Alert, interacts well. No acute distress. HEAD: Normocephalic, atraumatic. EYES: Pupils equal, round, and reactive to light. Extraocular movements intact. ENT: Oral mucosa moist, tongue midline. Oropharynx unremarkable. Airway patent. Nares patent, no nasal septal hematoma, TM's intact. NECK: Full range of motion. Supple. Trachea midline. LUNGS: Decreased throughout but no labored breathing, no expiratory wheezes, no rales or rhonchi. No distress. HEART: Borderline tachycardic, normal rhythm, no murmur ABDOMEN: Soft, non-tender. Non-distended. EXTREMITIES: Moves all 4 extremities spontaneously. No edema, normal radial and dorsalis pedis pulses bilaterally. No cyanosis. BACK: No CVA tenderness. No cervical, thoracic, lumbar midline tenderness. No saddle anesthesia, normal distal neurovascular exam. Moves all extremities in full range of motion. NEUROLOGICAL: Alert and oriented x3. Normal speech. Cranial nerves II through XII grossly intact. PSYCH: Normal affect, normal mood. SKIN: Flushed Course - Re-evaluation Re-evalutation: Patient is a difficult historian. She does tell me that she had shaking chills and hurt everywhere but it is hard to tell the specific symptoms. Chest x-ray unremarkable, CBC unremarkable, chemistry unremarkable. Lactic acid is not elevated. Urine does appear infected. Patient is telling me she thinks she had a remote stone in the past but she does not feel like she is passing one. However given her fever initially of 102.8 along with tachycardia, urinary tract infection, I explained to the importance of making sure she does not have a septic stone before discharge. Initially patient was uncertain but she did agree to a CAT scan. Started on Rocephin, she has been given IV fluids and fever treatment, her heart rate is normalized, her blood pressure did become slightly soft in the 90s. CAT scan showing 5 mm right sided ureterolithiasis, concern for patient having septic stone. Patient has been given 2 g of Rocephin, blood and urine cultures have been sent, she has been given IV fluids, her blood pressure on recheck manually is 11/20/1974, she has no complaints on reevaluation. Discussed with Dr. Boyd. We do not have urology director of content marketing, patient will require transfer. Discussed the patient, she states she would prefer [facility] because it is closer. She does have [address] 10/05/19 02:[address] Willams, hospitalist at [facility], patient is excepted for transfer. Patient's fever is coming back, she also complains of wheezing with asthma. She was given her albuterol inhaler although I did not hear overt wheezes and she has no tachypnea or hypoxia, she was extremely anxious about this and so she received the albuterol and then she relaxed. Given 975 mg of Tylenol. Patient is hypotensive again per monitor but this was rechecked again manually and she has a blood pressure of 160 systolic. 10/05/19 05:48 Transfer team is here, patient reevaluated again at bedside, fever is higher, she is somewhat tachycardic again now in the 120s, however she is not hypotensive, she is alert, she has no current complaints. She was given Toradol, stable for transport. - Vital Signs Vital signs: Temp Pulse Resp BP Pulse Ox 103 F H 127 H 18 140/90 H 98 10/05/19 05:52 10/05/19 05:52 10/05/19 05:52 10/05/19 05:52 10/05/19 05:52 - Laboratory Result Diagrams: 10/04/19 22:24 10/04/19 22:24 Laboratory results interpreted by me: 10/04/19 10/04/19 10/04/19 21:31 22:24 22:24 RDW 14.6 H Lymph % (Auto) 10.1 L Seg Neutrophils % 80.2 H VBG pH VBG pCO2 Chloride 109 H Glucose 144 H POC Glucose Lactic Acid (Sepsis) Urine Protein 30 H Urine Blood MODERATE H Urine Urobilinogen 4.0 H Leukocyte Esterase Rfl LARGE H 10/04/19 10/05/19 10/05/19 22:24 01:18 02:07 RDW Lymph % (Auto) Seg Neutrophils % VBG pH 7.46 H VBG pCO2 31.2 L Chloride Glucose POC Glucose 142 H Lactic Acid (Sepsis) < 0.5 L Urine Protein Urine Blood Urine Urobilinogen Leukocyte Esterase Rfl Discharge - Discharge Clinical Impression: Ureterolithiasis Fever Qualifiers: Fever type: unspecified Qualified Code(s): R50.9 - Fever, unspecified Urinary tract infection Qualifiers: Urinary tract infection type: site unspecified Hematuria presence: with hematuria Qualified Code(s): N39.0 - Urinary tract infection, site not specified Condition: Stable Disposition: Critical access hospital Referrals: HARLEY ANDRADE MD [Primary Care Provider] - Follow up as needed
--- NOTE | 2019-10-05 02:09 | RADIOLOGY REPORT (SQ) ---
EXAM DESCRIPTION: CT ABDOMEN PELVIS WITHOUT IV CONTRAST COMPLETED DATE/TME: 10/04/2019 23:43 CLINICAL HISTORY: 58 years, Female, fever, uti, abd/flank pain, hx kidney stones COMPARISON: 10/20/2018 CT TECHNIQUE: 400 Images stored on PACS. All CT scanners at this facility use dose modulation, iterative reconstruction, and/or weight based dosing when appropriate to reduce radiation dose to as low as reasonably achievable (ALARA). [facility]: Dose Right [facility]: CareDose [facility]: Dose Right [facility]: Teradose 4D [facility]: [employer] LIMITATIONS: None. FINDINGS: Limited evaluation of the lung bases shows a 5.4 mm nodule in the right lung base. This area was not entirely included on the prior. Osseous structures are grossly intact. Small hiatal hernia. Fatty infiltrative change to the liver. The spleen, adrenal glands, pancreas are unremarkable. The bladder is present. Postsurgical change of the anterior abdominal wall. Punctate nonobstructing renal calculi bilaterally. Superimposed mild right hydronephrosis secondary to a 5 mm proximal right ureteral calculus. No gross evidence for bowel obstruction. No free air or free fluid. IMPRESSION: Mild right hydronephrosis secondary to a 5 mm proximal right ureteral calculus. Other nonobstructing renal calculi bilaterally. 5 mm nodule in the right lung base. Follow-up as per below 2017 Fleischner Society Recommendations for Single Solid Lung Nodule Follow-Up based on size (average of long- and short-axis diameters) <6 mm Low-Risk Patient: No routine follow-up <6 mm High-Risk Patient: Optional CT at 12 months 6-8 mm Low-Risk Patient: CT at 6-[address] at 18-24 months 6-8 mm High-Risk Patient: CT at 6-[address] at 18-24 months >8 mm Low-Risk Patient: Consider CT, PET/CT or tissue sampling at 3 months >8 mm High-Risk Patient: Same as for low-risk patient TECHNICAL DOCUMENTATION: Quality ID # [id number]: Final reports with documentation of one or more dose reduction techniques (e.g., Automated exposure control, adjustment of the mA and/or kV according to patient size, use of iterative reconstruction technique) copyright 2011 [employer]- All Rights Reserved
[2019-10-05] MEDS ORDERED: CEFTRIAXONE 1 GM/D5W RTU 1 GM/50 ML RTUPB IV ONE (02:18)
[2019-10-05] MEDS ORDERED: NORMAL SALINE 1000 ML 1,000 ML IV ONE (02:22)
[2019-10-05] MEDS ORDERED: FENTANYL CITRATE INJ/PF 100 MCG/2 ML AMPUL IV ONE (04:47)
[2019-10-05] MEDS ORDERED: ACETAMINOPHEN 325 MG TABLET PO ONE (04:47)
[2019-10-05] MEDS ORDERED: ALBUTEROL SULFATE 0.083% NEB 2.5 MG/3 ML AMPUL NEB ONE (05:08)
[2019-10-05] MEDS ORDERED: KETOROLAC TROMETHAMINE INJ/PF 30 MG/1 ML SDV IV ONE (05:48)
[2019-10-05 05:53] VITALS: BP 140/90
--- NOTE | 2019-10-07 12:16 | EKG REPORT ---
SEVERITY:- BORDERLINE ECG - SINUS TACHYCARDIA BORDERLINE T ABNORMALITIES, INFERIOR LEADS : Confirmed by: Jaylan Balderas 07-Oct-2019 12:15:12
== END 2019-10-05 06:08 | disposition short-term general hospital (02) ==
LOC: ER 20:34
DX: N20.1 Calculus of ureter (principal); N39.0 Urinary tract infection, site not specified; R50.9 Fever, unspecified; M79.10 Myalgia, unspecified site; M54.5 Low back pain; Z88.6 Allergy status to analgesic agent; Z87.442 Personal history of urinary calculi; Z96.651 Presence of right artificial knee joint
CPT/HCPCS: 93005; 94640; 99285; 96361; 96375; 96365; 36415; 87040; 87086; 82962; 85025; 85610; 87088; 80053; 81001; 87186; 82803; 83605; 87804; 93971; 71046; 74176; 93010; J3490 ×2; J3010; J1885; J2270; J2405; J7030 ×2; J0696

== ENCOUNTER 2019-10-09 18:32 | Emergency (ER) | payer MEDICAID ==
[2019-10-09] MEDS ORDERED: OXYCODONE HCL IR 5 MG TABLET PO ONE (18:57)
--- NOTE | 2019-10-09 18:59 | ER Document Report ---
ED Medical Screen (RME) - General Chief Complaint: Abdominal Pain Stated Complaint: ABDOMINAL PAIN Time Seen by Provider: 10/09/19 18:52 Primary Care Provider: HARLEY ANDRADE MD [Primary Care Provider] - Follow up as needed Mode of Arrival: Ambulatory Information source: Patient, Law Enforcement Notes: Patient presents complaining of lower pelvic pain and dysuria. Patient was just seen recently for an infected ureteral stone. Patient had a stent placed and was discharged on pain medicine and antibiotics. Patient did not take her pain medicine today she did not want to run out of her pain medications. Patient denies any fever nausea or vomiting. I have greeted and performed a rapid initial assessment of this patient. A comprehensive ED assessment and evaluation of the patient, analysis of test results and completion of the medical decision making process will be conducted by additional ED providers. TRAVEL OUTSIDE OF THE [place] IN LAST 30 DAYS: No - Related Data Allergies/Adverse Reactions: atorvastatin Allergy (Severe, Verified 10/09/19 18:49) myalgia niacin Allergy (Severe, Verified 10/09/19 18:49) Anaphylaxis adhesive tape Allergy (Intermediate, Verified 10/09/19 18:49) REDNESS, BLISTERS meloxicam Allergy (Intermediate, Verified 10/09/19 18:49) wheezing, palpitations sulfamethoxazole [From Septra] Allergy (Mild, Verified 10/09/19 18:49) rash tramadol Allergy (Mild, Verified 10/09/19 18:49) wheezing trimethoprim [From Septra] Allergy (Mild, Verified 10/09/19 18:49) rash simvastatin Allergy (Unknown, Verified 10/09/19 18:49) Sulfa (Sulfonamide Antibiotics) Allergy (Unknown, Verified 10/09/19 18:49) rash zolpidem tartrate [From Ambien] Adverse Reaction (Severe, Verified 10/09/19 18:49) sleepwalking dipyridamole [From Aggrenox] Adverse Reaction (Intermediate, Verified 10/09/19 18:49) HEADACHES methylprednisolone [From Medrol] Adverse Reaction (Intermediate, Verified 10/09/19 18:49) N/V/hyperactive topiramate Adverse Reaction (Intermediate, Verified 10/09/19 18:49) kidney stones aspirin Adverse Reaction (Mild, Verified 10/09/19 18:49) GI upset guaifenesin Adverse Reaction (Mild, Verified 10/09/19 18:49) GI upset rosuvastatin Adverse Reaction (Mild, Verified 10/09/19 18:49) muscle pain pseudoephedrine Adverse Reaction (Unknown, Verified 10/09/19 18:49) GI upset Home Medications: asa 325. citalopram 20. dexilant 60. diltizem 240. [id number]. pravastatin 40. prampexole 0.5. singulair 10. losartan 100. linzess 290 Past Medical History - Social History Chew tobacco use (# tins/day): No Frequency of alcohol use: None Drug Abuse: None - Past Medical History Cardiac Medical History: Reports: Hx Hypercholesterolemia, Hx Hypertension, Hx Pulmonary Embolism - 6 years ago Denies: Hx Atrial Fibrillation, Hx Congestive Heart Failure, Hx Coronary Artery Disease, Hx Heart Attack, Hx Peripheral Vascular Disease, Hx Heart Murmur Pulmonary Medical History: Reports: Hx Asthma, Hx Bronchitis, Hx COPD, Hx Pneumonia Denies: Hx Respiratory Failure, Hx Sleep Apnea, Hx Tuberculosis Neurological Medical History: Denies: Hx Cerebrovascular Accident, Hx Seizures, Hx Parkinson's Disease Renal/ Medical History: Reports: Hx Kidney Stones. Denies: Hx End Stage Renal Disease, Hx Peritoneal Dialysis Malignancy Medical History: Denies: Hx Lung Cancer GI Medical History: Reports: Hx Diverticulitis, Hx Gastroesophageal Reflux Disease. Denies: Hx Crohn's Disease, Hx Hiatal Hernia, Hx Irritable Bowel, Hx Liver Failure, Hx Pancreatitis, Hx Ulcer Musculoskeltal Medical History: Reports Hx Arthritis - knees, Denies Hx Fibromyalgia, Denies Hx Multiple Sclerosis, Denies Hx Muscular Dystrophy Psychiatric Medical History: Reports: Hx Anxiety, Hx Depression Denies: Hx Dementia, Hx Post Traumatic Stress Disorder Comment Only: Hx Bipolar Disorder - not diagnosed Traumatic Medical History: Reports: Hx Fractures - left big toe, right hand Past Surgical History: Reports: Hx Abdominal Surgery - collectomy, Hx Appendectomy, Hx Bowel Surgery, Hx Herniorrhaphy - left lower abdomen, Hx Kidney (Renal Surgery) - LITHOTRIPSY, Hx Orthopedic Surgery - right knee replacement, Hx Tonsillectomy, Hx Umbilical Hernia. Denies: Hx Section, Hx Cholecystectomy, Hx Colostomy, Hx Coronary Artery Bypass Graft, Hx Gastric Bypass Surgery, Hx Hysterectomy, Hx Mastectomy, Hx Pacemaker, Hx Tubal Ligation - Immunizations Immunizations up to date: Yes Hx Diphtheria, Pertussis, Tetanus Vaccination: Yes Physical Exam - Vital signs Vitals: Temp Pulse Resp BP Pulse Ox 98.3 F 101 H 18 147/83 H 95 10/09/19 18:41 10/09/19 18:41 10/09/19 18:41 10/09/19 18:41 10/09/19 18:41 - Abdominal Inspection: Morbidly Obese Tenderness: Tender - Lower pelvic Course - Vital Signs Vital signs: Temp Pulse Resp BP Pulse Ox 98.3 F 101 H 18 147/83 H 95 10/09/19 18:41 10/09/19 18:41 10/09/19 18:41 10/09/19 18:41 10/09/19 18:41 Doctor's Discharge - Discharge Referrals: HARLEY ANDRADE MD [Primary Care Provider] - Follow up as needed
[2019-10-09 19:29] LABS: APPEARANCE,URINE SLIGHTLY-CLOUDY; BILIRUBIN,URINE NEGATIVE (NEGATIVE); COLOR,URINE YELLOW; GLUCOSE, URINE NEGATIVE (NEGATIVE); KETONES,URINE NEGATIVE (NEGATIVE); LEUKOCYTE ESTERASE,URINE SMALL (NEGATIVE); NITRITE,URINE NEGATIVE (NEGATIVE); PROTEIN,URINE 100 mg/dL (NEGATIVE); URINE SPECIFIC GRAVITY 1.012
[2019-10-09 19:38] LABS: ABSOLUTE BASOPHILS # (AUTO) 0.1 10^3/uL (0.0-0.2); ABSOLUTE EOSINOPHILS # (AUTO) 0.3 10^3/uL (0.0-0.6); ABSOLUTE LYMPHOCYTES (AUTO) 1.7 10^3/uL (0.5-4.7); ABSOLUTE MONOCYTES (AUTO) 0.6 10^3/uL (0.1-1.4); BASOPHILS % (AUTO) 1.1 % (0-2); EOSINOPHILS % (AUTO) 4.3 % (0-6); HEMATOCRIT 37.7 % (36.0-47.0); HEMOGLOBIN 12.5 g/dL (12.0-15.5); LYMPHOCYTES % (AUTO) 26.2 % (13-45); MEAN CORPUSCULAR HEMOGLOBIN 29.1 pg (27.0-33.4); MEAN CORPUSCULAR HGB CONC 33.1 g/dL (32.0-36.0); MEAN CORPUSCULAR VOLUME 88 fl (80-97); MONOCYTES % (AUTO) 8.8 % (3-13); PLATELET COUNT 339 10^3/uL (150-450); RED CELL DISTRIBUTION WIDTH 14.6 % (11.5-14.0); SEGMENTED NEUTROPHILS % (AUTO) 59.6 % (42-78); TOTAL CELLS COUNTED % (AUTO) 100 %; WHITE BLOOD COUNT 6.6 10^3/uL (4.0-10.5)
[2019-10-09 19:56] LABS: ANION GAP 9 (5-19); BLOOD UREA NITROGEN 19 mg/dL (7-20); CALCIUM 9.6 mg/dL (8.4-10.2); CARBON DIOXIDE 25 mmol/L (22-30); CHLORIDE 107 mmol/L (98-107); GLUCOSE 134 mg/dL (75-110); POTASSIUM 3.8 mmol/L (3.6-5.0)
--- NOTE | 2019-10-09 20:25 | ER Document Report ---
ED GI/ - General Chief Complaint: Abdominal Pain Stated Complaint: ABDOMINAL PAIN Time Seen by Provider: 10/09/19 18:52 Primary Care Provider: HARLEY ANDRADE MD [Primary Care Provider] - Follow up as needed Mode of Arrival: Ambulatory Notes: 58-year-old female with recent diagnosis of nephrolithiasis presents to the emergency department with chief complaint of right-sided lower abdominal pain. Patient was seen here on October 04 and ultimately transferred to [facility] for ureteral stent placement secondary to infected kidney stone. Patient was subsequently discharged home and has had intermittent abdominal/pelvic pain since. It got acutely worse this evening so she decided to seek emergency treatment. Patient denies any other chills, denies nausea or vomiting, does complain of dysuria, denies foul-smelling urine, denies urgency or frequency. Denies any abnormal vaginal discharge. TRAVEL OUTSIDE OF THE [place] IN LAST 30 DAYS: No - Related Data Allergies/Adverse Reactions: atorvastatin Allergy (Severe, Verified 10/09/19 18:49) myalgia niacin Allergy (Severe, Verified 10/09/19 18:49) Anaphylaxis adhesive tape Allergy (Intermediate, Verified 10/09/19 18:49) REDNESS, BLISTERS meloxicam Allergy (Intermediate, Verified 10/09/19 18:49) wheezing, palpitations sulfamethoxazole [From Septra] Allergy (Mild, Verified 10/09/19 18:49) rash tramadol Allergy (Mild, Verified 10/09/19 18:49) wheezing trimethoprim [From Septra] Allergy (Mild, Verified 10/09/19 18:49) rash simvastatin Allergy (Unknown, Verified 10/09/19 18:49) Sulfa (Sulfonamide Antibiotics) Allergy (Unknown, Verified 10/09/19 18:49) rash zolpidem tartrate [From Ambien] Adverse Reaction (Severe, Verified 10/09/19 18:49) sleepwalking dipyridamole [From Aggrenox] Adverse Reaction (Intermediate, Verified 10/09/19 18:49) HEADACHES methylprednisolone [From Medrol] Adverse Reaction (Intermediate, Verified 10/09/19 18:49) N/V/hyperactive topiramate Adverse Reaction (Intermediate, Verified 10/09/19 18:49) kidney stones aspirin Adverse Reaction (Mild, Verified 10/09/19 18:49) GI upset guaifenesin Adverse Reaction (Mild, Verified 10/09/19 18:49) GI upset rosuvastatin Adverse Reaction (Mild, Verified 10/09/19 18:49) muscle pain pseudoephedrine Adverse Reaction (Unknown, Verified 10/09/19 18:49) GI upset Home Medications: asa 325. citalopram 20. dexilant 60. diltizem 240. qslvbrox88. pravastatin 40. prampexole 0.5. singulair 10. losartan 100. linzess 290 Past Medical History - General Information source: Patient, [employer] Enforcement - Social History Smoking Status: Never Smoker Chew tobacco use (# tins/day): No Frequency of alcohol use: None Drug Abuse: None Family History: Reviewed & Not Pertinent, Arthritis, CAD, Hypertension, Malignancy, Other Patient has suicidal ideation: No Patient has homicidal ideation: No - Past Medical History Cardiac Medical History: Reports: Hx Hypercholesterolemia, Hx Hypertension, Hx Pulmonary Embolism - 6 years ago Denies: Hx Atrial Fibrillation, Hx Congestive Heart Failure, Hx Coronary Artery Disease, Hx Heart Attack, Hx Peripheral Vascular Disease, Hx Heart Murmur Pulmonary Medical History: Reports: Hx Asthma, Hx Bronchitis, Hx COPD, Hx Pneumonia Denies: Hx Respiratory Failure, Hx Sleep Apnea, Hx Tuberculosis Neurological Medical History: Denies: Hx Cerebrovascular Accident, Hx Seizures, Hx Parkinson's Disease Renal/ Medical History: Reports: Hx Kidney Stones. Denies: Hx End Stage Renal Disease, Hx Peritoneal Dialysis Malignancy Medical History: Denies: Hx Lung Cancer GI Medical History: Reports: Hx Diverticulitis, Hx Gastroesophageal Reflux Disease. Denies: Hx Crohn's Disease, Hx Hiatal Hernia, Hx Irritable Bowel, Hx Liver Failure, Hx Pancreatitis, Hx Ulcer Musculoskeletal Medical History: Reports Hx Arthritis - knees, Denies Hx Fibromyalgia, Denies Hx Multiple Sclerosis, Denies Hx Muscular Dystrophy Psychiatric Medical History: Reports: Hx Anxiety, Hx Depression Denies: Hx Dementia, Hx Post Traumatic Stress Disorder Comment Only: Hx Bipolar Disorder - not diagnosed Traumatic Medical History: Reports: Hx Fractures - left big toe, right hand Past Surgical History: Reports: Hx Abdominal Surgery - collectomy, Hx Appendectomy, Hx Bowel Surgery, Hx Herniorrhaphy - left lower abdomen, Hx Kidney (Renal Surgery) - LITHOTRIPSY, Hx Orthopedic Surgery - right knee replacement, Hx Tonsillectomy, Hx Umbilical Hernia. Denies: Hx Section, Hx Cholecystectomy, Hx Colostomy, Hx Coronary Artery Bypass Graft, Hx Gastric Bypass Surgery, Hx Hysterectomy, Hx Mastectomy, Hx Pacemaker, Hx Tubal Ligation - Immunizations Immunizations up to date: Yes Hx Diphtheria, Pertussis, Tetanus Vaccination: Yes Hx Pneumococcal Vaccination: 11/17/05 Review of Systems - Review of Systems Constitutional: See HPI EENT: No symptoms reported Cardiovascular: No symptoms reported Respiratory: No symptoms reported Gastrointestinal: See HPI Genitourinary: See HPI Female Genitourinary: See HPI Musculoskeletal: See HPI Skin: No symptoms reported Hematologic/Lymphatic: No symptoms reported Neurological/Psychological: No symptoms reported Physical Exam - Vital signs Vitals: Temp Pulse Resp BP Pulse Ox 98.3 F 101 H 18 147/83 H 95 10/09/19 18:41 10/09/19 18:41 10/09/19 18:41 10/09/19 18:41 10/09/19 18:41 - Notes Notes: PHYSICAL EXAMINATION: Reviewed vital signs and charting by RN GENERAL: Alert, interacts well. No acute distress. HEAD: Normocephalic, atraumatic. EYES: Pupils equal and round. Extraocular movements intact. ENT: Oral mucosa moist, tongue midline. NECK: Full range of motion. Trachea midline. LUNGS: Clear to auscultation bilaterally, no wheezes, rales, or rhonchi. No respiratory distress. HEART: Regular rate and rhythm. No murmur ABDOMEN: soft, non-tender. No distention. Bowel sounds present BACK: No CVA tenderness bilateral EXTREMITIES: Moves all 4 extremities spontaneously. No edema, No cyanosis. PSYCH: Normal affect, normal mood. SKIN: Warm, dry, normal turgor. No rashes or lesions noted. Course - Re-evaluation Re-evalutation: 10/09/19 20:23 Well-appearing and nontoxic. No acute distress. Patient received oxycodone in triage and work-up ordered in triage. Lab work unremarkable, patient does not have leukocytosis, she is afebrile, urinalysis only remarkable for large blood and RBCs. Urine is not otherwise infected. A retroperitoneal renal ultrasound ordered, completed, pending radiologist read. 10/09/19 21:57 Ultrasound did not visualize a stone or even the stent as it was limited by habitus. There was no significant hydronephrosis or perinephric stranding. Abram dutta is afebrile and nontoxic. Urinalysis overall did not show evidence of infection. At this time I explained patient that it is symptomatic management and gave her strict return precautions. She is stable for discharge. - Vital Signs Vital signs: Temp Pulse Resp BP Pulse Ox 98.3 F 101 H 18 147/83 H 95 10/09/19 18:41 10/09/19 18:41 10/09/19 18:41 10/09/19 18:41 10/09/19 18:41 - Laboratory Result Diagrams: 10/09/19 19:25 10/09/19 19:25 Laboratory results interpreted by me: 10/09/19 10/09/19 10/09/19 19:10 19:25 19:25 RDW 14.6 H Glucose 134 H Urine Protein 100 H Urine Blood LARGE H Urine Urobilinogen 4.0 H Ur Leukocyte Esterase SMALL H Discharge - Discharge Clinical Impression: Right lower quadrant abdominal pain, Ureterolithiasis Condition: Good Disposition: HOME, SELF-CARE Additional Instructions: Your symptoms should improve over the course of the next one week. If you continue to have pain for greater than one week or your pain is not controlled with the pain medications that you have you need to return to the emergency department. Please also return if you develop fever, persistent vomiting, or any other symptoms that are concerning to you. You should take ibuprofen 600 mg every 6 hours and use your pain medication as prescribed only for pain not controlled by ibuprofen. You've been given Zofran to assist with nausea. Please follow-up with your urologist tomorrow. Referrals: HARLEY ANDRADE MD [Primary Care Provider] - Follow up as needed
--- NOTE | 2019-10-09 21:36 | RADIOLOGY REPORT (SQ) ---
EXAM DESCRIPTION: US RETROPERITONEUM COMPLETED DATE/TME: 10/09/2019 18:57 CLINICAL HISTORY: 58 years Female lower abd pain, hx kid stone/stent COMPARISON: None. TECHNIQUE: Transabdominal grayscale imaging performed to evaluate the kidneys and urinary bladder. FINDINGS: Right kidney measures 11.5 x 6.2 cm. No hydronephrosis mass or calculus. Bladder volume 88 mL. Left kidney measures 10.9 x 4.3 cm without hydronephrosis or mass. Right ureteral jet is not visualized. Stent was not seen. Left kidney appears slightly echogenic. IMPRESSION: Visualization is limited secondary to body habitus No evidence of hydronephrosis Mildly echogenic left kidney Nonvisualization of the right ureteral jet
[2019-10-09] MEDS ORDERED: ONDANSETRON ODT 4 MG TAB (6 TAB/ER DISP) PO PRN (21:58)
[2019-10-09 22:06] VITALS: BP 134/91
== END 2019-10-09 22:09 | disposition home or self-care (01) ==
LOC: ER 18:32
DX: N20.1 Calculus of ureter (principal); R31.9 Hematuria, unspecified; R10.31 Right lower quadrant pain; R10.2 Pelvic and perineal pain; E78.00 Pure hypercholesterolemia, unspecified; I10 Essential (primary) hypertension; J44.9 Chronic obstructive pulmonary disease, unspecified; F41.9 Anxiety disorder, unspecified; F32.9 Major depressive disorder, single episode, unspecified; K21.9 Gastro-esophageal reflux disease without esophagitis; Z79.82 Long term (current) use of aspirin; Z79.899 Other long term (current) drug therapy; Z96.0 Presence of urogenital implants; Z88.8 Allergy status to other drugs, medicaments and biological substances; Z91.048 Other nonmedicinal substance allergy status; Z88.1 Allergy status to other antibiotic agents; Z88.6 Allergy status to analgesic agent; Z88.2 Allergy status to sulfonamides
CPT/HCPCS: 99284; 36415; 85025; 80048; 81001; 76770; J3490

== ENCOUNTER → 2020-01-03 | Outpatient (CLI) | payer MEDICAID ==
[2020-01-03 10:31] LABS: ABSOLUTE BASOPHILS # (AUTO) 0.1 10^3/uL (0.0-0.2); ABSOLUTE EOSINOPHILS # (AUTO) 0.2 10^3/uL (0.0-0.6); ABSOLUTE LYMPHOCYTES (AUTO) 1.7 10^3/uL (0.5-4.7); ABSOLUTE MONOCYTES (AUTO) 0.5 10^3/uL (0.1-1.4); ABSOLUTE NEUT (AUTO) 3.6 10^3/uL (1.7-8.2); BASOPHILS % (AUTO) 1.1 % (0-2); EOSINOPHILS % (AUTO) 2.7 % (0-6); HEMATOCRIT 39.8 % (36.0-47.0); LYMPHOCYTES % (AUTO) 27.7 % (13-45); MEAN CORPUSCULAR HEMOGLOBIN 27.1 pg (27.0-33.4); MEAN CORPUSCULAR HGB CONC 32.6 g/dL (32.0-36.0); MEAN CORPUSCULAR VOLUME 83 fl (80-97); PLATELET COUNT 261 10^3/uL (150-450); RED CELL DISTRIBUTION WIDTH 15.2 % (11.5-14.0); SEGMENTED NEUTROPHILS % (AUTO) 60.5 % (42-78); TOTAL CELLS COUNTED % (AUTO) 100 %
[2020-01-03 11:02] LABS: ALBUMIN 4.3 g/dL (3.5-5.0); ALKALINE PHOSPHATASE 113 U/L (38-126); ANION GAP 10 (5-19); ASPARTATE AMINO TRANSFERASE 22 U/L (14-36); BILIRUBIN,TOTAL 0.5 mg/dL (0.2-1.3); BLOOD UREA NITROGEN 22 mg/dL (7-20); CALCIUM 9.6 mg/dL (8.4-10.2); CARBON DIOXIDE 24 mmol/L (22-30); CHLORIDE 105 mmol/L (98-107); CHOLESTEROL 203.52 mg/dL (0-200); CREATINE KINASE 179 U/L (30-135); GLUCOSE 119 mg/dL (75-110); POTASSIUM 4.3 mmol/L (3.6-5.0); TOTAL PROTEIN 7.1 g/dL (6.3-8.2); TRIGLYCERIDES 263 mg/dL (<150)
[2020-01-03 11:13] LABS: DIRECT LDL 136 mg/dL (<100)
[2020-01-03 11:17] LABS: VLDL CHOLESTEROL 52.6 mg/dL (10-31)
== END ==
LOC: LAB 09:54
PROVIDERS: ATTEND Family Medicine
DX: E78.2 Mixed hyperlipidemia (principal); D50.8 Other iron deficiency anemias; R73.01 Impaired fasting glucose
CPT/HCPCS: 36415; 80053; 80061; 82550; 83036; 84443; 85025

== ENCOUNTER → 2020-03-24 | Outpatient (CLI) | payer MEDICAID ==
[2020-03-24 12:26] LABS: ABSOLUTE BASOPHILS # (AUTO) 0.1 10^3/uL (0.0-0.2); ABSOLUTE EOSINOPHILS # (AUTO) 0.1 10^3/uL (0.0-0.6); ABSOLUTE LYMPHOCYTES (AUTO) 1.2 10^3/uL (0.5-4.7); ABSOLUTE MONOCYTES (AUTO) 0.5 10^3/uL (0.1-1.4); ABSOLUTE NEUT (AUTO) 7.5 10^3/uL (1.7-8.2); BASOPHILS % (AUTO) 1.1 % (0-2); EOSINOPHILS % (AUTO) 0.9 % (0-6); HEMATOCRIT 39.5 % (36.0-47.0); HEMOGLOBIN 13.3 g/dL (12.0-15.5); LYMPHOCYTES % (AUTO) 13.1 % (13-45); MEAN CORPUSCULAR HEMOGLOBIN 27.7 pg (27.0-33.4); MEAN CORPUSCULAR HGB CONC 33.6 g/dL (32.0-36.0); MEAN CORPUSCULAR VOLUME 83 fl (80-97); MONOCYTES % (AUTO) 5.1 % (3-13); PLATELET COUNT 299 10^3/uL (150-450); RED BLOOD COUNT 4.78 10^6/uL (3.72-5.28); RED CELL DISTRIBUTION WIDTH 16.5 % (11.5-14.0); SEGMENTED NEUTROPHILS % (AUTO) 79.8 % (42-78); TOTAL CELLS COUNTED % (AUTO) 100 %; WHITE BLOOD COUNT 9.4 10^3/uL (4.0-10.5)
[2020-03-24 12:31] LABS: APPEARANCE,URINE CLEAR; BILIRUBIN,URINE NEGATIVE (NEGATIVE); COLOR,URINE YELLOW; GLUCOSE, URINE NEGATIVE (NEGATIVE); KETONES,URINE NEGATIVE (NEGATIVE); LEUKOCYTE ESTERASE,URINE NEGATIVE (NEGATIVE); NITRITE,URINE NEGATIVE (NEGATIVE); PROTEIN,URINE NEGATIVE (NEGATIVE); URINE SPECIFIC GRAVITY 1.019
[2020-03-24 12:39] LABS: ALBUMIN 4.1 g/dL (3.5-5.0); ALKALINE PHOSPHATASE 124 U/L (38-126); ANION GAP 11 (5-19); ASPARTATE AMINO TRANSFERASE 21 U/L (14-36); BILIRUBIN,TOTAL 0.4 mg/dL (0.2-1.3); BLOOD UREA NITROGEN 19 mg/dL (7-20); CALCIUM 9.4 mg/dL (8.4-10.2); CARBON DIOXIDE 22 mmol/L (22-30); CHLORIDE 107 mmol/L (98-107); GLUCOSE 123 mg/dL (75-110); POTASSIUM 4.5 mmol/L (3.6-5.0)
== END ==
LOC: OD 11:26
PROVIDERS: ATTEND Family Medicine
DX: R19.7 Diarrhea, unspecified (principal); R10.84 Generalized abdominal pain
CPT/HCPCS: 36415; 80053; 81001; 83690; 85025

== ENCOUNTER → 2020-06-11 | Outpatient (CLI) | payer MEDICAID ==
--- NOTE | 2020-06-11 11:05 | RADIOLOGY REPORT (SQ) ---
EXAM DESCRIPTION: KUB IMAGES COMPLETED DATE/TIME: 06/11/2020 9:41 am REASON FOR STUDY: HYDRONEPHROSIS N13.30 UNSPECIFIED HYDRONEPHROSIS N23 UNSPECIFIED RENAL COLIC N20 .1 CALCULUS OF URETER COMPARISON: 06/22/2013 NUMBER OF VIEWS: One view. TECHNIQUE: Supine radiographic image of the abdomen acquired. LIMITATIONS: None. FINDINGS: BOWEL GAS PATTERN: Normal bowel gas pattern. No dilated loops. CALCIFICATIONS: No suspicious calcifications. SOFT TISSUES: No gross mass or suggestion of organomegaly. HARDWARE: There are surgical clips in the right mid abdomen. Evidence are prior hernia repair. BONES: No acute fracture. No worrisome bone lesions. OTHER: No other significant finding. IMPRESSION: NO RADIOGRAPHIC EVIDENCE FOR ACUTE ABDOMINAL DISEASE. TECHNICAL DOCUMENTATION: JOB ID: [id number] 2010 [employer]- All Rights Reserved Reading location - IP/workstation name: [email or web address]
== END ==
LOC: RAD 09:09
PROVIDERS: ATTEND Urology
DX: N13.30 Unspecified hydronephrosis (principal); N23 Unspecified renal colic; N20.1 Calculus of ureter
CPT/HCPCS: 74018

== ENCOUNTER → 2020-07-03 | Outpatient (CLI) | payer MEDICAID ==
[2020-07-03 08:29] LABS: ABSOLUTE EOSINOPHILS # (AUTO) 0.2 10^3/uL (0.0-0.6); ABSOLUTE LYMPHOCYTES (AUTO) 1.6 10^3/uL (0.5-4.7); ABSOLUTE MONOCYTES (AUTO) 0.5 10^3/uL (0.1-1.4); ABSOLUTE NEUT (AUTO) 3.3 10^3/uL (1.7-8.2); BASOPHILS % (AUTO) 0.9 % (0-2); EOSINOPHILS % (AUTO) 3.2 % (0-6); HEMATOCRIT 39.1 % (36.0-47.0); HEMOGLOBIN 12.8 g/dL (12.0-15.5); LYMPHOCYTES % (AUTO) 28.4 % (13-45); MEAN CORPUSCULAR HEMOGLOBIN 27.1 pg (27.0-33.4); MEAN CORPUSCULAR HGB CONC 32.8 g/dL (32.0-36.0); MEAN CORPUSCULAR VOLUME 83 fl (80-97); MONOCYTES % (AUTO) 8.6 % (3-13); PLATELET COUNT 265 10^3/uL (150-450); RED BLOOD COUNT 4.73 10^6/uL (3.72-5.28); RED CELL DISTRIBUTION WIDTH 15.8 % (11.5-14.0); SEGMENTED NEUTROPHILS % (AUTO) 58.9 % (42-78); TOTAL CELLS COUNTED % (AUTO) 100 %; WHITE BLOOD COUNT 5.6 10^3/uL (4.0-10.5)
[2020-07-03 08:49] LABS: ALBUMIN 4.1 g/dL (3.5-5.0); ALKALINE PHOSPHATASE 110 U/L (38-126); ANION GAP 7 (5-19); ASPARTATE AMINO TRANSFERASE 23 U/L (14-36); BILIRUBIN,DIRECT 0.3 mg/dL (0.0-0.4); BILIRUBIN,TOTAL 0.5 mg/dL (0.2-1.3); BLOOD UREA NITROGEN 18 mg/dL (7-20); CALCIUM 9.5 mg/dL (8.4-10.2); CARBON DIOXIDE 26 mmol/L (22-30); CHLORIDE 107 mmol/L (98-107); CHOLESTEROL 171.44 mg/dL (0-200); GLUCOSE 127 mg/dL (75-110); IRON(TIBC) 52.8 ug/dL (37-170); POTASSIUM 4.1 mmol/L (3.6-5.0); TOTAL PROTEIN 7.1 g/dL (6.3-8.2); TRIGLYCERIDES 220 mg/dL (<150)
[2020-07-03 09:00] LABS: DIRECT LDL 117 mg/dL (<100)
[2020-07-03 09:22] LABS: FERRITIN 7.64 ng/mL (11.1-264.0)
== END ==
LOC: OD 07:55
PROVIDERS: ATTEND Family Medicine
DX: R73.01 Impaired fasting glucose (principal); D50.8 Other iron deficiency anemias; E78.2 Mixed hyperlipidemia; Z79.899 Other long term (current) drug therapy
CPT/HCPCS: 36415; 80053; 80061; 82728; 83036; 83540; 83550; 85025

== ENCOUNTER 2020-09-26 13:59 | Emergency (ER) | payer MEDICAID ==
[2020-09-26 14:13] VITALS: BP 120/75
--- NOTE | 2020-09-26 15:29 | ER Document Report ---
ED Medical Screen (RME) - General Chief Complaint: Rib Pain Stated Complaint: RIB PAIN Time Seen by Provider: 09/26/20 15:00 Primary Care Provider: HARLEY ANDRADE MD [Primary Care Provider] - Follow up as needed Mode of Arrival: Wheelchair Information source: Patient Notes: 59-year-old female patient presents the emergency department chief complaint of cough, bilateral anterior rib pain, chest pain and generalized malaise. Patient reports symptoms ongoing for the last few days. She denies any shortness of breath. She does report pain in her "lungs". Lung sounds clear and equal bilaterally, no acute distress noted. Tenderness on the anterior/lateral lower ribs bilaterally. I have greeted and performed a rapid initial assessment of this patient. A comprehensive ED assessment and evaluation of the patient, analysis of test results and completion of the medical decision making process will be conducted by additional ED providers. I have specifically instructed the patient or family members with the patient to immediately return to any nursing staff should anything change in the patient's condition or with their chief complaint. TRAVEL OUTSIDE OF THE [place] IN LAST 30 DAYS: No - Related Data Allergies/Adverse Reactions: atorvastatin Allergy (Severe, Verified 09/26/20 14:59) myalgia niacin Allergy (Severe, Verified 09/26/20 14:59) Anaphylaxis adhesive tape Allergy (Intermediate, Verified 09/26/20 14:59) REDNESS, BLISTERS meloxicam Allergy (Intermediate, Verified 09/26/20 14:59) wheezing, palpitations sulfamethoxazole [From Septra] Allergy (Mild, Verified 09/26/20 14:59) rash tramadol Allergy (Mild, Verified 09/26/20 14:59) wheezing trimethoprim [From Septra] Allergy (Mild, Verified 09/26/20 14:59) rash simvastatin Allergy (Unknown, Verified 09/26/20 14:59) Sulfa (Sulfonamide Antibiotics) Allergy (Unknown, Verified 09/26/20 14:59) rash zolpidem tartrate [From Ambien] Adverse Reaction (Severe, Verified 09/26/20 14:59) sleepwalking dipyridamole [From Aggrenox] Adverse Reaction (Intermediate, Verified 09/26/20 14:59) HEADACHES methylprednisolone [From Medrol] Adverse Reaction (Intermediate, Verified 09/26/20 14:59) N/V/hyperactive topiramate Adverse Reaction (Intermediate, Verified 09/26/20 14:59) kidney stones aspirin Adverse Reaction (Mild, Verified 09/26/20 14:59) GI upset guaifenesin Adverse Reaction (Mild, Verified 09/26/20 14:59) GI upset rosuvastatin Adverse Reaction (Mild, Verified 09/26/20 14:59) muscle pain pseudoephedrine Adverse Reaction (Unknown, Verified 09/26/20 14:59) GI upset Past Medical History - Social History Chew tobacco use (# tins/day): Yes Frequency of alcohol use: None - Past Medical History Cardiac Medical History: Reports: Hx Hypercholesterolemia, Hx Hypertension, Hx Pulmonary Embolism - 6 years ago Denies: Hx Atrial Fibrillation, Hx Congestive Heart Failure, Hx Coronary Artery Disease, Hx Heart Attack, Hx Peripheral Vascular Disease, Hx Heart Murmur Pulmonary Medical History: Reports: Hx Asthma, Hx Bronchitis, Hx COPD, Hx Pneumonia Denies: Hx Respiratory Failure, Hx Sleep Apnea, Hx Tuberculosis Neurological Medical History: Denies: Hx Cerebrovascular Accident, Hx Seizures, Hx Parkinson's Disease Renal/ Medical History: Reports: Hx Kidney Stones. Denies: Hx End Stage Renal Disease, Hx Peritoneal Dialysis Malignancy Medical History: Denies: Hx Lung Cancer GI Medical History: Reports: Hx Diverticulitis, Hx Gastroesophageal Reflux Disea se. Denies: Hx Crohn's Disease, Hx Hiatal Hernia, Hx Irritable Bowel, Hx Liver Failure, Hx Pancreatitis, Hx Ulcer Musculoskeltal Medical History: Reports Hx Arthritis - knees, Denies Hx Fibromyalgia, Denies Hx Multiple Sclerosis, Denies Hx Muscular Dystrophy Psychiatric Medical History: Reports: Hx Anxiety, Hx Depression Denies: Hx Dementia, Hx Post Traumatic Stress Disorder Comment Only: Hx Bipolar Disorder - not diagnosed Traumatic Medical History: Reports: Hx Fractures - left big toe, right hand Past Surgical History: Reports: Hx Abdominal Surgery - collectomy, Hx Appendectomy, Hx Bowel Surgery, Hx Herniorrhaphy - left lower abdomen, Hx Kidney (Renal Surgery) - LITHOTRIPSY, Hx Orthopedic Surgery - right knee replacement, Hx Tonsillectomy, Hx Umbilical Hernia. Denies: Hx Section, Hx Cholecystectomy, Hx Colostomy, Hx Coronary Artery Bypass Graft, Hx Gastric Bypass Surgery, Hx Hysterectomy, Hx Mastectomy, Hx Pacemaker, Hx Tubal Ligation - Immunizations Immunizations up to date: Yes Hx Diphtheria, Pertussis, Tetanus Vaccination: Yes Physical Exam - Vital signs Vitals: Temp Pulse Resp BP Pulse Ox 97.9 F 80 18 120/75 96 09/26/20 14:12 09/26/20 14:12 09/26/20 14:12 09/26/20 14:12 09/26/20 14:12 Course - Vital Signs Vital signs: Temp Pulse Resp BP Pulse Ox 97.9 F 80 18 120/75 96 09/26/20 14:12 09/26/20 14:12 09/26/20 14:12 09/26/20 14:12 09/26/20 14:12 Doctor's Discharge - Discharge Referrals: HARLEY ANDRADE MD [Primary Care Provider] - Follow up as needed
[2020-09-26 16:21] LABS: APPEARANCE,URINE CLEAR; BILIRUBIN,URINE NEGATIVE (NEGATIVE); COLOR,URINE YELLOW; GLUCOSE, URINE NEGATIVE (NEGATIVE); KETONES,URINE NEGATIVE (NEGATIVE); LEUKOCYTE ESTERASE,URINE NEGATIVE (NEGATIVE); NITRITE,URINE NEGATIVE (NEGATIVE); PROTEIN,URINE NEGATIVE (NEGATIVE); URINE SPECIFIC GRAVITY 1.009; UROBILINOGEN,URINE NEGATIVE mg/dL (<2.0)
[2020-09-26 16:38] LABS: A TYPE INFLUENZA AG NEGATIVE (NEGATIVE); B INFLUENZA AG NEGATIVE (NEGATIVE)
--- NOTE | 2020-09-26 16:40 | ER Document Report ---
ED General - General Chief Complaint: Rib Pain Stated Complaint: RIB PAIN Time Seen by Provider: 09/26/20 15:00 Primary Care Provider: HARLEY ANDRADE MD [Primary Care Provider] - Follow up as needed Mode of Arrival: Wheelchair TRAVEL OUTSIDE OF THE [place] IN LAST 30 DAYS: No - HPI Notes: Patient is a 59 y/o female with a hx of HTN and HLD who presents with dry cough and rib pain for the past two days. Her rib pain is bilateral just below both breasts. She states her pain is exacerbated by coughing. She has not taken anything for relief. She denies chest pain, shortness of breath, fever, nausea, vomiting, abdominal pain, and nasal congestion. - Related Data Allergies/Adverse Reactions: atorvastatin Allergy (Severe, Verified 09/26/20 14:59) myalgia niacin Allergy (Severe, Verified 09/26/20 14:59) Anaphylaxis adhesive tape Allergy (Intermediate, Verified 09/26/20 14:59) REDNESS, BLISTERS meloxicam Allergy (Intermediate, Verified 09/26/20 14:59) wheezing, palpitations sulfamethoxazole [From Septra] Allergy (Mild, Verified 09/26/20 14:59) rash tramadol Allergy (Mild, Verified 09/26/20 14:59) wheezing trimethoprim [From Septra] Allergy (Mild, Verified 09/26/20 14:59) rash simvastatin Allergy (Unknown, Verified 09/26/20 14:59) Sulfa (Sulfonamide Antibiotics) Allergy (Unknown, Verified 09/26/20 14:59) rash zolpidem tartrate [From Ambien] Adverse Reaction (Severe, Verified 09/26/20 14:59) sleepwalking dipyridamole [From Aggrenox] Adverse Reaction (Intermediate, Verified 09/26/20 14:59) HEADACHES methylprednisolone [From Medrol] Adverse Reaction (Intermediate, Verified 09/26/20 14:59) N/V/hyperactive topiramate Adverse Reaction (Intermediate, Verified 09/26/20 14:59) kidney stones aspirin Adverse Reaction (Mild, Verified 09/26/20 14:59) GI upset guaifenesin Adverse Reaction (Mild, Verified 09/26/20 14:59) GI upset rosuvastatin Adverse Reaction (Mild, Verified 09/26/20 14:59) muscle pain pseudoephedrine Adverse Reaction (Unknown, Verified 09/26/20 14:59) GI upset Past Medical History - General Information source: Patient - Social History Smoking Status: Former Smoker Chew tobacco use (# tins/day): Yes Frequency of alcohol use: None Family History: Reviewed & Not Pertinent, Arthritis, CAD, Hypertension, Malignancy, Other - Past Medical History Cardiac Medical History: Reports: Hx Hypercholesterolemia, Hx Hypertension, Hx Pulmonary Embolism - 6 years ago Denies: Hx Atrial Fibrillation, Hx Congestive Heart Failure, Hx Coronary Artery Disease, Hx Heart Attack, Hx Peripheral Vascular Disease, Hx Heart Murmur Pulmonary Medical History: Reports: Hx Asthma, Hx Bronchitis, Hx COPD, Hx Pneumonia Denies: Hx Respiratory Failure, Hx Sleep Apnea, Hx Tuberculosis Neurological Medical History: Denies: Hx Cerebrovascular Accident, Hx Seizures, Hx Parkinson's Disease Renal/ Medical History: Reports: Hx Kidney Stones. Denies: Hx End Stage Renal Disease, Hx Peritoneal Dialysis Malignancy Medical History: Denies: Hx Lung Cancer GI Medical History: Reports: Hx Diverticulitis, Hx Gastroesophageal Reflux Disease. Denies: Hx Crohn's Disease, Hx Hiatal Hernia, Hx Irritable Bowel, Hx Liver Failure, Hx Pancreatitis, Hx Ulcer Musculoskeletal Medical History: Reports Hx Arthritis - knees, Denies Hx Fibromyalgia, Denies Hx Multiple Sclerosis, Denies Hx Muscular Dystrophy Psychiatric Medical History: Reports: Hx Anxiety, Hx Depression Denies: Hx Dementia, Hx Post Traumatic Stress Disorder Comment Only: Hx Bipolar Disorder - not diagnosed Traumatic Medical History: Reports: Hx Fractures - left big toe, right hand Past Surgical History: Reports: Hx Abdominal Surgery - collectomy, Hx Appendectomy, Hx Bowel Surgery, Hx Herniorrhaphy - left lower abdomen, Hx Kidney (Renal Surgery) - LITHOTRIPSY, Hx Orthopedic Surgery - right knee replacement, Hx Tonsillectomy, Hx Umbilical Hernia. Denies: Hx Section, Hx Leyda cystectomy, Hx Colostomy, Hx Coronary Artery Bypass Graft, Hx Gastric Bypass Surgery, Hx Hysterectomy, Hx Mastectomy, Hx Pacemaker, Hx Tubal Ligation - Immunizations Immunizations up to date: Yes Hx Diphtheria, Pertussis, Tetanus Vaccination: Yes Hx Pneumococcal Vaccination: 11/17/05 Review of Systems - Review of Systems Constitutional: No symptoms reported EENT: No symptoms reported Cardiovascular: No symptoms reported Respiratory: See HPI Gastrointestinal: No symptoms reported Genitourinary: No symptoms reported Female Genitourinary: No symptoms reported Musculoskeletal: No symptoms reported Skin: No symptoms reported Hematologic/Lymphatic: No symptoms reported Neurological/Psychological: No symptoms reported Physical Exam - Vital signs Vitals: Temp Pulse Resp BP Pulse Ox 97.9 F 80 18 120/75 96 09/26/20 14:12 09/26/20 14:12 09/26/20 14:12 09/26/20 14:12 09/26/20 14:12 - Notes Notes: PHYSICAL EXAMINATION: VITALS: Vitals reviewed and within normal limits. GENERAL: Well-appearing, well-nourished and in no acute distress. HEAD: Atraumatic, normocephalic. ENT: Nares patent. Moist mucous membranes. NECK: Normal range of motion, supple without lymphadenopathy. LUNGS: Breath sounds clear to auscultation bilaterally and equal. No wheezes, rales, or rhonchi. HEART: Regular, rate, and rhythm without murmurs. CHEST WALL: Nontender with no palpable deformity. ABDOMEN: Soft, nontender, normoactive bowel sounds. No guarding, no rebound. No masses appreciated. EXTREMITIES: Normal range of motion, no pitting or edema. No cyanosis. NEUROLOGICAL: No focal neurological deficits. Moves all extremities spontaneously and on command. PSYCH: Normal mood, normal affect. SKIN: Warm, Dry, normal turgor, no rashes or lesions noted. Course - Re-evaluation Re-evalutation: Patient is a 59 y/o female who presents with dry cough and bilateral rib pain that began two days ago. Vital signs are normal and stable. On exam, lungs are clear to auscultation bilaterally. Chest wall is nontender with no palpable deformity. 09/26/20 16:34 Patient is refusing all bloodwork. I discussed the risks of not being fully evaluated and having the ability to rule out emergent processed. She understands and demonstrates decision making capacity. 09/26/20 17:37 Rib XR shows no rib fracture or pneumothorax. Rapid flu is negative. EKG shows normal sinus rhythm. Based on the limited workup, I believe patient's symptoms are muscular in nature and likely due to her persistent coughing. I cannot rule out emergent etiology as patient declined blood work. I offered IM toradol for relief which she declined. I advised that patient take tylenol and ibuprofen as needed for pain. Return precautions and follow up instructions given. Patient will be discharged home. Patient is requesting tylenol prior to discharge. 650mg PO given in the ED. - Vital Signs Vital signs: Temp Pulse Resp BP Pulse Ox 97.9 F 80 18 120/75 96 09/26/20 14:12 09/26/20 14:12 09/26/20 14:12 09/26/20 14:12 09/26/20 14:12 Discharge - Discharge Clinical Impression: Cough, Rib pain Condition: Stable Disposition: HOME, SELF-CARE Additional Instructions: Take tylenol and ibuprofen as needed for pain. Take over the counter cough medicine for relief. Follow up with your primary care provider this week if your symptoms do not improve. Return if your symptoms worsen or if you experience chest pain, shortness of breath, fever, or persistent vomiting. Referrals: HARLEY ANDRADE MD [Primary Care Provider] - Follow up as needed
--- NOTE | 2020-09-26 16:44 | RADIOLOGY REPORT (SQ) ---
EXAM DESCRIPTION: RIBS BILATERAL W/PA CXR IMAGES COMPLETED DATE/TIME: 09/26/2020 4:11 pm REASON FOR STUDY: cough/bilateral rib pain COMPARISON: 2017 TECHNIQUE: Frontal view of the chest and additional views of the right and left ribs acquired. NUMBER OF VIEWS: For LIMITATIONS: None. FINDINGS: FRONTAL CXR: No pneumothorax. No pleural effusion. No atelectasis or infiltrates. RIBS: No displaced rib fractures. No lytic or blastic bony lesions. OTHER: No other significant finding. IMPRESSION: NO PNEUMOTHORAX. NO DISPLACED RIB FRACTURES. COMMENT: SITE OF TRAUMA/COMPLAINT MARKED/STAMP COMPLETED: No TECHNICAL DOCUMENTATION: JOB ID: [id number] 2010 [employer]- All Rights Reserved Reading location - IP/workstation name: [email or web address]
[2020-09-26] MEDS ORDERED: ACETAMINOPHEN 325 MG TABLET PO ONE (17:37)
--- NOTE | 2020-09-26 19:29 | EKG REPORT ---
SEVERITY:- NORMAL ECG - SINUS RHYTHM : Confirmed by: Ivonne Yanez MD 26-Sep-2020 19:28:19
== END 2020-09-26 17:42 | disposition home or self-care (01) ==
LOC: ER 13:59
DX: R05 Cough (principal); R07.81 Pleurodynia; R07.9 Chest pain, unspecified; R53.81 Other malaise; E78.00 Pure hypercholesterolemia, unspecified; I10 Essential (primary) hypertension; Z86.711 Personal history of pulmonary embolism; Z87.442 Personal history of urinary calculi
CPT/HCPCS: 93005; 99285; 81001; 87804; 71111; 93010; J3490

== ENCOUNTER → 2020-10-24 | Outpatient (CLI) | payer MEDICAID ==
--- NOTE | 2020-10-24 13:43 | WOMENS IMAGING REPORT ---
EXAM DESCRIPTION: BONE DENSITY HIP/SPINE IMAGES COMPLETED DATE/TIME: 10/24/2020 9:56 am REASON FOR STUDY: Z92.240 PERSONAL HISTORY OF INHALED STEROID THERAPY Z12.31 ENCNTR SCREEN MAMMOGRA M FOR MALIGNANT NEOPLASM OF HAMLET Z92.240 PERSONAL HISTORY OF INHALED STEROID THERAPY COMPARISON: 10/03/2014. TECHNIQUE: Dual-Energy X-ray Absorptiometry (DEXA) of the AP Spine and Hip. LIMITATIONS: None. FINDINGS: LUMBAR SPINE: The bone mineral density (BMD) measured from L1-L4 in the AP projection correlates with a T-score of -0.6, which is normal as defined by the World Health Organization. BMD Change vs Baseline: -9.2%. HIP: The bone mineral density (BMD) measured in the left hip correlates with a T-score of -2.6, which is o steoporosis as defined by the World Health Organization. BMD Change vs Baseline: -18.3%. 10 year Fracture Risk Assessment: Major Osteoporotic Fracture: Not available. Hip Fracture: Not available. IMPRESSION: 1. LUMBAR SPINE WHO CLASSIFICATION: NORMAL. 2. HIP WHO CLASSIFICATION: OSTEOPOROSIS. OVERALL ASSESSMENT: WHO CLASSIFICATION: OSTEOPOROSIS. COMMENT: The World Health Organization defines low BMD as follows: T-score: Normal: At or above -1.0 Osteopenia: Between -1.0 and -2.5 Osteoporosis: At or below -2.5 without fractures Established osteoporosis: At or below -2.5 with fractures In general, you may wish to consider: Diagnosis Treatment Follow-up DEXA Normal BMD Prevention 2-3 years Osteopenia Prevention/Therapy 1-2 years Osteoporosis Therapy Yearly TECHNICAL DOCUMENTATION: JOB ID: [id number] [employer]- All Rights Reserved Reading location - IP/workstation name: [email or web address]
--- NOTE | 2020-10-24 14:41 | WOMENS IMAGING REPORT ---
EXAM DESCRIPTION: 3D SCREENING MAMMO BILAT IMAGES COMPLETED DATE/TIME: 10/24/2020 9:56 am REASON FOR STUDY: Z12.31 ENCNTR SCREEN MAMMOGRAM FOR MALIGNANT NEOPLASM OF BREAST Z12.31 ENCNTR SCR EEN MAMMOGRAM FOR MALIGNANT NEOPLASM OF HAMLET Z92.240 PERSONAL HISTORY OF INHALED STEROID THERAPY COMPARISON: 09/16/2019, 09/14/2018, 08/11/2017 EXAM PARAMETERS: Views: Standard craniocaudal and mediolateral oblique views of each breast recorded using digital acquisition and breast tomosynthesis. Read with the assistance of CAD. .[facility] - [employer]ay Tester Version 9.2 LIMITATIONS: None. FINDINGS: No suspicious masses, suspicious calcifications or architectural distortion. No areas of c oncern. IMPRESSION: NEGATIVE MAMMOGRAM. BIRADS 1. BREAST DENSITY: b. There are scattered areas of fibroglandular density. BIRAD: ASSESSMENT: 1 NEGATIVE RECOMMENDATION: ROUTINE SCREENING COMMENT: The patient has been notified of the results by letter per SA requirements. Additional no tification policies are in place for contacting patient with suspicious or incomplete findings. Quality ID #[id number]: The [employer] recommends an annual screening mammogram for women aged 40 years or over. This facility utilizes a reminder system to ensure that all patients receive reminder letters, and/or direct phone calls for appointments. This includes reminders for routine scr eening mammograms, diagnostic mammograms, or other Breast Imaging Interventions when appropriate. Th is patient will be placed in the appropriate reminder system. TECHNICAL DOCUMENTATION: FINDING NUMBER: (1) ASSESSMENT: (1) JOB ID: [id number] 2010 [employer]- All Rights Reserved Reading location - IP/workstation name: [email or web address]
== END ==
LOC: WI 09:19
PROVIDERS: ATTEND Family Medicine
DX: Z12.31 Encounter for screening mammogram for malignant neoplasm of breast (principal); M81.0 Age-related osteoporosis without current pathological fracture; Z92.240 Personal history of inhaled steroid therapy
CPT/HCPCS: 77063; 77067; 77080

== ENCOUNTER → 2020-10-31 | Outpatient (CLI) | payer MEDICAID ==
--- NOTE | 2020-10-31 14:45 | RADIOLOGY REPORT (SQ) ---
EXAM DESCRIPTION: CT ABD/PELVIS ORAL ONLY IMAGES COMPLETED DATE/TIME: 10/31/2020 2:33 pm REASON FOR STUDY: (K57.20)DVTRCLI OF LG INT W PERFORATION AND ABSCESS W/O BLEEDING K57.20 DVTRCLI O F LG INT W PERFORATION AND ABSCESS W/O BLEED COMPARISON: 10/05/2019 TECHNIQUE: CT scan of the abdomen and pelvis performed without intravenous or oral contrast. Images reviewed with lung, soft tissue, and bone windows. Reconstructed coronal and sagittal MPR images revi ewed. All images stored on PACS. All CT scanners at this facility use dose modulation, iterative reconstruction, and/or weight based d osing when appropriate to reduce radiation dose to as low as reasonably achievable (ALARA). [facility]: Dose Right [facility]: CareDose [facility]: Dose Right [facility]: Teradose 4D [facility]: [employer] RADIATION DOSE: mGy. LIMITATIONS: None. FINDINGS: LOWER CHEST: Small nodule demonstrated on prior CT abdomen pelvis is not imaged on today's study. NON-CONTRASTED LIVER, SPLEEN, ADRENALS: Evaluation limited by lack of IV contrast. No identified sign ificant masses. PANCREAS: No masses. No peripancreatic inflammatory changes. GALLBLADDER: No identified stones by CT criteria. No inflammatory changes to suggest cholecystitis. RIGHT KIDNEY AND URETER: No suspicious masses. Assessment limited by lack of IV contrast. No signif icant calcifications. No hydronephrosis or hydroureter. LEFT KIDNEY AND URETER: No suspicious masses. Assessment limited by lack of IV contrast. No signifi cant calcifications. No hydronephrosis or hydroureter. AORTA AND RETROPERITONEUM: No aneurysm or dissection involving the abdominal aorta. Small partially calcified splenic artery aneurysm is unchanged. BOWEL AND PERITONEAL CAVITY: Scattered diverticuli. No acute diverticulitis. APPENDIX: Surgically absent. PELVIS, BLADDER, AND ABDOMINAL WALL:Prior anterior abdominal wall hernia repair with mesh in place. BONES: No significant findings. OTHER: No other significant finding. IMPRESSION: Scattered diverticuli. No acute diverticulitis. No focal inflammatory changes to expla in the left lower quadrant pain. COMMENT: Quality ID # [id number]: Final reports with documentation of one or more dose reduction techniques (e.g., Automated exposure control, adjustment of the mA and/or kV according to patient size, use of iterative reconstruction technique) TECHNICAL DOCUMENTATION: JOB ID: [id number] [employer]- All Rights Reserved Reading location - IP/workstation name: [email or web address]
== END ==
LOC: RAD 11:50
PROVIDERS: ATTEND Family Medicine
DX: K57.20 Diverticulitis of large intestine with perforation and abscess without bleeding (principal)
CPT/HCPCS: 74176

== ENCOUNTER → 2020-11-12 | Outpatient (CLI) | payer MEDICAID ==
[2020-11-12 15:37] LABS: ABSOLUTE BASOPHILS # (AUTO) 0.1 10^3/uL (0.0-0.2); ABSOLUTE EOSINOPHILS # (AUTO) 0.2 10^3/uL (0.0-0.6); ABSOLUTE LYMPHOCYTES (AUTO) 2.4 10^3/uL (0.5-4.7); ABSOLUTE MONOCYTES (AUTO) 0.5 10^3/uL (0.1-1.4); ABSOLUTE NEUT (AUTO) 4.2 10^3/uL (1.7-8.2); BASOPHILS % (AUTO) 0.9 % (0-2); EOSINOPHILS % (AUTO) 2.5 % (0-6); HEMATOCRIT 38.5 % (36.0-47.0); HEMOGLOBIN 12.8 g/dL (12.0-15.5); LYMPHOCYTES % (AUTO) 32.3 % (13-45); MEAN CORPUSCULAR HEMOGLOBIN 28.2 pg (27.0-33.4); MEAN CORPUSCULAR HGB CONC 33.3 g/dL (32.0-36.0); MEAN CORPUSCULAR VOLUME 85 fl (80-97); MONOCYTES % (AUTO) 7.3 % (3-13); PLATELET COUNT 286 10^3/uL (150-450); RED BLOOD COUNT 4.53 10^6/uL (3.72-5.28); RED CELL DISTRIBUTION WIDTH 15.5 % (11.5-14.0); TOTAL CELLS COUNTED % (AUTO) 100 %; WHITE BLOOD COUNT 7.4 10^3/uL (4.0-10.5)
[2020-11-12 15:43] LABS: ALBUMIN 3.8 g/dL (3.5-5.0); ALKALINE PHOSPHATASE 115 U/L (38-126); ANION GAP 7 (5-19); ASPARTATE AMINO TRANSFERASE 26 U/L (14-36); BILIRUBIN,DIRECT 0.3 mg/dL (0.0-0.4); BILIRUBIN,TOTAL 0.4 mg/dL (0.2-1.3); BLOOD UREA NITROGEN 12 mg/dL (7-20); CALCIUM 9.5 mg/dL (8.4-10.2); CARBON DIOXIDE 23 mmol/L (22-30); CHLORIDE 110 mmol/L (98-107); GLUCOSE 94 mg/dL (75-110); POTASSIUM 4.2 mmol/L (3.6-5.0); TOTAL PROTEIN 6.8 g/dL (6.3-8.2)
== END ==
LOC: OD 14:05
PROVIDERS: ATTEND Family Medicine
DX: R19.7 Diarrhea, unspecified (principal)
CPT/HCPCS: 36415; 80053; 85025